=== PATIENT | female | born 1990 | race Hispanic/Latino ===

== ENCOUNTER 2018-05-08 19:15 | Emergency (ER) | payer OTHER ==
[2018-05-08] MEDS ORDERED: KETOROLAC 30 MG/ML INJ ONE (19:53)
[2018-05-08] MEDS ORDERED: NA CHLORIDE 0.9% 1,000 ML ONE (19:53)
[2018-05-08 20:04] LABS: Absolute Lymphocytes (CBC) 2.1 K/uL (0.7-4.9); Absolute Monocytes 0.3 K/uL (0.1-1.3); Absolute Neutrophil 8.1 K/uL (1.8-8.0); Basophils % 0.7 % (0-1.3); Eosinophils % 0.2 % (0-4.4); Hematocrit 37.6 % (36.0-45.0); Lymphocytes % 20.1 % (15.3-44.8); MCH 26.9 pg (27.0-35.0); MCV 81.8 fL (80-100); MPV 9.1 fL (7.6-11.3); Monocytes % 3.2 % (3.3-12.3)
[2018-05-08 20:14] LABS: Urine Blood TRACE (NEG); Urine Glucose NEGATIVE (NEG); Urine Protein TRACE (NEG); Urine pH 5.5 (5.0-7.0)
[2018-05-08 20:14] LABS: Urine Bacteria <20 /HPF (<20); Urine Culture Reflex Order NOT NEEDED; Urine RBC <5 /HPF (NONE SEEN)
[2018-05-08 20:18] LABS: ALT/SGPT 27 U/L (12-78); AST/SGOT 18 U/L (15-37); Albumin 4.2 g/dL (3.4-5.0); Alkaline Phosphatase 73 U/L (45-117); Amylase Level 41 U/L (25-115); BUN Blood Urea Nitrogen 14 mg/dL (7-18); Bicarbonate 25 mmol/L (21-32); Bilirubin Direct 0.1 mg/dL (0-0.2); Bilirubin Total 0.6 mg/dL (0.2-1.0); Glucose Level 83 mg/dL (74-106); Lipase 92 U/L (73-393); Potassium 3.4 mmol/L (3.5-5.1); Protein, Total 7.8 g/dL (6.4-8.2); Sodium Level 141 mmol/L (136-145)
[2018-05-08] MEDS ORDERED: MORPHINE 4 MG/ML SYR ONE (20:29)
[2018-05-08] MEDS ORDERED: ONDANSETRON 4 MG/2 ML VIAL ONE (20:29)
[2018-05-08] MEDS ORDERED: POTASSIUM CL SA 10 MEQ TAB PO ONE (20:30)
--- NOTE | 2018-05-08 20:54 | RAD REPORT ---
EXAM DESCRIPTION: CT - Abdomen Pelvis W Contrast - 05/08/2018 8:37 pm CLINICAL HISTORY: Abdominal pain COMPARISON: CT September 2014 TECHNIQUE: Biphasic, helical CT imaging of the abdomen and pelvis was performed following 100 ml non -ionic IV contrast. Oral contrast was given. All CT scans are performed using dose optimization technique as appropriate and may include automated exposure control or mA/KV adjustment according to patient size. FINDINGS: No suspicious findings in the lung bases. No pericardial thickening or effusion. The liver, spleen, and pancreas show no suspicious findings. Gallbladder and biliary tree are also wi thout suspicious finding. Symmetric renal function is seen with no hydronephrosis or suspicious renal mass. No dilated bowel loops or bowel wall thickening. No appendicitis findings. A few small mesenteric lym ph nodes are present. No free air, free fluid or inflammatory stranding. No hernia, mass or bulky ly mphadenopathy. The urinary bladder is without significant finding. No adrenal abnormality. Uterus and ovaries show no suspicious findings. No suspicious bony findings. IMPRESSION: Contrast enhanced CT abdomen and pelvis showing no significant or suspicious finding.
--- NOTE | 2018-05-08 21:21 | ER ---
Nurse's Notes [facility] Name: Kathrine Yang Age: 27 yrs Sex: Female : 1990 Arrival Date: 05/08/2018 Time: 19:18 Bed 19 Private MD: Diagnosis: Acute back pain. Abdominal pain Presentation: 05/08 19:22 Presenting complaint: Patient states: "I have lower stomach pain, more so on the left aj1 side and it goes into my back for the past couple days." Also reports headache and nausea. Denies vomiting, diarrhea, fever, dysuria. Reports urinary frequency. States that she was seen in the ER at [facility] and diagnosed with ovarian cysts, she followed up with her SALES MANAGER [place] but he told her they were small and there isn't anything to do about them. Reports pain is worse when she is urinating. Transition of care: patient was not received from another setting of care. Onset of symptoms was May 06, 2018. Risk Assessment: Do you want to hurt yourself or someone else? Patient reports no desire to harm self or others. Initial Sepsis Screen: Does the patient meet any 2 criteria? No. Patient's initial sepsis screen is negative. Does the patient have a suspected source of infection? No. Patient's initial sepsis screen is negative. Care prior to arrival: None. 19:22 Method Of Arrival: Ambulatory aj1 19:22 Acuity: TATA 3 aj1 Triage Assessment: 19:25 General: Appears in no apparent distress. comfortable, Behavior is calm, cooperative, aj1 appropriate for age. Pain: Complains of pain in left low back, left lower quadrant and left inguinal area Pain does not radiate. Pain currently is 8 out of 10 on a pain scale. Quality of pain is described as stabbing, Pain began 2-3 days ago. Aggravated by urination. EENT: No signs and/or symptoms were reported regarding the EENT system. Neuro: Level of Consciousness is awake, alert, obeys commands, Oriented to person, place, time, situation. Cardiovascular: Patient's skin is warm and dry. Respiratory: Airway is patent Respiratory effort is even, unlabored, Respiratory pattern is regular, symmetrical. GI: Abdomen is non-distended. : Reports urgency, urinary frequency. Derm: Skin is pink, warm \\T\\ dry. normal. Musculoskeletal: Circulation, motion, and sensation intact. 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 - Social history:: Smoking status: Patient/guardian denies using tobacco. - Ebola Screening: : Patient denies travel to an Ebola-affected area in the 21 days before illness onset. Screenin:14 Abuse screen: Denies threats or abuse. Nutritional screening: No deficits noted. tl2 Tuberculosis screening: No symptoms or risk factors identified. Fall Risk None identified. Assessment: 20:23 Reassessment: Patient appears in no apparent distress at this time. No changes from tl2 previously documented assessment. Patient and/or family updated on plan of care and expected duration. Pain level reassessed. Patient is alert, oriented x 3, equal unlabored respirations, skin warm/dry/pink. Awaiting CT. 21:35 GI: Bowel sounds present X 4 quads. Abd is soft and non tender X 4 quads. Abdomen is tl1 tender to palpation in suprapubic area and left lower quadrant and left inguinal area. Vital Signs: 19:25 BP 128 / 80; Pulse 88; Resp 18; Temp 98.0(O); Pulse Ox 100% on R/A; Weight 86.18 kg aj1 (R); Height 5 ft. 3 in. (160.02 cm) (R); Pain 8/10; 20:21 BP 121 / 72; Pulse 70; Resp 18; Pulse Ox 100% on R/A; tl2 21:14 BP 131 / 83; Pulse 77; Resp 18; Pulse Ox 100% on R/A; tl2 19:25 Body Mass Index 33.66 (86.18 kg, 160.02 cm) aj1 ED Course: 19:18 Patient arrived in ED. ds1 19:25 Triage completed. aj1 19:25 Arm band placed on Patient placed in an exam room. aj1 19:31 Mohit Faria MD is Attending Physician. pkl 19:55 Delmis Riley RN is Primary Nurse. tl1 19:55 No provider procedures requiring assistance completed. Inserted saline lock: 20 gauge tl1 in right antecubital area, using aseptic technique. Blood collected. 20:37 CT Abd/Pelvis - W/Contrast In Process Unspecified. EDMS 21:15 Patient has correct armband on for positive identification. Placed in gown. Bed in low tl2 position. Call light in reach. Side rails up X 1. Adult w/ patient. 21:35 IV discontinued, intact, bleeding controlled, No redness/swelling at site. Pressure tl1 dressing applied. Administered Medications: 20:01 Drug: TORadol 30 mg Route: IVP; Infused Over: 2 mins; Site: right antecubital; tl1 21:36 Follow up: Response: No adverse reaction; Marked relief of symptoms; Pain is decreased tl1 20:02 Drug: NS 0.9% 1000 ml Route: IV; Rate: 1000 ml; Site: right antecubital; tl1 21:37 Follow up: IV Status: Completed infusion tl1 20:45 Drug: K-Dur 20 mEq Route: PO; tl1 21:36 Follow up: Response: No adverse reaction; No change in condition tl1 20:45 Drug: morphine 2 mg Route: IVP; Infused Over: 2 mins; Site: right antecubital; tl1 21:36 Follow up: Response: No adverse reaction; Marked relief of symptoms; Pain is decreased tl1 20:45 Drug: Zofran 4 mg Route: IVP; Infused Over: 2 mins; Site: right antecubital; tl1 21:36 Follow up: Response: No adverse reaction; Marked relief of symptoms tl1 Outcome: 21:20 Discharge ordered by . juan 21:34 Discharged to home ambulatory, with family. tl1 21:34 Condition: stable 21:34 Discharge instructions given to patient, Instructed on discharge instructions, follow up and referral plans. medication usage, Demonstrated understanding of instructions, follow-up care, medications, Prescriptions given X 1. 21:39 Patient left the ED. tl1 Signatures: Dispatcher [employer] EDMS Minda Rosenthal RN RN aj1 Mohit Faria MD MD pkl [place], Demi ds1 Delmis Riley RN RN tl1 Mary Jo Lancaster RN RN tl2 Corrections: (The following items were deleted from the chart) 19:28 19:22 Presenting complaint: Patient states: "I have lower stomach pain, more so on the aj1 left side and it goes into my back for the past couple days." Also reports headache and nausea. Denies vomiting, diarrhea, fever, dysuria. Reports urinary frequency. aj1
--- NOTE | 2018-05-08 21:21 | EDPHYS ---
Physician Documentation [facility] Name: Kathrine Yang Age: 27 yrs Sex: Female : 1990 Arrival Date: 05/08/2018 Time: 19:18 Bed 19 Private MD: ED Physician Mohit Faria HPI: 05/08 19:45 This 27 yrs old Female presents to ER via Ambulatory with complaints of pkl Abdominal Pain, Back Pain. 19:45 The patient presents with pain that is acute. The symptoms are located in the left pkl flank. Onset: The symptoms/episode began/occurred 3 day(s) ago. The pain radiates to the left lower quadrant. Associated signs and symptoms: The patient has no apparent associated signs or symptoms. The patient has experienced similar episodes in the past, a few times. 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 - Social history:: Smoking status: Patient/guardian denies using tobacco. - Ebola Screening: : Patient denies travel to an Ebola-affected area in the 21 days before illness onset. ROS: 19:45 Eyes: Negative for injury, pain, redness, and discharge, ENT: Negative for injury, pkl pain, and discharge, Neck: Negative for injury, pain, and swelling, Cardiovascular: Negative for chest pain, palpitations, and edema, Respiratory: Negative for shortness of breath, cough, wheezing, and pleuritic chest pain. 19:45 Abdomen/GI: Positive for abdominal pain, of the left lower quadrant. 19:45 Back: Positive for flank pain, on the left. 19:45 : Positive for urinary frequency, burning with urination. 19:45 MS/extremity: Negative for acute changes. 19:45 Skin: Negative for rash. 19:45 Neuro: Negative for altered mental status. Exam: 19:45 Head/Face: Normocephalic, atraumatic. Eyes: Pupils equal round and reactive to light, pkl extra-ocular motions intact. Lids and lashes normal. Conjunctiva and sclera are non-icteric and not injected. Cornea within normal limits. Periorbital areas with no swelling, redness, or edema. ENT: Nares patent. No nasal discharge, no septal abnormalities noted. Tympanic membranes are normal and external auditory canals are clear. Oropharynx with no redness, swelling, or masses, exudates, or evidence of obstruction, uvula midline. Mucous membranes moist. Neck: Trachea midline, no thyromegaly or masses palpated, and no cervical lymphadenopathy. Supple, full range of motion without nuchal rigidity, or vertebral point tenderness. No Meningismus. Chest/axilla: Normal chest wall appearance and motion. Nontender with no deformity. No lesions are appreciated. Cardiovascular: Regular rate and rhythm with a normal S1 and S2. No gallops, murmurs, or rubs. Normal PMI, no JVD. No pulse deficits. Respiratory: Lungs have equal breath sounds bilaterally, clear to auscultation and percussion. No rales, rhonchi or wheezes noted. No increased work of breathing, no retractions or nasal flaring. Abdomen/GI: Soft, non-tender, with normal bowel sounds. No distension or tympany. No guarding or rebound. No evidence of tenderness throughout. 19:45 Back: pain, that is moderate, of the left flank. 19:45 : Exam negative for acute changes. 19:45 Musculoskeletal/extremity: Exam is negative for acute changes. 19:45 Skin: Exam negative for rash. 19:45 Neuro: Orientation: is normal, Mentation: is normal, Cranial nerves: grossly normal, Motor: is normal. Vital Signs: 19:25 BP 128 / 80; Pulse 88; Resp 18; Temp 98.0(O); Pulse Ox 100% on R/A; Weight 86.18 kg aj1 (R); Height 5 ft. 3 in. (160.02 cm) (R); Pain 8/10; 20:21 BP 121 / 72; Pulse 70; Resp 18; Pulse Ox 100% on R/A; tl2 21:14 BP 131 / 83; Pulse 77; Resp 18; Pulse Ox 100% on R/A; tl2 19:25 Body Mass Index 33.66 (86.18 kg, 160.02 cm) [facility] MDM: 19:31 Patient medically screened. pk 21:19 Data reviewed: vital signs, nurses notes, lab test result(s), radiologic studies, CT pkl scan. 05/08 19:42 Order name: Urine Dipstick--Ancillary (enter results); Complete Time: 20: eb 05/08 19:42 Order name: Urine --Ancillary (enter results); Complete Time: 20: eb 05/08 19:45 Order name: Amylase, Serum; Complete Time: 20:26 pkl 05/08 19:45 Order name: Basic Metabolic Panel; Complete Time: 20:26 pkl 05/08 19:45 Order name: CBC with Diff; Complete Time: 20:26 pkl 05/08 19:45 Order name: Creatinine for Radiology; Complete Time: 20:26 pkl 05/08 19:45 Order name: Hepatic Function; Complete Time: 20:26 pkl 05/08 19:45 Order name: Lipase; Complete Time: 20:26 pkl 05/08 19:45 Order name: Urine Microscopic Only; Complete Time: 20:26 pkl 05/08 20:23 Order name: CT Abd/Pelvis - W/Contrast; Complete Time: 21:16 tl1 05/08 19:45 Order name: IV Saline Lock; Complete Time: 19:49 pkl 05/08 19:45 Order name: Labs collected and sent; Complete Time: 19:49 pkl 05/08 19:45 Order name: Urine Dipstick-Ancillary (obtain specimen); Complete Time: 19:45 pkl Administered Medications: 20:01 Drug: TORadol 30 mg Route: IVP; Infused Over: 2 mins; Site: right antecubital; tl1 21:36 Follow up: Response: No adverse reaction; Marked relief of symptoms; Pain is decreased tl1 20:02 Drug: NS 0.9% 1000 ml Route: IV; Rate: 1000 ml; Site: right antecubital; tl1 21:37 Follow up: IV Status: Completed infusion tl1 20:45 Drug: K-Dur 20 mEq Route: PO; tl1 21:36 Follow up: Response: No adverse reaction; No change in condition tl1 20:45 Drug: morphine 2 mg Route: IVP; Infused Over: 2 mins; Site: right antecubital; tl1 21:36 Follow up: Response: No adverse reaction; Marked relief of symptoms; Pain is decreased tl1 20:45 Drug: Zofran 4 mg Route: IVP; Infused Over: 2 mins; Site: right antecubital; tl1 21:36 Follow up: Response: No adverse reaction; Marked relief of symptoms tl1 Disposition: 05/08/18 21:20 Discharged to Home. Impression: Acute back pain. Abdominal pain. - Condition is Stable. - Prescriptions for Ultram 50 mg Oral Tablet - take 1 tablet by ORAL route every 8 hours As needed; 20 tablet. - Medication Reconciliation Form, Thank You Letter, Antibiotic Education, Prescription Opioid Use form. - Follow up: Private Physician; When: 2 - 3 days; Reason: Re-evaluation by your physician. - Problem is new. - Symptoms have improved. Signatures: Dispatcher [employer] EDMinda Canseco RN RN aj1 Mohit Faria MD MD pkl Delmis Riley RN RN tl1 Corrections: (The following items were deleted from the chart) 21:39 21:20 05/08/2018 21:20 Discharged to Home. Impression: Acute back pain. Abdominal pain. tl1 Condition is Stable. Forms are Medication Reconciliation Form, Thank You Letter, Antibiotic Education, Prescription Opioid Use. Follow up: Private Physician; When: 2 - 3 days; Reason: Re-evaluation by your physician. Problem is new. Symptoms have improved. pkl
[2018-05-08 21:43] VITALS: TEMP 98; O2SAT 100
[2018-05-08 21:45] VITALS: BP 131/83
== END 2018-05-08 21:39 | disposition home or self-care (01) ==
LOC: ER 19:15
DX: M54.9 Dorsalgia, unspecified (principal)
CPT/HCPCS: 36415; 74177; 80048; 80076; 81003; 81015; 81025; 82150; 83690; 85025; 96361; 96374; 96375; 99284; J2405; J7030; Q9967

== ENCOUNTER 2018-06-26 03:15 | Emergency (ER) | payer OTHER ==
[2018-06-26] MEDS ORDERED: ONDANSETRON 4 MG/2 ML VIAL ONE (03:50)
[2018-06-26] MEDS ORDERED: FAMOTIDINE 20 MG/2 ML VIAL IV ONE (03:50)
[2018-06-26 04:00] LABS: Urine Blood TRACE (NEG); Urine Glucose NEGATIVE (NEG); Urine Protein NEGATIVE (NEG); Urine Specific Gravity >1.030 (1.005-1.030); Urine pH 6.5 (5.0-7.0)
[2018-06-26 04:03] LABS: Absolute Lymphocytes (CBC) 2.3 K/uL (0.7-4.9); Absolute Monocytes 0.4 K/uL (0.1-1.3); Basophils % 0.8 % (0-1.3); Eosinophils % 1.4 % (0-4.4); Hematocrit 35.8 % (36.0-45.0); MCH 27.7 pg (27.0-35.0); MCV 82.5 fL (80-100); MPV 8.9 fL (7.6-11.3); Monocytes % 4.3 % (3.3-12.3); RBC Red Blood Cell Count 4.34 M/uL (3.86-4.86)
[2018-06-26 04:23] LABS: ALT/SGPT 29 U/L (12-78); AST/SGOT 21 U/L (15-37); Albumin 3.7 g/dL (3.4-5.0); Alkaline Phosphatase 70 U/L (45-117); BUN Blood Urea Nitrogen 16 mg/dL (7-18); Bicarbonate 27 mmol/L (21-32); Bilirubin Direct 0.1 mg/dL (0-0.2); Bilirubin Total 0.5 mg/dL (0.2-1.0); Glucose Level 100 mg/dL (74-106); Lipase 141 U/L (73-393); Potassium 3.4 mmol/L (3.5-5.1); Protein, Total 7.2 g/dL (6.4-8.2); Sodium Level 140 mmol/L (136-145)
[2018-06-26] MEDS ORDERED: SUCRALFATE 1GM/10ML UCUP ONE (04:52)
[2018-06-26 05:51] LABS: Urine Bacteria <20 /HPF (<20); Urine Culture Reflex Order NOT NEEDED; Urine RBC <5 /HPF (NONE SEEN)
--- NOTE | 2018-06-26 05:55 | ER ---
Nurse's Notes [facility] Name: Kathrine Yang Age: 27 yrs Sex: Female : 1990 Arrival Date: 06/26/2018 Time: 03:17 Bed 5 Private MD: Diagnosis: Epigastric pain Presentation: 06/26 03:24 Presenting complaint: Patient states: Complaining of epigastric pain, nausea and ea vomiting x 1. Pain started at about 2 AM. Transition of care: patient was not received from another setting of care. Onset of symptoms was June 26, 2018. Risk Assessment: Do you want to hurt yourself or someone else? Patient reports no desire to harm self or others. Initial Sepsis Screen: Does the patient meet any 2 criteria? No. Patient's initial sepsis screen is negative. Does the patient have a suspected source of infection? No. Patient's initial sepsis screen is negative. Care prior to arrival: None. 03:24 Method Of Arrival: Ambulatory ea 03:24 Acuity: TATA 3 ea Triage Assessment: 03:28 General: Appears uncomfortable, Behavior is calm, cooperative, appropriate for age. ea Pain: Complains of pain in epigastric area. GI: Reports nausea, vomiting. 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 - Social history:: Smoking status: Patient/guardian denies using tobacco. - Ebola Screening: : No symptoms or risks identified at this time. Screenin:33 Abuse screen: Denies threats or abuse. Nutritional screening: No deficits noted. ea Tuberculosis screening: No symptoms or risk factors identified. Fall Risk None identified. Assessment: 03:33 General: Appears uncomfortable, Behavior is calm, cooperative, appropriate for age. ea Pain: Complains of pain in abdomen and epigastric area Pain currently is 8 out of 10 on a pain scale. Quality of pain is described as aching. Neuro: Level of Consciousness is awake, alert, obeys commands, Oriented to person, place, time, situation. Cardiovascular: Patient's skin is warm and dry. Respiratory: Airway is patent Respiratory effort is even, unlabored, Respiratory pattern is regular, symmetrical, Breath sounds are clear bilaterally. GI: Bowel sounds present X 4 quads. Abdomen is tender to palpation in right upper quadrant. :. : Urine is clear. Derm: Skin is pink, warm \T\ dry. 04:15 Reassessment: Patient and/or family updated on plan of care and expected duration. Pain ea level reassessed. Patient is alert, oriented x 3, equal unlabored respirations, skin warm/dry/pink. 05:21 Reassessment: Patient and/or family updated on plan of care and expected duration. Pain ea level reassessed. Patient is alert, oriented x 3, equal unlabored respirations, skin warm/dry/pink. 06:14 Reassessment: Patient and/or family updated on plan of care and expected duration. Pain ea level reassessed. Patient is alert, oriented x 3, equal unlabored respirations, skin warm/dry/pink. Discharge instructions given to patient, verbalized the understanding of instruction. Vital Signs: 03:29 BP 126 / 81; Pulse 74; Resp 18; Temp 98.9; Pulse Ox 99% on R/A; Weight 81.65 kg; Height ea 5 ft. 3 in. (160.02 cm); Pain 8/10; 04:45 BP 120 / 78; Pulse 70; Resp 18; Pulse Ox 98% on R/A; ea 05:30 BP 118 / 68; Pulse 67; Resp 18; Pulse Ox 98% on R/A; ea 06:17 BP 122 / 70; Pulse 68; Resp 18; Temp 98(O); Pulse Ox 99% on R/A; Pain 5/10; ea 03:29 Body Mass Index 31.89 (81.65 kg, 160.02 cm) ea ED Course: 03:17 Patient arrived in ED. ds1 03:20 Austin Cain MD is Attending Physician. gs 03:24 Maggy Lux RN is Primary Nurse. ea 03:26 Triage completed. ea 03:30 Urine collected: clean catch specimen, clear. lp1 03:33 Arm band placed on right wrist. ea 03:33 Patient has correct armband on for positive identification. Bed in low position. Call ea light in reach. Side rails up X2. 03:44 Inserted saline lock: 20 gauge in right antecubital area, using aseptic technique. lp1 Blood collected. 03:45 Inserted saline lock: 20 gauge in left antecubital area, using aseptic technique. ea 06:15 No provider procedures requiring assistance completed. IV discontinued, intact, ea bleeding controlled, No redness/swelling at site. Pressure dressing applied. Administered Medications: 03:58 Drug: Pepcid 20 mg Route: IVP; Site: left antecubital; ea 04:37 Follow up: Response: No adverse reaction ea 03:59 Drug: Zofran 4 mg Route: IVP; Site: left antecubital; ea 04:36 Follow up: Response: No adverse reaction; Marked relief of symptoms ea 05:20 Drug: CarafATE 1 grams Route: PO; ea 06:18 Follow up: Response: No adverse reaction; Pain is decreased ea Outcome: 05:54 Discharge ordered by . gs 06:17 Condition: improved ea 06:17 Discharge instructions given to patient, Instructed on discharge instructions, follow up and referral plans. Demonstrated understanding of instructions, follow-up care, medications, Prescriptions given X 1. 06:19 Discharged to home ambulatory, with family. ea 06:20 Patient left the ED. ea Signatures: Chen Alcantar ds1 Sue Collins RN RN lp1 Maggy Lux RN RN Austin Peralta MD MD
--- NOTE | 2018-06-26 05:55 | EDPHYS ---
Physician Documentation [facility] Name: Kathrine Yang Age: 27 yrs Sex: Female : 1990 Arrival Date: 06/26/2018 Time: 03:17 Bed 5 Private MD: ED Physician Austin Cain HPI: 06/26 05:58 This 27 yrs old Female presents to ER via Ambulatory with complaints of gs Abdominal Pain. 05:58 The patient presents with abdominal pain in the epigastric area. Onset: The gs symptoms/episode began/occurred acutely, just prior to arrival. The symptoms do not radiate. Associated signs and symptoms: Pertinent positives: nausea and vomiting. The symptoms are described as burning, sharp. Modifying factors: The symptoms are alleviated by nothing, the symptoms are aggravated by nothing. Severity of pain: At its worst the pain was moderate in the emergency department the pain has improved markedly. The patient has not experienced similar symptoms in the past. 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 - Social history:: Smoking status: Patient/guardian denies using tobacco. - Ebola Screening: : No symptoms or risks identified at this time. ROS: 05:58 All other systems are negative. gs Exam: 05:58 Head/Face: Normocephalic, atraumatic. Eyes: Pupils equal round and reactive to light, gs extra-ocular motions intact. Lids and lashes normal. Conjunctiva and sclera are non-icteric and not injected. Cornea within normal limits. Periorbital areas with no swelling, redness, or edema. ENT: Nares patent. No nasal discharge, no septal abnormalities noted. Tympanic membranes are normal and external auditory canals are clear. Oropharynx with no redness, swelling, or masses, exudates, or evidence of obstruction, uvula midline. Mucous membranes moist. Neck: Trachea midline, no thyromegaly or masses palpated, and no cervical lymphadenopathy. Supple, full range of motion without nuchal rigidity, or vertebral point tenderness. No Meningismus. Chest/axilla: Normal chest wall appearance and motion. Nontender with no deformity. No lesions are appreciated. Cardiovascular: Regular rate and rhythm with a normal S1 and S2. No gallops, murmurs, or rubs. Normal PMI, no JVD. No pulse deficits. Respiratory: Lungs have equal breath sounds bilaterally, clear to auscultation and percussion. No rales, rhonchi or wheezes noted. No increased work of breathing, no retractions or nasal flaring. Back: No spinal tenderness. No costovertebral tenderness. Full range of motion. Skin: Warm, dry with normal turgor. Normal color with no rashes, no lesions, and no evidence of cellulitis. MS/ Extremity: Pulses equal, no cyanosis. Neurovascular intact. Full, normal range of motion. Neuro: Awake and alert, GCS 15, oriented to person, place, time, and situation. Cranial nerves II-XII grossly intact. Motor strength 5/5 in all extremities. Sensory grossly intact. Cerebellar exam normal. Normal gait. 05:58 Constitutional: The patient appears alert, awake, uncomfortable. 05:58 Abdomen/GI: Palpation: mild abdominal tenderness, in the epigastric area. Vital Signs: 03:29 BP 126 / 81; Pulse 74; Resp 18; Temp 98.9; Pulse Ox 99% on R/A; Weight 81.65 kg; Height ea 5 ft. 3 in. (160.02 cm); Pain 8/10; 04:45 BP 120 / 78; Pulse 70; Resp 18; Pulse Ox 98% on R/A; ea 05:30 BP 118 / 68; Pulse 67; Resp 18; Pulse Ox 98% on R/A; ea 06:17 BP 122 / 70; Pulse 68; Resp 18; Temp 98(O); Pulse Ox 99% on R/A; Pain 5/10; ea 03:29 Body Mass Index 31.89 (81.65 kg, 160.02 cm) ea MDM: 03:52 Patient medically screened. 05:58 Differential diagnosis: gastritis, gastroesophageal reflux disease, non-specific abd gs pain, pancreatitis. Data reviewed: vital signs, nurses notes. Response to treatment: the patient's symptoms have resolved after treatment, and as a result, I will discharge patient. 06/26 03:36 Order name: Basic Metabolic Panel 06/26 03:36 Order name: CBC with Diff; Complete Time: 04:29 06/26 03:36 Order name: Hepatic Function 06/26 03:36 Order name: Lipase; Complete Time: 04:29 06/26 03:36 Order name: Urine Microscopic Only; Complete Time: 06:00 06/26 03:36 Order name: Basic Metabolic Panel; Complete Time: 04:29 [facility] 06/26 03:36 Order name: Liver (Hepatic) Function; Complete Time: 04:29 [facility] 06/26 03:43 Order name: Urine Dipstick--Ancillary (enter results) nv 06/26 03:43 Order name: Urine --Ancillary (enter results) nv 06/26 03:43 Order name: Urine Dipstick-Ancillary; Complete Time: 04:29 [facility] 06/26 03:43 Order name: Urine --Ancillary; Complete Time: 04:29 [facility] 06/26 03:36 Order name: IV Saline Lock; Complete Time: 03:47 06/26 03:36 Order name: Labs collected and sent; Complete Time: 03:47 06/26 03:36 Order name: Urine Dipstick-Ancillary (obtain specimen); Complete Time: 03:37 06/26 03:36 Order name: Urine Test (obtain specimen); Complete Time: 03:37 gs Administered Medications: 03:58 Drug: Pepcid 20 mg Route: IVP; Site: left antecubital; ea 04:37 Follow up: Response: No adverse reaction ea 03:59 Drug: Zofran 4 mg Route: IVP; Site: left antecubital; ea 04:36 Follow up: Response: No adverse reaction; Marked relief of symptoms ea 05:20 Drug: CarafATE 1 grams Route: PO; ea 06:18 Follow up: Response: No adverse reaction; Pain is decreased ea Disposition: 06/26/18 05:54 Discharged to Home. Impression: Epigastric pain. - Condition is Stable. - Discharge Instructions: Abdominal Pain, Adult. - Prescriptions for Pepcid 20 mg Oral Tablet - take 1 tablet by ORAL route every 12 hours for 10 days; 20 tablet. - Work release form, Medication Reconciliation Form, Thank You Letter, Antibiotic Education, Prescription Opioid Use form. - Follow up: Private Physician; When: 2 - 3 days; Reason: Re-evaluation by your physician. Signatures: Dispatcher [employer] [facility] Maggy Lux, RN RN Austin Peralta MD MD gs Corrections: (The following items were deleted from the chart) 06:20 05:54 06/26/2018 05:54 Discharged to Home. Impression: Epigastric pain. Condition is ea Stable. Forms are Medication Reconciliation Form, Thank You Letter, Antibiotic Education, Prescription Opioid Use. Follow up: Private Physician; When: 2 - 3 days; Reason: Re-evaluation by your physician. gs
[2018-06-26 06:41] VITALS: BP 122/70; TEMP 98; O2SAT 99
== END 2018-06-26 06:20 | disposition home or self-care (01) ==
LOC: ER 03:15
DX: R10.13 Epigastric pain (principal)
CPT/HCPCS: 36415; 80048; 80076; 81003; 81015; 81025; 83690; 85025; 96374; 96375; 99284; J2405

== ENCOUNTER 2018-07-30 11:40 | Day surgery (SDC) | payer OTHER ==
[2018-07-30] MEDS ORDERED: CEFOXITIN/SWI 1gm 1 GM/10 ML SYR ONE (11:41)
[2018-07-30] MEDS: Ringers Lactate 1,000 ML IV ONE ×2 (11:50→12:17)
[2018-07-30 11:51] LABS: Absolute Lymphocytes (CBC) 2.3 K/uL (0.7-4.9); Absolute Monocytes 0.3 K/uL (0.1-1.3); Absolute Neutrophil 5.7 K/uL (1.8-8.0); Basophils % 0.8 % (0-1.3); Eosinophils % 0.8 % (0-4.4); Hematocrit 39.3 % (36.0-45.0); MCH 27.8 pg (27.0-35.0); MCV 83.2 fL (80-100); MPV 9.2 fL (7.6-11.3); Monocytes % 3.4 % (3.3-12.3); RBC Red Blood Cell Count 4.72 M/uL (3.86-4.86)
[2018-07-30 11:52] LABS: Specific Gravity >= 1.030 (1.005-1.030)
[2018-07-30] MEDS ORDERED: FENTANYL CITR 100 MCG/2 ML ONE ×2 (11:57→12:40)
[2018-07-30] MEDS ORDERED: PROPOFOL 200 MG/20 ML VIAL IV ONE (11:57)
[2018-07-30] MEDS ORDERED: MIDAZOLAM HCL 2 MG/2 ML INJ ONE (11:57)
[2018-07-30] MEDS ORDERED: ROCURONIUM 50 MG/5 ML VIAL IV ONE (11:57)
[2018-07-30] MEDS ORDERED: LIDOCAINE 1% MPF 2 ML AMPULE ONE (11:58)
[2018-07-30 12:09] LABS: ALT/SGPT 53 U/L (12-78); AST/SGOT 30 U/L (15-37); Albumin 3.9 g/dL (3.4-5.0); Alkaline Phosphatase 82 U/L (45-117); Amylase Level 50 U/L (25-115); BUN Blood Urea Nitrogen 9 mg/dL (7-18); Bicarbonate 27 mmol/L (21-32); Bilirubin Direct 0.1 mg/dL (0-0.2); Bilirubin Total 0.6 mg/dL (0.2-1.0); Glucose Level 98 mg/dL (74-106); Lipase 129 U/L (73-393); Potassium 3.9 mmol/L (3.5-5.1); Protein, Total 7.8 g/dL (6.4-8.2); Sodium Level 140 mmol/L (136-145)
[2018-07-30] MEDS ORDERED: DEXAMETHASONE 10 MG/ML VIAL ONE (12:36)
[2018-07-30] MEDS ORDERED: NEOSTIGMINE 1 MG/ML -5 ML SYRINGE ONE (13:02)
[2018-07-30] MEDS ORDERED: GLYCOPYRROLATE 0.2 MG/ML SYR ONE (13:02)
--- NOTE | 2018-07-30 13:16 | P.BOP ---
Preoperative diagnosis: acute cholecystitis, RUQ pain, symptomatic cholelithiasis Postoperative diagnosis: same Primary procedure: Laparoscopic cholecystectomy Estimated blood loss: <10cc Specimen: gb Findings: as above Complications: None Transferred to: Recovery Room Condition: Good
[2018-07-30] MEDS: MEPERIDINE HCL 50 MG/ML AMP ONE ×5 (13:17→13:51)
[2018-07-30] MEDS ORDERED: Ringers Lactate 1,000 ML IV ONE (13:52)
[2018-07-30] MEDS: MIDAZOLAM HCL 2 MG/2 ML INJ ONE ×2 (13:58→14:15)
[2018-07-30] MEDS: FENTANYL CITR 100 MCG/2 ML ONE ×3 (14:09→14:25)
[2018-07-30] MEDS ORDERED: CODEINE 30MG/APAP 300MG TAB ONE (15:15)
[2018-07-30 16:44] VITALS: TEMP 98.5
[2018-07-30 16:47] VITALS: BP 118/53; O2SAT 97
--- NOTE | 2018-07-31 00:53 | OP ---
Date of Procedure: 07/30/2018 Surgeon: Josh Dixon MD Preoperative Diagnoses: Acute cholecystitis, right upper quadrant pain, and symptomatic cholelithias is. Postoperative Diagnoses: Acute cholecystitis, right upper quadrant pain, and symptomatic cholelithia sis. Procedure: Laparoscopic cholecystectomy. Specimen: Gallbladder. Anesthesia: General plus local. Complications: None. Indications: This is the case of a 27-year-old patient, comes to us with above diagnosis. Fully exp lained the benefits, alternatives, and risks of laparoscopic, possible open cholecystectomy which inc lude but are not limited to infection, bleeding, damage to adjacent structures, anesthesia complicati on, choledocholithiasis, bile leak, pancreatitis, CA, and even . She also understands this may not relieve any symptoms, she might need more than one surgical intervention. She understood and sig zak a consent. Description Of Procedure: The patient was brought to the operating room and placed in a position. A nesthesia was done without complication. Abdominal area was prepped and draped in usual sterile fash ion. Marcaine 0.5% was injected for local anesthetic, followed by sharp incision of the skin in the infraumbilical region. The incision was carried down to fascia, which was opened under direct vision . The peritoneum was encountered, opened under direct vision. Vicryl #1 was placed inside the fasci a. Malik trocar was carefully introduced. Pneumoperitoneum was obtained. After that, I placed 2 m ore trocars, 5 mm each one of them, in the right upper quadrant under direct visualization. The gall bladder looked inflamed and distended, so we had to put an Endo needle under direct visualization int o the fundus of the gallbladder, and aspirated the gallbladder. It was removed under direct visualiz ation. A grasper was placed in the fundus of the gallbladder, another grasper in the infundibulum, r etracted the gallbladder in the inferolateral fashion exposing the triangle of Calot, obtaining criti barbara view of safety. The cystic duct and cystic artery were clearly isolated free circumferentially a nd a connection between those and the gallbladder was clearly identified. I proceeded to ligate thos e by using at least 3 clips proximal, 1 clip distal, ligation in middle. The same was done with the cystic artery. No bile leak. No bleeding. The gallbladder was removed from the liver using Bovie c auterizer and removed from abdominal cavity using an EndoCatch through the umbilical incision. The a corrie was inspected once again. Gallbladder fossa was intact with no bleeding, no bile leak. Clips we re intact. At that moment, I proceeded to remove the trocars under direct vision, deflated pneumoper itoneum, and closed the fascia with #1 Vicryl, irrigated subcutaneous tissue, closed that with 3-0 ch romic, and skin in subcuticular fashion with 3-0 chromic and Steri-Strip on top. Sponge count and in strument counts were correct. The patient tolerated the procedure well. The patient was sent to [facility] in stable condition. DIAMOND/YOANDY Voice ID: [id number] Report ID: [id number]
--- NOTE | 2018-07-31 00:59 | DS ---
Date of Discharge: 07/30/2018 Diagnoses: Acute cholecystitis, right upper quadrant pain, and symptomatic cholelithiasis. Procedure: Laparoscopic cholecystectomy. Disposition: Home. Activity: As tolerated. No heavy lifting. Followup: Follow up in my office in 1 week. Call for appointment on [phone]. Keep the area dry fo r 48 hours, then may shower. Keep Steri-Strip intact. Medications: See orders. DIAMOND/YOANDY Voice ID: [id number] Report ID: [id number]
== END 2018-07-30 16:41 | disposition home or self-care (01) ==
LOC: OR 11:40
PROVIDERS: ATTEND Surgery
PROC: 0FT44ZZ Resection of Gallbladder, Percutaneous Endoscopic Approach (ICD-10-PCS; principal; 2018-07-30 13:30)
DX: K80.12 Calculus of gallbladder with acute and chronic cholecystitis without obstruction (principal); Z83.3 Family history of diabetes mellitus; Z82.49 Family history of ischemic heart disease and other diseases of the circulatory system
CPT/HCPCS: 36415; 80048; 80076; 81025; 82150; 83690; 85025; 88304; J1100; J2001; J2175; J2250; J2710; J3010

== ENCOUNTER 2019-09-03 03:49 | Emergency (ER) | payer OTHER, SELFPAY ==
[2019-09-03] MEDS ORDERED: NA CHLORIDE 0.9% 1,000 ML ONE ×2 (04:22→07:40)
[2019-09-03] MEDS ORDERED: ONDANSETRON 4 MG/2 ML VIAL ONE (04:22)
[2019-09-03 04:47] LABS: Absolute Lymphocytes (CBC) 1.8 K/uL (0.7-4.9); Basophils % 0.4 % (0-1.3); Hematocrit 39.9 % (36.0-45.0); Lymphocytes % 14.6 % (15.3-44.8); MPV 9.1 fL (7.6-11.3); RBC Red Blood Cell Count 4.83 M/uL (3.86-4.86)
[2019-09-03 05:09] LABS: Albumin 4.2 g/dL (3.4-5.0); Bilirubin Direct 0.1 mg/dL (0-0.2); Bilirubin Total 0.5 mg/dL (0.2-1.0); Potassium 3.6 mmol/L (3.5-5.1); Protein, Total 8.3 g/dL (6.4-8.2)
[2019-09-03] MEDS ORDERED: METOCLOPRAMIDE 10 MG/2mL INJ ONE (05:47)
[2019-09-03] MEDS ORDERED: PROMETHAZINE 25 MG/ML VIAL ONE (07:40)
[2019-09-03] MEDS ORDERED: KETOROLAC 30 MG/ML INJ ONE (07:40)
--- NOTE | 2019-09-03 08:23 | RAD REPORT ---
EXAM DESCRIPTION: CT - Abdomen Pelvis W Contrast - 09/03/2019 8:06 am CLINICAL HISTORY: Abdominal pain COMPARISON: 2017 TECHNIQUE: Computed axial tomography of the abdomen pelvis was obtained. 100 cc Isovue-300 was admin istered intravenously. Oral contrast was not requested which limits evaluation of bowel. All CT scans are performed using dose optimization technique as appropriate and may include automated exposure control or mA/KV adjustment according to patient size. FINDINGS: Fatty liver. Cholecystectomy Spleen, pancreas, adrenal and kidneys appear unremarkable. There is no evidence of diverticulitis. Normal appendix The wall of a loop of jejunum within the left pelvis is mildly thickened A small umbilical hernia IMPRESSION: Mild thickening of the wall of a loop of jejunum within the left pelvis may indicate an enteritis
--- NOTE | 2019-09-03 09:36 | EDPHYS ---
Physician Documentation [facility] Name: Kathrine Yang Age: 28 yrs Sex: Female : 1990 Arrival Date: 09/03/2019 Time: 03:52 Bed 14 Private MD: ED Physician Quinn Armenta HPI: 09/03 04:51 This 28 yrs old Female presents to ER via Ambulatory with complaints of tw4 Vomiting/Diarrhea. 04:51 The patient presents to the emergency department with nausea, vomiting, diarrhea. tw4 Onset: The symptoms/episode began/occurred just prior to arrival, 2 hour(s) ago. Possible causes: unknown. The symptoms are aggravated by nothing. The symptoms are alleviated by nothing. Associated signs and symptoms: Pertinent positives: abdominal pain. Severity of symptoms: At their worst the symptoms were moderate in the emergency department the symptoms are unchanged. The patient has not experienced similar symptoms in the past. 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 - Social history:: Smoking status: Patient/guardian denies using tobacco. - Ebola Screening: : No symptoms or risks identified at this time. ROS: 04:51 Constitutional: Negative for fever, chills, and weight loss, Eyes: Negative for injury, tw4 pain, redness, and discharge, Cardiovascular: Negative for chest pain, palpitations, and edema, Respiratory: Negative for shortness of breath, cough, wheezing, and pleuritic chest pain, Back: Negative for injury and pain, MS/Extremity: Negative for injury and deformity, Skin: Negative for injury, rash, and discoloration, Neuro: Negative for headache, weakness, numbness, tingling, and seizure. 04:51 Abdomen/GI: Positive for abdominal pain, nausea and vomiting, nausea, vomiting, and diarrhea, nausea, vomiting, diarrhea, Negative for abdominal distension, anorexia, black/tarry stool, rectal pain, rectal bleeding, bowel incontinence. Exam: 04:51 Constitutional: This is a well developed, well nourished patient who is awake, alert, tw4 and in no acute distress. Head/Face: Normocephalic, atraumatic. Chest/axilla: Normal chest wall appearance and motion. Nontender with no deformity. No lesions are appreciated. Cardiovascular: Regular rate and rhythm with a normal S1 and S2. No gallops, murmurs, or rubs. Normal PMI, no JVD. No pulse deficits. Respiratory: Lungs have equal breath sounds bilaterally, clear to auscultation and percussion. No rales, rhonchi or wheezes noted. No increased work of breathing, no retractions or nasal flaring. MS/ Extremity: Pulses equal, no cyanosis. Neurovascular intact. Full, normal range of motion. Neuro: Awake and alert, GCS 15, oriented to person, place, time, and situation. Cranial nerves II-XII grossly intact. Motor strength 5/5 in all extremities. Sensory grossly intact. Cerebellar exam normal. Normal gait. 04:51 Abdomen/GI: Inspection: abdomen appears normal, Bowel sounds: diminished, Palpation: moderate abdominal tenderness, in the epigastric area. Vital Signs: 04:12 BP 129 / 92; Pulse 99; Resp 16 S; Pulse Ox 100% on R/A; Weight 90.72 kg (R); Height 5 bb ft. 3 in. (160.02 cm) (R); Pain 8/10; 04:15 Temp 99.9(O); bb 05:23 BP 124 / 77; Pulse 82; Resp 15 S; Pulse Ox 97% on R/A; cc3 06:30 BP 118 / 48; Pulse 82; Resp 16 S; Pulse Ox 99% on R/A; Pain 6/10; cc3 07:27 BP 113 / 68; Pulse 84; Resp 15; Pulse Ox 100% on R/A; Pain 7/10; hb 09:00 BP 126 / 72; Pulse 77; Resp 15; Pulse Ox 100% on R/A; Pain 3/10; hb 04:12 Body Mass Index 35.43 (90.72 kg, 160.02 cm) bb MDM: 04:17 Patient medically screened. tw4 07:32 Data reviewed: vital signs, nurses notes, lab test result(s), radiologic studies. kdr Counseling: I had a detailed discussion with the patient and/or guardian regarding: the historical points, exam findings, and any diagnostic results supporting the discharge/admit diagnosis, lab results, radiology results. ED course: The patient states that her pain and nausea are unchanged from when she arrived. Her abdomen is soft, diffusely tender but more focal to left U/L . 09/03 04:44 Order name: Basic Metabolic Panel; Complete Time: 05:58 EDMS 09/03 04:44 Order name: Liver (Hepatic) Function; Complete Time: 05:58 EDMS 09/03 04:44 Order name: Lipase; Complete Time: 05:58 EDMS 09/03 04:44 Order name: Creatinine (Radiology Only); Complete Time: 05:58 EDMS 09/03 04:44 Order name: CBC with Automated Diff; Complete Time: 05:58 EDMS 09/03 05:08 Order name: Urine Dipstick--Ancillary (enter results) cm6 09/03 05:08 Order name: Urine --Ancillary (enter results) 6 09/03 07:30 Order name: CT Abd/Pelvis - IV Contrast Only; Complete Time: 09:33 kdr 09/03 04:15 Order name: IV Saline Lock; Complete Time: 04:27 tw4 09/03 04:15 Order name: Labs collected and sent; Complete Time: 04:28 tw4 09/03 04:15 Order name: Urine Dipstick-Ancillary (obtain specimen); Complete Time: 05:07 tw4 09/03 04:15 Order name: Urine Test (obtain specimen); Complete Time: 05:06 tw4 Administered Medications: 04:20 Drug: Zofran 4 mg Route: IVP; Site: right antecubital; cc3 05:40 Follow up: Response: No adverse reaction; Nausea unchanged cc3 04:20 Drug: NS 0.9% 1000 ml Route: IV; Rate: 1 bolus; Site: right antecubital; cc3 05:45 Drug: Reglan 10 mg Route: IVP; Site: right antecubital; cc3 06:00 Follow up: Response: No adverse reaction; Pain is decreased; Nausea is decreased; cc3 Vomiting decreased 07:46 Drug: Phenergan 12.5 mg Route: IVP; Site: right antecubital; hb 08:15 Follow up: Response: No adverse reaction; Nausea is decreased hb 07:46 Drug: TORadol - Ketorolac 15 mg Route: IVP; Site: right antecubital; hb 08:55 Follow up: Response: No adverse reaction; Pain is decreased hb 07:46 Drug: NS 0.9% 1000 ml Route: IV; Rate: 1 bolus; Site: right antecubital; hb 09:00 Follow up: Response: No adverse reaction; IV Status: Completed infusion; IV Intake: hb 1000ml Disposition: 09/03/19 09:34 Discharged to Home. Impression: Nausea and vomiting, Diarrhea, unspecified. - Condition is Stable. - Discharge Instructions: Diarrhea, Adult, Nausea and Vomiting, Adult. - Prescriptions for Zofran 4 mg Oral Tablet - take 1 tablet by ORAL route every 12 hours As needed; 6 tablet. Lomotil 2.5- 0.025 mg Oral Tablet - take 2 tablet by ORAL route once daily As needed; 20 tablet. Tramadol 50 mg Oral Tablet - take 1 tablet by ORAL route every 8 hours as needed; 12 tablet. - Medication Reconciliation Form, Thank You Letter form. - Follow up: Private Physician; When: Upon discharge from the Emergency Department; Reason: Recheck today's complaints, Continuance of care. - Problem is new. - Symptoms have improved. Signatures: Dispatcher [employer] EDMS Quinn Armenta MD MD [facility] Areli Fleming RN RN Tova Miranda RN RN Audie Ba MD MD tw4 Roberta Macias cc3 Corrections: (The following items were deleted from the chart) 05:49 05:33 BASIC METABOLIC PANEL+C.LAB.BRZ ordered. EDOH EDMS 05:49 05:33 CBC+H.LAB.BRZ ordered. EDOH EDMS 05:49 05:33 Creatinine for Radiology+C.LAB.BRZ ordered. EDOH EDMS 05:49 05:33 HEPATIC FUNCTION+C.LAB.BRZ ordered. EDOH EDMS 05:49 05:33 LIPASE+C.LAB.BRZ ordered. EDOH EDMS 09:52 09:34 09/03/2019 09:34 Discharged to Home. Impression: Nausea and vomiting; Diarrhea, hb unspecified. Condition is Stable. Discharge Instructions: Diarrhea, Adult, Nausea and Vomiting, Adult. Prescriptions for Zofran 4 mg Oral Tablet - take 1 tablet by ORAL route every 12 hours As needed; 6 tablet, Lomotil 2.5-0.025 mg Oral Tablet - take 2 tablet by ORAL route once daily As needed; 20 tablet. and Forms are Medication Reconciliation Form, Thank You Letter, Antibiotic Education, Prescription Opioid Use. Follow up: Private Physician; When: Upon discharge from the Emergency Department; Reason: Recheck today's complaints, Continuance of care. Problem is new. Symptoms have improved. kdr
--- NOTE | 2019-09-03 09:36 | ER ---
Nurse's Notes [facility] Name: Kathrine Yang Age: 28 yrs Sex: Female : 1990 Arrival Date: 09/03/2019 Time: 03:52 Bed 14 Private MD: Diagnosis: Nausea and vomiting;Diarrhea, unspecified Presentation: 09/03 04:11 Presenting complaint: Patient states: she is having abdominal pain, vomiting and bb diarrhea since 0100 this morning pt states pain is intermittent and currently is 8/10. Transition of care: patient was not received from another setting of care. Onset of symptoms was September 03, 2019. Risk Assessment: Do you want to hurt yourself or someone else? Patient reports no desire to harm self or others. Initial Sepsis Screen: Does the patient meet any 2 criteria? No. Patient's initial sepsis screen is negative. Does the patient have a suspected source of infection? No. Patient's initial sepsis screen is negative. Care prior to arrival: None. 04:11 Method Of Arrival: Ambulatory bb 04:11 Acuity: TATA 3 bb Triage Assessment: 04:19 General: Appears in no apparent distress. uncomfortable. GI: Reports lower abdominal cc3 pain, upper abdominal pain, diarrhea, vomiting. 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 - Social history:: Smoking status: Patient/guardian denies using tobacco. - Ebola Screening: : No symptoms or risks identified at this time. Screenin:19 Abuse screen: Denies threats or abuse. Denies injuries from another. Nutritional cc3 screening: No deficits noted. Tuberculosis screening: No symptoms or risk factors identified. Fall Risk Ambulatory Aid- None/Bed Rest/Nurse Assist (0 pts). Gait- Normal/Bed Rest/Wheelchair (0 pts) Mental Status- Oriented to own ability (0 pts). Assessment: 04:19 General: Appears in no apparent distress. uncomfortable, Behavior is calm, cooperative, cc3 appropriate for age. Pain: Complains of pain in epigastric area Pain currently is 8 out of 10 on a pain scale. Quality of pain is described as aching. Neuro: Level of Consciousness is awake, alert, obeys commands, Oriented to person, place, time, situation, Appropriate for age. Cardiovascular: Denies chest pain, Heart tones S1 S2 present Capillary refill < 3 seconds in bilateral fingers Patient's skin is warm and dry. Respiratory: Airway is patent Respiratory effort is even, unlabored, Respiratory pattern is regular, symmetrical, Breath sounds are clear bilaterally. GI: Abdomen is round non-distended, Bowel sounds present X 4 quads. Abd is soft and non tender X 4 quads. : No signs and/or symptoms were reported regarding the genitourinary system. EENT: No signs and/or symptoms were reported regarding the EENT system. Derm: Skin is intact, is healthy with good turgor, Skin is pink, warm \T\ dry. normal. Musculoskeletal: Circulation, motion, and sensation intact. Range of motion: intact in all extremities. 05:40 Reassessment: Patient appears in no apparent distress at this time. Patient and/or cc3 family updated on plan of care and expected duration. Pain level reassessed. Patient is alert, oriented x 3, equal unlabored respirations, skin warm/dry/pink. Patient still complains of abdominal pain and nausea, Dr. Armenta informed. 06:49 Reassessment: Patient appears in no apparent distress at this time. Patient and/or cc3 family updated on plan of care and expected duration. Pain level reassessed. Patient is alert, oriented x 3, equal unlabored respirations, skin warm/dry/pink. Patient denies pain at this time. Patient states feeling better. Patient states symptoms have improved. 07:27 Reassessment: Patient appears in no apparent distress at this time. Patient and/or hb family updated on plan of care and expected duration. Pain level reassessed. Patient is alert, oriented x 3, equal unlabored respirations, skin warm/dry/pink. 07:51 Reassessment: Pt to CT. hb 08:13 Reassessment: Pt returned from CT. hb 08:30 Reassessment: Patient appears in no apparent distress at this time. Patient and/or hb family updated on plan of care and expected duration. Pain level reassessed. Patient is alert, oriented x 3, equal unlabored respirations, skin warm/dry/pink. 09:25 Reassessment: Patient appears in no apparent distress at this time. Patient and/or hb family updated on plan of care and expected duration. Pain level reassessed. Patient is alert, oriented x 3, equal unlabored respirations, skin warm/dry/pink. Vital Signs: 04:12 BP 129 / 92; Pulse 99; Resp 16 S; Pulse Ox 100% on R/A; Weight 90.72 kg (R); Height 5 bb ft. 3 in. (160.02 cm) (R); Pain 8/10; 04:15 Temp 99.9(O); bb 05:23 BP 124 / 77; Pulse 82; Resp 15 S; Pulse Ox 97% on R/A; cc3 06:30 BP 118 / 48; Pulse 82; Resp 16 S; Pulse Ox 99% on R/A; Pain 6/10; cc3 07:27 BP 113 / 68; Pulse 84; Resp 15; Pulse Ox 100% on R/A; Pain 7/10; hb 09:00 BP 126 / 72; Pulse 77; Resp 15; Pulse Ox 100% on R/A; Pain 3/10; hb 04:12 Body Mass Index 35.43 (90.72 kg, 160.02 cm) bb ED Course: 03:52 Patient arrived in ED. ag3 04:12 Triage completed. bb 04:12 Arm band placed on Patient placed in an exam room, on a stretcher, on pulse oximetry. bb 04:14 Audie Fairbanks MD is Attending Physician. tw4 04:19 Roberta Macias is Primary Nurse. cc3 04:19 Patient has correct armband on for positive identification. Placed in gown. Bed in low cc3 position. Call light in reach. Side rails up X2. Pulse ox on. NIBP on. 04:20 Inserted saline lock: 20 gauge in right antecubital area, using aseptic technique. cc3 Blood collected. inserted by technology lead Frankie. 07:00 Report given to LIMA Bernardo. cc3 07:06 Attending Physician role handed off by Audie Fairbanks MD kdr 07:06 Quinn Armenta MD is Attending Physician. kdr 07:15 Tova Miranda RN is Primary Nurse. hb 08:08 CT Abd/Pelvis - IV Contrast Only In Process Unspecified. EDMS 09:49 No provider procedures requiring assistance completed. IV discontinued, intact, hb bleeding controlled, No redness/swelling at site. Pressure dressing applied. Administered Medications: 04:20 Drug: Zofran 4 mg Route: IVP; Site: right antecubital; cc3 05:40 Follow up: Response: No adverse reaction; Nausea unchanged cc3 04:20 Drug: NS 0.9% 1000 ml Route: IV; Rate: 1 bolus; Site: right antecubital; cc3 05:45 Drug: Reglan 10 mg Route: IVP; Site: right antecubital; cc3 06:00 Follow up: Response: No adverse reaction; Pain is decreased; Nausea is decreased; cc3 Vomiting decreased 07:46 Drug: Phenergan 12.5 mg Route: IVP; Site: right antecubital; hb 08:15 Follow up: Response: No adverse reaction; Nausea is decreased hb 07:46 Drug: TORadol - Ketorolac 15 mg Route: IVP; Site: right antecubital; hb 08:55 Follow up: Response: No adverse reaction; Pain is decreased hb 07:46 Drug: NS 0.9% 1000 ml Route: IV; Rate: 1 bolus; Site: right antecubital; hb 09:00 Follow up: Response: No adverse reaction; IV Status: Completed infusion; IV Intake: hb 1000ml Intake: 09:00 IV: 1000ml; Total: 1000ml. hb Outcome: 09:34 Discharge ordered by MD. kdr 09:49 Discharged to home ambulatory. hb 09:49 Condition: stable 09:49 Discharge instructions given to patient, Instructed on discharge instructions, follow up and referral plans. medication usage, Demonstrated understanding of instructions, follow-up care, medications, Prescriptions given X 3. 09:52 Patient left the ED. hb Signatures: Dispatcher [employer] EDMS Quinn Armenta MD MD kdr Ballard, Brenda, RN RN Tova Miranda RN RN Audie Fairbanks MD MD tw4 Roberta Macias cc3 Desiree Thacker ag3 Corrections: (The following items were deleted from the chart) 05:12 04:19 Pain: Denies pain. cc3 cc3 06:49 05:20 Reassessment: Patient appears in no apparent distress at this time. Patient cc3 and/or family updated on plan of care and expected duration. Pain level reassessed. Patient is alert, oriented x 3, equal unlabored respirations, skin warm/dry/pink. Patient still complains of abdominal pain and nausea, Dr. Armenta informed. cc3 07:45 07:27 BP 113 / 68; Pulse 84bpm; Resp 15bpm; Pulse Ox 100% RA; hb hb
[2019-09-03 10:02] VITALS: TEMP 99.9
[2019-09-03 10:06] VITALS: O2SAT 100
[2019-09-03 10:08] VITALS: BP 126/72
[2019-09-03 11:41] LABS: Urine Blood NEGATIVE (NEG); Urine Glucose NEGATIVE (NEG); Urine Protein TRACE (NEG); Urine Specific Gravity >1.030 (1.005-1.030); Urine pH 5.5 (5.0-7.0)
== END 2019-09-03 09:52 | disposition home or self-care (01) ==
LOC: ER 03:49
DX: R11.2 Nausea with vomiting, unspecified (principal); R19.7 Diarrhea, unspecified
CPT/HCPCS: 36415; 74177; 80048; 80076; 81003; 81025; 83690; 85025; 96361; 96374; 96375; 99284; J2405; J2550; J2765; J7030; Q9967

== ENCOUNTER 2021-03-18 05:38 | Emergency (ER) | payer SELFPAY ==
--- OUTSIDE RECORDS SUMMARY | 2021-03-18 05:42 | XMS REPORT | Continuity of Care Document ---
:1990 Author Organization [facility] t Address [address] [place] [address] Care Team Providers Name Role Phone Rigo Stoll DO Attending Clinician Simone Gamble Attending Clinician Doctor Unassigned, Name Attending Clinician Unavailable Problems This patient has no known problems. Allergies, Adverse Reactions, Alerts This patient has no known allergies or adverse reactions. Medications This patient has no known medications. Procedures This patient has no known procedures. Encounters Start End Encounter Admission Attending Care Care Encounter Source Date/Time Date/Time Type Type Clinicians Facility Department ID 2021-01-24 2021-01-24 Patient Jerman [facility] [id number] 00:00:00 00:00:00 Outreach [facility] [id number] Rigo [facility] [id number] PAVILLION [id number] 2020-07-12 2020-07-12 [facility] [id number] 00:00:00 00:00:00 Xochitl Nichols SOCIAL MEDIA MANAGER [id number] REGIONAL [id number] MATERNAL [id number] & CHILD [address] [place] [address] 2020-05-30 2020-05-30 [facility] [id number] 15:22:31 16:40:25 Visit Xochitl Nichols SOCIAL MEDIA MANAGER [id number] [facility] [id number] MATERNAL [id number] & CHILD [address] [place] [address] 2020-04-12 2020-04-12 Orders Doctor NORBERTO [id number] 00:00:00 00:00:00 Only Unassigned, MYA [id number] [facility] [id number] Results This patient has no known results.
[2021-03-18 06:20] LABS: Urine Blood 2+ (Negative); Urine Glucose Negative (Negative); Urine Protein Trace (Negative); Urine Specific Gravity >=1.030 (1.005-1.030); Urine pH 6.5 (5.0-7.0)
[2021-03-18 06:23] LABS: Urine Specific Gravity/Preg >1.030 (1.005-1.030)
[2021-03-18 06:52] LABS: Absolute Lymphocytes (CBC) 2.3 K/uL (0.7-4.9); Basophils % 1.3 % (0-1.3); Hematocrit 34.6 % (36.0-45.0); MPV 8.8 fL (7.6-11.3); RBC Red Blood Cell Count 4.21 M/uL (3.86-4.86)
[2021-03-18] MEDS ORDERED: CEFTRIAXONE 1000 MG/VIAL ONE (07:04)
[2021-03-18] MEDS ORDERED: NA CHLORIDE 0.9% 50 ML ONE (07:04)
[2021-03-18] MEDS ORDERED: KETOROLAC 30 MG/ML INJ ONE (07:04)
[2021-03-18] MEDS ORDERED: NA CHLORIDE 0.9% 1,000 ML ONE (07:04)
[2021-03-18 07:05] LABS: ALT/SGPT 73 U/L (12-78); AST/SGOT 45 U/L (15-37); Albumin 3.7 g/dL (3.4-5.0); Alkaline Phosphatase 96 U/L (45-117); BUN Blood Urea Nitrogen 10 mg/dL (7-18); Bicarbonate 26 mmol/L (21-32); Bilirubin Total 0.5 mg/dL (0.2-1.0); Glucose Level 116 mg/dL (74-106); Potassium 3.6 mmol/L (3.5-5.1); Protein, Total 7.4 g/dL (6.4-8.2); Sodium Level 142 mmol/L (136-145)
--- NOTE | 2021-03-18 07:34 | RAD REPORT ---
EXAM DESCRIPTION: CT - Stone Protocol - 03/18/2021 7:05 am CLINICAL HISTORY: Abdominal pain. Hematuria COMPARISON: 2018 TECHNIQUE: Computed axial tomography of the abdomen pelvis was obtained without oral or IV contrast. Lack of IV and oral contrast limits evaluation of solid organs, bowel, and vessels. Coronal reformat caroline images were obtained and reviewed. All CT scans are performed using dose optimization technique as appropriate and may include automated exposure control or mA/KV adjustment according to patient size. FINDINGS: A renal calculus is not seen. No hydronephrosis. A 3 millimeter calculus is present within the lower right pelvis..The right ureter is not clearly visualized in this location. A dilated right ureter is not seen. There is no bladder calculus. Cholecystectomy Fatty liver. Mild hepatomegaly Spleen, pancreas and adrenals appear grossly normal There is no evidence of diverticulitis. The appendix appears normal. No adnexal mass IMPRESSION: 3 millimeter calcification within the lower right pelvis probably represents a phleboli th. A nonobstructing distal ureteral calculus although possible is considered less likely. Fatty liver. Mild hepatomegaly
--- NOTE | 2021-03-18 07:45 | ER ---
Nurse's Notes [facility] Name: Kathrine Yang Age: 30 yrs Sex: Female : 1990 Arrival Date: 03/18/2021 Time: 05:43 Bed 16 Private MD: Diagnosis: Hematuria-3 mm right distal calculi, ureterolithiasis, no hydronephrosis;Dysuria;Low back pain Presentation: 03/18 06:03 Chief complaint: Patient states: blood in urine and pain to lower back since last night iw , denies pain with urination. Coronavirus screen: At this time, the client does not indicate any symptoms associated with coronavirus-19. Ebola Screen: Patient negative for fever greater than or equal to 101.5 degrees Fahrenheit, and additional compatible Ebola Virus Disease symptoms Patient denies exposure to infectious person. Patient denies travel to an Ebola-affected area in the 21 days before illness onset. No symptoms or risks identified at this time. Initial Sepsis Screen: Does the patient meet any 2 criteria? No. Patient's initial sepsis screen is negative. Does the patient have a suspected source of infection? No. Patient's initial sepsis screen is negative. Risk Assessment: Do you want to hurt yourself or someone else? Patient reports no desire to harm self or others. Onset of symptoms was March 18, 2021. 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 - Social history:: Smoking status: Patient denies any tobacco usage or history of. Screenin:02 Abuse screen: Denies threats or abuse. Nutritional screening: No deficits noted. jd3 Tuberculosis screening: No symptoms or risk factors identified. Fall Risk None identified. Assessment: 06:25 General: Appears uncomfortable, Behavior is calm, cooperative, appropriate for age. cr4 Pain: Complains of pain in right and left flank, pelvic region Pain does not radiate. Pain currently is 9 out of 10 on a pain scale. Quality of pain is described as aching, Pain began last night. Neuro: No deficits noted. Denies weakness dizziness, numbness headache. Cardiovascular: No deficits noted. Heart tones S1 S2 Capillary refill < 3 seconds Patient's skin is warm and dry. Respiratory: No deficits noted. GI: No deficits noted. : Reports urinary frequency, since yesterday hematuria. EENT: No deficits noted. Derm: No deficits noted. Musculoskeletal: No deficits noted. 07:39 Reassessment: Patient appears in no apparent distress at this time. Patient and/or jd3 family updated on plan of care and expected duration. Pain level reassessed. Patient is alert, oriented x 3, equal unlabored respirations, skin warm/dry/pink. pt reports continued pain. 09:03 Reassessment: Patient appears in no apparent distress at this time. Patient and/or jd3 family updated on plan of care and expected duration. Pain level reassessed. Patient is alert, oriented x 3, equal unlabored respirations, skin warm/dry/pink. Patient states feeling better. Patient states symptoms have improved. Vital Signs: 06:03 BP 127 / 92; Pulse 81; Resp 16; Temp 98.2; Pulse Ox 98% ; Weight 90.72 kg; Height 5 ft. iw 3 in. (160.02 cm); Pain 10/10; 07:39 BP 131 / 69; Pulse 76; Resp 17 S; Pulse Ox 98% on R/A; jd3 09:03 Pulse 75; Resp 16 S; Pulse Ox 99% on R/A; jd3 06:03 Body Mass Index 35.43 (90.72 kg, 160.02 cm) iw ED Course: 05:43 Patient arrived in ED. es 06:05 Triage completed. iw 06:05 Arm band placed on. iw 06:07 Tereso Navarro MD is Attending Physician. 7 06:21 Attending Physician role handed off by Tereso Navarro MD emily 06:21 Khadar Howard MD is Attending Physician. emily 06:25 Angie Angulo, LIMA is Primary Nurse. cr4 06:39 Patient has correct armband on for positive identification. Bed in low position. Call ad5 light in reach. Side rails up X 1. Head of bed. 06:40 No provider procedures requiring assistance completed. Initial lab(s) drawn, by me, ad5 sent to lab. Inserted saline lock: 20 gauge in left antecubital area, using aseptic technique. 07:05 CT Stone Protocol In Process Unspecified. EDMS 07:41 Mat Aquino MD is Referral Physician. emily 09:02 IV discontinued, intact, bleeding controlled, No redness/swelling at site. Pressure jd3 dressing applied. 09:03 Primary Nurse role handed off by Angie Angulo RN jd3 09:03 Joel Padilla RN is Primary Nurse. jd3 Administered Medications: 06:53 Drug: NS 0.9% 1000 ml Route: IV; Rate: 1 bolus; Site: left antecubital; ad5 07:50 Follow up: Response: No adverse reaction; IV Status: Completed infusion; IV Intake: jd3 1000ml 06:53 Drug: TORadol (ketorolac) 30 mg Route: IVP; Site: left antecubital; ad5 07:50 Follow up: Response: No adverse reaction jd3 06:54 Drug: Rocephin (cefTRIAXone) 1 grams Route: IV; Rate: per protocol; Site: left ad5 antecubital; 07:50 Follow up: Response: No adverse reaction; IV Status: Completed infusion jd3 07:34 Drug: morphine 2 mg Route: IVP; Site: left antecubital; jd3 08:30 Follow up: Response: No adverse reaction; RASS: Alert and Calm (0) jd3 07:34 Drug: Zofran (Ondansetron) 4 mg Route: IVP; Site: left antecubital; jd3 08:30 Follow up: Response: No adverse reaction jd3 Intake: 07:50 IV: 1000ml; Total: 1000ml. jd3 Outcome: 07:42 Discharge ordered by . emily 09:02 Discharged to home ambulatory, with family. jd3 09:02 Condition: stable 09:02 Discharge instructions given to patient, Instructed on discharge instructions, follow up and referral plans. medication usage, Demonstrated understanding of instructions, follow-up care, medications, Prescriptions given X 4. 09:03 Patient left the ED. jd3 Signatures: Dispatcher [employer] Khadar Munoz MD MD cha Salyer, Edna es Williams, Irene, RN RN Angie Angulo RN RN cr4 Joel Padilla RN RN jd3 Tereso Navarro MD MD mh7 Jason Raygoza
--- NOTE | 2021-03-18 07:45 | EDPHYS ---
Physician Documentation [facility] Name: Kathrine Yang Age: 30 yrs Sex: Female : 1990 Arrival Date: 03/18/2021 Time: 05:43 Bed 16 Private MD: Khadar Archer HPI: 03/18 06:33 This 30 yrs old Female presents to ER via Ambulatory with complaints of Blood emily in urine, Low Back Pain. 06:33 The patient presents with pain that is acute, and decreased range of motion. The emily symptoms are located in the left low back, left mid back, right mid back and right low back. The pain does not radiate. [employer]NICIAN: 06:05 LMP 03/15/2021 iw Historical: - Allergies: 06:05 No Known Allergies; iw - Home Meds: 06:05 None [Active]; iw - PMHx: 06:05 None; iw - PSHx: 06:05 Cholecystectomy; ; iw - Immunization history:: Adult Immunizations up to date, Client reports having NOT received the Covid vaccine. - Social history:: Smoking status: Patient denies any tobacco usage or history of. ROS: 06:33 Constitutional: Negative for fever, chills, and weight loss, Eyes: Negative for injury, emily pain, redness, and discharge, ENT: Negative for injury, pain, and discharge, Neck: Negative for injury, pain, and swelling, Cardiovascular: Negative for chest pain, palpitations, and edema, Respiratory: Negative for shortness of breath, cough, wheezing, and pleuritic chest pain, Abdomen/GI: Negative for abdominal pain, nausea, vomiting, diarrhea, and constipation, : Negative for injury, bleeding, discharge, and swelling, MS/Extremity: Negative for injury and deformity, Skin: Negative for injury, rash, and discoloration, Neuro: Negative for headache, weakness, numbness, tingling, and seizure, Psych: Negative for depression, anxiety, suicide ideation, homicidal ideation, and hallucinations, Allergy/Immunology: Negative for hives, rash, and allergies, Endocrine: Negative for neck swelling, polydipsia, polyuria, polyphagia, and marked weight changes, Hematologic/Lymphatic: Negative for swollen nodes, abnormal bleeding, and unusual bruising. 06:33 Back: Positive for decreased range of motion, pain at rest. Exam: 06:33 Constitutional: This is a well developed, well nourished patient who is awake, alert, emily and in no acute distress. Head/Face: Normocephalic, atraumatic. Eyes: Pupils equal round and reactive to light, extra-ocular motions intact. Lids and lashes normal. Conjunctiva and sclera are non-icteric and not injected. Cornea within normal limits. Periorbital areas with no swelling, redness, or edema. ENT: Nares patent. No nasal discharge, no septal abnormalities noted. Tympanic membranes are normal and external auditory canals are clear. Oropharynx with no redness, swelling, or masses, exudates, or evidence of obstruction, uvula midline. Mucous membranes moist. Neck: Trachea midline, no thyromegaly or masses palpated, and no cervical lymphadenopathy. Supple, full range of motion without nuchal rigidity, or vertebral point tenderness. No Meningismus. Chest/axilla: Normal chest wall appearance and motion. Nontender with no deformity. No lesions are appreciated. Cardiovascular: Regular rate and rhythm with a normal S1 and S2. No gallops, murmurs, or rubs. Normal PMI, no JVD. No pulse deficits. Respiratory: Lungs have equal breath sounds bilaterally, clear to auscultation and percussion. No rales, rhonchi or wheezes noted. No increased work of breathing, no retractions or nasal flaring. Back: No spinal tenderness. No costovertebral tenderness. Full range of motion. Skin: Warm, dry with normal turgor. Normal color with no rashes, no lesions, and no evidence of cellulitis. MS/ Extremity: Pulses equal, no cyanosis. Neurovascular intact. Full, normal range of motion. Neuro: Awake and alert, GCS 15, oriented to person, place, time, and situation. Cranial nerves II-XII grossly intact. Motor strength 5/5 in all extremities. Sensory grossly intact. Cerebellar exam normal. Normal gait. 06:33 Abdomen/GI: Inspection: abdomen appears normal, Bowel sounds: normal, Palpation: moderate abdominal tenderness, in the right lower quadrant and left lower quadrant, Liver: no appreciated palpable abnormalities, Hernia: not appreciated. Vital Signs: 06:03 BP 127 / 92; Pulse 81; Resp 16; Temp 98.2; Pulse Ox 98% ; Weight 90.72 kg; Height 5 ft. iw 3 in. (160.02 cm); Pain 10/10; 07:39 BP 131 / 69; Pulse 76; Resp 17 S; Pulse Ox 98% on R/A; jd3 09:03 Pulse 75; Resp 16 S; Pulse Ox 99% on R/A; jd3 06:03 Body Mass Index 35.43 (90.72 kg, 160.02 cm) iw MDM: 06:22 Patient medically screened. [facility] 06:35 Differential diagnosis: arthritis, strain, sciatica, UTI, chronic back pain. Data [facility] reviewed: vital signs, nurses notes, lab test result(s), radiologic studies, CT scan. Data interpreted: panel monitor: rate is 81 beats/min, rhythm is regular, Pulse oximetry: is not applicable for this patient encounter. Test interpretation: by ED physician or midlevel provider:. Counseling: I had a detailed discussion with the patient and/or guardian regarding: the historical points, exam findings, and any diagnostic results supporting the discharge/admit diagnosis, lab results, radiology results, the need for outpatient follow up, for definitive care, a family practitioner, a urologist. 03/18 06:20 Order name: Urine Dipstick-Ancillary; Complete Time: 06:27 EDMS 03/18 06:23 Order name: Urine --Ancillary (enter results) 03/18 06:23 Order name: Urine --Ancillary; Complete Time: 06:27 EDMS 03/18 06:29 Order name: CBC with Diff [facility] 03/18 06:29 Order name: Comprehensive Metabolic Panel; Complete Time: 07:21 [facility] 03/18 06:29 Order name: Urine Culture [facility] 03/18 06:29 Order name: CT Stone Protocol [facility] 03/18 06:29 Order name: CBC with Automated Diff; Complete Time: 07:21 EDMS Administered Medications: 06:53 Drug: NS 0.9% 1000 ml Route: IV; Rate: 1 bolus; Site: left antecubital; ad5 07:50 Follow up: Response: No adverse reaction; IV Status: Completed infusion; IV Intake: jd3 1000ml 06:53 Drug: TORadol (ketorolac) 30 mg Route: IVP; Site: left antecubital; ad5 07:50 Follow up: Response: No adverse reaction jd3 06:54 Drug: Rocephin (cefTRIAXone) 1 grams Route: IV; Rate: per protocol; Site: left ad5 antecubital; 07:50 Follow up: Response: No adverse reaction; IV Status: Completed infusion jd3 07:34 Drug: morphine 2 mg Route: IVP; Site: left antecubital; jd3 08:30 Follow up: Response: No adverse reaction; RASS: Alert and Calm (0) jd3 07:34 Drug: Zofran (Ondansetron) 4 mg Route: IVP; Site: left antecubital; jd3 08:30 Follow up: Response: No adverse reaction jd3 Disposition: 03/18/21 07:42 Discharged to Home. Impression: Hematuria - 3 mm right distal calculi, ureterolithiasis, no hydronephrosis, Dysuria, Low back pain. - Condition is Stable. - Discharge Instructions: Back Pain, Adult, Dysuria, Hematuria, Adult, Kidney Stones, Kidney Stones, [id number], Back Pain, Adult, [id number]. - Prescriptions for Cipro 500 mg Oral Tablet - take 1 tablet by ORAL route every 12 hours for 7 days; 14 tablet. Ibuprofen 600 mg Oral Tablet - take 1 tablet by ORAL route every 6 hours As needed take with food; 20 tablet. Tylenol- Codeine #3 300-30 mg Oral Tablet - take 2 tablets by ORAL route every 4-6 hours As needed; 20 tablet. Flomax 0.4 mg Oral Capsule, Sust. Release 24 hr - take 1 capsule by ORAL route once daily 1/2 hour following the same meal each day; 14 capsule. - Medication Reconciliation Form, Thank You Letter, Antibiotic Education, Prescription Opioid Use form. - Follow up: Private Physician; When: 2 - 3 days; Reason: Recheck today's complaints, Continuance of care, Re-evaluation by your physician. Follow up: Mat Aquino; When: 2 - 3 days; Reason: Recheck today's complaints, Re-evaluation by your physician. - Problem is new. - Symptoms have improved. Signatures: Dispatcher [employer] EDKhadar Bhardwaj MD MD cha Williams, Irene RN Joel Miguel RN RN jd3 Davidson, Andrea ad5 Corrections: (The following items were deleted from the chart) 09:03 07:42 03/18/2021 07:42 Discharged to Home. Impression: Hematuria - 3 mm right distal jd3 calculi, ureterolithiasis, no hydronephrosis; Dysuria; Low back pain. Condition is Stable. Discharge Instructions: Dysuria, Hematuria, Adult, Back Pain, Adult, Back Pain, Adult, [id number]. Prescriptions for Cipro 500 mg Oral Tablet - take 1 tablet by ORAL route every 12 hours for 7 days; 14 tablet, Pyridium 200 mg Oral Tablet - take 1 tablet by ORAL route every 8 hours for 3 days; 9 tablet, Ibuprofen 600 mg Oral Tablet - take 1 tablet by ORAL route every 6 hours As needed take with food; 20 tablet. and Forms are Medication Reconciliation Form, Thank You Letter, Antibiotic Education, Prescription Opioid Use. Follow up: Private Physician; When: 2 - 3 days; Reason: Recheck today's complaints, Continuance of care, Re-evaluation by your physician. Follow up: Mat Aquino; When: 2 - 3 days; Reason: Recheck today's complaints, Re-evaluation by your physician. Problem is new. Symptoms have improved. emily
[2021-03-18] MEDS ORDERED: MORPHINE 2 MG/ML SYR ONE (07:48)
[2021-03-18] MEDS ORDERED: ONDANSETRON 4 MG/2 ML VIAL ONE (07:49)
[2021-03-18 09:12] VITALS: TEMP 98.2
[2021-03-18 09:13] VITALS: BP 131/69
[2021-03-18 09:15] VITALS: O2SAT 99
== END 2021-03-18 09:03 | disposition home or self-care (01) ==
LOC: ER 05:38
DX: N20.1 Calculus of ureter (principal); R30.0 Dysuria
CPT/HCPCS: 36415; 74176; 76377; 80053; 81003; 81025; 85025; 87086; 87088; 96365; 96375; 99284; J2270; J2405; J7030

== ENCOUNTER 2021-11-20 03:43 | Inpatient (IN) | payer SELFPAY ==
--- OUTSIDE RECORDS SUMMARY | 2021-11-20 04:00 | XMS REPORT | Continuity of Care Document ---
:1990 Author Organization [facility] t Address Formerly [facility], 1928–[address] [place] [address] Care Team Providers Name Role Phone SHILPI LACKEY Primary Care Physician Unavailable Veena HAND ETCHER, F Attending Clinician VEENA F Attending Clinician Unavailable Waldo MANTILLA Attending Clinician Unavailable Therapy, Covid Infusion Attending Clinician Unavailable Waldo Mantilla MD Attending Clinician Kevin HAND ETCHER Attending Clinician ROY Attending Clinician Unavailable Dona AMATO, T Attending Clinician Unavailable GUNJAN Attending Clinician Unavailable Provider, Urgent Care Attending Clinician Unavailable Gunjan HAND ETCHER Attending Clinician Doctor Unassigned, Name Attending Clinician Unavailable Rigo Stoll DO Attending Clinician Cate KILLIAN, R Attending Clinician Simone ESPOSITO Attending Clinician Unavailable Visit, Nurse Attending Clinician Unavailable Nichole GOMEZ Attending Clinician Lab Attending Clinician Unavailable Tre Porras MD Attending Clinician Akinsipe WHCNP, C Attending Clinician Ultrasound Attending Clinician Unavailable Svitlana Medina MD Attending Clinician Beni Suarez MD Attending Clinician Deyvi AMATO Attending Clinician Unavailable EZEKIEL JARQUIN Attending Clinician Unavailable Ezekiel Jarquin MD Attending Clinician Tre PORRAS Admitting Clinician Unavailable EZEKIEL JARQUIN Admitting Clinician Unavailable Nichole GOMEZ Admitting Clinician Tre Porras MD Admitting Clinician Ezekiel Jarquin MD Admitting Clinician Payers Payer Name Policy Type Policy Number Effective Date Expiration Date Beni [employer] [id number] 2019 HEALTH PLAN MOM 00:00:00 [employer] [place] [id number] 2021 2021 00:00:00 00:00:00 Problems Condition Condition Condition Status Onset Resolution Last Treating Co mments Source Name Details Category Date Date Treatment Clinician Date COVID19 COVID-19 Disease Active Unive rs virus virus 8-08 ity of detected detected 00:00: [place] [facility] 37 weeks 37 weeks Disease Active Unive rs gestation gestation 6-19 ity of of of 00:00: [place] [facility] Diet Diet Disease Active Univers controlled controlled 4-23 it y of gestationa gestationa 00:[place] l diabetes l diabetes 00 Me dical mellitus mellitus Branch (GDM) in (GDM) in third third trimester trimester BMI BMI Disease Active 2019- Univers 37.0-37.9, 37.0-37.9, 3-06 it y of adult adult 00:00: [place] 00 [facility] Primigravi Primigravi Disease Active 2019- U nivers da in da in 2-17 ity of third third 00:00: [place] trimester trimester 00 [facility] Supervisio Supervisio Disease Active 2018-11 U nivers n of n of 1-22 it[place] of high[place]risk high[place] [facility] Nausea and Nausea and Disease Active 2018-11 U nivers vomiting vomiting 1-22 ity of during during 00:00: [place] 00 [facility] Herpes Herpes Disease Active 2018-11 Overview: Univer s infection infection -22 Formattin i ty of in in 00:00: g of this [place] 00 note [facility] might be Branch different from the original. Suppressi ve therapy Obesity in Obesity in Disease Active U nivers 5-07 ity of 00:00: [place] 00 Medical Branch Allergies, Adverse Reactions, Alerts Allergy Allergy Status Severity Reaction(s) Onset Inactive Treating Comm ents Source Name Type Date Date Clinician NO KNOWN Drug Active Univers ALLERGIE Class ity of [facility] Social History Social Habit Start Date Stop Date Quantity Comments Source ASSERTION 2019-08-21 [facility] 00:00:[address] [facility] Exposure to Yes [facility] SARS-CoV-2 [facility] (event) [place] Tobacco use and 2021-06-11 2021-06-11 Never used Universit y of exposure 00:00:00 00:00:[address] [facility] Alcohol intake 2021-06-11 2021-06-11 Ex-drinker [facility] 00:00:00 00:00:00 (finding) [facility] Sex Assigned At [birth year] [facility] y of 00:00:00 00:00:[address] [facility] Smoking Status Start Date Stop Date Source Never smoker [facility] Medications Ordered Filled Start Stop Current Ordering Indication Dosage Frequency Signature Comments Components Source Medication Medication Date Date Medication? Clinician (SIG) Name Name benzonatate 2020- No 100mg 100 mg, U nivers (TESSALON 06-12 Oral, ity of PERLES) 00:45: 23:37 ONCE, 1 [place] capsule 100 00 :00 dose, [facility] mg 06/11/21 at Branch 1945, Routine diphenhydrA 2020- No 25mg 25 mg, Uni vers MINE 06-12 Slow IV ity of (BENADRYL) 00:45: 23:36 Push, [place] injection 00 :00 ONCE, 1 Medical 25 mg dose, [facility] 06/11/21 at 1945, STAT metoclopram 2020- No 10mg 10 mg, Uni vers chris HCl 06-12 Slow IV ity of (REGLAN) 00:45: 23:36 Push, [place] injection 00 :00 ONCE, 1 Medical 10 mg dose, [facility] 06/11/21 at 1945, TORSTEN albuterol 2020- No 8{puff} 8 Puff, U nivers (VENTOLIN) 06-12 Inhalation it y of inhaler 8 00:30: 23:49 , ONCE, 1 [place] Puff 00 :00 dose, [facility] 06/11/21 at [place] 1930, TORSTEN casirivimab 2020- No [id number] 1200mg Univers -imdevimab 06-11 ity of (REGEN-COV 19:15: 19:35 [place] (EUA)) 00 :00 Medical 1,200 mg in Branch NaCl 0.9% (NS) 60 mL IV infusion casirivimab 2020- No [id number] 1200mg 1,200 mg, Univers -imdevimab 06-11 IV ity of (REGEN-COV 19:15: 19:35 Infusion, [place] (EUA)) 00 :00 ONCE, [facility] 1,200 mg in 06/11/21 at [facility] NaCl 0.9% 1415, For (NS) 60 mL 1 IV infusion dose
Ad drafter heating and ventilating as an IV infusion via pump or gravity over at least 60 minutes through an intravenou s line containing a sterile, in-line or add-on 0.2-micron polyethers ulfone (PES) filter.&nb sp;Stable 36 hours refrigerat ed; 4 hours at room temperatur e. &nbs p;
casirivimab 2020- No [id number] 1200mg Univers -imdevimab 06-11 ity of (REGEN-COV 19:15: 19:35 [place] (EUA)) 00 :00 Medical 1,200 mg in Branch NaCl 0.9% (NS) 60 mL IV infusion casirivimab 2020- No [id number] 1200mg 1,200 mg, Univers -imdevimab 06-11 IV ity of (REGEN-COV 19:15: 19:35 [place], [place] (EUA)) 00 :00 ONCE, [facility] 1,200 mg in 06/11/21 at [facility] NaCl 0.9% 1415, For (NS) 60 mL 1 IV infusion dose
Ad drafter heating and ventilating as an IV infusion via pump or gravity over at least 60 minutes through an intravenou s line containing a sterile, in-line or add-on 0.2-micron polyethers ulfone (PES) filter.&nb sp;Stable 36 hours refrigerat ed; 4 hours at room temperatur e. &nbs p;
ondansetron 2020-0 1- No 8mg 8 mg, Univ ers (ZOFRAN-ODT 8-08 08-08 Oral, ity of ) 16:45: 15:47 ONCE, 1 [place] disintegrat 00 :00 dose, [facility] tablet 06/11/21 at Bran ch 8 mg 1145, TORSTEN ondansetron 2020-0 Yes [id number] 4mg Take 1 Univers (ZOFRAN 8-08 tablet by ity of ODT) 4 mg 00:00: mouth [place] disintegrat 00 every 8 Medic al ing tablet (eight) Branch hours as needed for Nausea and Vomiting (N/V). ondansetron 2020-0 Yes [id number] 4mg Take 1 Univers (ZOFRAN 8-08 tablet by ity of ODT) 4 mg 00:00: mouth [place] disintegrat 00 every 8 Medic al ing tablet (eight) Branch hours as needed for Nausea and Vomiting (N/V). ondansetron 2020-0 Yes [id number] 4mg Take 1 Univers (ZOFRAN 8-08 tablet by ity of ODT) 4 mg 00:00: mouth [place] disintegrat 00 every 8 Medic al ing tablet (eight) Branch hours as needed for Nausea and Vomiting (N/V). benzonatate 2020-0 Yes [id number] 100mg Take 1 Univers 100 mg 8-08 capsule by ity of capsule 00:00: mouth 3 [place] 00 (three) Medical times Branch daily as needed for Cough. metoclopram 2020-0 Yes [id number] 10mg Take 1 Univers chris HCl 10 8-08 tablet by ity of mg tablet 00:00: mouth [place] 00 every 6 Medical (six) Branch hours as needed for Nausea and Vomiting (N/V). ondansetron 2020-0 Yes [id number] 4mg Take 1 Univers (ZOFRAN 8-08 tablet by ity of ODT) 4 mg 00:00: mouth [place] disintegrat 00 every 8 Medic al ing tablet (eight) Branch hours as needed for Nausea and Vomiting (N/V). benzonatate 2021-0 Yes [id number] 200mg Take 2 Univers 100 mg 8-06 capsules ity of capsule 00:00: [place] mouth 2 [place] 00 (two) Medical times Branch daily as needed for Cough. benzonatate 0 Yes [id number] 200mg Take 2 Univers 100 mg 8-06 capsules ity of capsule 00:00: [place] mouth 2 [place] 00 (two) Medical times Branch daily as needed for Cough. benzonatate 0 Yes [id number] 200mg Take 2 Univers 100 mg 8-06 capsules ity of capsule 00:00: [place] mouth 2 [place] 00 (two) Medical times Branch daily as needed for Cough. benzonatate 0 Yes [id number] 200mg Take 2 [facility] 100 mg 8-06 capsules ity of capsule 00:00: by mouth 2 [place] 00 (two) Medical times Branch daily as needed for Cough. benzonatate Yes [id number] 200mg Take 2 Univers 100 mg 8-06 capsules ity of capsule 00:00: [place] mouth 2 [place] 00 (two) Medical times Branch daily as needed for Cough. benzonatate 0 Yes [id number] 200mg Take 2 Univers 100 mg 8-06 capsules ity of capsule 00:00: [place] mouth 2 [place] 00 (two) Medical times Branch daily as needed for Cough. 2020-0 Yes [id number] 1{tbl} Take 1 Univers vitamin 6-23 tablet by ity of w/FA tablet 00:00: mouth [place] 00 daily. Medical Branch docusate 2020-0 Yes [id number] 240mg Take 1 U nivers calcium 240 6-23 capsule by it y of mg capsule 00:00: mouth once [place] 00 daily as Medical needed for Branch Constipati on. ferrous 2020-0 Yes [id number] 325mg Take 1 Un capri sulfate 325 6-23 tablet by ity of mg (65 mg 00:00: mouth 2 [place] iron) 00 (two) Medical tablet times Branch daily. ibuprofen 2020-0 Yes [id number] 600mg Take 1 Univers 600 mg 6-23 tablet by ity of tablet 00:00: mouth [place] 00 every 6 Medical (six) Branch hours as needed (Pain). Take with food or milk. ascorbic 2020-0 Yes [id number] 500mg Take 1 U nivers acid, 6-23 tablet by ity of vitamin C, 00:00: mouth [place] 500 mg 00 daily. Medical tablet Branch foLIC acid 2020-0 Yes [id number] 1mg Take 1 Univers 1 mg tablet 6-23 tablet by ity of 00:00: mouth [place] 00 daily. Medical Branch 2020-0 Yes [id number] 1{tbl} Take 1 Univers vitamin 6-23 tablet by ity of w/FA tablet 00:00: mouth [place] 00 daily. Medical Branch docusate 2020-0 Yes [id number] 240mg Take 1 U nivers calcium 240 6-23 capsule by it y of mg capsule 00:00: mouth once [place] 00 daily as Medical needed for Branch Constipati on. ferrous 2020-0 Yes [id number] 325mg Take 1 Un capri sulfate 325 6-23 tablet by ity of mg (65 mg 00:00: mouth 2 [place] iron) 00 (two) Medical tablet times Branch daily. ibuprofen 2020-0 Yes [id number] 600mg Take 1 Univers 600 mg 6-23 tablet by ity of tablet 00:00: mouth [place] 00 every 6 Medical (six) Branch hours as needed (Pain). Take with food or milk. ascorbic 2020-0 Yes [id number] 500mg Take 1 U nivers acid, 6-23 tablet by ity of vitamin C, 00:00: mouth [place] 500 mg 00 daily. Medical tablet Branch foLIC acid 2020-0 Yes [id number] 1mg Take 1 Univers 1 mg tablet 6-23 tablet by ity of 00:00: mouth [place] 00 daily. Medical Branch 2020-0 Yes [id number] 1{tbl} Take 1 Univers vitamin 6-23 tablet by ity of w/FA tablet 00:00: mouth [place] 00 daily. Medical Branch docusate 2020-0 Yes [id number] 240mg Take 1 U nivers calcium 240 6-23 capsule by it y of mg capsule 00:00: mouth once [place] 00 daily as Medical needed for Branch Constipati on. ferrous 2020-0 Yes [id number] 325mg Take 1 Un capri sulfate 325 6-23 tablet by ity of mg (65 mg 00:00: mouth 2 [place] iron) 00 (two) Medical tablet times Branch daily. ibuprofen 2020-0 Yes [id number] 600mg Take 1 Univers 600 mg 6-23 tablet by ity of tablet 00:00: mouth [place] 00 every 6 Medical (six) Branch hours as needed (Pain). Take with food or milk. ascorbic 2020-0 Yes [id number] 500mg Take 1 U nivers acid, 6-23 tablet by ity of vitamin C, 00:00: mouth [place] 500 mg 00 daily. Medical tablet Branch foLIC acid 2020-0 Yes [id number] 1mg Take 1 Univers 1 mg tablet 6-23 tablet by ity of 00:00: mouth [place] 00 daily. Medical Branch 2020-0 Yes [id number] 1{tbl} Take 1 Univers vitamin 6-23 tablet by ity of w/FA tablet 00:00: mouth [place] 00 daily. Medical Branch docusate 2020-0 Yes [id number] 240mg Take 1 U nivers calcium 240 6-23 capsule by it y of mg capsule 00:00: mouth once [place] 00 daily as Medical needed for Branch Constipati on. ferrous 2020-0 Yes [id number] 325mg Take 1 Un capri sulfate 325 6-23 tablet by ity of mg (65 mg 00:00: mouth 2 [place] iron) 00 (two) Medical tablet times Branch daily. ibuprofen 2020-0 Yes [id number] 600mg Take 1 Univers 600 mg 6-23 tablet by ity of tablet 00:00: mouth [place] 00 every 6 Medical (six) Branch hours as needed (Pain). Take with food or milk. ascorbic 2020-0 Yes [id number] 500mg Take 1 U nivers acid, 6-23 tablet by ity of vitamin C, 00:00: mouth [place] 500 mg 00 daily. Medical tablet Branch foLIC acid 2020-0 Yes [id number] 1mg Take 1 Univers 1 mg tablet 6-23 tablet by ity of 00:00: mouth [place] 00 daily. Medical Branch 2020-0 Yes [id number] 1{tbl} Take 1 Univers vitamin 6-23 tablet by ity of w/FA tablet 00:00: mouth [place] 00 daily. Medical Branch docusate 2020-0 Yes [id number] 240mg Take 1 U nivers calcium 240 6-23 capsule by it y of mg capsule 00:00: mouth once [place] 00 daily as Medical needed for Branch Constipati on. ferrous 2020-0 Yes [id number] 325mg Take 1 Un capri sulfate 325 6-23 tablet by ity of mg (65 mg 00:00: mouth 2 [place] iron) 00 (two) Medical tablet times Branch daily. ibuprofen 2020-0 Yes [id number] 600mg Take 1 Univers 600 mg 6-23 tablet by ity of tablet 00:00: mouth [place] 00 every 6 Medical (six) Branch hours as needed (Pain). Take with food or milk. ascorbic 2020-0 Yes [id number] 500mg Take 1 U nivers acid, 6-23 tablet by ity of vitamin C, 00:00: mouth [place] 500 mg 00 daily. Medical tablet Branch foLIC acid 2020-0 Yes [id number] 1mg Take 1 Univers 1 mg tablet 6-23 tablet by ity of 00:00: mouth [place] 00 daily. Medical Branch 2020-0 Yes [id number] 1{tbl} Take 1 Univers vitamin 6-23 tablet by ity of w/FA tablet 00:00: mouth [place] 00 daily. Medical Branch docusate 2020-0 Yes [id number] 240mg Take 1 U nivers calcium 240 6-23 capsule by it y of mg capsule 00:00: mouth once [place] 00 daily as Medical needed for Branch Constipati on. ferrous 2020-0 Yes [id number] 325mg Take 1 Un capri sulfate 325 6-23 tablet by ity of mg (65 mg 00:00: mouth 2 [place] iron) 00 (two) Medical tablet times Branch daily. ibuprofen 2020-0 Yes [id number] 600mg Take 1 Univers 600 mg 6-23 tablet by ity of tablet 00:00: mouth [place] 00 every 6 Medical (six) Branch hours as needed (Pain). Take with food or milk. ascorbic 2020-0 Yes [id number] 500mg Take 1 U nivers acid, 6-23 tablet by ity of vitamin C, 00:00: mouth [place] 500 mg 00 daily. Medical tablet Branch foLIC acid 2020-0 Yes [id number] 1mg Take 1 Univers 1 mg tablet 6-23 tablet by ity of 00:00: mouth [place] 00 daily. Medical Branch 2020-0 Yes [id number] 1{tbl} Take 1 Univers vitamin 6-23 tablet by ity of w/FA tablet 00:00: mouth [place] 00 daily. Medical Branch docusate 2020-0 Yes [id number] 240mg Take 1 U nivers calcium 240 6-23 capsule by it y of mg capsule 00:00: mouth once [place] 00 daily as Medical needed for Branch Constipati on. ferrous 2020-0 Yes [id number] 325mg Take 1 Un capri sulfate 325 6-23 tablet by ity of mg (65 mg 00:00: mouth 2 [place] iron) 00 (two) Medical tablet times Branch daily. ibuprofen 2020-0 Yes [id number] 600mg Take 1 Univers 600 mg 6-23 tablet by ity of tablet 00:00: mouth [place] 00 every 6 Medical (six) Branch hours as needed (Pain). Take with food or milk. ascorbic 2020-0 Yes [id number] 500mg Take 1 U nivers acid, 6-23 tablet by ity of vitamin C, 00:00: mouth [place] 500 mg 00 daily. Medical tablet Branch foLIC acid 2020-0 Yes [id number] 1mg Take 1 Univers 1 mg tablet 6-23 tablet by ity of 00:00: mouth [place] 00 daily. Medical Branch 2020-0 Yes [id number] 1{tbl} Take 1 Univers vitamin 6-23 tablet by ity of w/FA tablet 00:00: mouth [place] 00 daily. Medical Branch docusate 2020-0 Yes [id number] 240mg Take 1 U nivers calcium 240 6-23 capsule by it y of mg capsule 00:00: mouth once [place] 00 daily as Medical needed for Branch Constipati on. ferrous 2020-0 Yes [id number] 325mg Take 1 Un capri sulfate 325 6-23 tablet by ity of mg (65 mg 00:00: mouth 2 [place] iron) 00 (two) Medical tablet times Branch daily. ibuprofen 2020-0 Yes [id number] 600mg Take 1 Univers 600 mg 6-23 tablet by ity of tablet 00:00: mouth [place] 00 every 6 Medical (six) Branch hours as needed (Pain). Take with food or milk. ascorbic 2020-0 Yes [id number] 500mg Take 1 U nivers acid, 6-23 tablet by ity of vitamin C, 00:00: mouth [place] 500 mg 00 daily. Medical tablet Branch foLIC acid 2020-0 Yes [id number] 1mg Take 1 Univers 1 mg tablet 6-23 tablet by ity of 00:00: mouth [place] 00 daily. Medical Branch 2020-0 Yes [id number] 1{tbl} Take 1 Univers vitamin 6-23 tablet by ity of w/FA tablet 00:00: mouth [place] 00 daily. Medical Branch docusate 2020-0 Yes [id number] 240mg Take 1 U nivers calcium 240 6-23 capsule by it y of mg capsule 00:00: mouth once [place] 00 daily as Medical needed for Branch Constipati on. ferrous 2020-0 Yes [id number] 325mg Take 1 Un capri sulfate 325 6-23 tablet by ity of mg (65 mg 00:00: mouth 2 [place] iron) 00 (two) Medical tablet times Branch daily. ibuprofen 2020-0 Yes [id number] 600mg Take 1 Univers 600 mg 6-23 tablet by ity of tablet 00:00: mouth [place] 00 every 6 Medical (six) Branch hours as needed (Pain). Take with food or milk. ascorbic 2020-0 Yes [id number] 500mg Take 1 U nivers acid, 6-23 tablet by ity of vitamin C, 00:00: mouth [place] 500 mg 00 daily. Medical tablet Branch foLIC acid 2020-0 Yes [id number] 1mg Take 1 Univers 1 mg tablet 6-23 tablet by ity of 00:00: mouth [place] 00 daily. Medical Branch 2020-0 Yes [id number] 1{tbl} Take 1 Univers vitamin 6-23 tablet by ity of w/FA tablet 00:00: mouth [place] 00 daily. Medical Branch docusate 2020-0 Yes [id number] 240mg Take 1 U nivers calcium 240 6-23 capsule by it y of mg capsule 00:00: mouth once [place] 00 daily as Medical needed for Branch Constipati on. ferrous 2020-0 Yes [id number] 325mg Take 1 Un capri sulfate 325 6-23 tablet by ity of mg (65 mg 00:00: mouth 2 [place] iron) 00 (two) Medical tablet times Branch daily. ibuprofen 2020-0 Yes [id number] 600mg Take 1 Univers 600 mg 6-23 tablet by ity of tablet 00:00: mouth [place] 00 every 6 Medical (six) Branch hours as needed (Pain). Take with food or milk. ascorbic 2020-0 Yes [id number] 500mg Take 1 U nivers acid, 6-23 tablet by ity of vitamin C, 00:00: mouth [place] 500 mg 00 daily. Medical tablet Branch foLIC acid 2020-0 Yes [id number] 1mg Take 1 Univers 1 mg tablet 6-23 tablet by ity of 00:00: mouth [place] 00 daily. Medical Branch 2020-0 Yes [id number] 1{tbl} Take 1 Univers vitamin 6-23 tablet by ity of w/FA tablet 00:00: mouth [place] 00 daily. Medical Branch docusate 2020-0 Yes [id number] 240mg Take 1 U nivers calcium 240 6-23 capsule by it y of mg capsule 00:00: mouth once [place] 00 daily as Medical needed for Branch Constipati on. ferrous 2020-0 Yes [id number] 325mg Take 1 Un capri sulfate 325 6-23 tablet by ity of mg (65 mg 00:00: mouth 2 [place] iron) 00 (two) Medical tablet times Branch daily. ibuprofen 2020-0 Yes [id number] 600mg Take 1 Univers 600 mg 6-23 tablet by ity of tablet 00:00: mouth [place] 00 every 6 Medical (six) Branch hours as needed (Pain). Take with food or milk. ascorbic 2020-0 Yes [id number] 500mg Take 1 U nivers acid, 6-23 tablet by ity of vitamin C, 00:00: mouth [place] 500 mg 00 daily. Medical tablet Branch foLIC acid 2020-0 Yes [id number] 1mg Take 1 Univers 1 mg tablet 6-23 tablet by ity of 00:00: mouth [place] 00 daily. Medical Branch 2020-0 Yes [id number] 1{tbl} Take 1 Univers vitamin 6-23 tablet by ity of w/FA tablet 00:00: mouth [place] 00 daily. Medical Branch docusate 2020-0 Yes [id number] 240mg Take 1 U nivers calcium 240 6-23 capsule by it y of mg capsule 00:00: mouth once [place] 00 daily as Medical needed for Branch Constipati on. ferrous 2020-0 Yes [id number] 325mg Take 1 Un capri sulfate 325 6-23 tablet by ity of mg (65 mg 00:00: mouth 2 [place] iron) 00 (two) Medical tablet times Branch daily. ibuprofen 2020-0 Yes [id number] 600mg Take 1 Univers 600 mg 6-23 tablet by ity of tablet 00:00: mouth [place] 00 every 6 Medical (six) Branch hours as needed (Pain). Take with food or milk. ascorbic 2020-0 Yes [id number] 500mg Take 1 U nivers acid, 6-23 tablet by ity of vitamin C, 00:00: mouth [place] 500 mg 00 daily. Medical tablet Branch foLIC acid 2020-0 Yes [id number] 1mg Take 1 Univers 1 mg tablet 6-23 tablet by ity of 00:00: mouth [place] 00 daily. Medical Branch 2020-0 Yes [id number] 1{tbl} Take 1 Univers vitamin 6-23 tablet by ity of w/FA tablet 00:00: mouth [place] 00 daily. Medical Branch docusate 2020-0 Yes [id number] 240mg Take 1 U nivers calcium 240 6-23 capsule by it y of mg capsule 00:00: mouth once [place] 00 daily as Medical needed for Branch Constipati on. ferrous 2020-0 Yes [id number] 325mg Take 1 Un capri sulfate 325 6-23 tablet by ity of mg (65 mg 00:00: mouth 2 [place] iron) 00 (two) Medical tablet times Branch daily. ibuprofen 2020-0 Yes [id number] 600mg Take 1 Univers 600 mg 6-23 tablet by ity of tablet 00:00: mouth [place] 00 every 6 Medical (six) Branch hours as needed (Pain). Take with food or milk. ascorbic 2020-0 Yes [id number] 500mg Take 1 U nivers acid, 6-23 tablet by ity of vitamin C, 00:00: mouth [place] 500 mg 00 daily. Medical tablet Branch foLIC acid 2020-0 Yes [id number] 1mg Take 1 Univers 1 mg tablet 6-23 tablet by ity of 00:00: mouth [place] 00 daily. Medical Branch 2020-0 Yes [id number] 1{tbl} Take 1 Univers vitamin 6-23 tablet by ity of w/FA tablet 00:00: mouth [place] 00 daily. Medical Branch docusate 2020-0 Yes [id number] 240mg Take 1 U nivers calcium 240 6-23 capsule by it y of mg capsule 00:00: mouth once [place] 00 daily as Medical needed for Branch Constipati on. ferrous 2020-0 Yes [id number] 325mg Take 1 Un capri sulfate 325 6-23 tablet by ity of mg (65 mg 00:00: mouth 2 [place] iron) 00 (two) Medical tablet times Branch daily. ibuprofen 2020-0 Yes [id number] 600mg Take 1 Univers 600 mg 6-23 tablet by ity of tablet 00:00: mouth [place] 00 every 6 Medical (six) Branch hours as needed (Pain). Take with food or milk. ascorbic 2020-0 Yes [id number] 500mg Take 1 U nivers acid, 6-23 tablet by ity of vitamin C, 00:00: mouth [place] 500 mg 00 daily. Medical tablet Branch foLIC acid 2020-0 Yes [id number] 1mg Take 1 Univers 1 mg tablet 6-23 tablet by ity of 00:00: mouth [place] 00 daily. Medical Branch 2020-0 Yes [id number] 1{tbl} Take 1 Univers vitamin 6-23 tablet by ity of w/FA tablet 00:00: mouth [place] 00 daily. Medical Branch docusate 2020-0 Yes [id number] 240mg Take 1 U nivers calcium 240 6-23 capsule by it y of mg capsule 00:00: mouth once [place] 00 daily as Medical needed for Branch Constipati on. ferrous 2020-0 Yes [id number] 325mg Take 1 Un capri sulfate 325 6-23 tablet by ity of mg (65 mg 00:00: mouth 2 [place] iron) 00 (two) Medical tablet times Branch daily. ibuprofen 2020-0 Yes [id number] 600mg Take 1 Univers 600 mg 6-23 tablet by ity of tablet 00:00: mouth [place] 00 every 6 Medical (six) Branch hours as needed (Pain). Take with food or milk. ascorbic 2020-0 Yes [id number] 500mg Take 1 U nivers acid, 6-23 tablet by ity of vitamin C, 00:00: mouth [place] 500 mg 00 daily. Medical tablet Branch foLIC acid 2020-0 Yes [id number] 1mg Take 1 Univers 1 mg tablet 6-23 tablet by ity of 00:00: mouth [place] 00 daily. Medical Branch 2020-0 Yes [id number] 1{tbl} Take 1 Univers vitamin 6-23 tablet by ity of w/FA tablet 00:00: mouth [place] 00 daily. Medical Branch docusate 2020-0 Yes [id number] 240mg Take 1 U nivers calcium 240 6-23 capsule by it y of mg capsule 00:00: mouth once [place] 00 daily as Medical needed for Branch Constipati on. ferrous 2020-0 Yes [id number] 325mg Take 1 Un capri sulfate 325 6-23 tablet by ity of mg (65 mg 00:00: mouth 2 [place] iron) 00 (two) Medical tablet times Branch daily. ibuprofen 2020-0 Yes [id number] 600mg Take 1 Univers 600 mg 6-23 tablet by ity of tablet 00:00: mouth [place] 00 every 6 Medical (six) Branch hours as needed (Pain). Take with food or milk. ascorbic 2020-0 Yes [id number] 500mg Take 1 U nivers acid, 6-23 tablet by ity of vitamin C, 00:00: mouth [place] 500 mg 00 daily. Medical tablet Branch foLIC acid 2020-0 Yes [id number] 1mg Take 1 [facility] 1 mg tablet 6-23 tablet by ity of 00:00: mouth [place] 00 daily. Medical Branch 2020-0 Yes [id number] 1{tbl} Take 1 [facility] vitamin 6-23 tablet by ity of w/FA tablet 00:00: mouth [place] 00 daily. Medical Branch docusate 2020-0 Yes [id number] 240mg Take 1 U nivers calcium 240 6-23 capsule by it y of mg capsule 00:00: mouth once [place] 00 daily as Medical needed for Branch Constipati on. ferrous 2020-0 Yes [id number] 325mg Take 1 Un capri sulfate 325 6-23 tablet by ity of mg (65 mg 00:00: mouth 2 [place] iron) 00 (two) Medical tablet times Branch daily. ibuprofen 2020-0 Yes [id number] 600mg Take 1 [facility] 600 mg 6-23 tablet by ity of tablet 00:00: mouth [place] 00 every 6 Medical (six) Branch hours as needed (Pain). Take with food or milk. ascorbic 2020-0 Yes [id number] 500mg Take 1 U nivers acid, 6-23 tablet by ity of vitamin C, 00:00: mouth [place] 500 mg 00 daily. Medical tablet Branch foLIC acid 2020-0 Yes [id number] 1mg Take 1 [facility] 1 mg tablet 6-23 tablet by ity of 00:00: mouth [place] 00 daily. Medical Branch 2020-0 Yes [id number] 1{tbl} Take 1 [facility] vitamin 6-23 tablet by ity of w/FA tablet 00:00: mouth [place] 00 daily. Medical Branch docusate 2020-0 Yes [id number] 240mg Take 1 U nivers calcium 240 6-23 capsule by it y of mg capsule 00:00: mouth once [place] 00 daily as Medical needed for Branch Constipati on. ferrous 2020-0 Yes [id number] 325mg Take 1 Un capri sulfate 325 6-23 tablet by ity of mg (65 mg 00:00: mouth 2 [place] iron) 00 (two) Medical tablet times Branch daily. ibuprofen 2020-0 Yes [id number] 600mg Take 1 [facility] 600 mg 6-23 tablet by ity of tablet 00:00: mouth [place] 00 every 6 Medical (six) Branch hours as needed (Pain). Take with food or milk. ascorbic 2020-0 Yes [id number] 500mg Take 1 U nivers acid, 6-23 tablet by ity of vitamin C, 00:00: mouth [place] 500 mg 00 daily. Medical tablet Branch foLIC acid 2019-0 Yes [id number] 1mg Take 1 [facility] 1 mg tablet 6-23 tablet by ity of 00:00: mouth [place] 00 daily. Medical Branch 2019-0 Yes [id number] 1{tbl} Take 1 [facility] vitamin 6-23 tablet by ity of w/FA tablet 00:00: mouth [place] 00 daily. Medical Branch docusate 2019-0 Yes [id number] 240mg Take 1 U nivers calcium 240 6-23 capsule by it y of mg capsule 00:00: mouth once [place] 00 daily as Medical needed for Branch Constipati on. ferrous 2020-0 Yes [id number] 325mg Take 1 Un capri sulfate 325 6-23 tablet by ity of mg (65 mg 00:00: mouth 2 [place] iron) 00 (two) Medical tablet times Branch daily. ibuprofen 2019-0 Yes [id number] 600mg Take 1 [facility] 600 mg 6-23 tablet by ity of tablet 00:00: mouth [place] 00 every 6 Medical (six) Branch hours as needed (Pain). Take with food or milk. ascorbic 2019-0 Yes [id number] 500mg Take 1 U nivers acid, 6-23 tablet by ity of vitamin C, 00:00: mouth [place] 500 mg 00 daily. Medical tablet Branch foLIC acid 0 Yes [id number] 1mg Take 1 [facility] 1 mg tablet 6-23 tablet by ity of 00:00: mouth [place] 00 daily. Medical Branch HYDROcodone 0 2020- No [id number] 1{tbl} Take 1 [facility] -acetaminop 6-23 07-01 tablet by it y of hen 5-325 00:00: 04:59 mouth [place] mg tablet 00 :00 every 6 Medical (six) Branch hours as needed (Pain scale above 4) for up to 7 days. Do not exceed 3 grams of acetaminop hen in 24 hours. HYDROcodone 0 2020- No [id number] 1{tbl} Take 1 [facility] -acetaminop 6-23 07-01 tablet by it y of hen 5-325 00:00: 04:59 mouth [place] mg tablet 00 :00 every 6 Medical (six) Branch hours as needed (Pain scale above 4) for up to 7 days. Do not exceed 3 grams of acetaminop hen in 24 hours. HYDROcodone 2020-0 2020- No [id number] 1{tbl} Take 1 [facility] -acetaminop 04-26 tablet by it y of hen 5-325 00:00: 04:59 mouth [place] mg tablet 00 :00 every 6 Medical (six) Branch hours as needed (Pain scale above 4) for up to 7 days. Do not exceed 3 grams of acetaminop hen in 24 hours. ibuprofen 2020-0 Yes 600mg 600 mg, Univ ers (IBU) 6-21 Oral, Q6H, ity of tablet 600 05:00: First dose [place] mg 00 on Dane Medical 04/24/20 at Branch 0000, Until Discontinu ed, Routine ketorolac 2019-0 2020- No 30mg 30 mg, Unive rs (TORADOL) 04-24 06-21 Slow IV ity of injection 02:40: 02:55 Push, PRN, [place] 30 mg 03 :00 1 dose, Medical Starting Branch 04/23/20 at 2140, Until 04/23/20 at 2155, Routine, Pain (scale 7-10), PACU
Fa culty member approving Restricted medication : WHITNEY TORREZ rho(D) 2019-0 Yes 300ug 300 mcg, Univer s immune - Intramuscu ity of globulin 02:39: lar, ONCE, [place] (RHOGAM) 46 For 1 Medical syringe 300 dose, Branch mcg Conditiona l, Routine HYDROcodone 2019-0 Yes 2{tbl} 2 tablet, Univers -acetaminop 04-24 Oral, ity of hen (NORCO 02:39: Q6HPRN, [place] 5) 5-325 mg 36 Starting Medi bar[place] tablet 2 Sat Branch tablet 04/23/20 at 2139, Until Discontinu ed, Routine, Pain (scale 7-10) ondansetron 2019-0 Yes 4mg 4 mg, Slow Univers (ZOFRAN 6-21 IV Push, ity of (PF)) 02:39: Q8HPRN, [place] injection 4 36 Starting Medi barbara mg Sat Branch 04/23/20 at 2139, Until Discontinu ed, Routine, Nausea and Vomiting (N/V) simethicone 2019-0 Yes 160mg 160 mg, Un capri (GAS RELIEF - Oral, ity of (SIMETHICON 02:39: PC+HSPRN, [place] E)) 36 Starting Medical chewable Sat Branch tablet 160 04/23/20 at mg 2138, Until Discontinu ed, Routine, Gas magnesium 2020-0 Yes 30mL 30 mL, Univer s hydroxide - Oral, ity of (MILK OF 02:39: QDAILYPRN, [place] MAGNESIA) 36 Starting Medica l 400 mg/5 mL Sat Branch suspension 04/23/20 at 30 mL 2138, Until Discontinu ed, Routine, Constipati on human 2020-0 Yes .5mL 0.5 mL, Univers papillomav 04-24 Intramuscu ity of vac,9-lu(P 02:39: lar, [place] F) 35 ONCE-PRIOR Medical (GARDASIL-9 TO Branch ) syringe DISCHARGE, 0.5 mL 1 dose, Starting 04/23/20 at 2138, Until Discontinu ed, Routine, Give vaccine prior to discharge HYDROcodone 2020-0 Yes 1{tbl} 1 tablet, Univers -acetaminop 04-24 Oral, ity of hen (NORCO 02:39: Q6HPRN, [place] 5) 5-325 mg 35 Starting Medi barbara tablet 1 Sat Branch tablet 04/23/20 at 2138, Until Discontinu ed, Routine, Pain (scale 4-6) diphenhydrA 2020-0 Yes 25mg 25 mg, IV U nivers MINE-0.9 % 04-24 Piggyback, ity of sod.chlr 02:39: Q6HPRN, 1 [place] (BENADRYL) 35 dose, Medical 25 mg/50 mL Starting Bran ch piggyback Sat 25 mg 04/23/20 at 2138, Until Discontinu ed, 50 mL diphenhydrA 2020-0 Yes 25mg 25 mg, Univ ers MINE - Oral, ity of (BENADRYL) 02:39: Q6HPRN, [place] tablet 25 35 Starting Medica l mg Sat Branch 04/23/20 at 2138, Until Discontinu ed, Routine, Sleep, Itching bisacodyL 2020-0 Yes 10mg 10 mg, Univer s (DULCOLAX) 04-24 Rectal, ity of suppository 02:39: QDAILYPRN, [place] 10 mg 35 Starting Medical Sat Branch 04/23/20 at 2138, Until Discontinu ed, Routine, Constipati on docusate Yes 240mg 240 mg, Unive rs calcium 04-24 Oral, ity of (SURFAK) 02:39: QDAILYPRN, [place] capsule 240 35 Starting Medi barbara mg Sat Branch 04/23/20 at 2138, Until Discontinu ed, Routine, Constipati on ampicillin 2019- No 2g 2,000 mg Un capri (POLYCILLIN 04-24 (2 g), IV it y of -N) 2,000 02:00: 06:28 Piggyback, [place] mg in NaCl 00 :55 Q6H ABX, Medic al 0.9% (NS) First dose Bran ch 100 mL on Sat MINI-BAG 04/23/20 at 2099, Until Discontinu ed, 100 mL
R jeannine for Anti-Infec tive: Documented Infection< br>Documen caroline Infection Site: Pelvic< br>Duratio n of Therapy: Other (see Comments) gentamicin 2019- No 5mg/kg 360 mg Un capri 40 mg/mL 04-24 (rounded ity of 360 mg in 02:00: 06:28 from 353.5 [place] NaCl 0.9% 00 :55 mg = 5 Medical (NS) 250 mL mg/kg Branch IV infusion ?70.7 kg Adjusted weight), IV Infusion, Q24H ABX, First dose on 04/23/20 at 2100, Until Discontinu ed, 250 mL
Reas on for Anti-Infec tive: Documented Infection< br>Documen caroline Infection Site: Pelvic
Duration of Therapy: Other (see Comments) metroNIDAZO 2019- No 500mg 500 mg, IV Univers LE in NaCl 04-24 Piggyback, it y of (iso-os) 01:45: 06:28 Q8H ABX, [place] (FLAGYL 00 :55 First dose Medica l I.V.) RTU on Sat Branch IV infusion 04/23/20 at 500 mg 2045, Until Discontinu ed, 100 mL
R jeannine for Anti-Infec tive: Documented Infection< br>Documen caroline Infection Site: Pelvic
Duration of Therapy: Other (see Comments) acetaminoph 2019- No 650mg 650 mg, U nivers en 04-24 Oral, ity of (TYLENOL) 01:45: 00:43 ONCE, 1 [place] tablet 650 00 :00 dose, Sat Medi barbara mg 04/23/20 at Branch 2044, Routine lactated 2019- No 1000mL at 125 Univ ers ringers IV 04-24 mL/hr, ity of infusion 00:30: 02:39 1,000 mL, [place] 1,000 mL 00 :47 IV Medical Infusion, Branch CONTINUOUS , Starting 04/23/20 at 1929, Until 04/23/20 at 2138, Routine ceFAZolin 2019- No 2000mg 2 g (2,000 Univers in dextrose 04-24 mg), IV ity of (iso-os) 00:24: 00:35 [place]back, [place] (ANCEF) 2 38 :00 O.R. Medical gram/100 mL HOLDING Bran h Piggyback 2 ONCE, 1 g dose, Starting 04/23/20 at 1923, Until 04/23/20 at 1934, 100 mL
Reas on for Anti-Infec tive: Surgical Prophylaxi s
Surgi barbara Prophylaxi s: [employer]
Duration of therapy: within 24 hours of surgery sodium 2019- No 30mL 30 mL, Univers citrate-cit 04-24 Oral, ity of lashonda acid 00:24: 00:29 PRE-PROCED [place] (BICITRA) 37 :00 URE ONCE, Medic al 500-334 1 dose, Branch mg/5 mL Starting solution 30 Sat mL 04/23/20 at 1923, Until 04/23/20 at 1928, Routine, Surgery ondansetron 2019- No 4mg 4 mg, Slow Univers (ZOFRAN 04-23 IV Push, ity of (PF)) 23:31: 00:17 ONCE, 1 [place] injection 4 00 :00 dose, Sat Med ical mg 04/23/20 at Branch 1845, Routine LR 1000 mL 2019- No 2mU/min at 6-120 Univers + oxytocin 04-23 06-21 mL/hr, IV ity of 20 units IV 15:55: 02:39 Infusion, [place] Solution 31 :47 TITRATE, Medical Starting Branch 04/23/20 at 1055, Until 04/23/20 at 2139, TORSTEN lactated 2019- No 500mL at 999 Unive rs ringers IV 04-23-20 mL/hr, 500 it y of infusion 14:30: 23:45 mL, IV [place] 500 mL 00 :00 Infusion, Medical ONCE, 1 Branch dose, 04/23/20 at 0930, Routine sodium 2019- No 30mL 30 mL, Univers citrate-cit 04-2320 Oral, ity of lashonda acid 13:25: 14:33 PRE-PROCED [place] (BICITRA) 59 :00 URE ONCE, Medic al 500-334 1 dose, Branch mg/5 mL Starting solution 30 Sat mL 04/23/20 at 0825, Until 04/23/20 at 0933, Routine, Surgery/Pr ocedure lactated 2020- No 500mL at 999 Unive rs ringers IV 04-23-20 mL/hr, 500 it y of infusion 13:25: 14:34 mL, IV [place] 500 mL 59 :00 Infusion, Medical PRN - SEE [place] INSTRUCTIO NS, 1 dose, Starting 04/23/20 at 0825, Until 04/23/20 at 0934, Routine butorphanol No 1mg 1 mg, IV U nivers (STADOL) 04-23 Push, ity of injection 1 09:15: 08:27 ONCE, 1 [place] mg 00 :00 dose, Sat Medical 04/23/20 at Branch 0415, Routine proMETHazin No 25mg 25 mg, IV Univers e 04-23 Piggyback, ity of (PHENERGAN) 05:45: 05:56 ONCE, 1 [place] 25 mg in 00 :00 dose, Sat Medica l NaCl 0.9% 04/23/20 at [facility] ch (NS) 50 mL 0045, IV Routine piggyback butorphanol 2019- No 1mg 1 mg, IV U nivers (STADOL) 04-23 Push, ity of injection 1 03:34: 03:47 ONCE, 1 [place] mg 00 :00 dose, Fri Medical 04/22/20 at Branch 2245, Routine D5W-LR IV 2019-2019- No 1000mL at 125 Uni vers infusion 04-23 mL/hr, IV ity o f 1,000 mL 02:45: 02:39 Infusion, [place] 00 :47 CONTINUOUS Medical , Starting Branch 04/22/20 at 2145, Until 04/23/20 at 213, Routine Sliding 2019- No Subcutaneo Uni vers Scale 04-23 , ity of Insulin - 02:38: 02:39 SEE-INSTRU [place] Regular + 12 :47 CTIONS, Medical Fsbg Starting Branch Testing 04/22/20 at 2138, Until 04/23/20 at 2138, Routine sodium 2019- No 30mL 30 mL, Univers citrate-cit 04-23 Oral, ity of lashonda acid 02:33: 01:02 PRE-PROCED [place] (BICITRA) 49 :00 URE ONCE, Medic al 500-334 1 dose, Branch mg/5 mL Starting solution 30 Fri mL 04/22/20 at 2133, Until Discontinu ed, Routine, Surgery/Pr ocedure lactated 2019- No 500mL at 999 Unive rs ringers IV 04-23 mL/hr, 500 it y of infusion 02:33: 02:39 mL, IV [place] 500 mL 49 :47 Infusion, Medical PRN - SEE Branch INSTRUCTIO NS, Starting 04/22/20 at 2133, Until 04/23/20 at 2138, Routine ursodiol 2019- No 300mg Univers (ACTIGALL) 04-20 ity of capsule 300 15:45: 15:23 [place] mg 00 :01 Medical Branch hydrOXYzine 2019- No [id number] 50mg Take 1 [facility] 50 mg 04-20 tablet by ity of tablet 00:00: 04:59 mouth 3 [place] 00 :00 (three) Medical times [place] daily as needed for Itching for up to 7 days. hydrOXYzine 2019- No [id number] 50mg Take 1 [facility] 50 mg 6-17 06-25 tablet by ity of tablet 00:00: 04:59 mouth 3 [place] 00 :00 (three) Medical times Branch daily as needed for Itching for up to 7 days. hydrOXYzine 2019- No [id number] 50mg Take 1 [facility] 50 mg 6-17 06-25 tablet by ity of tablet 00:00: 04:59 mouth 3 [place] 00 :00 (three) Medical times Branch daily as needed for Itching for up to 7 days. hydrOXYzine 2019- No [id number] 50mg Take 1 [facility] 50 mg 6-17 06-25 tablet by ity of tablet 00:00: 04:59 mouth 3 [place] 00 :00 (three) Medical times Branch daily as needed for Itching for up to 7 days. hydrOXYzine 2019- No [id number] 50mg Take 1 [facility] 50 mg 6-17 06-25 tablet by ity of tablet 00:00: 04:59 mouth 3 [place] 00 :00 (three) Medical times Branch daily as needed for Itching for up to 7 days. hydrOXYzine 2019- No [id number] 50mg Take 1 [facility] 50 mg 6-17 06-25 tablet by ity of tablet 00:00: 04:59 mouth 3 [place] 00 :00 (three) Medical times Branch daily as needed for Itching for up to 7 days. hydrOXYzine 2019- No [id number] 50mg Take 1 [facility] 50 mg 6-17 06-25 tablet by ity of tablet 00:00: 04:59 mouth 3 [place] 00 :00 (three) Medical times Branch daily as needed for Itching for up to 7 days. valACYclovi 2020-0 Yes [id number] 1g Take 1 Univers r (VALTREX) 6-09 tablet by ity of 1 gram 00:00: mouth 2 [place] tablet 00 (two) Medical times Branch daily. valACYclovi 2020-0 Yes [id number] 1g Take 1 Univers r (VALTREX) 6-09 tablet by ity of 1 gram 00:00: mouth 2 [place] tablet 00 (two) Medical times Branch daily. valACYclovi 2020-0 Yes [id number] 1g Take 1 Univers r (VALTREX) 6-09 tablet by ity of 1 gram 00:00: mouth 2 [place] tablet 00 (two) Medical times Branch daily. valACYclovi 2020-0 Yes [id number] 1g Take 1 Univers r (VALTREX) 6-09 tablet by ity of 1 gram 00:00: mouth 2 [place] tablet 00 (two) Medical times Branch daily. valACYclovi 2020-0 Yes [id number] 1g Take 1 Univers r (VALTREX) 6-09 tablet by ity of 1 gram 00:00: mouth 2 [place] tablet 00 (two) Medical times Branch daily. valACYclovi 2020-0 Yes [id number] 1g Take 1 Univers r (VALTREX) 6-09 tablet by ity of 1 gram 00:00: mouth 2 [place] tablet 00 (two) Medical times Branch daily. valACYclovi 2020-0 Yes [id number] 1g Take 1 Univers r (VALTREX) 6-09 tablet by ity of 1 gram 00:00: mouth 2 [place] tablet 00 (two) Medical times Branch daily. valACYclovi 2020-0 Yes [id number] 1g Take 1 Univers r (VALTREX) 6-09 tablet by ity of 1 gram 00:00: mouth 2 [place] tablet 00 (two) Medical times Branch daily. terbutaline 2020-0 2020- No .25mg 0.25 mg, Univers (BRETHINE) 04-06-03 Subcutaneo it y of injection 19:49: 19:50 us, ONCE, [place] 0.25 mg 00 :00 1 dose, Medical 04/06/20 Branch at 1500, Routine terbutaline 2020-0 2020- No .25mg 0.25 mg, Univers (BRETHINE) 04-06- Subcutaneo it y of injection 18:15: 18:06 us, ONCE, [place] 0.25 mg 00 :00 1 dose, Medical 04/06/20 Branch at 1315, Routine lactated 2020-0 Yes 1000mL at 150 Unive rs ringers IV 6-03 mL/hr, ity of infusion 18:00: 1,000 mL, [place] 1,000 mL 00 IV Medical Infusion, Branch CONTINUOUS , Starting Sat04/06/20 at 1300, Until Discontinu ed, Routine lactated 2020-0 Yes 500mL at 999 Univer s ringers IV 6-03 mL/hr, 500 ity of infusion 18:00: mL, IV [place] 500 mL 00 Infusion, Medical CONTINUOUS Branch , Starting Sat04/06/20 at 1300, Until Discontinu ed, Routine Blood-Gluco 2019-0 Yes [id number] Use as Univers se Meter 4-20 directed ity of (FREESTYLE 00:00: [place] LITE METER) 00 Medical Kit Branch blood sugar 2019-0 Yes [id number] Use as Univers diagnostic 4-20 directed ity o f (FREESTYLE 00:00: [place] LITE 00 Medical STRIPS) Branch strip lancets 17 2019-0 Yes [id number] Use as U nivers gauge Misc 4-20 directed ity o f 00:00: [place] 00 Medical Branch Blood-Gluco 2019-0 Yes [id number] Use as Univers se Meter 4-20 directed ity of (FREESTYLE 00:00: [place] LITE METER) 00 Medical Kit Branch blood sugar 2019-0 Yes [id number] Use as Univers diagnostic 4-20 directed ity o f (FREESTYLE 00:00: [place] LITE 00 Medical STRIPS) Branch strip lancets 17 2019-0 Yes [id number] Use as U nivers gauge Misc 4-20 directed ity o f 00:00: [place] 00 Medical Branch Blood-Gluco 2019-0 Yes [id number] Use as Univers se Meter 4-20 directed ity of (FREESTYLE 00:00: [place] LITE METER) 00 Medical Kit Branch blood sugar 2019-0 Yes [id number] Use as Univers diagnostic 4-20 directed ity o f (FREESTYLE 00:00: [place] LITE 00 Medical STRIPS) Branch strip lancets 17 2019-0 Yes [id number] Use as U nivers gauge Misc 4-20 directed ity o f 00:00: [place] 00 Medical Branch Blood-Gluco 2020-0 Yes [id number] Use as Univers se Meter 4-20 directed ity of (FREESTYLE 00:00: [place] LITE METER) 00 Medical Kit Branch blood sugar 2019-0 Yes [id number] Use as Univers diagnostic 4-20 directed ity o f (FREESTYLE 00:00: [place] LITE 00 Medical STRIPS) Branch strip lancets 17 2019-0 Yes [id number] Use as U nivers gauge Misc 4-20 directed ity o f 00:00: [place] 00 Medical Branch Blood-Gluco 2020-0 Yes [id number] Use as Univers se Meter 4-20 directed ity of (FREESTYLE 00:00: [place] LITE METER) 00 Medical Kit Branch blood sugar 2020-0 Yes [id number] Use as Univers diagnostic 4-20 directed ity o f (FREESTYLE 00:00: [place] LITE 00 Medical STRIPS) Branch strip lancets 17 2020-0 Yes [id number] Use as U nivers gauge Misc 4-20 directed ity o f 00:00: [place] 00 Medical Branch Blood-Gluco 2020-0 Yes [id number] Use as Univers se Meter 4-20 directed ity of (FREESTYLE 00:00: [place] LITE METER) 00 Medical Kit Branch blood sugar 2020-0 Yes [id number] Use as Univers diagnostic 4-20 directed ity o f (FREESTYLE 00:00: [place] LITE 00 Medical STRIPS) Branch strip lancets 17 2020-0 Yes [id number] Use as U nivers gauge Misc 4-20 directed ity o f 00:00: [place] 00 Medical Branch Blood-Gluco 2020-0 Yes [id number] Use as Univers se Meter 4-20 directed ity of (FREESTYLE 00:00: [place] LITE METER) 00 Medical Kit Branch blood sugar 2020-0 Yes [id number] Use as Univers diagnostic 4-20 directed ity o f (FREESTYLE 00:00: [place] LITE 00 Medical STRIPS) Branch strip lancets 17 2020-0 Yes [id number] Use as U nivers gauge Misc 4-20 directed ity o f 00:00: [place] 00 Medical Branch Blood-Gluco 2020-0 Yes [id number] Use as Univers se Meter 4-20 directed ity of (FREESTYLE 00:00: [place] LITE METER) 00 Medical Kit Branch blood sugar 2020-0 Yes [id number] Use as Univers diagnostic 4-20 directed ity o f (FREESTYLE 00:00: [place] LITE 00 Medical STRIPS) Branch strip lancets 17 2020-0 Yes [id number] Use as U nivers gauge Misc 4-20 directed ity o f 00:00: [place] 00 Medical Branch Blood-Gluco 2020-0 Yes [id number] Use as Univers se Meter 4-20 directed ity of (FREESTYLE 00:00: [place] LITE METER) 00 Medical Kit Branch blood sugar 2020-0 Yes [id number] Use as Univers diagnostic 4-20 directed ity o f (FREESTYLE 00:00: [place] LITE 00 Medical STRIPS) Branch strip lancets 17 2020-0 Yes [id number] Use as U nivers gauge Misc 4-20 directed ity o f 00:00: [place] 00 Medical Branch Blood-Gluco 2020-0 Yes [id number] Use as Univers se Meter 4-20 directed ity of (FREESTYLE 00:00: [place] LITE METER) 00 Medical Kit Branch blood sugar 2020-0 Yes [id number] Use as Univers diagnostic 4-20 directed ity o f (FREESTYLE 00:00: [place] LITE 00 Medical STRIPS) Branch strip lancets 17 2020-0 Yes [id number] Use as U nivers gauge Misc 4-20 directed ity o f 00:00: [place] 00 Medical Branch Blood-Gluco 2020-0 Yes [id number] Use as Univers se Meter 4-20 directed ity of (FREESTYLE 00:00: [place] LITE METER) 00 Medical Kit Branch blood sugar 2020-0 Yes [id number] Use as Univers diagnostic 4-20 directed ity o f (FREESTYLE 00:00: [place] LITE 00 Medical STRIPS) Branch strip lancets 17 2019-0 Yes [id number] Use as U nivers gauge Misc 4-20 directed ity o f 00:00: [place] 00 Medical Branch Blood-Gluco 2020-0 Yes [id number] Use as Univers se Meter 4-20 directed ity of (FREESTYLE 00:00: [place] LITE METER) 00 Medical Kit Branch blood sugar 2020-0 Yes [id number] Use as Univers diagnostic 4-20 directed ity o f (FREESTYLE 00:00: [place] LITE 00 Medical STRIPS) Branch strip lancets 17 2020-0 Yes [id number] Use as U nivers gauge Misc 4-20 directed ity o f 00:00: [place] 00 Medical Branch Blood-Gluco 2020-0 Yes [id number] Use as Univers se Meter 4-20 directed ity of (FREESTYLE 00:00: [place] LITE METER) 00 Medical Kit Branch blood sugar 2020-0 Yes [id number] Use as Univers diagnostic 4-20 directed ity o f (FREESTYLE 00:00: [place] LITE 00 Medical STRIPS) Branch strip lancets 17 2020-0 Yes [id number] Use as U nivers gauge Misc 4-20 directed ity o f 00:00: [place] 00 Medical Branch Blood-Gluco 2020-0 Yes [id number] Use as Univers se Meter 4-20 directed ity of (FREESTYLE 00:00: [place] LITE METER) 00 Medical Kit Branch blood sugar 2020-0 Yes [id number] Use as Univers diagnostic 4-20 directed ity o f (FREESTYLE 00:00: [place] LITE 00 Medical STRIPS) Branch strip lancets 17 2020-0 Yes [id number] Use as U nivers gauge Misc 4-20 directed ity o f 00:00: [place] 00 Medical Branch Blood-Gluco 2020-0 Yes [id number] Use as Univers se Meter 4-20 directed ity of (FREESTYLE 00:00: [place] LITE METER) 00 Medical Kit Branch blood sugar 2020-0 Yes [id number] Use as Univers diagnostic 4-20 directed ity o f (FREESTYLE 00:00: [place] LITE 00 Medical STRIPS) Branch strip lancets 17 2020-0 Yes [id number] Use as U nivers gauge Misc 4-20 directed ity o f 00:00: [place] 00 Medical Branch Blood-Gluco 2020-0 Yes [id number] Use as Univers se Meter 4-20 directed ity of (FREESTYLE 00:00: [place] LITE METER) 00 Medical Kit Branch blood sugar 2020-0 Yes [id number] Use as Univers diagnostic 4-20 directed ity o f (FREESTYLE 00:00: [place] LITE 00 Medical STRIPS) Branch strip lancets 17 2020-0 Yes [id number] Use as U nivers gauge Misc 4-20 directed ity o f 00:00: [place] 00 Medical Branch Blood-Gluco 2020-0 Yes [id number] Use as Univers se Meter 4-20 directed ity of (FREESTYLE 00:00: [place] LITE METER) 00 Medical Kit Branch blood sugar 2020-0 Yes [id number] Use as Univers diagnostic 4-20 directed ity o f (FREESTYLE 00:00: [place] LITE 00 Medical STRIPS) Branch strip lancets 17 2020-0 Yes [id number] Use as U nivers gauge Misc 4-20 directed ity o f 00:00: [place] 00 Medical Branch Blood-Gluco 2020-0 Yes [id number] Use as Univers se Meter 4-20 directed ity of (FREESTYLE 00:00: [place] LITE METER) 00 Medical Kit Branch blood sugar 2020-0 Yes [id number] Use as Univers diagnostic 4-20 directed ity o f (FREESTYLE 00:00: [place] LITE 00 Medical STRIPS) Branch strip lancets 17 2020-0 Yes [id number] Use as U nivers gauge Misc 4-20 directed ity o f 00:00: [place] 00 Medical Branch Blood-Gluco 2020-0 Yes [id number] Use as Univers se Meter 4-20 directed ity of (FREESTYLE 00:00: [place] LITE METER) 00 Medical Kit Branch blood sugar 2020-0 Yes [id number] Use as Univers diagnostic 4-20 directed ity o f (FREESTYLE 00:00: [place] LITE 00 Medical STRIPS) Branch strip lancets 17 2020-0 Yes [id number] Use as U nivers gauge Misc 4-20 directed ity o f 00:00: [place] 00 Medical Branch Blood-Gluco 2020-0 Yes [id number] Use as Univers se Meter 4-20 directed ity of (FREESTYLE 00:00: [place] LITE METER) 00 Medical Kit Branch blood sugar 2020-0 Yes [id number] Use as Univers diagnostic 4-20 directed ity o f (FREESTYLE 00:00: [place] LITE 00 Medical STRIPS) Branch strip lancets 17 2020-0 Yes [id number] Use as U nivers gauge Misc 4-20 directed ity o f 00:00: [place] 00 Medical Branch Blood-Gluco 2020-0 Yes [id number] Use as Univers se Meter 4-20 directed ity of (FREESTYLE 00:00: [place] LITE METER) 00 Medical Kit Branch blood sugar 2020-0 Yes [id number] Use as Univers diagnostic 4-20 directed ity o f (FREESTYLE 00:00: [place] LITE 00 Medical STRIPS) Branch strip lancets 17 2020-0 Yes [id number] Use as U nivers gauge Misc 4-20 directed ity o f 00:00: [place] 00 Medical Branch Blood-Gluco 2020-0 Yes [id number] Use as Univers se Meter 4-20 directed ity of (FREESTYLE 00:00: [place] LITE METER) 00 Medical Kit Branch blood sugar 2020-0 Yes [id number] Use as Univers diagnostic 4-20 directed ity o f (FREESTYLE 00:00: [place] LITE 00 Medical STRIPS) Branch strip lancets 17 2020-0 Yes [id number] Use as U nivers gauge Misc 4-20 directed ity o f 00:00: [place] 00 Medical Branch Blood-Gluco 2020-0 Yes [id number] Use as Univers se Meter 4-20 directed ity of (FREESTYLE 00:00: [place] LITE METER) 00 Medical Kit Branch blood sugar 2020-0 Yes [id number] Use as [facility] diagnostic 4-20 directed ity o f (FREESTYLE 00:00: [place] LITE 00 Medical STRIPS) Branch strip lancets 17 2020-0 Yes [id number] Use as [facility] n[facility] gauge Misc 4-20 directed ity o f 00:00: [place] 00 Medical Branch Blood-Gluco 2020-0 Yes [id number] Use as [facility] se Meter 4-20 directed ity of (FREESTYLE 00:00: [place] LITE METER) 00 Medical Kit Branch blood sugar 2020-0 Yes [id number] Use as [facility] diagnostic 4-20 directed ity o f (FREESTYLE 00:00: [place] LITE 00 Medical STRIPS) Branch strip lancets 17 2019-0 Yes [id number] Use as [facility] gauge Misc 4-20 directed ity o f 00:00: [place] 00 Medical Branch Blood-Gluco 2020-0 Yes [id number] Use as [facility] se Meter 4-20 directed ity of (FREESTYLE 00:00: [place] LITE METER) 00 Medical Kit Branch blood sugar 2020-0 Yes [id number] Use as [facility] diagnostic 4-20 directed ity o f (FREESTYLE 00:00: [place] LITE 00 Medical STRIPS) Branch strip lancets 17 2020-0 Yes [id number] Use as [facility] n[facility] gauge Misc 4-20 directed ity o f 00:00: [place] 00 Medical Branch Blood-Gluco 2020-0 Yes [id number] Use as [facility] se Meter 4-20 directed ity of (FREESTYLE 00:00: [place] LITE METER) 00 Medical Kit Branch blood sugar 2020-0 Yes [id number] Use as [facility] diagnostic 4-20 directed ity o f (FREESTYLE 00:00: [place] LITE 00 Medical STRIPS) Branch strip lancets 17 2020-0 Yes [id number] Use as [facility] n[facility] gauge Misc 4-20 directed ity o f 00:00: [place] 00 Medical Branch Blood-Gluco 2020-0 Yes [id number] Use as [facility] se Meter 4-20 directed ity of (FREESTYLE 00:00: [place] LITE METER) 00 Medical Kit Branch blood sugar 2020-0 Yes [id number] Use as [facility] diagnostic 4-20 directed ity o f (FREESTYLE 00:00: [place] LITE 00 Medical STRIPS) Branch strip lancets 17 2019-0 Yes [id number] Use as [facility] n[facility] gauge Misc 02-21 directed ity o f 00:00: [place] 00 Medical Branch Blood-Gluco 2019- No [id number] Use as [facility] se Meter 02-21 directed ity of (FREESTYLE 00:00: 00:00 [place] LITE METER) 00 :00 Medical Kit Branch blood sugar 2019- No [id number] Use as [facility] diagnostic 02-21 directed ity of (FREESTYLE 00:00: 00:00 [place] LITE 00 :00 Medical STRIPS) Branch strip lancets 17 2019- No [id number] Use as [facility] gauge Misc 02-21 directed ity of 00:00: 00:00 [place] 00 :00 Medical Branch KCL 2020- No 40meq 40 mEq, [facility] (KLOR-CON 01-29 Oral, ity of M20) tablet 06:00: 04:59 ONCE, 1 [place] 40 mEq 00 :00 dose, Sat Medical 01/30/20 at Branch 0100, TORSTEN proMETHazin 2019- No 25mg 25 mg, IV [facility] e 01-29 Piggyback, ity of (PHENERGAN) 05:00: 04:07 ONCE, 1 [place] 25 mg in 00 :00 dose, Sat Medica l NaCl 0.9% 01/30/20 at Bran ch (NS) 50 mL 0000, 50 piggyback mL NaCl 0.9% 2019- No 500mL at 999 Univ ers (NS) bolus 01-29 mL/hr, 500 it y of infusion 05:00: 04:59 mL, IV [place] 500 mL 00 :00 Infusion, Medical ONCE, 1 Branch dose, 01/30/20 at 0000, STAT proMETHazin 2020-0 Yes [id number] 25mg Take 1 [facility] e 25 mg 3-27 tablet by ity of tablet 00:00: mouth [place] 00 every 4 Medical (four) Branch hours as needed for Nausea and Vomiting (N/V). proMETHazin 2020-0 Yes [id number] 25mg Take 1 [facility] e 25 mg 3-27 tablet by ity of tablet 00:00: mouth [place] 00 every 4 Medical (four) Branch hours as needed for Nausea and Vomiting (N/V). proMETHazin 2020-0 Yes [id number] 25mg Take 1 [facility] e 25 mg 3-27 tablet by ity of tablet 00:00: mouth [place] 00 every 4 Medical (four) Branch hours as needed for Nausea and Vomiting (N/V). proMETHazin 2020-0 Yes [id number] 25mg Take 1 [facility] e 25 mg 3-27 tablet by ity of tablet 00:00: mouth [place] 00 every 4 Medical (four) Branch hours as needed for Nausea and Vomiting (N/V). proMETHazin 2020-0 Yes [id number] 25mg Take 1 [facility] e 25 mg 3-27 tablet by ity of tablet 00:00: mouth [place] 00 every 4 Medical (four) Branch hours as needed for Nausea and Vomiting (N/V). proMETHazin 2020-0 Yes [id number] 25mg Take 1 [facility] e 25 mg 3-27 tablet by ity of tablet 00:00: mouth [place] 00 every 4 Medical (four) Branch hours as needed for Nausea and Vomiting (N/V). proMETHazin 2020-0 Yes [id number] 25mg Take 1 [facility] e 25 mg 3-27 tablet by ity of tablet 00:00: mouth [place] 00 every 4 Medical (four) Branch hours as needed for Nausea and Vomiting (N/V). proMETHazin 2020-0 Yes [id number] 25mg Take 1 [facility] e 25 mg 3-27 tablet by ity of tablet 00:00: mouth [place] 00 every 4 Medical (four) Branch hours as needed for Nausea and Vomiting (N/V). proMETHazin 2020-0 Yes [id number] 25mg Take 1 [facility] e 25 mg 3-27 tablet by ity of tablet 00:00: mouth [place] 00 every 4 Medical (four) Branch hours as needed for Nausea and Vomiting (N/V). proMETHazin 2020-0 Yes [id number] 25mg Take 1 [facility] e 25 mg 3-27 tablet by ity of tablet 00:00: mouth [place] 00 every 4 Medical (four) Branch hours as needed for Nausea and Vomiting (N/V). proMETHazin 2020-0 Yes [id number] 25mg Take 1 [facility] e 25 mg 3-27 tablet by ity of tablet 00:00: mouth [place] 00 every 4 Medical (four) Branch hours as needed for Nausea and Vomiting (N/V). proMETHazin 2020-0 Yes [id number] 25mg Take 1 [facility] e 25 mg 3-27 tablet by ity of tablet 00:00: mouth [place] 00 every 4 Medical (four) Branch hours as needed for Nausea and Vomiting (N/V). proMETHazin 2020-0 Yes [id number] 25mg Take 1 [facility] e 25 mg 3-27 tablet by ity of tablet 00:00: mouth [place] 00 every 4 Medical (four) Branch hours as needed for Nausea and Vomiting (N/V). proMETHazin 2020-0 Yes [id number] 25mg Take 1 [facility] e 25 mg 3-27 tablet by ity of tablet 00:00: mouth [place] 00 every 4 Medical (four) Branch hours as needed for Nausea and Vomiting (N/V). proMETHazin 2020-0 Yes [id number] 25mg Take 1 [facility] e 25 mg 3-27 tablet by ity of tablet 00:00: mouth [place] 00 every 4 Medical (four) Branch hours as needed for Nausea and Vomiting (N/V). proMETHazin 2020-0 Yes [id number] 25mg Take 1 [facility] e 25 mg 3-27 tablet by ity of tablet 00:00: mouth [place] 00 every 4 Medical (four) Branch hours as needed for Nausea and Vomiting (N/V). proMETHazin 2020-0 Yes [id number] 25mg Take 1 [facility] e 25 mg 3-27 tablet by ity of tablet 00:00: mouth [place] 00 every 4 Medical (four) Branch hours as needed for Nausea and Vomiting (N/V). proMETHazin 2020-0 Yes [id number] 25mg Take 1 [facility] e 25 mg 3-27 tablet by ity of tablet 00:00: mouth [place] 00 every 4 Medical (four) Branch hours as needed for Nausea and Vomiting (N/V). proMETHazin 2020-0 Yes [id number] 25mg Take 1 [facility] e 25 mg 3-27 tablet by ity of tablet 00:00: mouth [place] 00 every 4 Medical (four) Branch hours as needed for Nausea and Vomiting (N/V). proMETHazin 2020-0 Yes [id number] 25mg Take 1 [facility] e 25 mg 3-27 tablet by ity of tablet 00:00: mouth [place] 00 every 4 Medical (four) Branch hours as needed for Nausea and Vomiting (N/V). proMETHazin 2020-0 Yes [id number] 25mg Take 1 [facility] e 25 mg 3-27 tablet by ity of tablet 00:00: mouth [place] 00 every 4 Medical (four) Branch hours as needed for Nausea and Vomiting (N/V). proMETHazin 2020-0 Yes [id number] 25mg Take 1 [facility] e 25 mg 3-27 tablet by ity of tablet 00:00: mouth [place] 00 every 4 Medical (four) Branch hours as needed for Nausea and Vomiting (N/V). proMETHazin 2020-0 Yes [id number] 25mg Take 1 [facility] e 25 mg 3-27 tablet by ity of tablet 00:00: mouth [place] 00 every 4 Medical (four) Branch hours as needed for Nausea and Vomiting (N/V). proMETHazin 2020-0 Yes [id number] 25mg Take 1 [facility] e 25 mg 3-27 tablet by ity of tablet 00:00: mouth [place] 00 every 4 Medical (four) Branch hours as needed for Nausea and Vomiting (N/V). proMETHazin 2020-0 Yes [id number] 25mg Take 1 [facility] e 25 mg 3-27 tablet by ity of tablet 00:00: mouth [place] 00 every 4 Medical (four) Branch hours as needed for Nausea and Vomiting (N/V). proMETHazin 2020-0 Yes [id number] 25mg Take 1 [facility] e 25 mg 3-27 tablet by ity of tablet 00:00: mouth [place] 00 every 4 Medical (four) Branch hours as needed for Nausea and Vomiting (N/V). proMETHazin 2020-0 Yes [id number] 25mg Take 1 [facility] e 25 mg 3-27 tablet by ity of tablet 00:00: mouth [place] 00 every 4 Medical (four) Branch hours as needed for Nausea and Vomiting (N/V). proMETHazin 2020-0 Yes [id number] 25mg Take 1 [facility] e 25 mg 3-27 tablet by ity of tablet 00:00: mouth [place] 00 every 4 Medical (four) Branch hours as needed for Nausea and Vomiting (N/V). proMETHazin 2020-0 Yes [id number] 25mg Take 1 [facility] e 25 mg 3-27 tablet by ity of tablet 00:00: mouth [place] 00 every 4 Medical (four) Branch hours as needed for Nausea and Vomiting (N/V). proMETHazin 2020-0 Yes [id number] 25mg Take 1 [facility] e 25 mg 3-27 tablet by ity of tablet 00:00: mouth [place] 00 every 4 Medical (four) Branch hours as needed for Nausea and Vomiting (N/V). proMETHazin 2020-0 Yes [id number] 25mg Take 1 [facility] e 25 mg 3-27 tablet by ity of tablet 00:00: mouth [place] 00 every 4 Medical (four) Branch hours as needed for Nausea and Vomiting (N/V). proMETHazin 2020-0 Yes [id number] 25mg Take 1 [facility] e 25 mg 3-27 tablet by ity of tablet 00:00: mouth [place] 00 every 4 Medical (four) Branch hours as needed for Nausea and Vomiting (N/V). proMETHazin 2020-0 Yes [id number] 25mg Take 1 [facility] e 25 mg 3-27 tablet by ity of tablet 00:00: mouth [place] 00 every 4 Medical (four) Branch hours as needed for Nausea and Vomiting (N/V). proMETHazin 2020-0 Yes [id number] 25mg Take 1 [facility] e 25 mg 3-27 tablet by ity of tablet 00:00: mouth [place] 00 every 4 Medical (four) Branch hours as needed for Nausea and Vomiting (N/V). proMETHazin 2020-0 Yes [id number] 25mg Take 1 [facility] e 25 mg 3-27 tablet by ity of tablet 00:00: mouth [place] 00 every 4 Medical (four) Branch hours as needed for Nausea and Vomiting (N/V). proMETHazin 2020-0 Yes [id number] 25mg Take 1 [facility] e 25 mg 3-27 tablet by ity of tablet 00:00: mouth [place] 00 every 4 Medical (four) Branch hours as needed for Nausea and Vomiting (N/V). proMETHazin 2020-0 Yes [id number] 25mg Take 1 [facility] e 25 mg 3-27 tablet by ity of tablet 00:00: mouth [place] 00 every 4 Medical (four) Branch hours as needed for Nausea and Vomiting (N/V). proMETHazin 2020-0 Yes [id number] 25mg Take 1 [facility] e 25 mg 3-27 tablet by ity of tablet 00:00: mouth [place] 00 every 4 Medical (four) Branch hours as needed for Nausea and Vomiting (N/V). proMETHazin 2020-0 Yes [id number] 25mg Take 1 [facility] e 25 mg 3-27 tablet by ity of tablet 00:00: mouth [place] 00 every 4 Medical (four) Branch hours as needed for Nausea and Vomiting (N/V). proMETHazin 2020-0 Yes [id number] 25mg Take 1 [facility] e 25 mg 3-27 tablet by ity of tablet 00:00: mouth [place] 00 every 4 Medical (four) Branch hours as needed for Nausea and Vomiting (N/V). proMETHazin 2020-0 Yes [id number] 25mg Take 1 [facility] e 25 mg 3-27 tablet by ity of tablet 00:00: mouth [place] 00 every 4 Medical (four) Branch hours as needed for Nausea and Vomiting (N/V). proMETHazin 2020-0 Yes [id number] 25mg Take 1 [facility] e 25 mg 3-27 tablet by ity of tablet 00:00: mouth [place] 00 every 4 Medical (four) Branch hours as needed for Nausea and Vomiting (N/V). proMETHazin 2020-0 2020- No [id number] 25mg Take 1 [facility] e 25 mg 3-27 06-23 tablet by ity of tablet 00:00: 00:00 mouth [place] 00 :00 every 4 Medical (four) Branch hours as needed for Nausea and Vomiting (N/V). acyclovir 2020-0 Yes [id number] 400mg Take 1 [facility] 400 mg 3-10 tablet by ity of tablet 00:00: mouth (two) Medical times Branch daily. acyclovir 2020-0 Yes [id number] 400mg Take 1 [facility] 400 mg 3-10 tablet by ity of tablet 00:00: mouth (two) Medical times Branch daily. acyclovir 2020-0 Yes [id number] 400mg Take 1 [facility] 400 mg 3-10 tablet by ity of tablet 00:00: mouth (two) Medical times Branch daily. acyclovir 2020-0 Yes [id number] 400mg Take 1 [facility] 400 mg 3-10 tablet by ity of tablet 00:00: mouth 2 (two) Medical times Branch daily. acyclovir 2020-0 Yes [id number] 400mg Take 1 [facility] 400 mg 3-10 tablet by ity of tablet 00:00: mouth 2 (two) Medical times Branch daily. acyclovir 2020-0 Yes [id number] 400mg Take 1 [facility] 400 mg 3-10 tablet by ity of tablet 00:00: mouth 2 (two) Medical times Branch daily. acyclovir 2020-0 Yes [id number] 400mg Take 1 [facility] 400 mg 3-10 tablet by ity of tablet 00:00: mouth (two) Medical times Branch daily. acyclovir 2020-0 Yes [id number] 400mg Take 1 [facility] 400 mg 3-10 tablet by ity of tablet 00:00: mouth (two) Medical times Branch daily. acyclovir 2020-0 Yes [id number] 400mg Take 1 [facility] 400 mg 3-10 tablet by ity of tablet 00:00: mouth (two) Medical times Branch daily. acyclovir 2020-0 Yes [id number] 400mg Take 1 [facility] 400 mg 3-10 tablet by ity of tablet 00:00: mouth (two) Medical times Branch daily. acyclovir 2020-0 Yes [id number] 400mg Take 1 [facility] 400 mg 3-10 tablet by ity of tablet 00:00: mouth (two) Medical times Branch daily. acyclovir 2020-0 Yes [id number] 400mg Take 1 [facility] 400 mg 3-10 tablet by ity of tablet 00:00: mouth (two) Medical times Branch daily. acyclovir 2020-0 Yes [id number] 400mg Take 1 [facility] 400 mg 3-10 tablet by ity of tablet 00:00: mouth (two) Medical times Branch daily. acyclovir 2020-0 Yes [id number] 400mg Take 1 [facility] 400 mg 3-10 tablet by ity of tablet 00:00: mouth (two) Medical times Branch daily. acyclovir 2020-0 Yes [id number] 400mg Take 1 [facility] 400 mg 3-10 tablet by ity of tablet 00:00: mouth (two) Medical times Branch daily. acyclovir 2020-0 Yes [id number] 400mg Take 1 [facility] 400 mg 3-10 tablet by ity of tablet 00:00: mouth (two) Medical times Branch daily. acyclovir 2020-0 Yes [id number] 400mg Take 1 [facility] 400 mg 3-10 tablet by ity of tablet 00:00: mouth (two) Medical times Branch daily. acyclovir 2020-0 Yes [id number] 400mg Take 1 [facility] 400 mg 3-10 tablet by ity of tablet 00:00: mouth (two) Medical times Branch daily. acyclovir 2020-0 Yes [id number] 400mg Take 1 [facility] 400 mg 3-10 tablet by ity of tablet 00:00: mouth (two) Medical times Branch daily. acyclovir 2020-0 Yes [id number] 400mg Take 1 [facility] 400 mg 3-10 tablet by ity of tablet 00:00: mouth (two) Medical times Branch daily. acyclovir 2020-0 Yes [id number] 400mg Take 1 [facility] 400 mg 3-10 tablet by ity of tablet 00:00: mouth (two) Medical times Branch daily. acyclovir 2020-0 Yes [id number] 400mg Take 1 [facility] 400 mg 3-10 tablet by ity of tablet 00:00: mouth (two) Medical times Branch daily. acyclovir 2020-0 Yes [id number] 400mg Take 1 [facility] 400 mg 3-10 tablet by ity of tablet 00:00: mouth (two) Medical times Branch daily. acyclovir 2020-0 Yes [id number] 400mg Take 1 [facility] 400 mg 3-10 tablet by ity of tablet 00:00: mouth (two) Medical times Branch daily. acyclovir 2020-0 Yes [id number] 400mg Take 1 [facility] 400 mg 3-10 tablet by ity of tablet 00:00: mouth (two) Medical times Branch daily. acyclovir 2020-0 Yes [id number] 400mg Take 1 [facility] 400 mg 3-10 tablet by ity of tablet 00:00: mouth (two) Medical times Branch daily. acyclovir 2020-0 Yes [id number] 400mg Take 1 [facility] 400 mg 3-10 tablet by ity of tablet 00:00: mouth (two) Medical times Branch daily. acyclovir 2020-0 Yes [id number] 400mg Take 1 [facility] 400 mg 3-10 tablet by ity of tablet 00:00: mouth (two) Medical times Branch daily. acyclovir 2020-0 Yes [id number] 400mg Take 1 [facility] 400 mg 3-10 tablet by ity of tablet 00:00: mouth (two) Medical times Branch daily. acyclovir 2020-0 Yes [id number] 400mg Take 1 [facility] 400 mg 3-10 tablet by ity of tablet 00:00: mouth (two) Medical times Branch daily. acyclovir 2020-0 Yes [id number] 400mg Take 1 [facility] 400 mg 3-10 tablet by ity of tablet 00:00: mouth (two) Medical times Branch daily. acyclovir 2020-0 Yes [id number] 400mg Take 1 [facility] 400 mg 3-10 tablet by ity of tablet 00:00: mouth (two) Medical times Branch daily. acyclovir 2020-0 Yes [id number] 400mg Take 1 [facility] 400 mg 3-10 tablet by ity of tablet 00:00: mouth (two) Medical times Branch daily. acyclovir 2020-0 Yes [id number] 400mg Take 1 [facility] 400 mg 3-10 tablet by ity of tablet 00:00: mouth (two) Medical times Branch daily. acyclovir 2020-0 Yes [id number] 400mg Take 1 [facility] 400 mg 3-10 tablet by ity of tablet 00:00: mouth (two) Medical times Branch daily. acyclovir 2020-0 Yes [id number] 400mg Take 1 [facility] 400 mg 3-10 tablet by ity of tablet 00:00: mouth (two) Medical times Branch daily. acyclovir 2020-0 Yes [id number] 400mg Take 1 [facility] 400 mg 3-10 tablet by ity of tablet 00:00: mouth (two) Medical times Branch daily. acyclovir 2020-0 Yes [id number] 400mg Take 1 [facility] 400 mg 3-10 tablet by ity of tablet 00:00: mouth (two) Medical times Branch daily. acyclovir 2020-0 Yes [id number] 400mg Take 1 [facility] 400 mg 3-10 tablet by ity of tablet 00:00: mouth (two) Medical times Branch daily. acyclovir 2020-0 Yes [id number] 400mg Take 1 [facility] 400 mg 3-10 tablet by ity of tablet 00:00: mouth (two) Medical times Branch daily. acyclovir 2020-0 Yes [id number] 400mg Take 1 [facility] 400 mg 3-10 tablet by ity of tablet 00:00: mouth (two) Medical times Branch daily. acyclovir 2020-0 Yes [id number] 400mg Take 1 [facility] 400 mg 3-10 tablet by ity of tablet 00:00: mouth (two) Medical times Branch daily. acyclovir 2020-0 Yes [id number] 400mg Take 1 [facility] 400 mg 3-10 tablet by ity of tablet 00:00: mouth 2 (two) Medical times Branch daily. acyclovir 2020-0 Yes [id number] 400mg Take 1 [facility] 400 mg 3-10 tablet by ity of tablet 00:00: mouth 2 (two) Medical times Branch daily. acyclovir 2020-0 2020- No [id number] 400mg Take 1 [facility] 400 mg 3-10 - tablet by ity of tablet 00:00: 00:00 mouth 2 [place] 00 :00 (two) Medical times Branch daily. fluconazole 2020-0 2020- No 200mg 200 mg, U nivers (DIFLUCAN) 3 03-06 Oral, ity of tablet 200 03:54: 04:17 ONCE, 1 [place] as mg 00 :00 dose, [facility] 01/07/20 at Branch 2200, TORSTEN
Re ason for Anti-Infec tive: Documented Infection< br>Documen caroline Infection Site: Other
O ther site: vaginal
Duration of Therapy: Other (see Comments) metroNIDAZO 2020-0 Yes [id number] 500mg Take 1 [facility] LE 500 mg 1-17 tablet by ity o f tablet 00:00: mouth 2 (two) Medical times Branch daily. metroNIDAZO 2020-0 Yes [id number] 500mg Take 1 [facility] LE 500 mg 1-17 tablet by ity o f tablet 00:00: mouth 2 (two) Medical times Branch daily. metroNIDAZO 2020-0 Yes [id number] 500mg Take 1 [facility] LE 500 mg 1-17 tablet by ity o f tablet 00:00: mouth 2 (two) Medical times Branch daily. metroNIDAZO 2020-0 Yes [id number] 500mg Take 1 [facility] LE 500 mg 1-17 tablet by ity o f tablet 00:00: mouth 2 (two) Medical times Branch daily. metroNIDAZO 2020-0 Yes [id number] 500mg Take 1 [facility] LE 500 mg 1-17 tablet by ity o f tablet 00:00: mouth 2 (two) Medical times Branch daily. metroNIDAZO 2020-0 Yes [id number] 500mg Take 1 [facility] LE 500 mg 1-17 tablet by ity o f tablet 00:00: mouth 2 (two) Medical times Branch daily. metroNIDAZO 2020-0 Yes [id number] 500mg Take 1 [facility] LE 500 mg 1-17 tablet by ity o f tablet 00:00: mouth 2 (two) Medical times Branch daily. metroNIDAZO 2020-0 Yes [id number] 500mg Take 1 [facility] LE 500 mg 1-17 tablet by ity o f tablet 00:00: mouth 2 (two) Medical times Branch daily. metroNIDAZO 2020-0 Yes [id number] 500mg Take 1 [facility] LE 500 mg 1-17 tablet by ity o f tablet 00:00: mouth 2 (two) Medical times Branch daily. metroNIDAZO 2020-0 Yes [id number] 500mg Take 1 [facility] LE 500 mg 1-17 tablet by ity o f tablet 00:00: mouth (two) Medical times Branch daily. metroNIDAZO 2020-0 Yes [id number] 500mg Take 1 [facility] LE 500 mg 1-17 tablet by ity o f tablet 00:00: mouth (two) Medical times Branch daily. metroNIDAZO 2020-0 Yes [id number] 500mg Take 1 [facility] LE 500 mg 1-17 tablet by ity o f tablet 00:00: mouth (two) Medical times Branch daily. metroNIDAZO 2020-0 Yes [id number] 500mg Take 1 [facility] LE 500 mg 1-17 tablet by ity o f tablet 00:00: mouth (two) Medical times Branch daily. metroNIDAZO 2020-0 Yes [id number] 500mg Take 1 [facility] LE 500 mg 1-17 tablet by ity o f tablet 00:00: mouth (two) Medical times Branch daily. metroNIDAZO 2020-0 Yes [id number] 500mg Take 1 [facility] LE 500 mg 1-17 tablet by ity o f tablet 00:00: mouth 2 (two) Medical times Branch daily. metroNIDAZO 2020-0 Yes [id number] 500mg Take 1 [facility] LE 500 mg 1-17 tablet by ity o f tablet 00:00: mouth 2 (two) Medical times Branch daily. metroNIDAZO 2020-0 Yes [id number] 500mg Take 1 [facility] LE 500 mg 1-17 tablet by ity o f tablet 00:00: mouth 2 (two) Medical times Branch daily. metroNIDAZO 2020-0 Yes [id number] 500mg Take 1 [facility] LE 500 mg 1-17 tablet by ity o f tablet 00:00: mouth (two) Medical times Branch daily. metroNIDAZO 2020-0 Yes [id number] 500mg Take 1 [facility] LE 500 mg 1-17 tablet by ity o f tablet 00:00: mouth 2 (two) Medical times Branch daily. metroNIDAZO 2020-0 Yes [id number] 500mg Take 1 [facility] LE 500 mg 1-17 tablet by ity o f tablet 00:00: mouth 2 (two) Medical times Branch daily. metroNIDAZO 2020-0 Yes [id number] 500mg Take 1 [facility] LE 500 mg 1-17 tablet by ity o f tablet 00:00: mouth (two) Medical times Branch daily. metroNIDAZO 2020-0 Yes [id number] 500mg Take 1 [facility] LE 500 mg 1-17 tablet by ity o f tablet 00:00: mouth (two) Medical times Branch daily. metroNIDAZO 2020-0 Yes [id number] 500mg Take 1 [facility] LE 500 mg 1-17 tablet by ity o f tablet 00:00: mouth (two) Medical times Branch daily. metroNIDAZO 2020-0 Yes [id number] 500mg Take 1 [facility] LE 500 mg 1-17 tablet by ity o f tablet 00:00: mouth (two) Medical times Branch daily. metroNIDAZO 2020-0 Yes [id number] 500mg Take 1 [facility] LE 500 mg 1-17 tablet by ity o f tablet 00:00: mouth (two) Medical times Branch daily. metroNIDAZO 2020-0 Yes [id number] 500mg Take 1 [facility] LE 500 mg 1-17 tablet by ity o f tablet 00:00: mouth (two) Medical times Branch daily. metroNIDAZO 2020-0 Yes [id number] 500mg Take 1 [facility] LE 500 mg 1-17 tablet by ity o f tablet 00:00: mouth 2 (two) Medical times Branch daily. metroNIDAZO 2020-0 Yes [id number] 500mg Take 1 [facility] LE 500 mg 1-17 tablet by ity o f tablet 00:00: mouth 2 (two) Medical times Branch daily. metroNIDAZO 2020-0 Yes [id number] 500mg Take 1 [facility] LE 500 mg 1-17 tablet by ity o f tablet 00:00: mouth (two) Medical times Branch daily. metroNIDAZO 2020-0 Yes [id number] 500mg Take 1 [facility] LE 500 mg 1-17 tablet by ity o f tablet 00:00: mouth (two) Medical times Branch daily. metroNIDAZO 2020-0 Yes [id number] 500mg Take 1 [facility] LE 500 mg 1-17 tablet by ity o f tablet 00:00: mouth (two) Medical times Branch daily. metroNIDAZO 2020-0 Yes [id number] 500mg Take 1 [facility] LE 500 mg 1-17 tablet by ity o f tablet 00:00: mouth (two) Medical times Branch daily. metroNIDAZO 2020-0 Yes [id number] 500mg Take 1 [facility] LE 500 mg 1-17 tablet by ity o f tablet 00:00: mouth (two) Medical times Branch daily. metroNIDAZO 2020-0 Yes [id number] 500mg Take 1 [facility] LE 500 mg 1-17 tablet by ity o f tablet 00:00: mouth (two) Medical times Branch daily. metroNIDAZO 2020-0 Yes [id number] 500mg Take 1 [facility] LE 500 mg 1-17 tablet by ity o f tablet 00:00: mouth (two) Medical times Branch daily. metroNIDAZO 2020-0 Yes [id number] 500mg Take 1 [facility] LE 500 mg 1-17 tablet by ity o f tablet 00:00: mouth (two) Medical times Branch daily. metroNIDAZO 2020-0 Yes [id number] 500mg Take 1 [facility] LE 500 mg 1-17 tablet by ity o f tablet 00:00: mouth (two) Medical times Branch daily. metroNIDAZO 2020-0 Yes [id number] 500mg Take 1 [facility] LE 500 mg 1-17 tablet by ity o f tablet 00:00: mouth (two) Medical times Branch daily. metroNIDAZO 2020-0 Yes [id number] 500mg Take 1 [facility] LE 500 mg 1-17 tablet by ity o f tablet 00:00: mouth (two) Medical times Branch daily. metroNIDAZO 2020-0 Yes [id number] 500mg Take 1 [facility] LE 500 mg 1-17 tablet by ity o f tablet 00:00: mouth 2 (two) Medical times Branch daily. metroNIDAZO 2020-0 Yes [id number] 500mg Take 1 [facility] LE 500 mg 1-17 tablet by ity o f tablet 00:00: mouth 2 (two) Medical times Branch daily. metroNIDAZO 2020-0 Yes [id number] 500mg Take 1 [facility] LE 500 mg 1-17 tablet by ity o f tablet 00:00: mouth (two) Medical times Branch daily. metroNIDAZO 2020-0 Yes [id number] 500mg Take 1 [facility] LE 500 mg 1-17 tablet by ity o f tablet 00:00: mouth (two) Medical times Branch daily. metroNIDAZO 2020-0 Yes [id number] 500mg Take 1 [facility] LE 500 mg 1-17 tablet by ity o f tablet 00:00: mouth (two) Medical times Branch daily. metroNIDAZO 2020-0 Yes [id number] 500mg Take 1 [facility] LE 500 mg 1-17 tablet by ity o f tablet 00:00: mouth (two) Medical times Branch daily. metroNIDAZO 2020-0 Yes [id number] 500mg Take 1 [facility] LE 500 mg 1-17 tablet by ity o f tablet 00:00: mouth (two) Medical times Branch daily. metroNIDAZO 2020-0 Yes [id number] 500mg Take 1 [facility] LE 500 mg 1-17 tablet by ity o f tablet 00:00: mouth (two) Medical times Branch daily. metroNIDAZO 2020-0 Yes [id number] 500mg Take 1 [facility] 500 mg 1-17 tablet by [facility] o f tablet 00:00: mouth (two) Medical times Branch daily. metroNIDAZO 2020-0 Yes [id number] 500mg Take 1 [facility] 500 mg 1-17 tablet by [facility] f tablet 00:00: mouth (two) [facility] times [facility] daily. metroNIDAZO 2020-0 Yes [id number] 500mg Take 1 [facility] 500 mg 1-17 tablet by [facility] o f tablet 00:00: mouth (two) [facility] times [facility] daily. metroNIDAZO 2020-0 Yes [id number] 500mg Take 1 [facility] 500 mg 1-17 tablet by [facility] o f tablet 00:00: mouth 2 [place] 00 (two) Medical times Branch daily. metroNIDAZO 2020-0 Yes [id number] 500mg Take 1 [facility] 500 mg 1-17 tablet by [facility] o f tablet 00:00: mouth 2 [place] 00 (two) Medical times Branch daily. metroNIDAZO 2020-0 Yes [id number] 500mg Take 1 [facility] 500 mg 1-17 tablet by [facility] o f tablet 00:00: mouth 2 [place] 00 (two) Medical times Branch daily. metroNIDAZO 2020-0 2020- No [id number] 500mg Take 1 [facility] 500 mg 1-17 -23 tablet by [facility] of tablet 00:00: 00:00 mouth 2 [place] 00 :00 (two) Medical times Branch daily. PNV 67-iron 2018-11 Yes [id number] 1{each} Take 1 [facility] ps-folate 2-20 Each by [facility] of no.1-dha 00:00: mouth [place] (VITAFOL 00 daily. Medical ULTRA) 29 Branch mg iron- 1 mg-200 mg Cap PNV 67-iron 2018-11 Yes [id number] 1{each} Take 1 [facility] ps-folate 2-20 Each by [facility] of no.1-dha 00:00: mouth [place] (VITAFOL 00 daily. Medical ULTRA) 29 Branch mg iron- 1 mg-200 mg Cap PNV 67-iron 2018-11 Yes [id number] 1{each} Take 1 [facility] ps-folate 2-20 Each by [facility] of no.1-dha 00:00: mouth [place] (VITAFOL 00 daily. Medical ULTRA) 29 Branch mg iron- 1 mg-200 mg Cap PNV 67-iron 2018-11 Yes [id number] 1{each} Take 1 [facility] ps-folate 2-20 Each by [facility] of no.1-dha 00:00: mouth [place] (VITAFOL 00 daily. Medical ULTRA) 29 Branch mg iron- 1 mg-200 mg Cap PNV 67-iron 2018- Yes [id number] 1{each} Take 1 [facility] ps-folate 2-20 Each by [facility] of no.1-dha 00:00: mouth [place] (VITAFOL 00 daily. Medical ULTRA) 29 Branch mg iron- 1 mg-200 mg Cap PNV 67-iron 2018-11 Yes [id number] 1{each} Take 1 [facility] ps-folate 2-20 Each by [facility] of no.1-dha 00:00: mouth [place] (VITAFOL 00 daily. Medical ULTRA) 29 Branch mg iron- 1 mg-200 mg Cap PNV 67-iron 2018-11 Yes [id number] 1{each} Take 1 [facility] ps-folate 2-20 Each by [facility] of no.1-dha 00:00: mouth [place] (VITAFOL 00 daily. Medical ULTRA) 29 Branch mg iron- 1 mg-200 mg Cap PNV 67-iron 2018-11 Yes [id number] 1{each} Take 1 [facility] ps-folate 2-20 Each by [facility] of no.1-dha 00:00: mouth [place] (VITAFOL 00 daily. Medical ULTRA) 29 Branch mg iron- 1 mg-200 mg Cap PNV 67-iron 2018-11 Yes [id number] 1{each} Take 1 [facility] ps-folate 2-20 Each by [facility] of no.1-dha 00:00: mouth [place] (VITAFOL 00 daily. Medical ULTRA) 29 Branch mg iron- 1 mg-200 mg Cap PNV 67-iron 2018-11 Yes [id number] 1{each} Take 1 [facility] ps-folate 2-20 Each by [facility] of no.1-dha 00:00: mouth [place] (VITAFOL 00 daily. Medical ULTRA) 29 Branch mg iron- 1 mg-200 mg Cap PNV 67-iron 2018-11 Yes [id number] 1{each} Take 1 [facility] ps-folate 2-20 Each by [facility] of no.1-dha 00:00: mouth [place] (VITAFOL 00 daily. Medical ULTRA) 29 Branch mg iron- 1 mg-200 mg Cap PNV 67-iron 2018-11 Yes [id number] 1{each} Take 1 [facility] ps-folate 2-20 Each by [facility] of no.1-dha 00:00: mouth [place] (VITAFOL 00 daily. Medical ULTRA) 29 Branch mg iron- 1 mg-200 mg Cap PNV 67-iron 2018-11 Yes [id number] 1{each} Take 1 [facility] ps-folate 2-20 Each by [facility] of no.1-dha 00:00: mouth [place] (VITAFOL 00 daily. Medical ULTRA) 29 Branch mg iron- 1 mg-200 mg Cap PNV 67-iron 2018-11 Yes [id number] 1{each} Take 1 [facility] ps-folate 2-20 Each by [facility] of no.1-dha 00:00: mouth [place] (VITAFOL 00 daily. Medical ULTRA) 29 Branch mg iron- 1 mg-200 mg Cap PNV 67-iron 2018-11 Yes [id number] 1{each} Take 1 [facility] ps-folate 2-20 Each by [facility] of no.1-dha 00:00: mouth [place] (VITAFOL 00 daily. Medical ULTRA) 29 Branch mg iron- 1 mg-200 mg Cap PNV 67-iron 2018-11 Yes [id number] 1{each} Take 1 [facility] ps-folate 2-20 Each by [facility] of no.1-dha 00:00: mouth [place] (VITAFOL 00 daily. Medical ULTRA) 29 Branch mg iron- 1 mg-200 mg Cap PNV 67-iron 2018-11 Yes [id number] 1{each} Take 1 [facility] ps-folate 2-20 Each by [facility] of no.1-dha 00:00: mouth [place] (VITAFOL 00 daily. Medical ULTRA) 29 Branch mg iron- 1 mg-200 mg Cap PNV 67-iron 2018-11 Yes [id number] 1{each} Take 1 [facility] ps-folate 2-20 Each by [facility] of no.1-dha 00:00: mouth [place] (VITAFOL 00 daily. Medical ULTRA) 29 Branch mg iron- 1 mg-200 mg Cap PNV 67-iron 2018-11 Yes [id number] 1{each} Take 1 [facility] ps-folate 2-20 Each by [facility] of no.1-dha 00:00: mouth [place] (VITAFOL 00 daily. Medical ULTRA) 29 Branch mg iron- 1 mg-200 mg Cap PNV 67-iron 2018-11 Yes [id number] 1{each} Take 1 [facility] ps-folate 2-20 Each by [facility] of no.1-dha 00:00: mouth [place] (VITAFOL 00 daily. Medical ULTRA) 29 Branch mg iron- 1 mg-200 mg Cap PNV 67-iron 2018-11 Yes [id number] 1{each} Take 1 [facility] ps-folate 2-20 Each by [facility] of no.1-dha 00:00: mouth [place] (VITAFOL 00 daily. Medical ULTRA) 29 Branch mg iron- 1 mg-200 mg Cap PNV 67-iron 2018-11 Yes [id number] 1{each} Take 1 [facility] ps-folate 2-20 Each by [facility] of no.1-dha 00:00: mouth [place] (VITAFOL 00 daily. Medical ULTRA) 29 Branch mg iron- 1 mg-200 mg Cap PNV 67-iron 2018-11 Yes [id number] 1{each} Take 1 [facility] ps-folate 2-20 Each by [facility] of no.1-dha 00:00: mouth [place] (VITAFOL 00 daily. Medical ULTRA) 29 Branch mg iron- 1 mg-200 mg Cap PNV 67-iron 2018-11 Yes [id number] 1{each} Take 1 [facility] ps-folate 2-20 Each by [facility] of no.1-dha 00:00: mouth [place] (VITAFOL 00 daily. Medical ULTRA) 29 Branch mg iron- 1 mg-200 mg Cap PNV 67-iron 2018-11 Yes [id number] 1{each} Take 1 [facility] ps-folate 2-20 Each by [facility] of no.1-dha 00:00: mouth [place] (VITAFOL 00 daily. Medical ULTRA) 29 Branch mg iron- 1 mg-200 mg Cap PNV 67-iron 2018-11 Yes [id number] 1{each} Take 1 [facility] ps-folate 2-20 Each by [facility] of no.1-dha 00:00: mouth [place] (VITAFOL 00 daily. Medical ULTRA) 29 Branch mg iron- 1 mg-200 mg Cap PNV 67-iron 2018-11 Yes [id number] 1{each} Take 1 [facility] ps-folate 2-20 Each by [facility] of no.1-dha 00:00: mouth [place] (VITAFOL 00 daily. Medical ULTRA) 29 Branch mg iron- 1 mg-200 mg Cap PNV 67-iron 2018-11 Yes [id number] 1{each} Take 1 [facility] ps-folate 2-20 Each by [facility] of no.1-dha 00:00: mouth [place] (VITAFOL 00 daily. Medical ULTRA) 29 Branch mg iron- 1 mg-200 mg Cap PNV 67-iron 2018-11 Yes [id number] 1{each} Take 1 [facility] ps-folate 2-20 Each by [facility] of no.1-dha 00:00: mouth [place] (VITAFOL 00 daily. Medical ULTRA) 29 Branch mg iron- 1 mg-200 mg Cap PNV 67-iron 2018-11 Yes [id number] 1{each} Take 1 [facility] ps-folate 2-20 Each by [facility] of no.1-dha 00:00: mouth [place] (VITAFOL 00 daily. Medical ULTRA) 29 Branch mg iron- 1 mg-200 mg Cap PNV 67-iron 2018-11 Yes [id number] 1{each} Take 1 [facility] ps-folate 2-20 Each by [facility] of no.1-dha 00:00: mouth [place] (VITAFOL 00 daily. Medical ULTRA) 29 Branch mg iron- 1 mg-200 mg Cap PNV 67-iron 2018-11 Yes [id number] 1{each} Take 1 [facility] ps-folate 2-20 Each by [facility] of no.1-dha 00:00: mouth [place] (VITAFOL 00 daily. Medical ULTRA) 29 Branch mg iron- 1 mg-200 mg Cap PNV 67-iron 2018-11 Yes [id number] 1{each} Take 1 [facility] ps-folate 2-20 Each by [facility] of no.1-dha 00:00: mouth [place] (VITAFOL 00 daily. Medical ULTRA) 29 Branch mg iron- 1 mg-200 mg Cap PNV 67-iron 2018-11 Yes [id number] 1{each} Take 1 [facility] ps-folate 2-20 Each by [facility] of no.1-dha 00:00: mouth [place] (VITAFOL 00 daily. Medical ULTRA) 29 Branch mg iron- 1 mg-200 mg Cap PNV 67-iron 2018-11 Yes [id number] 1{each} Take 1 [facility] ps-folate 2-20 Each by [facility] of no.1-dha 00:00: mouth [place] (VITAFOL 00 daily. Medical ULTRA) 29 Branch mg iron- 1 mg-200 mg Cap PNV 67-iron 2018-11 Yes [id number] 1{each} Take 1 [facility] ps-folate 2-20 Each by [facility] of no.1-dha 00:00: mouth [place] (VITAFOL 00 daily. Medical ULTRA) 29 Branch mg iron- 1 mg-200 mg Cap PNV 67-iron 2018-11 Yes [id number] 1{each} Take 1 [facility] ps-folate 2-20 Each by [facility] of no.1-dha 00:00: mouth [place] (VITAFOL 00 daily. Medical ULTRA) 29 Branch mg iron- 1 mg-200 mg Cap PNV 67-iron 2018-11 Yes [id number] 1{each} Take 1 [facility] ps-folate 2-20 Each by [facility] of no.1-dha 00:00: mouth [place] (VITAFOL 00 daily. Medical ULTRA) 29 Branch mg iron- 1 mg-200 mg Cap PNV 67-iron 2018-11 Yes [id number] 1{each} Take 1 [facility] ps-folate 2-20 Each by [facility] of no.1-dha 00:00: mouth [place] (VITAFOL 00 daily. Medical ULTRA) 29 Branch mg iron- 1 mg-200 mg Cap PNV 67-iron 2018-11 Yes [id number] 1{each} Take 1 [facility] ps-folate 2-20 Each by [facility] of no.1-dha 00:00: mouth [place] (VITAFOL 00 daily. Medical ULTRA) 29 Branch mg iron- 1 mg-200 mg Cap PNV 67-iron 2018-11 Yes [id number] 1{each} Take 1 [facility] ps-folate 2-20 Each by [facility] of no.1-dha 00:00: mouth [place] (VITAFOL 00 daily. Medical ULTRA) 29 Branch mg iron- 1 mg-200 mg Cap PNV 67-iron 2018-11 Yes [id number] 1{each} Take 1 [facility] ps-folate 2-20 Each by [facility] of no.1-dha 00:00: mouth [place] (VITAFOL 00 daily. Medical ULTRA) 29 Branch mg iron- 1 mg-200 mg Cap PNV 67-iron 2018-11 Yes [id number] 1{each} Take 1 [facility] ps-folate 2-20 Each by [facility] of no.1-dha 00:00: mouth [place] (VITAFOL 00 daily. Medical ULTRA) 29 Branch mg iron- 1 mg-200 mg Cap PNV 67-iron 2018-11 Yes [id number] 1{each} Take 1 [facility] ps-folate 2-20 Each by [facility] of no.1-dha 00:00: mouth [place] (VITAFOL 00 daily. Medical ULTRA) 29 Branch mg iron- 1 mg-200 mg Cap PNV 67-iron 2018-11 Yes [id number] 1{each} Take 1 [facility] ps-folate 2-20 Each by [facility] of no.1-dha 00:00: mouth [place] (VITAFOL 00 daily. Medical ULTRA) 29 Branch mg iron- 1 mg-200 mg Cap PNV 67-iron 2018-11 Yes [id number] 1{each} Take 1 [facility] ps-folate 2-20 Each by [facility] of no.1-dha 00:00: mouth [place] (VITAFOL 00 daily. Medical ULTRA) 29 Branch mg iron- 1 mg-200 mg Cap PNV 67-iron 2018-11 Yes [id number] 1{each} Take 1 [facility] ps-folate 2-20 Each by [facility] of no.1-dha 00:00: mouth [place] (VITAFOL 00 daily. Medical ULTRA) 29 Branch mg iron- 1 mg-200 mg Cap PNV 67-iron 2018-11 Yes [id number] 1{each} Take 1 [facility] ps-folate 2-20 Each by [facility] of no.1-dha 00:00: mouth [place] (VITAFOL 00 daily. Medical ULTRA) 29 Branch mg iron- 1 mg-200 mg Cap PNV 67-iron 2018-11 Yes [id number] 1{each} Take 1 [facility] ps-folate 2-20 Each by [facility] of no.1-dha 00:00: mouth [place] (VITAFOL 00 daily. Medical ULTRA) 29 Branch mg iron- 1 mg-200 mg Cap PNV 67-iron 2018-11 Yes [id number] 1{each} Take 1 [facility] ps-folate 2-20 Each by [facility] of no.1-dha 00:00: mouth [place] (VITAFOL 00 daily. Medical ULTRA) 29 Branch mg iron- 1 mg-200 mg Cap PNV 67-iron 2018-11 Yes [id number] 1{each} Take 1 [facility] ps-folate 2-20 Each by [facility] of no.1-dha 00:00: mouth [place] (VITAFOL 00 daily. Medical ULTRA) 29 Branch mg iron- 1 mg-200 mg Cap PNV 67-iron 2018-11 Yes [id number] 1{each} Take 1 [facility] ps-folate 2-20 Each by [facility] of no.1-dha 00:00: mouth [place] (VITAFOL 00 daily. Medical ULTRA) 29 Branch mg iron- 1 mg-200 mg Cap PNV 67-iron 2018-11 Yes [id number] 1{each} Take 1 [facility] ps-folate 2-20 Each by [facility] of no.1-dha 00:00: mouth [place] (VITAFOL 00 daily. Medical ULTRA) 29 Branch mg iron- 1 mg-200 mg Cap PNV 67-iron 2018-11 2020- No [id number] 1{each} Take 1 [facility] ps-folate 2-20 - Each by [facility] of no.1-dha 00:00: 00:00 mouth [place] (VITAFOL 00 :00 daily. Medical ULTRA) 29 Branch mg iron- 1 mg-200 mg Cap proMETHazin 2018-11 Yes [id number] 25mg Take 1 [facility] e 25 mg 1-22 tablet by [facility] of tablet 00:00: mouth [place] 00 every 6 Medical (six) Branch hours as needed for Nausea and Vomiting (N/V). proMETHazin 2018-11 Yes [id number] 25mg Take 1 [facility] e 25 mg 1-22 tablet by [facility] of tablet 00:00: mouth [place] 00 every 6 Medical (six) Branch hours as needed for Nausea and Vomiting (N/V). proMETHazin 2018-11 Yes [id number] 25mg Take 1 [facility] e 25 mg 1-22 tablet by [facility] of tablet 00:00: mouth [place] 00 every 6 Medical (six) Branch hours as needed for Nausea and Vomiting (N/V). proMETHazin 2018-11 Yes [id number] 25mg Take 1 [facility] e 25 mg 1-22 tablet by [facility] of tablet 00:00: mouth [place] 00 every 6 Medical (six) Branch hours as needed for Nausea and Vomiting (N/V). proMETHazin 2018-11 Yes [id number] 25mg Take 1 [facility] e 25 mg 1-22 tablet by [facility] of tablet 00:00: mouth [place] 00 every 6 Medical (six) Branch hours as needed for Nausea and Vomiting (N/V). proMETHazin 2018-11 Yes [id number] 25mg Take 1 [facility] e 25 mg 1-22 tablet by [facility] of tablet 00:00: mouth [place] 00 every 6 Medical (six) Branch hours as needed for Nausea and Vomiting (N/V). proMETHazin 2018-11 Yes [id number] 25mg Take 1 [facility] e 25 mg 1-22 tablet by [facility] of tablet 00:00: mouth [place] 00 every 6 Medical (six) Branch hours as needed for Nausea and Vomiting (N/V). proMETHazin 2018-11 Yes [id number] 25mg Take 1 [facility] e 25 mg 1-22 tablet by [facility] of tablet 00:00: mouth [place] 00 every 6 Medical (six) Branch hours as needed for Nausea and Vomiting (N/V). proMETHazin 2018-11 Yes [id number] 25mg Take 1 [facility] e 25 mg 1-22 tablet by [facility] of tablet 00:00: mouth [place] 00 every 6 Medical (six) Branch hours as needed for Nausea and Vomiting (N/V). proMETHazin 2018-11 Yes [id number] 25mg Take 1 [facility] e 25 mg 1-22 tablet by [facility] of tablet 00:00: mouth [place] 00 every 6 Medical (six) Branch hours as needed for Nausea and Vomiting (N/V). proMETHazin 2018-11 Yes [id number] 25mg Take 1 [facility] e 25 mg 1-22 tablet by [facility] of tablet 00:00: mouth [place] 00 every 6 Medical (six) Branch hours as needed for Nausea and Vomiting (N/V). proMETHazin 2018-11 Yes [id number] 25mg Take 1 [facility] e 25 mg 1-22 tablet by [facility] of tablet 00:00: mouth [place] 00 every 6 Medical (six) Branch hours as needed for Nausea and Vomiting (N/V). proMETHazin 2018-11 Yes [id number] 25mg Take 1 [facility] e 25 mg 1-22 tablet by [facility] of tablet 00:00: mouth [place] 00 every 6 Medical (six) Branch hours as needed for Nausea and Vomiting (N/V). proMETHazin 2018-11 Yes [id number] 25mg Take 1 [facility] e 25 mg 1-22 tablet by [facility] of tablet 00:00: mouth [place] 00 every 6 Medical (six) Branch hours as needed for Nausea and Vomiting (N/V). proMETHazin 2018-11 Yes [id number] 25mg Take 1 [facility] 25 mg 1-22 tablet by [facility] of tablet 00:00: mouth [place] 00 every 6 Medical (six) Branch hours as needed for Nausea and Vomiting (N/V). proMETHazin 2018-11 Yes [id number] 25mg Take 1 [facility] 25 mg 1-22 tablet by [facility] of tablet 00:00: mouth [place] 00 every 6 Medical (six) Branch hours as needed for Nausea and Vomiting (N/V). proMETHazin 2018-11 Yes [id number] 25mg Take 1 [facility] 25 mg 1-22 tablet by [facility] of tablet 00:00: mouth [place] 00 every 6 Medical (six) Branch hours as needed for Nausea and Vomiting (N/V). proMETHazin 2018-11 Yes [id number] 25mg Take 1 [facility] 25 mg 1-22 tablet by [facility] of tablet 00:00: mouth [place] 00 every 6 Medical (six) Branch hours as needed for Nausea and Vomiting (N/V). proMETHazin 2018-11 Yes [id number] 25mg Take 1 [facility] 25 mg 1-22 tablet by [facility] of tablet 00:00: mouth [place] 00 every 6 Medical (six) Branch hours as needed for Nausea and Vomiting (N/V). proMETHazin 2018-11 Yes [id number] 25mg Take 1 [facility] 25 mg 1-22 tablet by [facility] of tablet 00:00: mouth [place] 00 every 6 Medical (six) Branch hours as needed for Nausea and Vomiting (N/V). proMETHazin 2018-11 Yes [id number] 25mg Take 1 [facility] 25 mg 1-22 tablet by [facility] of tablet 00:00: mouth [place] 00 every 6 Medical (six) Branch hours as needed for Nausea and Vomiting (N/V). proMETHazin 2018-11 Yes [id number] 25mg Take 1 [facility] 25 mg 1-22 tablet by [facility] of tablet 00:00: mouth [place] 00 every 6 Medical (six) Branch hours as needed for Nausea and Vomiting (N/V). proMETHazin 2018-11 Yes [id number] 25mg Take 1 [facility] 25 mg 1-22 tablet by [facility] of tablet 00:00: mouth [place] 00 every 6 Medical (six) Branch hours as needed for Nausea and Vomiting (N/V). proMETHazin 2018-11 Yes [id number] 25mg Take 1 [facility] 25 mg 1-22 tablet by [facility] of tablet 00:00: mouth [place] 00 every 6 Medical (six) Branch hours as needed for Nausea and Vomiting (N/V). proMETHazin 2018-11 Yes [id number] 25mg Take 1 [facility] 25 mg 1-22 tablet by [facility] of tablet 00:00: mouth [place] 00 every 6 Medical (six) Branch hours as needed for Nausea and Vomiting (N/V). proMETHazin 2018-11 Yes [id number] 25mg Take 1 [facility] 25 mg 1-22 tablet by [facility] of tablet 00:00: mouth [place] 00 every 6 Medical (six) Branch hours as needed for Nausea and Vomiting (N/V). proMETHazin 2018-11 Yes [id number] 25mg Take 1 [facility] 25 mg 1-22 tablet by [facility] of tablet 00:00: mouth [place] 00 every 6 Medical (six) Branch hours as needed for Nausea and Vomiting (N/V). proMETHazin 2018-11 Yes [id number] 25mg Take 1 [facility] 25 mg 1-22 tablet by [facility] of tablet 00:00: mouth [place] 00 every 6 Medical (six) Branch hours as needed for Nausea and Vomiting (N/V). proMETHazin 2018-11 Yes [id number] 25mg Take 1 [facility] 25 mg 1-22 tablet by [facility] of tablet 00:00: mouth [place] 00 every 6 Medical (six) Branch hours as needed for Nausea and Vomiting (N/V). proMETHazin 2018-11 Yes [id number] 25mg Take 1 [facility] 25 mg 1-22 tablet by [facility] of tablet 00:00: mouth [place] 00 every 6 Medical (six) Branch hours as needed for Nausea and Vomiting (N/V). proMETHazin 2018-11 Yes [id number] 25mg Take 1 [facility] 25 mg 1-22 tablet by [facility] of tablet 00:00: mouth [place] 00 every 6 Medical (six) Branch hours as needed for Nausea and Vomiting (N/V). proMETHazin 2018-11 Yes [id number] 25mg Take 1 [facility] 25 mg 1-22 tablet by [facility] of tablet 00:00: mouth [place] 00 every 6 Medical (six) Branch hours as needed for Nausea and Vomiting (N/V). proMETHazin 2018-11 Yes [id number] 25mg Take 1 [facility] 25 mg 1-22 tablet by [facility] of tablet 00:00: mouth [place] 00 every 6 Medical (six) Branch hours as needed for Nausea and Vomiting (N/V). proMETHazin 2018-11 Yes [id number] 25mg Take 1 [facility] 25 mg 1-22 tablet by [facility] of tablet 00:00: mouth [place] 00 every 6 Medical (six) Branch hours as needed for Nausea and Vomiting (N/V). proMETHazin 2018-11 Yes [id number] 25mg Take 1 [facility] 25 mg 1-22 tablet by [facility] of tablet 00:00: mouth [place] 00 every 6 Medical (six) Branch hours as needed for Nausea and Vomiting (N/V). proMETHazin 2018-11 Yes [id number] 25mg Take 1 [facility] 25 mg 1-22 tablet by [facility] of tablet 00:00: mouth [place] 00 every 6 Medical (six) Branch hours as needed for Nausea and Vomiting (N/V). proMETHazin 2018-11 Yes [id number] 25mg Take 1 [facility] 25 mg 1-22 tablet by [facility] of tablet 00:00: mouth [place] 00 every 6 Medical (six) Branch hours as needed for Nausea and Vomiting (N/V). proMETHazin 2018-11 Yes [id number] 25mg Take 1 [facility] 25 mg 1-22 tablet by [facility] of tablet 00:00: mouth [place] 00 every 6 Medical (six) Branch hours as needed for Nausea and Vomiting (N/V). proMETHazin 2018-11 Yes [id number] 25mg Take 1 [facility] 25 mg 1-22 tablet by [facility] of tablet 00:00: mouth [place] 00 every 6 Medical (six) Branch hours as needed for Nausea and Vomiting (N/V). proMETHazin 2018-11 Yes [id number] 25mg Take 1 [facility] 25 mg 1-22 tablet by [facility] of tablet 00:00: mouth [place] 00 every 6 Medical (six) Branch hours as needed for Nausea and Vomiting (N/V). proMETHazin 2018-11 Yes [id number] 25mg Take 1 [facility] 25 mg 1-22 tablet by [facility] of tablet 00:00: mouth [place] 00 every 6 Medical (six) Branch hours as needed for Nausea and Vomiting (N/V). proMETHazin 2018-11 Yes [id number] 25mg Take 1 [facility] 25 mg 1-22 tablet by [facility] of tablet 00:00: mouth [place] 00 every 6 Medical (six) Branch hours as needed for Nausea and Vomiting (N/V). proMETHazin 2018-11 Yes [id number] 25mg Take 1 [facility] 25 mg 1-22 tablet by [facility] of tablet 00:00: mouth [place] 00 every 6 Medical (six) Branch hours as needed for Nausea and Vomiting (N/V). proMETHazin 2018-11 Yes [id number] 25mg Take 1 [facility] 25 mg 1-22 tablet by [facility] of tablet 00:00: mouth [place] 00 every 6 Medical (six) Branch hours as needed for Nausea and Vomiting (N/V). proMETHazin 2018-11 Yes [id number] 25mg Take 1 [facility] 25 mg 1-22 tablet by [facility] of tablet 00:00: mouth [place] 00 every 6 Medical (six) Branch hours as needed for Nausea and Vomiting (N/V). proMETHazin 2018-11 Yes [id number] 25mg Take 1 [facility] 25 mg 1-22 tablet by [facility] of tablet 00:00: mouth [place] 00 every 6 Medical (six) Branch hours as needed for Nausea and Vomiting (N/V). proMETHazin 2018-11 Yes [id number] 25mg Take 1 [facility] 25 mg 1-22 tablet by [facility] of tablet 00:00: mouth [place] 00 every 6 Medical (six) Branch hours as needed for Nausea and Vomiting (N/V). proMETHazin 2018-11 Yes [id number] 25mg Take 1 [facility] 25 mg 1-22 tablet by [facility] of tablet 00:00: mouth [place] 00 every 6 Medical (six) Branch hours as needed for Nausea and Vomiting (N/V). proMETHazin 2018-11 Yes [id number] 25mg Take 1 [facility] 25 mg 1-22 tablet by [facility] of tablet 00:00: mouth [place] 00 every 6 Medical (six) Branch hours as needed for Nausea and Vomiting (N/V). proMETHazin 2018-11 Yes [id number] 25mg Take 1 [facility] 25 mg 1-22 tablet by [facility] of tablet 00:00: mouth [place] 00 every 6 Medical (six) Branch hours as needed for Nausea and Vomiting (N/V). proMETHazin 2018-11 Yes [id number] 25mg Take 1 [facility] 25 mg 1-22 tablet by [facility] of tablet 00:00: mouth [place] 00 every 6 Medical (six) Branch hours as needed for Nausea and Vomiting (N/V). proMETHazin 2018-11 Yes [id number] 25mg Take 1 [facility] 25 mg 1-22 tablet by [facility] of tablet 00:00: mouth [place] 00 every 6 Medical (six) Branch hours as needed for Nausea and Vomiting (N/V). proMETHazin 2018-11 Yes [id number] 25mg Take 1 [facility] 25 mg 1-22 tablet by [facility] of tablet 00:00: mouth [place] 00 every 6 Medical (six) Branch hours as needed for Nausea and Vomiting (N/V). proMETHazin 2018-11 2020- No [id number] 25mg Take 1 [facility] 25 mg 1-22 06-23 tablet by [facility] of tablet 00:00: 00:00 mouth [place] 00 :00 every 6 Medical (six) Branch hours as needed for Nausea and Vomiting (N/V). dicyclomine 2018-11 Yes [id number] 20mg Take 1 [facility] (BENTYL) 20 0-12 tablet by [facility] of mg tablet 00:00: mouth [place] 00 every 6 Medical (six) Branch hours as needed for Abdominal pain. ondansetron 2018-11 Yes [id number] 4mg Take 1 [facility] (ZOFRAN) 4 0-12 tablet by [facility] of mg tablet 00:00: mouth [place] 00 every 8 Medical (eight) Branch hours as needed for Nausea and Vomiting (N/V). traMADol 2018-11 Yes [id number] 50mg Take 1 [facility] (ULTRAM) 50 0-12 tablet by [facility] of mg tablet 00:00: mouth [place] 00 every 6 Medical (six) Branch hours as needed for Pain (scale 7-10). ondansetron 2018-11 Yes [id number] 4mg Take 1 [facility] (ZOFRAN) 4 0-12 tablet by [facility] of mg tablet 00:00: mouth [place] 00 every 8 Medical (eight) Branch hours as needed for Nausea and Vomiting (N/V). traMADol 2018-11 Yes [id number] 50mg Take 1 [facility] (ULTRAM) 50 0-12 tablet by [facility] of mg tablet 00:00: mouth [place] 00 every 6 Medical (six) Branch hours as needed for Pain (scale 7-10). dicyclomine 2018-11 Yes [id number] 20mg Take 1 [facility] (BENTYL) 20 0-12 tablet by [facility] of mg tablet 00:00: mouth [place] 00 every 6 Medical (six) Branch hours as needed for Abdominal pain. ondansetron 2018-11 Yes [id number] 4mg Take 1 [facility] (ZOFRAN) 4 0-12 tablet by [facility] of mg tablet 00:00: mouth [place] 00 every 8 Medical (eight) Branch hours as needed for Nausea and Vomiting (N/V). traMADol 2018-11 Yes [id number] 50mg Take 1 [facility] (ULTRAM) 50 0-12 tablet by [facility] of mg tablet 00:00: mouth [place] 00 every 6 Medical (six) Branch hours as needed for Pain (scale 7-10). dicyclomine 2018-11 Yes [id number] 20mg Take 1 [facility] (BENTYL) 20 0-12 tablet by [facility] of mg tablet 00:00: mouth [place] 00 every 6 Medical (six) Branch hours as needed for Abdominal pain. ondansetron 2018-11 Yes [id number] 4mg Take 1 [facility] (ZOFRAN) 4 0-12 tablet by [facility] of mg tablet 00:00: mouth [place] 00 every 8 Medical (eight) Branch hours as needed for Nausea and Vomiting (N/V). traMADol 2018-11 Yes [id number] 50mg Take 1 [facility] (ULTRAM) 50 0-12 tablet by [facility] of mg tablet 00:00: mouth [place] 00 every 6 Medical (six) Branch hours as needed for Pain (scale 7-10). dicyclomine 2018-11 Yes [id number] 20mg Take 1 [facility] (BENTYL) 20 0-12 tablet by [facility] of mg tablet 00:00: mouth [place] 00 every 6 Medical (six) Branch hours as needed for Abdominal pain. ondansetron 2018-11 Yes [id number] 4mg Take 1 [facility] (ZOFRAN) 4 0-12 tablet by [facility] of mg tablet 00:00: mouth [place] 00 every 8 Medical (eight) Branch hours as needed for Nausea and Vomiting (N/V). traMADol 2018-11 Yes [id number] 50mg Take 1 [facility] (ULTRAM) 50 0-12 tablet by [facility] of mg tablet 00:00: mouth [place] 00 every 6 Medical (six) Branch hours as needed for Pain (scale 7-10). dicyclomine 2018-11 Yes [id number] 20mg Take 1 [facility] (BENTYL) 20 0-12 tablet by [facility] of mg tablet 00:00: mouth [place] 00 every 6 Medical (six) Branch hours as needed for Abdominal pain. ondansetron 2018-11 Yes [id number] 4mg Take 1 [facility] (ZOFR[facility]) 4 0-12 tablet by [facility] tablet [facility]:00: mouth [place] 00 every 8 [facility] (eight) Branch hours as needed for Nausea and Vomiting (N/V). traMADol 2018-11 Yes [id number] 50mg Take 1 [facility] (ULTRAM) 50 0-12 tablet by [facility] tablet 00:00: mouth [place] 00 every 6 [facility] (six) Branch hours as needed for Pain (scale 7-10). dicyclomine 2018-11 Yes [id number] 20mg Take 1 [facility] (BENTYL) 20 0-12 tablet by [facility] tablet 00:00: mouth [place] 00 every 6 [facility] (six) Branch hours as needed for Abdominal pain. ondansetron 2018-11 Yes [id number] 4mg Take 1 [facility] (ZOFRAN) 4 0-12 tablet by [facility] tablet 00:00: mouth [place] 00 every 8 [facility] (eight) Branch hours as needed for Nausea and Vomiting (N/V). traMADol 2018-11 Yes [id number] 50mg Take 1 [facility] (ULTRAM) 50 0-12 tablet by [facility] tablet 00:00: mouth [place] 00 every 6 [facility] (six) Branch hours as needed for Pain (scale 7-10). dicyclomine 2018-11 Yes [id number] 20mg Take 1 [facility] (BENTYL) 20 0-12 tablet by [facility] tablet 00:00: mouth [place] 00 every 6 [facility] (six) Branch hours as needed for Abdominal pain. ondansetron 2018-11 Yes [id number] 4mg Take 1 [facility] (ZOFRAN) 4 0-12 tablet by [facility] tablet 00:00: mouth [place] 00 every 8 [facility] (eight) Branch hours as needed for Nausea and Vomiting (N/V). traMADol 2018-11 Yes [id number] 50mg Take 1 [facility] (ULTRAM) 50 0-12 tablet by [facility] tablet 00:00: mouth [place] 00 every 6 [facility] (six) [facility] hours as needed for Pain (scale 7-10). dicyclomine 2018-11 Yes [id number] 20mg Take 1 [facility] (BENTYL) 20 0-12 tablet by [facility] tablet 00:00: mouth [place] 00 every 6 [facility] (six) [facility] hours as needed for Abdominal pain. ondansetron 2018-11 Yes [id number] 4mg Take 1 [facility] (ZOFRAN) 4 0-12 tablet by [facility] tablet 00:00: mouth [place] 00 every 8 [facility] (eight) Branch hours as needed for Nausea and Vomiting (N/V). traMADol 2018-11 Yes [id number] 50mg Take 1 [facility] (ULTRAM) 50 0-12 tablet by [facility] tablet 00:00: mouth [place] 00 every 6 [facility] (six) [facility] hours as needed for Pain (scale 7-10). dicyclomine 2018-11 Yes [id number] 20mg Take 1 [facility] (BENTYL) 20 0-12 tablet by [facility] tablet 00:00: mouth [place] 00 every 6 [facility] (six) [facility] hours as needed for Abdominal pain. ondansetron 2018-11 Yes [id number] 4mg Take 1 [facility] (ZOFRAN) 4 0-12 tablet by [facility] tablet 00:00: mouth [place] 00 every 8 [facility] (eight) Branch hours as needed for Nausea and Vomiting (N/V). traMADol 2018-11 Yes [id number] 50mg Take 1 [facility] (ULTRAM) 50 0-12 tablet by [facility] tablet 00:00: mouth [place] 00 every 6 [facility] (six) [facility] hours as needed for Pain (scale 7-10). dicyclomine 2018-11 Yes [id number] 20mg Take 1 [facility] (BENTYL) 20 0-12 tablet by [facility] tablet 00:00: mouth [place] 00 every 6 [facility] (six) [facility] hours as needed for Abdominal pain. ondansetron 2018-11 Yes [id number] 4mg Take 1 [facility] (ZOFRAN) 4 0-12 tablet by [facility] tablet 00:00: mouth [place] 00 every 8 [facility] (eight) Branch hours as needed for Nausea and Vomiting (N/V). traMADol 2018-11 Yes [id number] 50mg Take 1 [facility] (ULTRAM) 50 0-12 tablet by [facility] tablet 00:00: mouth [place] 00 every 6 [facility] (six) [facility] hours as needed for Pain (scale 7-10). dicyclomine 2018-11 Yes [id number] 20mg Take 1 [facility] (BENTYL) 20 0-12 tablet by [facility] tablet 00:00: mouth [place] 00 every 6 [facility] (six) [facility] hours as needed for Abdominal pain. ondansetron 2018-11 Yes [id number] 4mg Take 1 [facility] (ZOFRAN) 4 0-12 tablet by [facility] tablet 00:00: mouth [place] 00 every 8 [facility] (eight) Branch hours as needed for Nausea and Vomiting (N/V). traMADol 2018-11 Yes [id number] 50mg Take 1 [facility] (ULTRAM) 50 0-12 tablet by [facility] tablet 00:00: mouth [place] 00 every 6 [facility] (six) [facility] hours as needed for Pain (scale 7-10). dicyclomine 2018-11 Yes [id number] 20mg Take 1 [facility] (BENTYL) 20 0-12 tablet by [facility] tablet 00:00: mouth [place] 00 every 6 [facility] (six) [facility] hours as needed for Abdominal pain. ondansetron 2018-11 Yes [id number] 4mg Take 1 [facility] (ZOFRAN) 4 0-12 tablet by [facility] tablet 00:00: mouth [place] 00 every 8 [facility] (eight) Branch hours as needed for Nausea and Vomiting (N/V). traMADol 2018-11 Yes [id number] 50mg Take 1 [facility] (ULTRAM) 50 0-12 tablet by [facility] tablet 00:00: mouth [place] 00 every 6 [facility] (six) [facility] hours as needed for Pain (scale 7-10). dicyclomine 2018-11 Yes [id number] 20mg Take 1 [facility] (BENTYL) 20 0-12 tablet by [facility] tablet 00:00: mouth [place] 00 every 6 [facility] (six) [facility] hours as needed for Abdominal pain. ondansetron 2018-11 Yes [id number] 4mg Take 1 [facility] (ZOFRAN) 4 0-12 tablet by [facility] tablet 00:00: mouth [place] 00 every 8 [facility] (eight) Branch hours as needed for Nausea and Vomiting (N/V). traMADol 2018-11 Yes [id number] 50mg Take 1 [facility] (ULTRAM) 50 0-12 tablet by [facility] tablet 00:00: mouth [place] 00 every 6 [facility] (six) [facility] hours as needed for Pain (scale 7-10). dicyclomine 2018-11 Yes [id number] 20mg Take 1 [facility] (BENTYL) 20 0-12 tablet by [facility] tablet 00:00: mouth [place] 00 every 6 [facility] (six) [facility] hours as needed for Abdominal pain. ondansetron 2018-11 Yes [id number] 4mg Take 1 [facility] (ZOFRAN) 4 0-12 tablet by [facility] tablet 00:00: mouth [place] 00 every 8 [facility] (eight) Branch hours as needed for Nausea and Vomiting (N/V). traMADol 2018-11 Yes [id number] 50mg Take 1 [facility] (ULTRAM) 50 0-12 tablet by [facility] tablet 00:00: mouth [place] 00 every 6 [facility] (six) [facility] hours as needed for Pain (scale 7-10). dicyclomine 2018-11 Yes [id number] 20mg Take 1 [facility] (BENTYL) 20 0-12 tablet by [facility] tablet 00:00: mouth [place] 00 every 6 [facility] (six) Branch hours as needed for Abdominal pain. ondansetron 2018-11 Yes [id number] 4mg Take 1 [facility] (ZOFRAN) 4 0-12 tablet by [facility] tablet 00:00: mouth [place] 00 every 8 [facility] (eight) Branch hours as needed for Nausea and Vomiting (N/V). traMADol 2018-11 Yes [id number] 50mg Take 1 [facility] (ULTRAM) 50 0-12 tablet by [facility] tablet 00:00: mouth [place] 00 every 6 [facility] (six) [facility] hours as needed for Pain (scale 7-10). dicyclomine 2018-11 Yes [id number] 20mg Take 1 [facility] (BENTYL) 20 0-12 tablet by [facility] tablet 00:00: mouth [place] 00 every 6 [facility] (six) Branch hours as needed for Abdominal pain. ondansetron 2018-11 Yes [id number] 4mg Take 1 [facility] (ZOFRAN) 4 0-12 tablet by [facility] tablet 00:00: mouth [place] 00 every 8 [facility] (eight) Branch hours as needed for Nausea and Vomiting (N/V). traMADol 2018-11 Yes [id number] 50mg Take 1 [facility] (ULTRAM) 50 0-12 tablet by [facility] tablet 00:00: mouth [place] 00 every 6 [facility] (six) [facility] hours as needed for Pain (scale 7-10). dicyclomine 2018-11 Yes [id number] 20mg Take 1 [facility] (BENTYL) 20 0-12 tablet by [facility] tablet 00:00: mouth [place] 00 every 6 [facility] (six) Branch hours as needed for Abdominal pain. ondansetron 2018-11 Yes [id number] 4mg Take 1 [facility] (ZOFRAN) 4 0-12 tablet by [facility] tablet 00:00: mouth [place] 00 every 8 [facility] (eight) Branch hours as needed for Nausea and Vomiting (N/V). traMADol 2018-11 Yes [id number] 50mg Take 1 [facility] (ULTRAM) 50 0-12 tablet by [facility] tablet 00:00: mouth [place] 00 every 6 [facility] (six) [facility] hours as needed for Pain (scale 7-10). dicyclomine 2018-11 Yes [id number] 20mg Take 1 [facility] (BENTYL) 20 0-12 tablet by [facility] tablet 00:00: mouth [place] 00 every 6 [facility] (six) [facility] hours as needed for Abdominal pain. ondansetron 2018-11 Yes [id number] 4mg Take 1 [facility] (ZOFRAN) 4 0-12 tablet by [facility] tablet 00:00: mouth [place] 00 every 8 [facility] (eight) Branch hours as needed for Nausea and Vomiting (N/V). traMADol 2018-11 Yes [id number] 50mg Take 1 [facility] (ULTRAM) 50 0-12 tablet by [facility] tablet 00:00: mouth [place] 00 every 6 [facility] (six) Branch hours as needed for Pain (scale 7-10). dicyclomine 2018-11 Yes [id number] 20mg Take 1 [facility] (BENTYL) 20 0-12 tablet by [facility] tablet 00:00: mouth [place] 00 every 6 [facility] (six) Branch hours as needed for Abdominal pain. ondansetron 2018-11 Yes [id number] 4mg Take 1 [facility] (ZOFRAN) 4 0-12 tablet by [facility] tablet 00:00: mouth [place] 00 every 8 [facility] (eight) Branch hours as needed for Nausea and Vomiting (N/V). traMADol 2018-11 Yes [id number] 50mg Take 1 [facility] (ULTRAM) 50 0-12 tablet by [facility] tablet 00:00: mouth [place] 00 every 6 [facility] (six) Branch hours as needed for Pain (scale 7-10). dicyclomine 2018-11 Yes [id number] 20mg Take 1 [facility] (BENTYL) 20 0-12 tablet by [facility] tablet 00:00: mouth [place] 00 every 6 [facility] (six) Branch hours as needed for Abdominal pain. ondansetron 2018-11 Yes [id number] 4mg Take 1 [facility] (ZOFRAN) 4 0-12 tablet by [facility] tablet 00:00: mouth [place] 00 every 8 [facility] (eight) Branch hours as needed for Nausea and Vomiting (N/V). traMADol 2018-11 Yes [id number] 50mg Take 1 [facility] (ULTRAM) 50 0-12 tablet by [facility] tablet 00:00: mouth [place] 00 every 6 [facility] (six) Branch hours as needed for Pain (scale 7-10). dicyclomine 2018-11 Yes [id number] 20mg Take 1 [facility] (BENTYL) 20 0-12 tablet by [facility] tablet 00:00: mouth [place] 00 every 6 [facility] (six) Branch hours as needed for Abdominal pain. ondansetron 2018-11 Yes [id number] 4mg Take 1 [facility] (ZOFRAN) 4 0-12 tablet by [facility] tablet 00:00: mouth [place] 00 every 8 [facility] (eight) Branch hours as needed for Nausea and Vomiting (N/V). traMADol 2018-11 Yes [id number] 50mg Take 1 [facility] (ULTRAM) 50 0-12 tablet by [facility] tablet 00:00: mouth [place] 00 every 6 [facility] (six) Branch hours as needed for Pain (scale 7-10). dicyclomine 2018-11 Yes [id number] 20mg Take 1 [facility] (BENTYL) 20 0-12 tablet by [facility] tablet 00:00: mouth [place] 00 every 6 [facility] (six) Branch hours as needed for Abdominal pain. ondansetron 2018-11 Yes [id number] 4mg Take 1 [facility] (ZOFRAN) 4 0-12 tablet by [facility] tablet 00:00: mouth [place] 00 every 8 [facility] (eight) Branch hours as needed for Nausea and Vomiting (N/V). traMADol 2018-11 Yes [id number] 50mg Take 1 [facility] (ULTRAM) 50 0-12 tablet by [facility] tablet 00:00: mouth [place] 00 every 6 [facility] (six) Branch hours as needed for Pain (scale 7-10). dicyclomine 2018-11 Yes [id number] 20mg Take 1 [facility] (BENTYL) 20 0-12 tablet by [facility] tablet 00:00: mouth [place] 00 every 6 [facility] (six) Branch hours as needed for Abdominal pain. ondansetron 2018-11 Yes [id number] 4mg Take 1 [facility] (ZOFRAN) 4 0-12 tablet by [facility] tablet 00:00: mouth [place] 00 every 8 [facility] (eight) Branch hours as needed for Nausea and Vomiting (N/V). traMADol 2018-11 Yes [id number] 50mg Take 1 [facility] (ULTRAM) 50 0-12 tablet by [facility] tablet 00:00: mouth [place] 00 every 6 [facility] (six) Branch hours as needed for Pain (scale 7-10). dicyclomine 2018-11 Yes [id number] 20mg Take 1 [facility] (BENTYL) 20 0-12 tablet by [facility] tablet 00:00: mouth [place] 00 every 6 [facility] (six) Branch hours as needed for Abdominal pain. ondansetron 2018-11 Yes [id number] 4mg Take 1 [facility] (ZOFRAN) 4 0-12 tablet by [facility] tablet 00:00: mouth [place] 00 every 8 [facility] (eight) Branch hours as needed for Nausea and Vomiting (N/V). traMADol 2018-11 Yes [id number] 50mg Take 1 [facility] (ULTRAM) 50 0-12 tablet by [facility] tablet 00:00: mouth [place] 00 every 6 [facility] (six) Branch hours as needed for Pain (scale 7-10). dicyclomine 2018-11 Yes [id number] 20mg Take 1 [facility] (BENTYL) 20 0-12 tablet by [facility] tablet 00:00: mouth [place] 00 every 6 [facility] (six) Branch hours as needed for Abdominal pain. ondansetron 2018-11 Yes [id number] 4mg Take 1 [facility] (ZOFRAN) 4 0-12 tablet by [facility] tablet 00:00: mouth [place] 00 every 8 [facility] (eight) Branch hours as needed for Nausea and Vomiting (N/V). traMADol 2018-11 Yes [id number] 50mg Take 1 [facility] (ULTRAM) 50 0-12 tablet by [facility] tablet 00:00: mouth [place] 00 every 6 [facility] (six) Branch hours as needed for Pain (scale 7-10). dicyclomine 2018-11 Yes [id number] 20mg Take 1 [facility] (BENTYL) 20 0-12 tablet by [facility] tablet 00:00: mouth [place] 00 every 6 [facility] (six) Branch hours as needed for Abdominal pain. ondansetron 2018-11 Yes [id number] 4mg Take 1 [facility] (ZOFRAN) 4 0-12 tablet by [facility] tablet 00:00: mouth [place] 00 every 8 [facility] (eight) Branch hours as needed for Nausea and Vomiting (N/V). traMADol 2018-11 Yes [id number] 50mg Take 1 [facility] (ULTRAM) 50 0-12 tablet by [facility] tablet 00:00: mouth [place] 00 every 6 [facility] (six) Branch hours as needed for Pain (scale 7-10). dicyclomine 2018-11 Yes [id number] 20mg Take 1 [facility] (BENTYL) 20 0-12 tablet by [facility] tablet 00:00: mouth [place] 00 every 6 [facility] (six) Branch hours as needed for Abdominal pain. ondansetron 2018-11 Yes [id number] 4mg Take 1 [facility] (ZOFRAN) 4 0-12 tablet by [facility] tablet 00:00: mouth [place] 00 every 8 [facility] (eight) Branch hours as needed for Nausea and Vomiting (N/V). traMADol 2018-11 Yes [id number] 50mg Take 1 [facility] (ULTRAM) 50 0-12 tablet by [facility] tablet 00:00: mouth [place] 00 every 6 [facility] (six) Branch hours as needed for Pain (scale 7-10). dicyclomine 2018-11 Yes [id number] 20mg Take 1 [facility] (BENTYL) 20 0-12 tablet by [facility] tablet 00:00: mouth [place] 00 every 6 [facility] (six) Branch hours as needed for Abdominal pain. ondansetron 2018-11 Yes [id number] 4mg Take 1 [facility] (ZOFRAN) 4 0-12 tablet by [facility] tablet 00:00: mouth [place] 00 every 8 [facility] (eight) Branch hours as needed for Nausea and Vomiting (N/V). traMADol 2018-11 Yes [id number] 50mg Take 1 [facility] (ULTRAM) 50 0-12 tablet by [facility] tablet 00:00: mouth [place] 00 every 6 [facility] (six) Branch hours as needed for Pain (scale 7-10). dicyclomine 2018-11 Yes [id number] 20mg Take 1 [facility] (BENTYL) 20 0-12 tablet by [facility] tablet 00:00: mouth [place] 00 every 6 [facility] (six) Branch hours as needed for Abdominal pain. ondansetron 2018-11 Yes [id number] 4mg Take 1 [facility] (ZOFRAN) 4 0-12 tablet by [facility] tablet 00:00: mouth [place] 00 every 8 [facility] (eight) Branch hours as needed for Nausea and Vomiting (N/V). traMADol 2018-11 Yes [id number] 50mg Take 1 [facility] (ULTRAM) 50 0-12 tablet by [facility] tablet 00:00: mouth [place] 00 every 6 [facility] (six) Branch hours as needed for Pain (scale 7-10). dicyclomine 2018-11 Yes [id number] 20mg Take 1 [facility] (BENTYL) 20 0-12 tablet by [facility] tablet 00:00: mouth [place] 00 every 6 [facility] (six) Branch hours as needed for Abdominal pain. ondansetron 2018-11 Yes [id number] 4mg Take 1 [facility] (ZOFRAN) 4 0-12 tablet by [facility] tablet 00:00: mouth [place] 00 every 8 [facility] (eight) Branch hours as needed for Nausea and Vomiting (N/V). traMADol 2018-11 Yes [id number] 50mg Take 1 [facility] (ULTRAM) 50 0-12 tablet by [facility] tablet 00:00: mouth [place] 00 every 6 [facility] (six) Branch hours as needed for Pain (scale 7-10). dicyclomine 2018-11 Yes [id number] 20mg Take 1 [facility] (BENTYL) 20 0-12 tablet by [facility] tablet 00:00: mouth [place] 00 every 6 [facility] (six) Branch hours as needed for Abdominal pain. ondansetron 2018-11 Yes [id number] 4mg Take 1 [facility] (ZOFRAN) 4 0-12 tablet by [facility] tablet 00:00: mouth [place] 00 every 8 [facility] (eight) Branch hours as needed for Nausea and Vomiting (N/V). traMADol 2018-11 Yes [id number] 50mg Take 1 [facility] (ULTRAM) 50 0-12 tablet by [facility] tablet 00:00: mouth [place] 00 every 6 [facility] (six) Branch hours as needed for Pain (scale 7-10). dicyclomine 2018-11 Yes [id number] 20mg Take 1 [facility] (BENTYL) 20 0-12 tablet by [facility] tablet 00:00: mouth [place] 00 every 6 [facility] (six) Branch hours as needed for Abdominal pain. ondansetron 2018-11 Yes [id number] 4mg Take 1 [facility] (ZOFRAN) 4 0-12 tablet by [facility] tablet 00:00: mouth [place] 00 every 8 [facility] (eight) Branch hours as needed for Nausea and Vomiting (N/V). traMADol 2018-11 Yes [id number] 50mg Take 1 [facility] (ULTRAM) 50 0-12 tablet by [facility] tablet 00:00: mouth [place] 00 every 6 [facility] (six) Branch hours as needed for Pain (scale 7-10). dicyclomine 2018-11 Yes [id number] 20mg Take 1 [facility] (BENTYL) 20 0-12 tablet by [facility] tablet 00:00: mouth [place] 00 every 6 [facility] (six) Branch hours as needed for Abdominal pain. ondansetron 2018-11 Yes [id number] 4mg Take 1 [facility] (ZOFRAN) 4 0-12 tablet by [facility] tablet 00:00: mouth [place] 00 every 8 [facility] (eight) Branch hours as needed for Nausea and Vomiting (N/V). traMADol 2018-11 Yes [id number] 50mg Take 1 [facility] (ULTRAM) 50 0-12 tablet by [facility] tablet 00:00: mouth [place] 00 every 6 [facility] (six) Branch hours as needed for Pain (scale 7-10). dicyclomine 2018-11 Yes [id number] 20mg Take 1 [facility] (BENTYL) 20 0-12 tablet by [facility] tablet 00:00: mouth [place] 00 every 6 [facility] (six) Branch hours as needed for Abdominal pain. ondansetron 2018-11 Yes [id number] 4mg Take 1 [facility] (ZOFRAN) 4 0-12 tablet by [facility] tablet 00:00: mouth [place] 00 every 8 [facility] (eight) Branch hours as needed for Nausea and Vomiting (N/V). traMADol 2018-11 Yes [id number] 50mg Take 1 [facility] (ULTRAM) 50 0-12 tablet by [facility] tablet 00:00: mouth [place] 00 every 6 [facility] (six) Branch hours as needed for Pain (scale 7-10). dicyclomine 2018-11 Yes [id number] 20mg Take 1 [facility] (BENTYL) 20 0-12 tablet by [facility] tablet 00:00: mouth [place] 00 every 6 [facility] (six) Branch hours as needed for Abdominal pain. ondansetron 2018-11 Yes [id number] 4mg Take 1 [facility] (ZOFRAN) 4 0-12 tablet by [facility] tablet 00:00: mouth [place] 00 every 8 [facility] (eight) Branch hours as needed for Nausea and Vomiting (N/V). traMADol 2018-11 Yes [id number] 50mg Take 1 [facility] (ULTRAM) 50 0-12 tablet by [facility] tablet 00:00: mouth [place] 00 every 6 [facility] (six) Branch hours as needed for Pain (scale 7-10). dicyclomine 2018-11 Yes [id number] 20mg Take 1 [facility] (BENTYL) 20 0-12 tablet by [facility] tablet 00:00: mouth [place] 00 every 6 [facility] (six) Branch hours as needed for Abdominal pain. ondansetron 2018-11 Yes [id number] 4mg Take 1 [facility] (ZOFRAN) 4 0-12 tablet by [facility] tablet 00:00: mouth [place] 00 every 8 [facility] (eight) Branch hours as needed for Nausea and Vomiting (N/V). traMADol 2018-11 Yes [id number] 50mg Take 1 [facility] (ULTRAM) 50 0-12 tablet by [facility] tablet 00:00: mouth [place] 00 every 6 [facility] (six) Branch hours as needed for Pain (scale 7-10). dicyclomine 2018-11 Yes [id number] 20mg Take 1 [facility] (BENTYL) 20 0-12 tablet by [facility] tablet 00:00: mouth [place] 00 every 6 [facility] (six) Branch hours as needed for Abdominal pain. ondansetron 2018-11 Yes [id number] 4mg Take 1 [facility] (ZOFRAN) 4 0-12 tablet by [facility] tablet 00:00: mouth [place] 00 every 8 [facility] (eight) Branch hours as needed for Nausea and Vomiting (N/V). traMADol 2018-11 Yes [id number] 50mg Take 1 [facility] (ULTRAM) 50 0-12 tablet by [facility] tablet 00:00: mouth [place] 00 every 6 [facility] (six) Branch hours as needed for Pain (scale 7-10). dicyclomine 2018-11 Yes [id number] 20mg Take 1 [facility] (BENTYL) 20 0-12 tablet by [facility] tablet 00:00: mouth [place] 00 every 6 [facility] (six) Branch hours as needed for Abdominal pain. ondansetron 2018-11 Yes [id number] 4mg Take 1 [facility] (ZOFRAN) 4 0-12 tablet by [facility] tablet 00:00: mouth [place] 00 every 8 [facility] (eight) Branch hours as needed for Nausea and Vomiting (N/V). traMADol 2018-11 Yes [id number] 50mg Take 1 [facility] (ULTRAM) 50 0-12 tablet by [facility] tablet 00:00: mouth [place] 00 every 6 [facility] (six) Branch hours as needed for Pain (scale 7-10). dicyclomine 2018-11 Yes [id number] 20mg Take 1 [facility] (BENTYL) 20 0-12 tablet by [facility] tablet 00:00: mouth [place] 00 every 6 [facility] (six) Branch hours as needed for Abdominal pain. ondansetron 2018-11 Yes [id number] 4mg Take 1 [facility] (ZOFRAN) 4 0-12 tablet by [facility] tablet 00:00: mouth [place] 00 every 8 [facility] (eight) Branch hours as needed for Nausea and Vomiting (N/V). traMADol 2018-11 Yes [id number] 50mg Take 1 [facility] (ULTRAM) 50 0-12 tablet by [facility] tablet 00:00: mouth [place] 00 every 6 [facility] (six) Branch hours as needed for Pain (scale 7-10). dicyclomine 2018-11 Yes [id number] 20mg Take 1 [facility] (BENTYL) 20 0-12 tablet by [facility] tablet 00:00: mouth [place] 00 every 6 [facility] (six) Branch hours as needed for Abdominal pain. ondansetron 2018-11 Yes [id number] 4mg Take 1 [facility] (ZOFRAN) 4 0-12 tablet by [facility] tablet 00:00: mouth [place] 00 every 8 [facility] (eight) Branch hours as needed for Nausea and Vomiting (N/V). traMADol 2018-11 Yes [id number] 50mg Take 1 [facility] (ULTRAM) 50 0-12 tablet by [facility] tablet 00:00: mouth [place] 00 every 6 [facility] (six) Branch hours as needed for Pain (scale 7-10). dicyclomine 2018-11 Yes [id number] 20mg Take 1 [facility] (BENTYL) 20 0-12 tablet by [facility] tablet 00:00: mouth [place] 00 every 6 [facility] (six) Branch hours as needed for Abdominal pain. ondansetron 2018-11 Yes [id number] 4mg Take 1 [facility] (ZOFRAN) 4 0-12 tablet by [facility] tablet 00:00: mouth [place] 00 every 8 [facility] (eight) Branch hours as needed for Nausea and Vomiting (N/V). traMADol 2018-11 Yes [id number] 50mg Take 1 [facility] (ULTRAM) 50 0-12 tablet by [facility] tablet 00:00: mouth [place] 00 every 6 [facility] (six) Branch hours as needed for Pain (scale 7-10). dicyclomine 2018-11 Yes [id number] 20mg Take 1 [facility] (BENTYL) 20 0-12 tablet by [facility] tablet 00:00: mouth [place] 00 every 6 [facility] (six) Branch hours as needed for Abdominal pain. ondansetron 2018-11 Yes [id number] 4mg Take 1 [facility] (ZOFRAN) 4 0-12 tablet by [facility] tablet 00:00: mouth [place] 00 every 8 [facility] (eight) Branch hours as needed for Nausea and Vomiting (N/V). traMADol 2018-11 Yes [id number] 50mg Take 1 [facility] (ULTRAM) 50 0-12 tablet by [facility] tablet 00:00: mouth [place] 00 every 6 [facility] (six) Branch hours as needed for Pain (scale 7-10). dicyclomine 2018-11 Yes [id number] 20mg Take 1 [facility] (BENTYL) 20 0-12 tablet by [facility] tablet 00:00: mouth [place] 00 every 6 [facility] (six) Branch hours as needed for Abdominal pain. ondansetron 2018-11 Yes [id number] 4mg Take 1 [facility] (ZOFRAN) 4 0-12 tablet by [facility] tablet 00:00: mouth [place] 00 every 8 [facility] (eight) Branch hours as needed for Nausea and Vomiting (N/V). traMADol 2018-11 Yes [id number] 50mg Take 1 [facility] (ULTRAM) 50 0-12 tablet by [facility] tablet 00:00: mouth [place] 00 every 6 [facility] (six) Branch hours as needed for Pain (scale 7-10). dicyclomine 2018-11 Yes [id number] 20mg Take 1 [facility] (BENTYL) 20 0-12 tablet by [facility] tablet 00:00: mouth [place] 00 every 6 [facility] (six) Branch hours as needed for Abdominal pain. ondansetron 2018-11 Yes [id number] 4mg Take 1 [facility] (ZOFRAN) 4 0-12 tablet by [facility] tablet 00:00: mouth [place] 00 every 8 [facility] (eight) Branch hours as needed for Nausea and Vomiting (N/V). traMADol 2018-11 Yes [id number] 50mg Take 1 [facility] (ULTRAM) 50 0-12 tablet by [facility] tablet 00:00: mouth [place] 00 every 6 [facility] (six) Branch hours as needed for Pain (scale 7-10). dicyclomine 2018-11 Yes [id number] 20mg Take 1 [facility] (BENTYL) 20 0-12 tablet by [facility] tablet 00:00: mouth [place] 00 every 6 [facility] (six) Branch hours as needed for Abdominal pain. ondansetron 2018-11 Yes [id number] 4mg Take 1 [facility] (ZOFRAN) 4 0-12 tablet by [facility] tablet 00:00: mouth [place] 00 every 8 [facility] (eight) Branch hours as needed for Nausea and Vomiting (N/V). traMADol 2018-11 Yes [id number] 50mg Take 1 [facility] (ULTRAM) 50 0-12 tablet by [facility] tablet 00:00: mouth [place] 00 every 6 [facility] (six) Branch hours as needed for Pain (scale 7-10). dicyclomine 2018-11 Yes [id number] 20mg Take 1 [facility] (BENTYL) 20 0-12 tablet by [facility] tablet 00:00: mouth [place] 00 every 6 [facility] (six) Branch hours as needed for Abdominal pain. ondansetron 2018-11 Yes [id number] 4mg Take 1 [facility] (ZOFRAN) 4 0-12 tablet by [facility] tablet 00:00: mouth [place] 00 every 8 [facility] (eight) Branch hours as needed for Nausea and Vomiting (N/V). traMADol 2018- Yes [id number] 50mg Take 1 [facility] (ULTRAM) 50 0-12 tablet by [facility] tablet 00:00: mouth [place] 00 every 6 [facility] (six) Branch hours as needed for Pain (scale 7-10). dicyclomine 2018-11 Yes [id number] 20mg Take 1 [facility] (BENTYL) 20 0-12 tablet by [facility] tablet 00:00: mouth [place] 00 every 6 [facility] (six) Branch hours as needed for Abdominal pain. dicyclomine 2018-11 Yes [id number] 20mg Take 1 [facility] (BENTYL) 20 0-12 tablet by [facility] tablet 00:00: mouth [place] 00 every 6 [facility] (six) Branch hours as needed for Abdominal pain. ondansetron 2018-11 Yes [id number] 4mg Take 1 [facility] (ZOFRAN) 4 0-12 tablet by [facility] tablet 00:00: mouth [place] 00 every 8 [facility] (eight) Branch hours as needed for Nausea and Vomiting (N/V). traMADol 2018-11 Yes [id number] 50mg Take 1 [facility] (ULTRAM) 50 0-12 tablet by [facility] tablet 00:00: mouth [place] 00 every 6 Medical (six) Branch hours as needed for Pain (scale 7-10). ondansetron 2018-11 Yes [id number] 4mg Take 1 [facility] (ZOFRAN) 4 0-12 tablet by [facility] mg tablet 00:00: mouth [place] 00 every 8 Medical (eight) Branch hours as needed for Nausea and Vomiting (N/V). traMADol 2018-11 Yes [id number] 50mg Take 1 [facility] (ULTRAM) 50 0-12 tablet by [facility] mg tablet 00:00: mouth [place] 00 every 6 Medical (six) Branch hours as needed for Pain (scale 7-10). dicyclomine 2018-11 Yes [id number] 20mg Take 1 [facility] (BENTYL) 20 0-12 tablet by [facility] mg tablet 00:00: mouth [place] 00 every 6 Medical (six) Branch hours as needed for Abdominal pain. ondansetron 2018-11 Yes [id number] 4mg Take 1 [facility] (ZOFRAN) 4 0-12 tablet by [facility] mg tablet 00:00: mouth [place] 00 every 8 Medical (eight) Branch hours as needed for Nausea and Vomiting (N/V). traMADol 2018-11 Yes [id number] 50mg Take 1 [facility] (ULTRAM) 50 0-12 tablet by [facility] mg tablet 00:00: mouth [place] 00 every 6 Medical (six) Branch hours as needed for Pain (scale 7-10). dicyclomine 2018-11 Yes [id number] 20mg Take 1 [facility] (BENTYL) 20 0-12 tablet by [facility] mg tablet 00:00: mouth [place] 00 every 6 Medical (six) Branch hours as needed for Abdominal pain. ondansetron 2018-11 Yes [id number] 4mg Take 1 [facility] (ZOFRAN) 4 0-12 tablet by [facility] mg tablet 00:00: mouth [place] 00 every 8 Medical (eight) Branch hours as needed for Nausea and Vomiting (N/V). traMADol 2018-11 Yes [id number] 50mg Take 1 [facility] (ULTRAM) 50 0-12 tablet by [facility] mg tablet 00:00: mouth [place] 00 every 6 Medical (six) Branch hours as needed for Pain (scale 7-10). dicyclomine 2018-11 Yes [id number] 20mg Take 1 [facility] (BENTYL) 20 0-12 tablet by [facility] mg tablet 00:00: mouth [place] 00 every 6 Medical (six) Branch hours as needed for Abdominal pain. ondansetron 2018-11 Yes [id number] 4mg Take 1 [facility] (ZOFRAN) 4 0-12 tablet by [facility] mg tablet 00:00: mouth [place] 00 every 8 Medical (eight) Branch hours as needed for Nausea and Vomiting (N/V). traMADol 2018-11 Yes [id number] 50mg Take 1 [facility] (ULTRAM) 50 0-12 tablet by [facility] mg tablet 00:00: mouth [place] 00 every 6 Medical (six) Branch hours as needed for Pain (scale 7-10). dicyclomine 2018-11 Yes [id number] 20mg Take 1 [facility] (BENTYL) 20 0-12 tablet by [facility] mg tablet 00:00: mouth [place] 00 every 6 Medical (six) Branch hours as needed for Abdominal pain. ondansetron 2018-11 Yes [id number] 4mg Take 1 [facility] (ZOFRAN) 4 0-12 tablet by [facility] mg tablet 00:00: mouth [place] 00 every 8 Medical (eight) Branch hours as needed for Nausea and Vomiting (N/V). traMADol 2018-11 Yes [id number] 50mg Take 1 [facility] (ULTRAM) 50 0-12 tablet by [facility] mg tablet 00:00: mouth [place] 00 every 6 Medical (six) Branch hours as needed for Pain (scale 7-10). dicyclomine 2018-11 Yes [id number] 20mg Take 1 [facility] (BENTYL) 20 0-12 tablet by [facility] mg tablet 00:00: mouth [place] 00 every 6 Medical (six) Branch hours as needed for Abdominal pain. dicyclomine 2018-11- No [id number] 20mg Take 1 [facility] (BENTYL) 20 0-12 -23 tablet by [facility] mg tablet 00:00: 00:00 mouth [place] 00 :00 every 6 Medical (six) Branch hours as needed for Abdominal pain. ondansetron 2018-11- No [id number] 4mg Take 1 [facility] (ZOFRAN) 4 0-12 -23 tablet by [facility] mg tablet 00:00: 00:00 mouth [place] 00 :00 every 8 Medical (eight) Branch hours as needed for Nausea and Vomiting (N/V). traMADol 2018-11- No [id number] 50mg Take 1 [facility] (ULTRAM) 50 0-10 09-23 tablet by [facility] mg tablet 00:00: 00:00 mouth [place] 00 :00 every 6 Medical (six) Branch hours as needed for Pain (scale 7-10). ondansetron Yes [id number] 4mg Take 1 [facility] 4 mg 4-28 tablet by [facility] disintegrat 00:00: mouth [place] ing tablet 00 every 8 [facility] l (eight) Branch hours as needed for Nausea and Vomiting (N/V). ondansetron 0 Yes [id number] 4mg Take 1 [facility] 4 mg 4-28 tablet by [facility] disintegrat 00:00: mouth [place] ing tablet 00 every 8 [facility] (eight) Branch hours as needed for Nausea and Vomiting (N/V). ondansetron 2018-0 Yes [id number] 4mg Take 1 [facility] 4 mg 4-28 tablet by [facility] of disintegrat 00:00: mouth [place] ing tablet 00 every 8 [facility] (eight) Branch hours as needed for Nausea and Vomiting (N/V). ondansetron 2019-0 Yes [id number] 4mg Take 1 [facility] 4 mg 4-28 tablet by [facility] disintegrat 00:00: mouth [place] ing tablet 00 every 8 [facility]ica l (eight) Branch hours as needed for Nausea and Vomiting (N/V). ondansetron 2019-0 Yes [id number] 4mg Take 1 [facility] 4 mg 4-28 tablet by [facility] disintegrat 00:00: mouth [place] ing tablet 00 every 8 [facility]ica l (eight) Branch hours as needed for Nausea and Vomiting (N/V). ondansetron 2019-0 Yes [id number] 4mg Take 1 [facility] 4 mg 4-28 tablet by [facility] disintegrat 00:00: mouth [place] ing tablet 00 every 8 [facility] l (eight) Branch hours as needed for Nausea and Vomiting (N/V). ondansetron 2019-0 Yes [id number] 4mg Take 1 [facility] 4 mg 4-28 tablet by [facility] disintegrat 00:00: mouth [place] ing tablet 00 every 8 [facility]ica l (eight) Branch hours as needed for Nausea and Vomiting (N/V). ondansetron 2019-0 Yes [id number] 4mg Take 1 [facility] 4 mg 4-28 tablet by [facility] disintegrat 00:00: mouth [place] ing tablet 00 every 8 [facility]ica l (eight) Branch hours as needed for Nausea and Vomiting (N/V). ondansetron 2019-0 Yes [id number] 4mg Take 1 [facility] 4 mg 4-28 tablet by [facility] disintegrat 00:00: mouth [place] ing tablet 00 every 8 [facility] (eight) Branch hours as needed for Nausea and Vomiting (N/V). ondansetron 2019-0 Yes [id number] 4mg Take 1 [facility] 4 mg 4-28 tablet by [facility] disintegrat 00:00: mouth [place] ing tablet 00 every 8 [facility]ica l (eight) Branch hours as needed for Nausea and Vomiting (N/V). ondansetron 2019-0 Yes [id number] 4mg Take 1 [facility] 4 mg 4-28 tablet by [facility] disintegrat 00:00: mouth [place] ing tablet 00 every 8 [facility]ica l (eight) Branch hours as needed for Nausea and Vomiting (N/V). ondansetron 2019-0 Yes [id number] 4mg Take 1 [facility] 4 mg 4-28 tablet by [facility] disintegrat 00:00: mouth [place] ing tablet 00 every 8 Medica l (eight) Branch hours as needed for Nausea and Vomiting (N/V). ondansetron 2019-0 Yes [id number] 4mg Take 1 [facility] 4 mg 4-28 tablet by [facility] disintegrat 00:00: mouth [place] ing tablet 00 every 8 Medica l (eight) Branch hours as needed for Nausea and Vomiting (N/V). ondansetron 2019-0 Yes [id number] 4mg Take 1 [facility] 4 mg 4-28 tablet by [facility] of disintegrat 00:00: mouth [place] ing tablet 00 every 8 Medica l (eight) Branch hours as needed for Nausea and Vomiting (N/V). ondansetron 2019-0 Yes [id number] 4mg Take 1 [facility] 4 mg 4-28 tablet by [facility] disintegrat 00:00: mouth [place] ing tablet 00 every 8 Medica l (eight) Branch hours as needed for Nausea and Vomiting (N/V). ondansetron 2019-0 Yes [id number] 4mg Take 1 [facility] 4 mg 4-28 tablet by [facility] disintegrat 00:00: mouth [place] ing tablet 00 every 8 Medica [facility] (eight) Branch hours as needed for Nausea and Vomiting (N/V). ondansetron 2019-0 Yes [id number] 4mg Take 1 [facility] 4 mg 4-28 tablet by [facility] disintegrat 00:00: mouth [place] ing tablet 00 every 8 [facility]ica [facility] (eight) Branch hours as needed for Nausea and Vomiting (N/V). ondansetron 2019-0 Yes [id number] 4mg Take 1 [facility] 4 mg 4-28 tablet by [facility] disintegrat 00:00: mouth [place] ing tablet 00 every 8 Medica [facility] (eight) Branch hours as needed for Nausea and Vomiting (N/V). ondansetron 2019-0 Yes [id number] 4mg Take 1 [facility] 4 mg 4-28 tablet by [facility] disintegrat 00:00: mouth [place] ing tablet 00 every 8 Medica l (eight) Branch hours as needed for Nausea and Vomiting (N/V). ondansetron 2019-0 Yes [id number] 4mg Take 1 [facility] 4 mg 4-28 tablet by [facility] disintegrat 00:00: mouth [place] ing tablet 00 every 8 [facility] (eight) Branch hours as needed for Nausea and Vomiting (N/V). ondansetron 2019-0 Yes [id number] 4mg Take 1 [facility] 4 mg 4-28 tablet by [facility] disintegrat 00:00: mouth [place] ing tablet 00 every 8 Medica l (eight) Branch hours as needed for Nausea and Vomiting (N/V). ondansetron 2019-0 Yes [id number] 4mg Take 1 [facility] 4 mg 4-28 tablet by [facility] disintegrat 00:00: mouth [place] ing tablet 00 every 8 Medica [facility] (eight) Branch hours as needed for Nausea and Vomiting (N/V). ondansetron 2019-0 Yes [id number] 4mg Take 1 [facility] 4 mg 4-28 tablet by [facility] disintegrat 00:00: mouth [place] ing tablet 00 every 8 [facility]ica [facility] (eight) Branch hours as needed for Nausea and Vomiting (N/V). ondansetron 2019-0 Yes [id number] 4mg Take 1 [facility] 4 mg 4-28 tablet by [facility] disintegrat 00:00: mouth [place] ing tablet 00 every 8 [facility] (eight) Branch hours as needed for Nausea and Vomiting (N/V). ondansetron 2019-0 Yes [id number] 4mg Take 1 [facility] 4 mg 4-28 tablet by [facility] disintegrat 00:00: mouth [place] ing tablet 00 every 8 [facility] (eight) Branch hours as needed for Nausea and Vomiting (N/V). ondansetron 2019-0 Yes [id number] 4mg Take 1 [facility] 4 mg 4-28 tablet by [facility] of disintegrat 00:00: mouth [place] ing tablet 00 every 8 [facility] (eight) Branch hours as needed for Nausea and Vomiting (N/V). ondansetron 2019-0 Yes [id number] 4mg Take 1 [facility] 4 mg 4-28 tablet by [facility] disintegrat 00:00: mouth [place] ing tablet 00 every 8 Medica [facility] (eight) Branch hours as needed for Nausea and Vomiting (N/V). ondansetron 2019-0 Yes [id number] 4mg Take 1 [facility] 4 mg 4-28 tablet by [facility] of disintegrat 00:00: mouth [place] ing tablet 00 every 8 Medica [facility] (eight) Branch hours as needed for Nausea and Vomiting (N/V). ondansetron 2019-0 Yes [id number] 4mg Take 1 [facility] 4 mg 4-28 tablet by [facility] of disintegrat 00:00: mouth [place] ing tablet 00 every 8 Medica [facility] (eight) Branch hours as needed for Nausea and Vomiting (N/V). ondansetron 2019-0 Yes [id number] 4mg Take 1 [facility] 4 mg 4-28 tablet by [facility] of disintegrat 00:00: mouth [place] ing tablet 00 every 8 Medica l (eight) Branch hours as needed for Nausea and Vomiting (N/V). ondansetron 2019-0 Yes [id number] 4mg Take 1 [facility] 4 mg 4-28 tablet by [facility] of disintegrat 00:00: mouth [place] ing tablet 00 every 8 Medica [facility] (eight) Branch hours as needed for Nausea and Vomiting (N/V). ondansetron 2019-0 Yes [id number] 4mg Take 1 [facility] 4 mg 4-28 tablet by [facility] of disintegrat 00:00: mouth [place] ing tablet 00 every 8 Medica l (eight) Branch hours as needed for Nausea and Vomiting (N/V). ondansetron 2019-0 Yes [id number] 4mg Take 1 [facility] 4 mg 4-28 tablet by [facility] of disintegrat 00:00: mouth [place] ing tablet 00 every 8 Medica [facility] (eight) Branch hours as needed for Nausea and Vomiting (N/V). ondansetron 2019-0 Yes [id number] 4mg Take 1 [facility] 4 mg 4-28 tablet by [facility] of disintegrat 00:00: mouth [place] ing tablet 00 every 8 Medica [facility] (eight) Branch hours as needed for Nausea and Vomiting (N/V). ondansetron 2019-0 Yes [id number] 4mg Take 1 [facility] 4 mg 4-28 tablet by [facility] of disintegrat 00:00: mouth [place] ing tablet 00 every 8 Medica l (eight) Branch hours as needed for Nausea and Vomiting (N/V). ondansetron 2019-0 Yes [id number] 4mg Take 1 [facility] 4 mg 4-28 tablet by [facility] of disintegrat 00:00: mouth [place] ing tablet 00 every 8 Medica l (eight) Branch hours as needed for Nausea and Vomiting (N/V). ondansetron 2019-0 Yes [id number] 4mg Take 1 [facility] 4 mg 4-28 tablet by [facility] of disintegrat 00:00: mouth [place] ing tablet 00 every 8 Med[facility] (eight) Branch hours as needed for Nausea and Vomiting (N/V). ondansetron 2019-0 Yes [id number] 4mg Take 1 [facility] 4 mg 4-28 tablet by [facility] of disintegrat 00:00: mouth [place] ing tablet 00 every 8 Med[facility] (eight) Branch hours as needed for Nausea and Vomiting (N/V). ondansetron 2019-0 Yes [id number] 4mg Take 1 [facility] 4 mg 4-28 tablet by [facility] of disintegrat 00:00: mouth [place] ing tablet 00 every 8 Medica l (eight) Branch hours as needed for Nausea and Vomiting (N/V). ondansetron 2019-0 Yes [id number] 4mg Take 1 [facility] 4 mg 4-28 tablet by [facility] of disintegrat 00:00: mouth [place] ing tablet 00 every 8 Med[facility] (eight) Branch hours as needed for Nausea and Vomiting (N/V). ondansetron 2019-0 Yes [id number] 4mg Take 1 [facility] 4 mg 4-28 tablet by [facility] of disintegrat 00:00: mouth [place] ing tablet 00 every 8 [facility] (eight) Branch hours as needed for Nausea and Vomiting (N/V). ondansetron 2019-0 Yes [id number] 4mg Take 1 [facility] 4 mg 4-28 tablet by [facility] of disintegrat 00:00: mouth [place] ing tablet 00 every 8 [facility] (eight) Branch hours as needed for Nausea and Vomiting (N/V). ondansetron 2019-0 Yes [id number] 4mg Take 1 [facility] 4 mg 4-28 tablet by [facility] of disintegrat 00:00: mouth [place] ing tablet 00 every 8 [facility] (eight) Branch hours as needed for Nausea and Vomiting (N/V). ondansetron 2019-0 Yes [id number] 4mg Take 1 [facility] 4 mg 4-28 tablet by [facility] of disintegrat 00:00: mouth [place] ing tablet 00 every 8 [facility] (eight) Branch hours as needed for Nausea and Vomiting (N/V). ondansetron 2019-0 Yes [id number] 4mg Take 1 [facility] 4 mg 4-28 tablet by [facility] of disintegrat 00:00: mouth [place] ing tablet 00 every 8 [facility] (eight) Branch hours as needed for Nausea and Vomiting (N/V). ondansetron 2019-0 Yes [id number] 4mg Take 1 [facility] 4 mg 4-28 tablet by [facility] of disintegrat 00:00: mouth [place] ing tablet 00 every 8 Med[facility] (eight) Branch hours as needed for Nausea and Vomiting (N/V). ondansetron 2019-0 Yes [id number] 4mg Take 1 [facility] 4 mg 4-28 tablet by [facility] of disintegrat 00:00: mouth [place] ing tablet 00 every 8 [facility] (eight) Branch hours as needed for Nausea and Vomiting (N/V). ondansetron 2019-0 Yes [id number] 4mg Take 1 [facility] 4 mg 4-28 tablet by [facility] of disintegrat 00:00: mouth [place] ing tablet 00 every 8 [facility] (eight) Branch hours as needed for Nausea and Vomiting (N/V). ondansetron 2019-0 Yes [id number] 4mg Take 1 [facility] 4 mg 4-28 tablet by [facility] of disintegrat 00:00: mouth [place] ing tablet 00 every 8 [facility] (eight) Branch hours as needed for Nausea and Vomiting (N/V). ondansetron 2019-0 Yes [id number] 4mg Take 1 [facility] 4 mg 4-28 tablet by [facility] of disintegrat 00:00: mouth [place] ing tablet 00 every 8 [facility] (eight) Branch hours as needed for Nausea and Vomiting (N/V). ondansetron 2019-0 Yes [id number] 4mg Take 1 [facility] 4 mg 4-28 tablet by [facility] of disintegrat 00:00: mouth [place] ing tablet 00 every 8 [facility] (eight) Branch hours as needed for Nausea and Vomiting (N/V). ondansetron 2019-0 Yes [id number] 4mg Take 1 [facility] 4 mg 4-28 tablet by [facility] of disintegrat 00:00: mouth [place] ing tablet 00 every 8 [facility] (eight) Branch hours as needed for Nausea and Vomiting (N/V). ondansetron 2019-0 Yes [id number] 4mg Take 1 [facility] 4 mg 4-28 tablet by [facility] of disintegrat 00:00: mouth [place] ing tablet 00 every 8 [facility] (eight) Branch hours as needed for Nausea and Vomiting (N/V). ondansetron 2019-0 2020- No [id number] 4mg Take 1 [facility] 4 mg 4-28 06-23 tablet by [facility] disintegrat 00:00: 00:00 [facility] [place] tablet 00 :00 every 8 [facility] (eight) Branch hours as needed for Nausea and Vomiting (N/V). traMADOL 2018-0 Yes 50mg Take 1 [facility] (ULTRAM) 50 5-04 tablet by [facility] mg tablet 00:00: mouth [place] 00 every 6 Medical (six) Branch hours as needed for Pain (scale 7-10). dicyclomine 2018-0 Yes 20mg Take 1 [facility] (BENTYL) 20 5-04 tablet by [facility] mg tablet 00:00: mouth 4 [place] 00 (four) Medical times Branch daily. ondansetron 2018-0 Yes 4mg Take 1 [facility] (ZOFRAN, 5-04 tablet by [facility] of HYDROCHLORI 00:00: mouth [place],) 4 mg 00 every 8 Medical tablet (eight) Branch hours as needed for Nausea and Vomiting (N/V). traMADOL 2018-0 Yes 50mg Take 1 [facility] (ULTRAM) 50 5-04 tablet by [facility] of mg tablet 00:00: mouth [place] 00 every 6 Medical (six) Branch hours as needed for Pain (scale 7-10). dicyclomine 2018-0 Yes 20mg Take 1 [facility] (BENTYL) 20 5-04 tablet by [facility] mg tablet 00:00: mouth 4 [place] 00 (four) Medical times Branch daily. ondansetron 2018-0 Yes 4mg Take 1 [facility] (ZOFRAN, 5-04 tablet by [facility] of HYDROCHLORI 00:00: mouth [place],) 4 mg 00 every 8 Medical tablet (eight) Branch hours as needed for Nausea and Vomiting (N/V). traMADOL 2018-0 Yes 50mg Take 1 [facility] (ULTRAM) 50 5-04 tablet by [facility] of mg tablet 00:00: mouth [place] 00 every 6 Medical (six) Branch hours as needed for Pain (scale 7-10). dicyclomine 2018-0 Yes 20mg Take 1 [facility] (BENTYL) 20 5-04 tablet by [facility] of mg tablet 00:00: mouth 4 [place] 00 (four) Medical times Branch daily. ondansetron 2018-0 Yes 4mg Take 1 [facility] (ZOFRAN, 5-04 tablet by [facility] of HYDROCHLORI 00:00: mouth [place],) 4 mg 00 every 8 Medical tablet (eight) Branch hours as needed for Nausea and Vomiting (N/V). traMADOL 2018-0 Yes 50mg Take 1 [facility] (ULTRAM) 50 5-04 tablet by [facility] of mg tablet 00:00: mouth [place] 00 every 6 Medical (six) Branch hours as needed for Pain (scale 7-10). dicyclomine 2018-0 Yes 20mg Take 1 [facility] (BENTYL) 20 5-04 tablet by [facility] of mg tablet 00:00: mouth 4 [place] 00 (four) Medical times Branch daily. ondansetron 2018-0 Yes 4mg Take 1 [facility] (ZOFRAN, 5-04 tablet by it[facility] of HYDROCHLORI 00:00: mouth [place],) 4 mg 00 every 8 Medical tablet (eight) Branch hours as needed for Nausea and Vomiting (N/V). traMADOL 2018-0 Yes 50mg Take 1 [facility] (ULTRAM) 50 5-04 tablet by [facility] of mg tablet 00:00: mouth [place] 00 every 6 Medical (six) Branch hours as needed for Pain (scale 7-10). dicyclomine 2018-0 Yes 20mg Take 1 [facility] (BENTYL) 20 5-04 tablet by [facility] of mg tablet 00:00: mouth 4 [place] 00 (four) Medical times Branch daily. ondansetron 2018-0 Yes 4mg Take 1 [facility] (ZOFRAN, 5-04 tablet by ity of HYDROCHLORI 00:00: mouth [place],) 4 mg 00 every 8 Medical tablet (eight) Branch hours as needed for Nausea and Vomiting (N/V). traMADOL 2018-0 Yes 50mg Take 1 [facility] (ULTRAM) 50 5-04 tablet by [facility] of mg tablet 00:00: mouth [place] 00 every 6 Medical (six) Branch hours as needed for Pain (scale 7-10). dicyclomine 2018-0 Yes 20mg Take 1 [facility] (BENTYL) 20 5-04 tablet by [facility] of mg tablet 00:00: mouth 4 [place] 00 (four) Medical times Branch daily. ondansetron 2018-0 Yes 4mg Take 1 [facility] (ZOFRAN, 5-04 tablet by [facility] of HYDROCHLORI 00:00: mouth [place],) 4 mg 00 every 8 Medical tablet (eight) Branch hours as needed for Nausea and Vomiting (N/V). traMADOL 2018-0 Yes 50mg Take 1 [facility] (ULTRAM) 50 5-04 tablet by [facility] of mg tablet 00:00: mouth [place] 00 every 6 Medical (six) Branch hours as needed for Pain (scale 7-10). dicyclomine 2018-0 Yes 20mg Take 1 [facility] (BENTYL) 20 5-04 tablet by [facility] of mg tablet 00:00: mouth 4 [place] 00 (four) Medical times Branch daily. ondansetron 2018-0 Yes 4mg Take 1 [facility] (ZOFRAN, 5-04 tablet by [facility] of HYDROCHLORI 00:00: mouth [place],) 4 mg 00 every 8 Medical tablet (eight) Branch hours as needed for Nausea and Vomiting (N/V). traMADOL 2018-0 Yes 50mg Take 1 [facility] (ULTRAM) 50 5-04 tablet by [facility] of mg tablet 00:00: mouth [place] 00 every 6 Medical (six) Branch hours as needed for Pain (scale 7-10). dicyclomine 2018-0 Yes 20mg Take 1 [facility] (BENTYL) 20 5-04 tablet by [facility] of mg tablet 00:00: mouth 4 [place] 00 (four) Medical times Branch daily. ondansetron 2018-0 Yes 4mg Take 1 [facility] (ZOFRAN, 5-04 tablet by [facility]y of HYDROCHLORI 00:00: mouth [place],) 4 mg 00 every 8 Medical tablet (eight) Branch hours as needed for Nausea and Vomiting (N/V). traMADOL 2018-0 Yes 50mg Take 1 [facility] (ULTRAM) 50 5-04 tablet by [facility] of mg tablet 00:00: mouth [place] 00 every 6 Medical (six) Branch hours as needed for Pain (scale 7-10). dicyclomine 2018-0 Yes 20mg Take 1 [facility] (BENTYL) 20 5-04 tablet by [facility] of mg tablet 00:00: mouth 4 [place] 00 (four) Medical times Branch daily. ondansetron 2018-0 Yes 4mg Take 1 [facility] (ZOFRAN, 5-04 tablet by ity of HYDROCHLORI 00:00: mouth [place],) 4 mg 00 every 8 Medical tablet (eight) Branch hours as needed for Nausea and Vomiting (N/V). traMADOL 2018-0 Yes 50mg Take 1 [facility] (ULTRAM) 50 5-04 tablet by [facility] of mg tablet 00:00: mouth [place] 00 every 6 Medical (six) Branch hours as needed for Pain (scale 7-10). dicyclomine 2018-0 Yes 20mg Take 1 [facility] (BENTYL) 20 5-04 tablet by [facility] of mg tablet 00:00: mouth 4 [place] 00 (four) Medical times Branch daily. ondansetron 2018-0 Yes 4mg Take 1 [facility] (ZOFRAN, 5-04 tablet by ity of HYDROCHLORI 00:00: mouth [place],) 4 mg 00 every 8 Medical tablet (eight) Branch hours as needed for Nausea and Vomiting (N/V). traMADOL 2018-0 Yes 50mg Take 1 [facility] (ULTRAM) 50 5-04 tablet by [facility] of mg tablet 00:00: mouth [place] 00 every 6 Medical (six) Branch hours as needed for Pain (scale 7-10). dicyclomine 2018-0 Yes 20mg Take 1 [facility] (BENTYL) 20 5-04 tablet by [facility] of mg tablet 00:00: mouth 4 [place] 00 (four) Medical times Branch daily. ondansetron 2018-0 Yes 4mg Take 1 [facility] (ZOFRAN, 5-04 tablet by ity of HYDROCHLORI 00:00: mouth [place],) 4 mg 00 every 8 Medical tablet (eight) Branch hours as needed for Nausea and Vomiting (N/V). traMADOL 2018-0 Yes 50mg Take 1 [facility] (ULTRAM) 50 5-04 tablet by [facility] of mg tablet 00:00: mouth [place] 00 every 6 Medical (six) Branch hours as needed for Pain (scale 7-10). dicyclomine 2018-0 Yes 20mg Take 1 [facility] (BENTYL) 20 5-04 tablet by [facility] of mg tablet 00:00: mouth 4 [place] 00 (four) Medical times Branch daily. ondansetron 2018-0 Yes 4mg Take 1 [facility] (ZOFRAN, 5-04 tablet by ity of HYDROCHLORI 00:00: mouth [place],) 4 mg 00 every 8 Medical tablet (eight) Branch hours as needed for Nausea and Vomiting (N/V). traMADOL 2018-0 Yes 50mg Take 1 [facility] (ULTRAM) 50 5-04 tablet by [facility] of mg tablet 00:00: mouth [place] 00 every 6 Medical (six) Branch hours as needed for Pain (scale 7-10). dicyclomine 2018-0 Yes 20mg Take 1 [facility] (BENTYL) 20 5-04 tablet by [facility] of mg tablet 00:00: mouth 4 [place] 00 (four) Medical times Branch daily. ondansetron 2018-0 Yes 4mg Take 1 [facility] (ZOFRAN, 5-04 tablet by ity of HYDROCHLORI 00:00: mouth [place],) 4 mg 00 every 8 Medical tablet (eight) Branch hours as needed for Nausea and Vomiting (N/V). traMADOL 2018-0 Yes 50mg Take 1 [facility] (ULTRAM) 50 5-04 tablet by [facility] of mg tablet 00:00: mouth [place] 00 every 6 Medical (six) Branch hours as needed for Pain (scale 7-10). dicyclomine 2018-0 Yes 20mg Take 1 [facility] (BENTYL) 20 5-04 tablet by [facility] of mg tablet 00:00: mouth 4 [place] 00 (four) Medical times Branch daily. ondansetron 2018-0 Yes 4mg Take 1 [facility] (ZOFRAN, 5-04 tablet by ity of HYDROCHLORI 00:00: mouth [place],) 4 mg 00 every 8 Medical tablet (eight) Branch hours as needed for Nausea and Vomiting (N/V). traMADOL 2018-0 Yes 50mg Take 1 [facility] (ULTRAM) 50 5-04 tablet by [facility] of mg tablet 00:00: mouth [place] 00 every 6 Medical (six) Branch hours as needed for Pain (scale 7-10). dicyclomine 2018-0 Yes 20mg Take 1 [facility] (BENTYL) 20 5-04 tablet by [facility] of mg tablet 00:00: mouth 4 [place] 00 (four) Medical times Branch daily. ondansetron 2018-0 Yes 4mg Take 1 [facility] (ZOFRAN, 5-04 tablet by ity of HYDROCHLORI 00:00: mouth [place],) 4 mg 00 every 8 Medical tablet (eight) Branch hours as needed for Nausea and Vomiting (N/V). traMADOL 2018-0 Yes 50mg Take 1 [facility] (ULTRAM) 50 5-04 tablet by [facility] of mg tablet 00:00: mouth [place] 00 every 6 Medical (six) Branch hours as needed for Pain (scale 7-10). dicyclomine 2018-0 Yes 20mg Take 1 [facility] (BENTYL) 20 5-04 tablet by [facility] of mg tablet 00:00: mouth 4 [place] 00 (four) Medical times Branch daily. ondansetron 2018-0 Yes 4mg Take 1 [facility] (ZOFRAN, 5-04 tablet by ity of HYDROCHLORI 00:00: mouth [place],) 4 mg 00 every 8 Medical tablet (eight) Branch hours as needed for Nausea and Vomiting (N/V). traMADOL 2018-0 Yes 50mg Take 1 [facility] (ULTRAM) 50 5-04 tablet by [facility] of mg tablet 00:00: mouth [place] 00 every 6 Medical (six) Branch hours as needed for Pain (scale 7-10). dicyclomine 2018-0 Yes 20mg Take 1 [facility] (BENTYL) 20 5-04 tablet by [facility] of mg tablet 00:00: mouth 4 [place] 00 (four) Medical times Branch daily. ondansetron 2018-0 Yes 4mg Take 1 [facility] (ZOFRAN, 5-04 tablet by ity of HYDROCHLORI 00:00: mouth [place],) 4 mg 00 every 8 Medical tablet (eight) Branch hours as needed for Nausea and Vomiting (N/V). traMADOL 2018-0 Yes 50mg Take 1 [facility] (ULTRAM) 50 5-04 tablet by [facility] of mg tablet 00:00: mouth [place] 00 every 6 Medical (six) Branch hours as needed for Pain (scale 7-10). dicyclomine 2018-0 Yes 20mg Take 1 [facility] (BENTYL) 20 5-04 tablet by [facility] of mg tablet 00:00: mouth 4 [place] 00 (four) Medical times Branch daily. ondansetron 2018-0 Yes 4mg Take 1 [facility] (ZOFRAN, 5-04 tablet by ity of HYDROCHLORI 00:00: mouth [place],) 4 mg 00 every 8 Medical tablet (eight) Branch hours as needed for Nausea and Vomiting (N/V). traMADOL 2018-0 Yes 50mg Take 1 [facility] (ULTRAM) 50 5-04 tablet by [facility] mg tablet 00:00: mouth [place] 00 every 6 Medical (six) Branch hours as needed for Pain (scale 7-10). dicyclomine 2018-0 Yes 20mg Take 1 [facility] (BENTYL) 20 5-04 tablet by [facility] mg tablet 00:00: mouth 4 [place] 00 (four) Medical times Branch daily. ondansetron 2018-0 Yes 4mg Take 1 [facility] (ZOFRAN, 5-04 tablet by it[facility] of HYDROCHLORI 00:00: mouth [place] DE,) 4 mg 00 every 8 Medical tablet (eight) Branch hours as needed for Nausea and Vomiting (N/V). traMADOL 2018-0 Yes 50mg Take 1 [facility] (ULTRAM) 50 5-04 tablet by [facility] mg tablet 00:00: mouth [place] 00 every 6 Medical (six) Branch hours as needed for Pain (scale 7-10). dicyclomine 2018-0 Yes 20mg Take 1 [facility] (BENTYL) 20 5-04 tablet by [facility] mg tablet 00:00: mouth 4 [place] 00 (four) Medical times Branch daily. ondansetron 2018-0 Yes 4mg Take 1 [facility] (ZOFRAN, 5-04 tablet by [facility] of HYDROCHLORI 00:00: mouth [place] DE,) 4 mg 00 every 8 Medical tablet (eight) Branch hours as needed for Nausea and Vomiting (N/V). traMADOL 2018-0 Yes 50mg Take 1 [facility] (ULTRAM) 50 5-04 tablet by [facility] mg tablet 00:00: mouth [place] 00 every 6 Medical (six) Branch hours as needed for Pain (scale 7-10). dicyclomine 2018-0 Yes 20mg Take 1 [facility] (BENTYL) 20 5-04 tablet by [facility] mg tablet 00:00: mouth 4 [place] 00 (four) Medical times Branch daily. ondansetron 2018-0 Yes 4mg Take 1 [facility] (ZOFRAN, 5-04 tablet by [facility] of HYDROCHLORI 00:00: mouth [place] DE,) 4 mg 00 every 8 Medical tablet (eight) Branch hours as needed for Nausea and Vomiting (N/V). traMADOL 2018-0 Yes 50mg Take 1 [facility] (ULTRAM) 50 5-04 tablet by [facility] mg tablet 00:00: mouth [place] 00 every 6 Medical (six) Branch hours as needed for Pain (scale 7-10). dicyclomine 2018-0 Yes 20mg Take 1 [facility] (BENTYL) 20 5-04 tablet by [facility] mg tablet 00:00: mouth 4 [place] 00 (four) Medical times Branch daily. ondansetron 2018-0 Yes 4mg Take 1 [facility] (ZOFRAN, 5-04 tablet by [facility] of HYDROCHLORI 00:00: mouth [place] DE,) 4 mg 00 every 8 Medical tablet (eight) Branch hours as needed for Nausea and Vomiting (N/V). traMADOL 2018-0 Yes 50mg Take 1 [facility] (ULTRAM) 50 5-04 tablet by [facility] mg tablet 00:00: mouth [place] 00 every 6 Medical (six) Branch hours as needed for Pain (scale 7-10). dicyclomine 2018-0 Yes 20mg Take 1 [facility] (BENTYL) 20 5-04 tablet by [facility] mg tablet 00:00: mouth 4 [place] 00 (four) Medical times Branch daily. ondansetron 2018-0 Yes 4mg Take 1 [facility] (ZOFRAN, 5-04 tablet by [facility] of HYDROCHLORI 00:00: mouth [place] DE,) 4 mg 00 every 8 Medical tablet (eight) Branch hours as needed for Nausea and Vomiting (N/V). traMADOL 2018-0 Yes 50mg Take 1 [facility] (ULTRAM) 50 5-04 tablet by [facility] mg tablet 00:00: mouth [place] 00 every 6 Medical (six) Branch hours as needed for Pain (scale 7-10). dicyclomine 2018-0 Yes 20mg Take 1 [facility] (BENTYL) 20 5-04 tablet by [facility] mg tablet 00:00: mouth 4 [place] 00 (four) Medical times Branch daily. ondansetron 2018-0 Yes 4mg Take 1 [facility] (ZOFRAN, 5-04 tablet by [facility] of HYDROCHLORI 00:00: mouth [place] DE,) 4 mg 00 every 8 Medical tablet (eight) Branch hours as needed for Nausea and Vomiting (N/V). traMADOL 2018-0 Yes 50mg Take 1 [facility] (ULTRAM) 50 5-04 tablet by [facility] mg tablet 00:00: mouth [place] 00 every 6 Medical (six) Branch hours as needed for Pain (scale 7-10). dicyclomine 2018-0 Yes 20mg Take 1 [facility] (BENTYL) 20 5-04 tablet by [facility] mg tablet 00:00: mouth 4 [place] 00 (four) Medical times Branch daily. ondansetron 2018-0 Yes 4mg Take 1 [facility] (ZOFRAN, 5-04 tablet by [facility] of HYDROCHLORI 00:00: mouth [place] DE,) 4 mg 00 every 8 Medical tablet (eight) Branch hours as needed for Nausea and Vomiting (N/V). traMADOL 2018-0 Yes 50mg Take 1 [facility] (ULTRAM) 50 5-04 tablet by [facility] mg tablet 00:00: mouth [place] 00 every 6 Medical (six) Branch hours as needed for Pain (scale 7-10). dicyclomine 2018-0 Yes 20mg Take 1 [facility] (BENTYL) 20 5-04 tablet by [facility] of mg tablet 00:00: mouth 4 [place] 00 (four) Medical times Branch daily. ondansetron 2018-0 Yes 4mg Take 1 [facility] (ZOFRAN, 5-04 tablet by it[facility] of HYDROCHLORI 00:00: mouth [place] DE,) 4 mg 00 every 8 Medical tablet (eight) Branch hours as needed for Nausea and Vomiting (N/V). traMADOL 2018-0 Yes 50mg Take 1 [facility] (ULTRAM) 50 5-04 tablet by [facility] of mg tablet 00:00: mouth [place] 00 every 6 Medical (six) Branch hours as needed for Pain (scale 7-10). dicyclomine 2018-0 Yes 20mg Take 1 [facility] (BENTYL) 20 5-04 tablet by [facility] of mg tablet 00:00: mouth 4 [place] 00 (four) Medical times Branch daily. ondansetron 2018-0 Yes 4mg Take 1 [facility] (ZOFRAN, 5-04 tablet by ity of HYDROCHLORI 00:00: mouth [place] DE,) 4 mg 00 every 8 Medical tablet (eight) Branch hours as needed for Nausea and Vomiting (N/V). traMADOL 2018-0 Yes 50mg Take 1 [facility] (ULTRAM) 50 5-04 tablet by [facility] mg tablet 00:00: mouth [place] 00 every 6 Medical (six) Branch hours as needed for Pain (scale 7-10). dicyclomine 2018-0 Yes 20mg Take 1 [facility] (BENTYL) 20 5-04 tablet by [facility] of mg tablet 00:00: mouth 4 [place] 00 (four) Medical times Branch daily. ondansetron 2018-0 Yes 4mg Take 1 [facility] (ZOFRAN, 5-04 tablet by [facility] of HYDROCHLORI 00:00: mouth [place] DE,) 4 mg 00 every 8 Medical tablet (eight) Branch hours as needed for Nausea and Vomiting (N/V). traMADOL 2018-0 Yes 50mg Take 1 [facility] (ULTRAM) 50 5-04 tablet by [facility] mg tablet 00:00: mouth [place] 00 every 6 Medical (six) Branch hours as needed for Pain (scale 7-10). dicyclomine 2018-0 Yes 20mg Take 1 [facility] (BENTYL) 20 5-04 tablet by [facility] mg tablet 00:00: mouth 4 [place] 00 (four) Medical times Branch daily. ondansetron 2018-0 Yes 4mg Take 1 [facility] (ZOFRAN, 5-04 tablet by [facility] of HYDROCHLORI 00:00: mouth [place] DE,) 4 mg 00 every 8 Medical tablet (eight) Branch hours as needed for Nausea and Vomiting (N/V). traMADOL 2018-0 Yes 50mg Take 1 [facility] (ULTRAM) 50 5-04 tablet by [facility] mg tablet 00:00: mouth [place] 00 every 6 Medical (six) Branch hours as needed for Pain (scale 7-10). dicyclomine 2018-0 Yes 20mg Take 1 [facility] (BENTYL) 20 5-04 tablet by [facility] of mg tablet 00:00: mouth 4 [place] 00 (four) Medical times Branch daily. ondansetron 2018-0 Yes 4mg Take 1 [facility] (ZOFRAN, 5-04 tablet by it[facility] of HYDROCHLORI 00:00: mouth [place] DE,) 4 mg 00 every 8 Medical tablet (eight) Branch hours as needed for Nausea and Vomiting (N/V). traMADOL 2018-0 Yes 50mg Take 1 [facility] (ULTRAM) 50 5-04 tablet by [facility] mg tablet 00:00: mouth [place] 00 every 6 Medical (six) Branch hours as needed for Pain (scale 7-10). dicyclomine 2018-0 Yes 20mg Take 1 [facility] (BENTYL) 20 5-04 tablet by [facility] of mg tablet 00:00: mouth 4 [place] 00 (four) Medical times Branch daily. ondansetron 2018-0 Yes 4mg Take 1 [facility] (ZOFRAN, 5-04 tablet by it[facility] of HYDROCHLORI 00:00: mouth [place] DE,) 4 mg 00 every 8 Medical tablet (eight) Branch hours as needed for Nausea and Vomiting (N/V). traMADOL 2018-0 Yes 50mg Take 1 [facility] (ULTRAM) 50 5-04 tablet by [facility] of mg tablet 00:00: mouth [place] 00 every 6 Medical (six) Branch hours as needed for Pain (scale 7-10). dicyclomine 2018-0 Yes 20mg Take 1 [facility] (BENTYL) 20 5-04 tablet by [facility] of mg tablet 00:00: mouth 4 [place] 00 (four) Medical times Branch daily. ondansetron 2018-0 Yes 4mg Take 1 [facility] (ZOFRAN, 5-04 tablet by it[facility] of HYDROCHLORI 00:00: mouth [place] DE,) 4 mg 00 every 8 Medical tablet (eight) Branch hours as needed for Nausea and Vomiting (N/V). traMADOL 2018-0 Yes 50mg Take 1 [facility] (ULTRAM) 50 5-04 tablet by [facility] mg tablet 00:00: mouth [place] 00 every 6 Medical (six) Branch hours as needed for Pain (scale 7-10). dicyclomine 2018-0 Yes 20mg Take 1 [facility] (BENTYL) 20 5-04 tablet by [facility] of mg tablet 00:00: mouth 4 [place] 00 (four) Medical times Branch daily. ondansetron 2018-0 Yes 4mg Take 1 [facility] (ZOFRAN, 5-04 tablet by ity of HYDROCHLORI 00:00: mouth [place] DE,) 4 mg 00 every 8 Medical tablet (eight) Branch hours as needed for Nausea and Vomiting (N/V). traMADOL 2018-0 Yes 50mg Take 1 [facility] (ULTRAM) 50 5-04 tablet by [facility] of mg tablet 00:00: mouth [place] 00 every 6 Medical (six) Branch hours as needed for Pain (scale 7-10). dicyclomine 2018-0 Yes 20mg Take 1 [facility] (BENTYL) 20 5-04 tablet by [facility] of mg tablet 00:00: mouth 4 [place] 00 (four) Medical times Branch daily. ondansetron 2018-0 Yes 4mg Take 1 [facility] (ZOFRAN, 5-04 tablet by it[facility] of HYDROCHLORI 00:00: mouth [place] DE,) 4 mg 00 every 8 Medical tablet (eight) Branch hours as needed for Nausea and Vomiting (N/V). traMADOL 2018-0 Yes 50mg Take 1 [facility] (ULTRAM) 50 5-04 tablet by [facility] of mg tablet 00:00: mouth [place] 00 every 6 Medical (six) Branch hours as needed for Pain (scale 7-10). traMADOL 2018-0 Yes 50mg Take 1 [facility] (ULTRAM) 50 5-04 tablet by [facility] of mg tablet 00:00: mouth [place] 00 every 6 Medical (six) Branch hours as needed for Pain (scale 7-10). dicyclomine 2018-0 Yes 20mg Take 1 [facility] (BENTYL) 20 5-04 tablet by [facility]y of mg tablet 00:00: mouth 4 [place] 00 (four) Medical times Branch daily. ondansetron 2018-0 Yes 4mg Take 1 [facility] (ZOFRAN, 5-04 tablet by [facility] of HYDROCHLORI 00:00: mouth [place] DE,) 4 mg 00 every 8 Medical tablet (eight) Branch hours as needed for Nausea and Vomiting (N/V). dicyclomine 2018-0 Yes 20mg Take 1 [facility] (BENTYL) 20 5-04 tablet by [facility] of mg tablet 00:00: mouth 4 [place] 00 (four) Medical times Branch daily. ondansetron 2018-0 Yes 4mg Take 1 [facility] (ZOFRAN, 5-04 tablet by it[facility] of HYDROCHLORI 00:00: mouth [place] DE,) 4 mg 00 every 8 Medical tablet (eight) Branch hours as needed for Nausea and Vomiting (N/V). traMADOL 2018-0 Yes 50mg Take 1 [facility] (ULTRAM) 50 5-04 tablet by [facility] of mg tablet 00:00: mouth [place] 00 every 6 Medical (six) Branch hours as needed for Pain (scale 7-10). dicyclomine 2018-0 Yes 20mg Take 1 [facility] (BENTYL) 20 5-04 tablet by [facility] of mg tablet 00:00: mouth 4 [place] 00 (four) Medical times Branch daily. ondansetron 2018-0 Yes 4mg Take 1 [facility] (ZOFRAN, 5-04 tablet by it[facility] of HYDROCHLORI 00:00: mouth [place] DE,) 4 mg 00 every 8 Medical tablet (eight) Branch hours as needed for Nausea and Vomiting (N/V). traMADOL 2018-0 Yes 50mg Take 1 [facility] (ULTRAM) 50 5-04 tablet by [facility] of mg tablet 00:00: mouth [place] 00 every 6 Medical (six) Branch hours as needed for Pain (scale 7-10). dicyclomine 2018-0 Yes 20mg Take 1 [facility] (BENTYL) 20 5-04 tablet by [facility] of mg tablet 00:00: mouth 4 [place] 00 (four) Medical times Branch daily. ondansetron 2018-0 Yes 4mg Take 1 [facility] (ZOFRAN, 5-04 tablet by it[facility] of HYDROCHLORI 00:00: mouth [place] DE,) 4 mg 00 every 8 Medical tablet (eight) Branch hours as needed for Nausea and Vomiting (N/V). traMADOL 2018-0 Yes 50mg Take 1 [facility] (ULTRAM) 50 5-04 tablet by [facility] of mg tablet 00:00: mouth [place] 00 every 6 Medical (six) Branch hours as needed for Pain (scale 7-10). dicyclomine 2018-0 Yes 20mg Take 1 [facility] (BENTYL) 20 5-04 tablet by [facility] of mg tablet 00:00: mouth 4 [place] 00 (four) Medical times Branch daily. ondansetron 2018-0 Yes 4mg Take 1 [facility] (ZOFRAN, 5-04 tablet by it[facility] of HYDROCHLORI 00:00: mouth [place] DE,) 4 mg 00 every 8 Medical tablet (eight) Branch hours as needed for Nausea and Vomiting (N/V). traMADOL 2018-0 Yes 50mg Take 1 [facility] (ULTRAM) 50 5-04 tablet by [facility] of mg tablet 00:00: mouth [place] 00 every 6 Medical (six) Branch hours as needed for Pain (scale 7-10). dicyclomine 2018-0 Yes 20mg Take 1 [facility] (BENTYL) 20 5-04 tablet by [facility] of mg tablet 00:00: mouth 4 [place] 00 (four) Medical times Branch daily. ondansetron 2018-0 Yes 4mg Take 1 [facility] (ZOFRAN, 5-04 tablet by it[facility] of HYDROCHLORI 00:00: mouth [place] DE,) 4 mg 00 every 8 Medical tablet (eight) Branch hours as needed for Nausea and Vomiting (N/V). traMADOL 2018-0 Yes 50mg Take 1 [facility] (ULTRAM) 50 5-04 tablet by [facility] of mg tablet 00:00: mouth [place] 00 every 6 Medical (six) Branch hours as needed for Pain (scale 7-10). dicyclomine 2018-0 Yes 20mg Take 1 [facility] (BENTYL) 20 5-04 tablet by [facility] of mg tablet 00:00: mouth 4 [place] 00 (four) Medical times Branch daily. ondansetron 2018-0 Yes 4mg Take 1 [facility] (ZOFRAN, 5-04 tablet by it[facility] of HYDROCHLORI 00:00: mouth [place] DE,) 4 mg 00 every 8 Medical tablet (eight) Branch hours as needed for Nausea and Vomiting (N/V). traMADOL 2018-0 Yes 50mg Take 1 [facility] (ULTRAM) 50 5-04 tablet by [facility] of mg tablet 00:00: mouth [place] 00 every 6 Medical (six) Branch hours as needed for Pain (scale 7-10). dicyclomine 2018-0 Yes 20mg Take 1 [facility] (BENTYL) 20 5-04 tablet by [facility] of mg tablet 00:00: mouth 4 [place] 00 (four) Medical times Branch daily. ondansetron 2018-0 Yes 4mg Take 1 [facility] (ZOFRAN, 5-04 tablet by ity of HYDROCHLORI 00:00: mouth [place] DE,) 4 mg 00 every 8 Medical tablet (eight) Branch hours as needed for Nausea and Vomiting (N/V). traMADOL 2018-0 Yes 50mg Take 1 [facility] (ULTRAM) 50 5-04 tablet by [facility] of mg tablet 00:00: mouth [place] 00 every 6 Medical (six) Branch hours as needed for Pain (scale 7-10). dicyclomine 2018-0 Yes 20mg Take 1 [facility] (BENTYL) 20 5-04 tablet by [facility] of mg tablet 00:00: mouth 4 [place] 00 (four) Medical times Branch daily. ondansetron 2018-0 Yes 4mg Take 1 [facility] (ZOFRAN, 5-04 tablet by ity of HYDROCHLORI 00:00: mouth [place] DE,) 4 mg 00 every 8 Medical tablet (eight) Branch hours as needed for Nausea and Vomiting (N/V). traMADOL 2018-0 Yes 50mg Take 1 [facility] (ULTRAM) 50 5-04 tablet by [facility] of mg tablet 00:00: mouth [place] 00 every 6 Medical (six) Branch hours as needed for Pain (scale 7-10). dicyclomine 2018-0 Yes 20mg Take 1 [facility] (BENTYL) 20 5-04 tablet by [facility] of mg tablet 00:00: mouth 4 [place] 00 (four) Medical times Branch daily. ondansetron 2018-0 Yes 4mg Take 1 [facility] (ZOFRAN, 5-04 tablet by ity of HYDROCHLORI 00:00: mouth [place] DE,) 4 mg 00 every 8 Medical tablet (eight) Branch hours as needed for Nausea and Vomiting (N/V). traMADOL 2018-0 Yes 50mg Take 1 [facility] (ULTRAM) 50 5-04 tablet by [facility] of mg tablet 00:00: mouth [place] 00 every 6 Medical (six) Branch hours as needed for Pain (scale 7-10). traMADOL 2018-0 Yes 50mg Take 1 [facility] (ULTRAM) 50 5-04 tablet by [facility] of mg tablet 00:00: mouth [place] 00 every 6 Medical (six) Branch hours as needed for Pain (scale 7-10). dicyclomine 2018-0 Yes 20mg Take 1 [facility] (BENTYL) 20 5-04 tablet by [facility] of mg tablet 00:00: mouth 4 [place] 00 (four) Medical times Branch daily. ondansetron 2018-0 Yes 4mg Take 1 [facility] (ZOFRAN, 5-04 tablet by ity of HYDROCHLORI 00:00: mouth [place] DE,) 4 mg 00 every 8 Medical tablet (eight) Branch hours as needed for Nausea and Vomiting (N/V). dicyclomine 2018-0 Yes 20mg Take 1 [facility] (BENTYL) 20 5-04 tablet by [facility] of mg tablet 00:00: mouth 4 [place] 00 (four) Medical times Branch daily. ondansetron 2018-0 Yes 4mg Take 1 [facility] (ZOFRAN, 5-04 tablet by ity of HYDROCHLORI 00:00: mouth [place] DE,) 4 mg 00 every 8 Medical tablet (eight) Branch hours as needed for Nausea and Vomiting (N/V). traMADOL 2018-0 Yes 50mg Take 1 [facility] (ULTRAM) 50 5-04 tablet by [facility] of mg tablet 00:00: mouth [place] 00 every 6 Medical (six) Branch hours as needed for Pain (scale 7-10). dicyclomine 2018-0 Yes 20mg Take 1 [facility] (BENTYL) 20 5-04 tablet by [facility] of mg tablet 00:00: mouth 4 [place] 00 (four) Medical times Branch daily. ondansetron 2018-0 Yes 4mg Take 1 [facility] (ZOFRAN, 5-04 tablet by ity of HYDROCHLORI 00:00: mouth [place] DE,) 4 mg 00 every 8 Medical tablet (eight) Branch hours as needed for Nausea and Vomiting (N/V). traMADOL 2018-0 Yes 50mg Take 1 [facility] (ULTRAM) 50 5-04 tablet by [facility] of mg tablet 00:00: mouth [place] 00 every 6 Medical (six) Branch hours as needed for Pain (scale 7-10). dicyclomine 2018-0 Yes 20mg Take 1 [facility] (BENTYL) 20 5-04 tablet by [facility] of mg tablet 00:00: mouth 4 [place] 00 (four) Medical times Branch daily. ondansetron 2018-0 Yes 4mg Take 1 [facility] (ZOFRAN, 5-04 tablet by ity of HYDROCHLORI 00:00: mouth [place] DE,) 4 mg 00 every 8 Medical tablet (eight) Branch hours as needed for Nausea and Vomiting (N/V). traMADOL 2018-0 Yes 50mg Take 1 [facility] (ULTRAM) 50 5-04 tablet by [facility] of mg tablet 00:00: mouth [place] 00 every 6 Medical (six) Branch hours as needed for Pain (scale 7-10). dicyclomine 2018-0 Yes 20mg Take 1 [facility] (BENTYL) 20 5-04 tablet by [facility] of mg tablet 00:00: mouth 4 [place] 00 (four) Medical times Branch daily. ondansetron 2018-0 Yes 4mg Take 1 [facility] (ZOFRAN, 5-04 tablet by ity of HYDROCHLORI 00:00: mouth [place] DE,) 4 mg 00 every 8 Medical tablet (eight) Branch hours as needed for Nausea and Vomiting (N/V). traMADOL 2018-0 Yes 50mg Take 1 [facility] (ULTRAM) 50 5-04 tablet by [facility] of mg tablet 00:00: mouth [place] 00 every 6 Medical (six) Branch hours as needed for Pain (scale 7-10). dicyclomine 2018-0 Yes 20mg Take 1 [facility] (BENTYL) 20 5-04 tablet by [facility] of mg tablet 00:00: mouth 4 [place] 00 (four) Medical times Branch daily. ondansetron 2018-0 Yes 4mg Take 1 [facility] (ZOFRAN, 5-04 tablet by ity of HYDROCHLORI 00:00: mouth [place] DE,) 4 mg 00 every 8 Medical tablet (eight) Branch hours as needed for Nausea and Vomiting (N/V). traMADOL 2018-0 Yes 50mg Take 1 [facility] (ULTRAM) 50 5-04 tablet by [facility] of mg tablet 00:00: mouth [place] 00 every 6 Medical (six) Branch hours as needed for Pain (scale 7-10). dicyclomine 2018-0 Yes 20mg Take 1 [facility] (BENTYL) 20 5-04 tablet by [facility] of mg tablet 00:00: mouth 4 [place] 00 (four) Medical times Branch daily. traMADOL 2018-0 Yes 50mg Take 1 [facility] (ULTRAM) 50 5-04 tablet by [facility] of mg tablet 00:00: mouth [place] 00 every 6 Medical (six) Branch hours as needed for Pain (scale 7-10). dicyclomine 2018-0 Yes 20mg Take 1 [facility] (BENTYL) 20 5-04 tablet by [facility] of mg tablet 00:00: mouth 4 [place] 00 (four) Medical times Branch daily. ondansetron 2018-0 Yes 4mg Take 1 [facility] (ZOFRAN, 5-04 tablet by ity of HYDROCHLORI 00:00: mouth [place] DE,) 4 mg 00 every 8 Medical tablet (eight) Branch hours as needed for Nausea and Vomiting (N/V). ondansetron 2018-0 Yes 4mg Take 1 [facility] (ZOFRAN, 5-04 tablet by ity of HYDROCHLORI 00:00: mouth [place] DE,) 4 mg 00 every 8 Medical tablet (eight) Branch hours as needed for Nausea and Vomiting (N/V). traMADOL 2018-0 Yes 50mg Take 1 [facility] (ULTRAM) 50 5-04 tablet by [facility] of mg tablet 00:00: mouth [place] 00 every 6 Medical (six) Branch hours as needed for Pain (scale 7-10). dicyclomine 2018-0 Yes 20mg Take 1 [facility] (BENTYL) 20 5-04 tablet by [facility] of mg tablet 00:00: mouth 4 [place] 00 (four) Medical times Branch daily. ondansetron 2018-0 Yes 4mg Take 1 [facility] (ZOFRAN, 5-04 tablet by ity of HYDROCHLORI 00:00: mouth [place] DE,) 4 mg 00 every 8 Medical tablet (eight) Branch hours as needed for Nausea and Vomiting (N/V). traMADOL 2018-0 2020- No 50mg Take 1 [facility] (ULTRAM) 50 5-04 06-23 tablet by it y of mg tablet 00:00: 00:00 mouth [place] 00 :00 every 6 Medical (six) Branch hours as needed for Pain (scale 7-10). dicyclomine 2019- No 20mg Take 1 [facility] (BENTYL) 20 03-07 tablet by [facility] mg tablet 00:00: 00:00 mouth 4 [place] :[place] (four) Medical times Branch daily. ondansetron 2019- No 4mg Take 1 [facility] (ZOFRAN, 03-07 tablet by it y of HYDROCHLORI 00:00: 00:00 [place] 4 mg 00 :00 every 8 Medical tablet (eight) Branch hours as needed for Nausea and Vomiting (N/V). Immunizations Ordered Filled Immunization Date Status Comments [facility] Immunization Name Name HPV9 2020-05-30 Completed [facility] 00:00:[address] [facility] HPV9 2020-05-30 Completed [facility] of 00:00:[address] [facility] HPV9 2020-05-30 Completed [facility] of 00:00:[address] [facility] HPV9 2020-05-30 Completed [facility] of 00:00:[address] [facility] HPV9 2020-05-30 Completed [facility] of 00:00:[address] [facility] HPV9 2020-05-30 Completed [facility] of 00:00:[address] [facility] HPV9 2020-05-30 Completed [facility] of 00:00:[address] [facility] HPV9 2020-05-30 Completed [facility] of 00:00:[address] [facility] HPV9 2020-05-30 Completed [facility] of 00:00:[address] [facility] HPV9 2020-05-30 Completed [facility] of 00[facility]00:[address] [facility] HPV9 2020-05-30 Completed [facility] of 00:00:[address] [facility] HPV9 2020-05-30 Completed [facility] of 00:00:[address] [facility] Influenza Virus 2019-09-25 Completed [facility] .5 mL 00:00:00 [place] [facility] Influenza Virus 2019-09-25 Completed [facility] .5 mL 00:00:00 [place] [facility] 6+ MO [facility] Influenza Virus 2019-09-25 Completed [facility] .5 mL 00:00:00 [place] [facility] IM 6+ MO Branch Influenza Virus 2019-09-25 Completed [facility] .5 mL 00:00:00 [place] [facility] IM 6+ MO [facility] Influenza Virus 2019-09-25 Completed [facility] .5 mL 00:00:00 [place] [facility] IM 6+ MO Branch Influenza Virus 2019-09-25 Completed [facility] .5 mL 00:00:00 [place] [facility] IM 6+ MO Branch Influenza Virus 2019-09-25 Completed [facility] .5 mL 00:00:00 [place] [facility] IM 6+ MO Branch Influenza Virus 2019-09-25 Completed [facility] .5 mL 00:00:00 [place] [facility] IM 6+ MO Branch Influenza Virus 2019-09-25 Completed [facility] .5 mL 00:00:00 [place] [facility] IM 6+ MO [facility] Influenza Virus 2019-09-25 Completed [facility] .5 mL 00:00:00 [place] [facility] IM 6+ MO [facility] Influenza Virus 2019-09-25 Completed [facility] .5 mL 00:00:00 [place] [facility] IM 6+ MO [facility] Influenza Virus 2019-09-25 Completed [facility] .5 mL 00:00:00 [place] [facility] IM 6+ MO [facility] Influenza Virus 2019-09-25 Completed [facility] .5 mL 00:00:00 [place] [facility] IM 6+ MO [facility] Influenza Virus 2019-09-25 Completed [facility] .5 mL 00:00:00 [place] [facility] IM 6+ MO [facility] Influenza Virus 2019-09-25 Completed [facility] .5 mL 00:00:00 [place] [facility] IM 6+ MO [facility] Influenza Virus 2019-09-25 Completed [facility] .5 mL 00:00:00 [place] [facility] IM 6+ MO [facility] Influenza Virus 2019-09-25 Completed [facility] .5 mL 00:00:00 [place] [facility] IM 6+ MO [facility] Influenza Virus 2019-09-25 Completed [facility] .5 mL 00:00:00 [place] [facility] IM 6+ MO [facility] Influenza Virus 2019-09-25 Completed [facility] .5 mL 00:00:00 [place] [facility] IM 6+ MO [facility] Influenza Virus 2019-09-25 Completed [facility] .5 mL 00:00:00 [place] [facility] IM 6+ MO [facility] Influenza Virus 2019-09-25 Completed [facility] .5 mL 00:00:00 [place] [facility] IM 6+ MO [facility] Influenza Virus 2019-09-25 Completed [facility] .5 mL 00:00:00 [place] [facility] IM 6+ MO [facility] Influenza Virus 2019-09-25 Completed [facility] .5 mL 00:00:00 [place] [facility] IM 6+ MO [facility] Influenza Virus 2019-09-25 Completed [facility] .5 mL 00:00:00 [place] [facility] IM 6+ MO [facility] Influenza Virus 2019-09-25 Completed [facility] .5 mL 00:00:00 [place] [facility] IM 6+ MO Branch Influenza Virus 2019-09-25 Completed [facility] .5 mL 00:00:00 [place] [facility] IM 6+ MO [facility] Influenza Virus 2019-09-25 Completed [facility] .5 mL 00:00:00 [place] [facility] IM 6+ MO Branch Influenza Virus 2019-09-25 Completed [facility] .5 mL 00:00:00 [place] [facility] IM 6+ MO Branch Influenza Virus 2019-09-25 Completed [facility] .5 mL 00:00:00 [place] [facility] IM 6+ MO Branch Influenza Virus 2019-09-25 Completed [facility] .5 mL 00:00:00 [place] [facility] IM 6+ MO Branch Influenza Virus 2019-09-25 Completed [facility] .5 mL 00:00:00 [place] [facility] IM 6+ MO Branch Influenza Virus 2019-09-25 Completed [facility] .5 mL 00:00:00 [place] [facility] IM 6+ MO Branch Influenza Virus 2019-09-25 Completed [facility] .5 mL 00:00:00 [place] [facility] IM 6+ MO Branch Influenza Virus 2019-09-25 Completed [facility] .5 mL 00:00:00 [place] [facility] IM 6+ MO Branch Influenza Virus 2019-09-25 Completed [facility] .5 mL 00:00:00 [place] [facility] IM 6+ MO Branch Influenza Virus 2019-09-25 Completed [facility] .5 mL 00:00:00 [place] [facility] IM 6+ MO Branch Influenza Virus 2019-09-25 Completed [facility]00 [facility] Influenza Virus 2019-09-25 Completed [facility] 00:00:00 [facility] Influenza Virus 2019-09-25 Completed [facility]5 mL 00:00:00 [facility] Influenza Virus 2019-09-25 Completed [facility]5 mL 00:00:00 [facility] Influenza Virus 2019-09-25 Completed [facility]5 mL 00:00:00 [facility] Influenza Virus 2019-09-25 Completed [facility]5 mL 00:00:00 [facility] Influenza Virus 2019-09-25 Completed [facility]5 mL 00:00:00 [facility] Influenza Virus 2019-09-25 Completed [facility]5 mL 00:00:00 [facility] Influenza Virus 2019-09-25 Completed [facility] .5 mL 00:00:00 [facility] Influenza Virus 2019-09-25 Completed [facility]5 mL 00:00:00 [facility] Influenza Virus 2019-09-25 Completed [facility]5 mL 00:00:00 [facility] Influenza Virus 2019-09-25 Completed [facility]5 mL 00:00:00 [facility] Influenza Virus 2019-09-25 Completed [facility]5 mL 00:00:00 [facility] Influenza Virus 2019-09-25 Completed [facility]5 mL 00:00:00 [facility] Influenza Virus 2019-09-25 Completed [facility] .5 mL 00:00:00 [facility] Influenza Virus 2019-09-25 Completed [facility]5 mL 00:00:00 [facility] Influenza Virus 2019-09-25 Completed [facility] .5 mL 00:00:00 [facility] Influenza Virus 2019-09-25 Completed [facility]5 mL 00:00:00 [facility] Influenza Virus 2019-09-25 Completed [facility]5 mL 00:00:00 [facility] Influenza Virus 2019-09-25 Completed [facility]5 mL 00:00:00 [facility] Influenza Virus 2019-09-25 Completed [facility] .5 mL 00:00:00 [facility] Influenza Virus 2019-09-25 Completed [facility]5 mL 00:00:00 [facility] Influenza Virus 2019-09-25 Completed [facility] .5 mL 00:00:00 [facility] Influenza Virus 2019-09-25 Completed [facility]5 mL 00:00:00 [facility] Influenza Virus 2019-09-25 Completed [facility]5 mL 00:00:00 [facility] Influenza Virus 2019-09-25 Completed [facility]5 mL 00:00:00 [facility] Influenza Virus 2019-09-25 Completed [facility] .5 mL 00:00:00 [facility] Influenza Virus 2019-09-25 Completed [facility] .5 mL 00:00:00 [facility] Influenza Virus 2019-09-25 Completed [facility] .5 mL 00:00:00 [facility] Influenza Virus 2019-09-25 Completed [facility]5 mL 00:00:00 [facility] Influenza Virus 2019-09-25 Completed [facility]5 mL 00:00:00 [facility] Influenza Virus 2019-09-25 Completed [facility] .5 mL 00:00:00 [facility] Influenza Virus 2019-09-25 Completed [facility] .5 mL 00:00:00 [facility] Influenza Virus 2019-09-25 Completed [facility]5 mL 00:00:00 [facility] Influenza Virus 2019-09-25 Completed [facility]5 mL 00:00:00 [facility] Influenza Virus 2019-09-25 Completed [facility]5 mL 00:00:00 [facility] MMR 2018-11-17 Completed [facility] 00:00:[address] [facility] MMR 2018-11-17 Completed [facility] 00:00:00 [facility] MMR 2018-11-17 Completed [facility] 00:00:00 [facility] MMR 2018-11-17 Completed [facility] 00:00:00 [facility] MMR 2018-11-17 Completed [facility] 00:00:00 [facility] MMR 2018-11-17 Completed [facility] 00:00:00 [facility] MMR 2018-11-17 Completed [facility] 00:00:00 [facility] MMR 2018-11-17 Completed [facility] 00:00:00 [facility] MMR 2018-11-17 Completed [facility] 00:00:00 [facility] MMR 2018-11-17 Completed [facility] 00:00:00 [facility] MMR 2018-11-17 Completed [facility] 00:00:00 [facility] MMR 2018-11-17 Completed [facility] 00:00:00 [facility] MMR 2018-11-17 Completed [facility] 00:00:00 [facility] MMR 2018-11-17 Completed [facility] 00:00:00 [facility] MMR 2018-11-17 Completed [facility] 00:00:00 [facility] MMR 2018-11-17 Completed [facility] 00:00:00 [facility] MMR 2018-11-17 Completed [facility] 00:00:00 [facility] MMR 2018-11-17 Completed [facility] 00:00:00 [facility] MMR 2018-11-17 Completed [facility] 00:00:00 [facility] MMR 2018-11-17 Completed [facility] 00:00:[address] [facility] MMR 2018-11-17 Completed [facility] 00:00:00 [facility] MMR 2018-11-17 Completed [facility] 00:00:00 [facility] MMR 2018-11-17 Completed [facility] 00:00:00 [facility] MMR 2018-11-17 Completed [facility] 00:00:00 [facility] MMR 2018-11-17 Completed [facility] 00:00:00 [facility] MMR 2018-11-17 Completed [facility] 00:00:00 [facility] MMR 2018-11-17 Completed [facility] 00:00:00 [facility] MMR 2018-11-17 Completed [facility] 00:00:00 [facility] MMR 2018-11-17 Completed [facility] 00:00:00 [facility] MMR 2018-11-17 Completed [facility] 00:00:00 [facility] MMR 2018-11-17 Completed [facility] 00:00:00 [facility] MMR 2018-11-17 Completed [facility] 00:00:00 [facility] MMR 2018-11-17 Completed [facility] 00:00:00 [facility] MMR 2018-11-17 Completed [facility] 00:00:00 [facility] MMR 2018-11-17 Completed [facility] 00:00:00 [facility] MMR 2018-11-17 Completed [facility] 00:00:00 [facility] MMR 2018-11-17 Completed [facility] 00:00:00 [facility] MMR 2018-11-17 Completed [facility] 00:00:00 [facility] MMR 2018-11-17 Completed [facility] 00:00:00 [facility] MMR 2018-11-17 Completed [facility] 00:00:00 [facility] MMR 2018-11-17 Completed [facility] 00:00:00 [facility] MMR 2018-11-17 Completed [facility] 00:00:00 [facility] MMR 2018-11-17 Completed [facility] 00:00:00 [facility] MMR 2018-11-17 Completed [facility] 00:00:00 [facility] MMR 2018-11-17 Completed [facility] 00:00:00 [facility] MMR 2018-11-17 Completed [facility] 00:00:00 [facility] MMR 2018-11-17 Completed [facility] 00:00:00 [facility] MMR 2018-11-17 Completed [facility] 00:00:00 [facility] MMR 2018-11-17 Completed [facility] 00:00:00 [facility] MMR 2018-11-17 Completed [facility] 00:00:00 [facility] MMR 2018-11-17 Completed [facility] 00:00:00 [facility] MMR 2018-11-17 Completed [facility] 00:00:00 [facility] MMR 2018-11-17 Completed [facility] 00:00:00 [facility] MMR 2018-11-17 Completed [facility] 00:00:00 [facility] MMR 2018-11-17 Completed [facility] of 00:00:[address] [facility] MMR 2018-11-17 Completed [facility] of 00:00:[address] [facility] MMR 2018-11-17 Completed [facility] of 00:00:[address] [facility] Influenza Virus 2018-09-15 Completed [facility] 3+ 00:00:00 [facility] Tdap 2018-09-15 Completed [facility] 00:00:[address] [facility] Influenza Virus 2018-09-15 Completed [facility] 3+ 00:00:00 [facility] Tdap 2018-09-15 Completed [facility] 00:00:[address] [facility] Influenza Virus 2018-09-15 Completed [facility] 3+ 00:00:00 [facility] Tdap 2018-09-15 Completed [facility] 00:00:[address] [facility] Influenza Virus 2018-09-15 Completed [facility] 3+ 00:00:00 [facility] Tdap 2018-09-15 Completed [facility] 00:00:[address] [facility] Influenza Virus 2018-09-15 Completed [facility] 3+ 00:00:00 [facility] Tdap 2018-09-15 Completed [facility] 00:00:[address] [facility] Influenza Virus 2018-09-15 Completed [facility] 3+ 00:00:00 [facility] Tdap 2018-09-15 Completed [facility] 00:00:[address] [facility] Influenza Virus 2018-09-15 Completed [facility] 3+ 00:00:00 [facility] TDAP 2018-09-15 Completed [facility] 00:00:[address] [facility] Influenza Virus 2018-09-15 Completed [facility] 3+ 00:00:00 [facility] TDAP 2018-09-15 Completed [facility] 00:00:[address] [facility] Influenza Virus 2018-09-15 Completed [facility] 3+ 00:00:00 [facility] TDAP 2018-09-15 Completed [facility] 00:00:[address] [facility] Influenza Virus 2018-09-15 Completed [facility] 3+ 00:00:00 [facility] TDAP 2018-09-15 Completed [facility] 00:00:[address] [facility] Influenza Virus 2018-09-15 Completed [facility] 3+ 00:00:00 [facility] TDAP 2018-09-15 Completed [facility] 00:00:[address] [facility] Influenza Virus 2018-09-15 Completed [facility] 3+ 00:00:00 [facility] TDAP 2018-09-15 Completed [facility] 00:00:[address] [facility] Influenza Virus 2018-09-15 Completed [facility] 3+ 00:00:00 [facility] TDAP 2018-09-15 Completed [facility] 00:00:[address] [facility] Influenza Virus 2018-09-15 Completed [facility] 3+ 00:00:00 [facility] TDAP 2018-09-15 Completed [facility] 00:00:[address] [facility] Influenza Virus 2018-09-15 Completed [facility] 3+ 00:00:00 [facility] TDAP 2018-09-15 Completed [facility] 00:00:[address] [facility] Influenza Virus 2018-09-15 Completed [facility] 3+ 00:00:00 [facility] TDAP 2018-09-15 Completed [facility] 00:00:[address] [facility] Influenza Virus 2018-09-15 Completed [facility] 3+ 00:00:00 [facility] TDAP 2018-09-15 Completed [facility] 00:00:[address] [facility] Influenza Virus 2018-09-15 Completed [facility] 3+ 00:00:00 [facility] TDAP 2018-09-15 Completed [facility] 00:00:[address] [facility] Influenza Virus 2018-09-15 Completed [facility] 3+ 00:00:00 [facility] TDAP 2018-09-15 Completed [facility] 00:00:[address] [facility] Influenza Virus 2018-09-15 Completed [facility] 3+ 00:00:00 [facility] TDAP 2018-09-15 Completed [facility] 00:00:[address] [facility] Influenza Virus 2018-09-15 Completed [facility] 3+ 00:00:00 [facility] TDAP 2018-09-15 Completed [facility] 00:00:[address] [facility] Influenza Virus 2018-09-15 Completed [facility] 3+ 00:00:00 [facility] TDAP 2018-09-15 Completed [facility] 00:00:[address] [facility] Influenza Virus 2018-09-15 Completed [facility] 3+ 00:00:00 [facility] TDAP 2018-09-15 Completed [facility] 00:00:[address] [facility] Influenza Virus 2018-09-15 Completed [facility] 3+ 00:00:00 [facility] TDAP 2018-09-15 Completed [facility] 00:00:[address] [facility] Influenza Virus 2018-09-15 Completed [facility] 3+ 00:00:00 [facility] TDAP 2018-09-15 Completed [facility] 00:00:[address] [facility] Influenza Virus 2018-09-15 Completed [facility] 3+ 00:00:00 [facility] TDAP 2018-09-15 Completed [facility] 00:00:[address] [facility] Influenza Virus 2018-09-15 Completed [facility] 3+ 00:00:00 [facility] TDAP 2018-09-15 Completed [facility] 00:00:[address] [facility] Influenza Virus 2018-09-15 Completed [facility] 3+ 00:00:00 [facility] TDAP 2018-09-15 Completed [facility] 00:00:[address] [facility] Influenza Virus 2018-09-15 Completed [facility] 3+ 00:00:00 [facility] TDAP 2018-09-15 Completed [facility] 00:00:[address] [facility] Influenza Virus 2018-09-15 Completed [facility] 3+ 00:00:00 [facility] TDAP 2018-09-15 Completed [facility] 00:00:[address] [facility] Influenza Virus 2018-09-15 Completed [facility] 3+ 00:00:00 [facility] TDAP 2018-09-15 Completed [facility] 00:00:[address] [facility] Influenza Virus 2018-09-15 Completed [facility] 3+ 00:00:00 [facility] Tdap 2018-09-15 Completed [facility] 00:00:[address] [facility] Influenza Virus 2018-09-15 Completed [facility] 3+ 00:00:00 [facility] Tdap 2018-09-15 Completed [facility] 00:00:[address] [facility] Influenza Virus 2018-09-15 Completed [facility] 3+ 00:00:00 [facility] Tdap 2018-09-15 Completed [facility] 00:00:[address] [facility] Influenza Virus 2018-09-15 Completed [facility] IM 3+ 00:00:00 [facility] Tdap 2018-09-15 Completed [facility] 00:00:[address] [facility] Influenza Virus 2018-09-15 Completed [facility] 3+ 00:00:00 [facility] Tdap 2018-09-15 Completed [facility] 00:00:[address] [facility] Influenza Virus 2018-09-15 Completed [facility] 3+ 00:00:00 [facility] Tdap 2018-09-15 Completed [facility] 00:00:[address] [facility] Influenza Virus 2018-09-15 Completed [facility] 3+ 00:00:00 [facility] Tdap 2018-09-15 Completed [facility] 00:00:[address] [facility] Influenza Virus 2018-09-15 Completed [facility] 3+ 00:00:00 [facility] Tdap 2018-09-15 Completed [facility] 00:00:[address] [facility] Influenza Virus 2018-09-15 Completed [facility] IM 3+ 00:00:00 [facility] Tdap 2018-09-15 Completed [facility] 00:00:[address] [facility] Influenza Virus 2018-09-15 Completed [facility] IM 3+ 00:00:00 [facility] Tdap 2018-09-15 Completed [facility] 00:00:[address] [facility] Influenza Virus 2018-09-15 Completed [facility] IM 3+ 00:00:00 [facility] Tdap 2018-09-15 Completed [facility] 00:00:[address] [facility] Influenza Virus 2018-09-15 Completed [facility] IM 3+ 00:00:00 [facility] Tdap 2018-09-15 Completed [facility] 00:00:[address] [facility] Influenza Virus 2018-09-15 Completed [facility] IM 3+ 00:00:00 [facility] Tdap 2018-09-15 Completed [facility] 00:00:[address] [facility] Influenza Virus 2018-09-15 Completed [facility] IM 3+ 00:00:00 [facility] Tdap 2018-09-15 Completed [facility] 00:00:[address] [facility] Influenza Virus 2018-09-15 Completed [facility] IM 3+ 00:00:00 [facility] Tdap 2018-09-15 Completed [facility] 00:00:[address] [facility] Influenza Virus 2018-09-15 Completed [facility] IM 3+ 00:00:00 [facility] Tdap 2018-09-15 Completed [facility] 00:00:[address] [facility] Influenza Virus 2018-09-15 Completed [facility] IM 3+ 00:00:00 [facility] Tdap 2018-09-15 Completed [facility] 00:00:[address] [facility] Influenza Virus 2018-09-15 Completed [facility] IM 3+ 00:00:00 [facility] Tdap 2018-09-15 Completed [facility] 00:00:[address] [facility] Influenza Virus 2018-09-15 Completed [facility] IM 3+ 00:00:00 [facility] Tdap 2018-09-15 Completed [facility] 00:00:[address] [facility] Influenza Virus 2018-09-15 Completed [facility] IM 3+ 00:00:00 [facility] Tdap 2018-09-15 Completed [facility] 00:00:[address] [facility] Influenza Virus 2018-09-15 Completed [facility] IM 3+ 00:00:00 [facility] Tdap 2018-09-15 Completed [facility] 00:00:[address] [facility] Influenza Virus 2018-09-15 Completed [facility] IM 3+ 00:00:00 [facility] Tdap 2018-09-15 Completed [facility] 00:00:[address] [facility] Influenza Virus 2018-09-15 Completed [facility] IM 3+ 00:00:00 [facility] Tdap 2018-09-15 Completed [facility] 00:00:[address] [facility] Influenza Virus 2018-09-15 Completed [facility] IM 3+ 00:00:00 [facility] Tdap 2018-09-15 Completed [facility] 00:00:[address] [facility] Influenza Virus 2018-09-15 Completed [facility] IM 3+ 00:00:00 [facility] Tdap 2018-09-15 Completed [facility] 00:00:[address] [facility] Influenza Virus 2018-09-15 Completed [facility] IM 3+ 00:00:00 [facility] Tdap 2018-09-15 Completed [facility] of 00:00:[address] [facility] HPV9 2017-08-23 Completed [facility] of 00:00:[address] [facility] HPV9 2017-08-23 Completed [facility] of 00:00:[address] [facility] HPV9 2017-08-23 Completed [facility] 00:00:00 [facility] HPV9 2017-08-23 Completed [facility] 00:00:00 [facility] HPV9 2017-08-23 Completed [facility] 00:00:00 [facility] HPV9 2017-08-23 Completed [facility] 00:00:00 [facility] HPV9 2017-08-23 Completed [facility] 00:00:00 [facility] HPV9 2017-08-23 Completed [facility] 00:00:00 [facility] HPV9 2017-08-23 Completed [facility] 00:00:00 [facility] HPV9 2017-08-23 Completed [facility] 00:00:00 [facility] HPV9 2017-08-23 Completed [facility] 00:00:00 [facility] HPV9 2017-08-23 Completed [facility] 00:00:00 [facility] HPV9 2017-08-23 Completed [facility] 00:00:00 [facility] HPV9 2017-08-23 Completed [facility] 00:00:00 [facility] HPV9 2017-08-23 Completed [facility] 00:00:00 [facility] HPV9 2017-08-23 Completed [facility] 00:00:00 [facility] HPV9 2017-08-23 Completed [facility] 00:00:00 [facility] HPV9 2017-08-23 Completed [facility] 00:00:00 [facility] HPV9 2017-08-23 Completed [facility] 00:00:00 [facility] HPV9 2017-08-23 Completed [facility] 00:00:00 [facility] HPV9 2017-08-23 Completed [facility] 00:00:00 [facility] HPV9 2017-08-23 Completed [facility] 00:00:00 [facility] HPV9 2017-08-23 Completed [facility] 00:00:00 [facility] HPV9 2017-08-23 Completed [facility] 00:00:00 [facility] HPV9 2017-08-23 Completed [facility] 00:00:00 [facility] HPV9 2017-08-23 Completed [facility] 00:00:00 [facility] HPV9 2017-08-23 Completed [facility] 00:00:00 [facility] HPV9 2017-08-23 Completed [facility] 00:00:00 [facility] HPV9 2017-08-23 Completed [facility] 00:00:00 [facility] HPV9 2017-08-23 Completed [facility] 00:00:00 [facility] HPV9 2017-08-23 Completed [facility] 00:00:[address] [facility] HPV9 2017-08-23 Completed [facility] 00:00:00 [facility] HPV9 2017-08-23 Completed [facility] 00:00:00 [facility] HPV9 2017-08-23 Completed [facility] 00:00:00 [facility] HPV9 2017-08-23 Completed [facility] 00:00:00 [facility] HPV9 2017-08-23 Completed [facility] 00:00:00 [facility] HPV9 2017-08-23 Completed [facility] 00:00:00 [facility] HPV9 2017-08-23 Completed [facility] 00:00:00 [facility] HPV9 2017-08-23 Completed [facility] 00:00:00 [facility] HPV9 2017-08-23 Completed [facility] 00:00:00 [facility] HPV9 2017-08-23 Completed [facility] 00:00:[address] [facility] HPV9 2017-08-23 Completed [facility] of 00:00:[address] [facility] HPV9 2017-08-23 Completed [facility] of 00:00:[address] [facility] HPV9 2017-08-23 Completed [facility] 00:00:00 [facility] HPV9 2017-08-23 Completed [facility] 00:00:[address] [facility] HPV9 2017-08-23 Completed [facility] 00:00:00 [facility] HPV9 2017-08-23 Completed [facility] 00:00:00 [facility] HPV9 2017-08-23 Completed [facility] of 00:00:[address] [facility] HPV9 2017-08-23 Completed [facility] of 00:00:[address] [facility] HPV9 2017-08-23 Completed [facility] of 00:00:[address] [facility] HPV9 2017-08-23 Completed [facility] of 00:00:[address] [facility] HPV9 2017-08-23 Completed [facility] of 00:00:[address] [facility] HPV9 2017-08-23 Completed [facility] 00:00:[address] [facility] HPV9 2017-08-23 Completed [facility] 00:00:00 [facility] HPV9 2017-08-23 Completed [facility] of 00:00:[address] [facility] HPV9 2017-08-23 Completed [facility] 00:00:[address] [facility] HPV9 2017-08-23 Completed [facility] 00:00:[address] [facility] Influenza Virus 2017-07-26 Completed [facility] 00:[facility] Influenza Virus 2017-07-26 Completed [facility] 00:[facility]:00 [facility] Influenza Virus 2017-07-26 Completed [facility] 00:00:00 [facility] Influenza Virus 2017-07-26 Completed [facility] 00:[facility]:00 [facility] Branch Influenza Virus 2017-07-26 Completed [facility] [place] [facility] Influenza Virus 2017-07-26 Completed [facility] [place] [facility] Influenza Virus 2017-07-26 Completed [facility] 00:00:00 [place] [facility] Influenza Virus 2017-07-26 Completed [facility] 00:00:00 [place] [facility] Influenza Virus 2017-07-26 Completed [facility] 00:00:00 [place] [facility] Influenza Virus 2017-07-26 Completed [facility] 00:00:00 [place] [facility] Influenza Virus 2017-07-26 Completed [facility] 00:00:00 [place] [facility] Influenza Virus 2017-07-26 Completed [facility] 00:00:00 [place] [facility] Influenza Virus 2017-07-26 Completed [facility] 00:00:00 [place] [facility] Influenza Virus 2017-07-26 Completed [facility] 00:00:00 [place] [facility] Influenza Virus 2017-07-26 Completed [facility] 00:00:00 [place] [facility] Influenza Virus 2017-07-26 Completed [facility] 00:00:00 [place] [facility] Influenza Virus 2017-07-26 Completed [facility] 00:00:00 [place] [facility] Influenza Virus 2017-07-26 Completed [facility] 00:00:00 [place] [facility] Influenza Virus 2017-07-26 Completed [facility] 00:00:00 [place] [facility] Influenza Virus 2017-07-26 Completed [facility] 00:00:00 [place] [facility] Influenza Virus 2017-07-26 Completed [facility] 00:00:00 [place] [facility] Influenza Virus 2017-07-26 Completed [facility] 00:00:00 [place] [facility] Influenza Virus 2017-07-26 Completed [facility] 00:00:00 [place] [facility] Influenza Virus 2017-07-26 Completed [facility] 00:00:00 [place] [facility] Influenza Virus 2017-07-26 Completed [facility] 00:00:00 [place] [facility] Influenza Virus 2017-07-26 Completed [facility] 00:00:00 [place] [facility] Influenza Virus 2017-07-26 Completed [facility] 00:00:00 [place] [facility] Influenza Virus 2017-07-26 Completed [facility] 00:00:00 [place] [facility] Influenza Virus 2017-07-26 Completed [facility] 00:00:00 [place] [facility] Influenza Virus 2017-07-26 Completed [facility] 00:00:00 [place] [facility] Influenza Virus 2017-07-26 Completed [facility] 00:00:00 [place] [facility] Influenza Virus 2017-07-26 Completed [facility] 00:00:00 [place] [facility] Influenza Virus 2017-07-26 Completed [facility] 00:00:00 [place] [facility] Influenza Virus 2017-07-26 Completed [facility] 00:00:00 [place] [facility] Influenza Virus 2017-07-26 Completed [facility] 00:00:00 [place] [facility] Influenza Virus 2017-07-26 Completed [facility] 00:00:00 [place] [facility] Influenza Virus 2017-07-26 Completed [facility] 00:00:00 [place] [facility] Influenza Virus 2017-07-26 Completed [facility] 00:00:00 [place] [facility] Influenza Virus 2017-07-26 Completed [facility] 00:00:00 [place] [facility] Influenza Virus 2017-07-26 Completed [facility] 00:00:00 [place] [facility] Influenza Virus 2017-07-26 Completed [facility] 00:00:00 [place] [facility] Influenza Virus 2017-07-26 Completed [facility] 00:00:00 [place] [facility] Influenza Virus 2017-07-26 Completed [facility] 00:00:00 [place] [facility] Influenza Virus 2017-07-26 Completed [facility] 00:00:00 [place] [facility] Influenza Virus 2017-07-26 Completed [facility] 00:00:00 [place] [facility] Influenza Virus 2017-07-26 Completed [facility] 00:00:00 [place] [facility] Influenza Virus 2017-07-26 Completed [facility] 00:00:00 [place] [facility] Influenza Virus 2017-07-26 Completed [facility] 00:00:00 [place] [facility] Influenza Virus 2017-07-26 Completed [facility] 00:00:00 [place] [facility] Influenza Virus 2017-07-26 Completed [facility] 00:00:00 [place] [facility] Influenza Virus 2017-07-26 Completed [facility] 00:00:00 [place] [facility] Influenza Virus 2017-07-26 Completed [facility] 00:00:00 [place] [facility] Influenza Virus 2017-07-26 Completed [facility] 00:00:00 [place] [facility] Influenza Virus 2017-07-26 Completed [facility] 00:00:00 [place] [facility] Influenza Virus 2017-07-26 Completed [facility] 00:00:00 [place] [facility] Influenza Virus 2017-07-26 Completed [facility] 00:00:00 [place] [facility] Influenza Virus 2017-07-26 Completed [facility] 00:00:00 [place] [facility] Influenza Virus 2013-10-27 Completed [facility] 00:00:00 [place] [facility] Influenza Virus 2013-10-27 Completed [facility] 00:00:00 [place] [facility] Influenza Virus 2013-10-27 Completed [facility] 00:00:00 [place] [facility] Influenza Virus 2013-10-27 Completed [facility] 00:00:00 [place] [facility] Influenza Virus 2013-10-27 Completed [facility] 00:00:00 [place] [facility] Influenza Virus 2013-10-27 Completed [facility] 00:00:00 [place] [facility] Influenza Virus 2013-10-27 Completed [facility] 00:00:00 [place] [facility] Influenza Virus 2013-10-27 Completed [facility] 00:00:00 [place] [facility] Influenza Virus 2013-10-27 Completed [facility] 00:00:00 [place] [facility] Influenza Virus 2013-10-27 Completed [facility] 00:00:00 [place] [facility] Influenza Virus 2013-10-27 Completed [facility] 00:00:00 [place] [facility] 6[facility] Influenza Virus 2013-10-27 Completed [facility] 00:00:00 [place] [facility] Influenza Virus 2013-10-27 Completed [facility] 00:00:00 [place] [facility] Influenza Virus 2013-10-27 Completed [facility] 00:00:00 [place] [facility] Influenza Virus 2013-10-27 Completed [facility] 00:00:00 [place] [facility] Influenza Virus 2013-10-27 Completed [facility] 00:00:00 [place] [facility] Influenza Virus 2013-10-27 Completed [facility] 00:00:00 [place] [facility] Influenza Virus 2013-10-27 Completed [facility] 00:00:00 [place] [facility] Influenza Virus 2013-10-27 Completed [facility] 00:00:00 [place] [facility] Influenza Virus 2013-10-27 Completed [facility] 00:00:00 [place] [facility] Influenza Virus 2013-10-27 Completed [facility] 00:00:00 [place] [facility] 6[facility] Influenza Virus 2013-10-27 Completed [facility] 00:00:00 [place] [facility] 6[facility] Influenza Virus 2013-10-27 Completed [facility] 00:00:00 [place] [facility] 6[facility] Influenza Virus 2013-10-27 Completed [facility] 00:00:00 [place] [facility] Influenza Virus 2013-10-27 Completed [facility] 00:00:00 [place] [facility] 6[facility] Influenza Virus 2013-10-27 Completed [facility] 00:00:00 [place] [facility] 6[facility] MO [facility] Influenza Virus 2013-10-27 Completed [facility] 00:00:00 [place] [facility] 6[facility] MO [facility] Influenza Virus 2013-10-27 Completed [facility] 00:00:00 [place] [facility] 6[facility] MO [facility] Influenza Virus 2013-10-27 Completed [facility] 00:00:00 [place] [facility] 6[facility] MO [facility] Influenza Virus 2013-10-27 Completed [facility] 00:00:00 [place] [facility] 6[facility] Influenza Virus 2013-10-27 Completed [facility] 00:00:00 [place] [facility] 6[facility] MO [facility] Influenza Virus 2013-10-27 Completed [facility] 00:00:00 [place] [facility] 6[facility] Influenza Virus 2013-10-27 Completed [facility] 00:00:00 [place] [facility] 6[facility] MO [facility] Influenza Virus 2013-10-27 Completed [facility] 00:00:00 [place] [facility] 6[facility] MO [facility] Influenza Virus 2013-10-27 Completed [facility] 00:00:00 [place] [facility] 6[facility] MO [facility] Influenza Virus 2013-10-27 Completed [facility] 00:00:00 [place] [facility] 6[facility] MO [facility] Influenza Virus 2013-10-27 Completed [facility] 00:00:00 [place] [facility] 6[facility] MO [facility] Influenza Virus 2013-10-27 Completed [facility] 00:00:00 [place] [facility] 6[facility] MO [facility] Influenza Virus 2013-10-27 Completed [facility] 00:00:00 [place] [facility] 6[facility] MO [facility] Influenza Virus 2013-10-27 Completed [facility] 00:00:00 [place] [facility] 6[facility] MO [facility] Influenza Virus 2013-10-27 Completed [facility] 00:00:00 [place] [facility] 6[facility] MO [facility] Influenza Virus 2013-10-27 Completed [facility] 00:00:00 [place] [facility] 6[facility] MO [facility] Influenza Virus 2013-10-27 Completed [facility] 00:00:00 [place] [facility] 6[facility] MO [facility] Influenza Virus 2013-10-27 Completed [facility] 00:00:00 [place] [facility] 6+ MO [facility] Influenza Virus 2013-10-27 Completed [facility] 00:00:00 [place] [facility] 6[facility] MO [facility] Influenza Virus 2013-10-27 Completed [facility] 00:00:00 [place] [facility] 6[facility] MO [facility] Influenza Virus 2013-10-27 Completed [facility] 00:00:00 [place] [facility] 6[facility] MO [facility] Influenza Virus 2013-10-27 Completed [facility] 00:00:00 [place] [facility] 6+ MO [facility] Influenza Virus 2013-10-27 Completed [facility] 00:00:00 [place] [facility] 6[facility] MO [facility] Influenza Virus 2013-10-27 Completed [facility] 00:00:00 [place] [facility] 6[facility] MO [facility] Influenza Virus 2013-10-27 Completed [facility] 00:00:00 [place] [facility] 6+ MO [facility] Influenza Virus 2013-10-27 Completed [facility] 00:00:00 [place] [facility] 6[facility] MO [facility] Influenza Virus 2013-10-27 Completed [facility] 00:00:00 [place] [facility] 6[facility] MO [facility] Influenza Virus 2013-10-27 Completed [facility] 00:00:00 [place] [facility] 6[facility] MO [facility] Influenza Virus 2013-10-27 Completed [facility] 00:00:00 [place] [facility] 6[facility] MO [facility] Influenza Virus 2013-10-27 Completed [facility] 00:00:00 [place] [facility] 6[facility] MO [facility] Influenza Virus 2013-10-27 Completed [facility] 00:00:00 [place] [facility] Vital Signs Vital Name Observation Time Observation Value Comments Source Respiratory rate 2021-06-11 23:50:00 24 /min [facility] Oxygen saturation in 2021-06-11 23:50:00 96 /min [facility] Arterial blood by [facility] Pulse oximetry Branch Systolic blood 2021-06-11 23:17:00 127 mm[Hg] Univer sity of pressure [facility] Diastolic blood 2021-06-11 23:17:00 85 mm[Hg] Unive rsity of pressure [facility] Heart rate 2021-06-11 23:17:00 129 /min [facility] Body temperature 2021-06-11 23:17:00 39.5 Nancy [facility] of [facility] Body weight 2021-06-11 23:17:00 90.719 kg [facility] BMI 2021-06-11 23:17:00 35.43 kg/m2 [facility] Systolic blood 2021-06-11 19:46:00 113 mm[Hg] [facility] of [facility] Diastolic blood 2021-06-11 19:46:00 72 mm[Hg] Unive rsity of pressure [facility] Heart rate 2021-06-11 19:46:00 104 /min [facility] Body temperature 2021-06-11 19:46:00 35.89 Nancy [facility] Respiratory rate 2021-06-11 19:46:00 20 /min [facility] Oxygen saturation in 2021-06-11 19:46:00 95 /min ROOM AIR [facility] Arterial blood by [facility] Pulse oximetry Branch Body height 2021-06-11 06:45:00 160 cm [facility] Body weight 2021-06-11 06:45:00 90.719 kg [facility] BMI 2021-06-11 06:45:00 35.43 kg/m2 [facility] Systolic blood 2021-06-11 15:20:00 133 mm[Hg] [facility] Diastolic blood 2021-06-11 15:20:00 87 mm[Hg] [facility] rs[facility] of [facility] Heart rate 2021-06-11 15:20:00 112 /min [facility] Body temperature 2021-06-11 15:20:00 37.72 Nancy [facility] Respiratory rate 2021-06-11 15:20:00 16 /min [facility] Body height 2021-06-11 15:20:00 160 cm [facility] Body weight 2021-06-11 15:20:00 90.719 kg [facility] BMI 2021-06-11 15:20:00 35.43 kg/m2 [facility] Oxygen saturation in 2021-06-11 15:20:00 97 /min [facility] Arterial blood by [facility] Pulse oximetry Branch Systolic blood 2021-06-10 01:03:00 141 mm[Hg] [facility] of [facility] Diastolic blood 2021-06-10 01:03:00 83 mm[Hg] [facility] rsity of [facility] Heart rate 2021-06-10 01:00:00 124 /min [facility] Body temperature 2021-06-10 01:00:00 38.89 Nancy [facility] Respiratory rate 2021-06-10 01:00:00 18 /min [facility] Body height 2021-06-10 01:00:00 160 cm [facility] Body weight 2021-06-10 01:00:00 90.719 kg [facility] BMI 2021-06-10 01:00:00 35.43 kg/m2 [facility] Oxygen saturation in 2021-06-10 01:00:00 98 /min [facility] Arterial blood by [facility] Pulse oximetry Branch Systolic blood 2020-05-30 20:52:00 118 mm[Hg] [facility]ity of [facility] Diastolic blood 2020-05-30 20:52:00 79 mm[Hg] [facility]ive rsity of [facility] Heart rate 2020-05-30 20:52:00 75 /min [facility] Body temperature 2020-05-30 20:52:00 37.11 Nancy [facility] Respiratory rate 2020-05-30 20:52:00 16 /min [facility] of [facility] Body height 2020-05-30 20:52:00 160 cm [facility] Body weight 2020-05-30 20:52:00 87.181 kg [facility] BMI 2020-05-30 20:52:00 34.05 kg/m2 [facility] Systolic blood 2020-05-30 20:52:00 118 mm[Hg] [facility] of [facility] Diastolic blood 2020-05-30 20:52:00 79 mm[Hg] Unive rsity of pressure [facility] Heart rate 2020-05-30 20:52:00 75 /min [facility] Body temperature 2020-05-30 20:52:00 37.11 Nancy [facility] Respiratory rate 2020-05-30 20:52:00 16 /min [facility] of [facility] Body height 2020-05-30 20:52:00 160 cm [facility] Body weight 2020-05-30 20:52:00 87.181 kg [facility] BMI 2020-05-30 20:52:00 34.05 kg/m2 [facility] Systolic blood 2020-05-09 17:54:00 124 mm[Hg] [facility] of [facility] Diastolic blood 2020-05-09 17:54:00 73 mm[Hg] Unive rsity of pressure [facility] Heart rate 2020-05-09 17:54:00 71 /min [facility] Body temperature 2020-05-09 17:54:00 37.44 Nancy [facility] Respiratory rate 2020-05-09 17:54:00 16 /min [facility] of [facility] Body height 2020-05-09 17:54:00 160 cm [facility] Body weight 2020-05-09 17:54:00 87.771 kg [facility] BMI 2020-05-09 17:54:00 34.28 kg/m2 [facility] Systolic blood 2020-05-02 14:12:00 115 mm[Hg] Univer sity of pressure [facility] Diastolic blood 2020-05-02 14:12:00 73 mm[Hg] Unive rsity of pressure [facility] Heart rate 2020-05-02 14:12:00 60 /min [facility] of [facility] Body temperature 2020-05-02 14:12:00 36.89 Nancy [facility] of [facility] Respiratory rate 2020-05-02 14:12:00 16 /min [facility] Body height 2020-05-02 14:12:[address] [facility] Body weight 2020-05-02 14:12:00 91.4 kg [facility] of [facility] BMI 2020-05-02 14:12:00 35.69 kg/m2 [facility] of [facility] Systolic blood 2020-04-26 13:58:00 113 mm[Hg] Univer sity of pressure [facility] Diastolic blood 2020-04-26 13:58:00 60 mm[Hg] Unive rsity of pressure [facility] Heart rate 2020-04-26 13:58:00 71 /min [facility] of [facility] Body temperature 2020-04-26 13:58:[address] [facility] [address] Respiratory rate 2020-04-26 13:58:00 17 /min [facility] Oxygen saturation in 2020-04-26 13:58:00 97 /min [facility] Arterial blood by [facility] Pulse oximetry Branch Systolic blood 2020-04-20 14:19:00 129 mm[Hg] Univer sity of pressure [facility] Diastolic blood 2020-04-20 14:19:00 71 mm[Hg] Unive rsity of pressure [facility] Heart rate 2020-04-20 14:19:00 85 /min [facility] of [facility] Body temperature 2020-04-20 14:19:[address] [facility] [address] Respiratory rate 2020-04-20 14:19:00 16 /min [facility] Body height 2020-04-20 14:19:[address] [address] [facility] Body weight 2020-04-20 14:19:[address] [facility] [address] [facility] BMI 2020-04-20 14:19:00 38.33 kg/m2 [facility] ty of [facility] Systolic blood 2020-04-12 13:11:00 126 mm[Hg] [facility]ity of [facility] Diastolic blood 2020-04-12 13:11:00 67 mm[Hg] Unive rsity of pressure [facility] Heart rate 2020-04-12 13:11:00 90 /min [facility] of [facility] Body temperature 2020-04-12 13:11:[address] [facility] Respiratory rate 2020-04-12 13:11:00 16 /min [facility] Body height 2020-04-12 13:11:00 160 cm [facility] Body weight 2020-04-12 13:11:00 97.212 kg [facility] of [facility] BMI 2020-04-12 13:11:00 37.96 kg/m2 [facility] ty of [facility] Systolic blood 2020-04-08 14:26:00 138 mm[Hg] Univer sity of pressure [facility] Diastolic blood 2020-04-08 14:26:00 83 mm[Hg] Unive rsity of pressure [facility] Heart rate 2020-04-08 14:26:00 100 /min [facility] of [facility] Body temperature 2020-04-08 14:26:[address] 36[address] [facility] [address] Respiratory rate 2020-04-08 14:26:00 16 /min [facility] Body height 2020-04-08 14:26:00 162.6 cm [facility] Body weight 2020-04-08 14:26:00 96.389 kg [facility] BMI 2020-04-08 14:26:00 36.48 kg/m2 [facility]i ty of [facility] Heart rate 2020-04-06 21:10:00 120 /min [facility] ty of [facility] Oxygen saturation in 2020-04-06 21:10:00 97 /min University Arterial blood by [facility] Pulse oximetry Branch Systolic blood 2020-04-06 19:00:00 125 mm[Hg] Univer sity of pressure [facility] Diastolic blood 2020-04-06 19:00:00 69 mm[Hg] Unive rsity of pressure [facility] Body temperature 2020-04-06 16:09:[address] [facility] Respiratory rate 2020-04-06 16:09:00 20 /min [facility] ersity of [facility] Body height 2020-04-06 16:09:00 162.6 cm [facility] Body weight 2020-04-06 16:09:00 95.437 kg [facility] BMI 2020-04-06 16:09:00 36.12 kg/m2 [facility] Systolic blood 2020-03-07 15:25:00 123 mm[Hg] Univer [facility]ity of [facility] Diastolic blood 2020-03-07 15:25:00 75 mm[Hg] Unive rsity of pressure [facility] Heart rate 2020-03-07 15:25:00 91 /min [facility] Body temperature 2020-03-07 15:25:00 36.06 Nancy [facility] Respiratory rate 2020-03-07 15:25:00 16 /min [facility] of [facility] Body height 2020-03-07 15:25:00 162.6 cm [facility] Body weight 2020-03-07 15:25:00 95.255 kg [facility] BMI 2020-03-07 15:25:00 36.05 kg/m2 [facility] Systolic blood 2020-02-10 15:17:00 131 mm[Hg] Univer sity of pressure [facility] Diastolic blood 2020-02-10 15:17:00 75 mm[Hg] Unive rsity of pressure [facility] Heart rate 2020-02-10 15:17:00 90 /min [facility] Body temperature 2020-02-10 15:17:00 36.83 Nancy [facility] Respiratory rate 2020-02-10 15:17:00 16 /min [facility] ers[facility] of [facility] Body height 2020-02-10 15:17:00 162.6 cm Universi ty of [facility] Body weight 2020-02-10 15:17:00 91.343 kg [facility] BMI 2020-02-10 15:17:00 34.57 kg/m2 [facility] Systolic blood 2020-01-30 03:33:00 116 mm[Hg] Univer sity of pressure [facility] Diastolic blood 2020-01-30 03:33:00 78 mm[Hg] Unive rsity of [facility] Heart rate 2020-01-30 03:33:00 107 /min [facility] Body temperature 2020-01-30 03:33:00 37.39 Nancy [facility] Respiratory rate 2020-01-30 03:33:00 18 /min [facility] Body height 2020-01-30 03:33:00 160 cm [facility] Body weight 2020-01-30 03:33:00 91.627 kg [facility] BMI 2020-01-30 03:33:00 35.78 kg/m2 [facility] Oxygen saturation in 2020-01-30 03:33:00 97 /min University of Arterial blood by [facility] Pulse oximetry Branch Systolic blood 2020-01-12 19:24:00 130 mm[Hg] Univer [facility]ity of [facility] Diastolic blood 2020-01-12 19:24:00 81 mm[Hg] Unive rsity of pressure [facility] Heart rate 2020-01-12 19:24:00 81 /min [facility] Body temperature 2020-01-12 19:24:00 36.39 Nancy [facility] Respiratory rate 2020-01-12 19:24:00 16 /min [facility] Body height 2020-01-12 19:24:00 160 cm [facility] Body weight 2020-01-12 19:24:00 94.915 kg [facility] BMI 2020-01-12 19:24:00 37.07 kg/m2 [facility] Systolic blood 2020-01-08 04:15:00 105 mm[Hg] Univer [facility]ity of [facility] Diastolic blood 2020-01-08 04:15:00 57 mm[Hg] Unive rsity of [facility] Heart rate 2020-01-08 04:15:00 95 /min [facility] Body temperature 2020-01-08 04:15:00 36.56 Nancy [facility] Respiratory rate 2020-01-08 04:15:00 18 /min Univ ersity of [facility] Oxygen saturation in 2020-01-08 04:15:00 100 /min [facility] Arterial blood by [facility] Pulse oximetry Branch Body height 2020-01-08 02:29:00 165[address] [facility] Body weight 2020-01-08 02:29:[address] [facility] BMI 2020-01-08 02:29:00 34.95 kg/m2 Universi ty of [facility] Systolic blood 2019-12-29 22:09:00 127 mm[Hg] Univer sity of pressure [facility] Diastolic blood 2019-12-29 22:09:00 73 mm[Hg] Unive rsity of pressure [facility] Heart rate 2019-12-29 22:09:00 96 /min Universi ty of [facility] Body temperature 2019-12-29 22:09:00 [address] [facility] Respiratory rate 2019-12-29 22:09:00 16 /min Univ ersity of [facility] Body height 2019-12-29 22:09:00 160 [address] [facility] Body weight 2019-12-29 22:09:[address] [facility] BMI 2019-12-29 22:09:00 37.07 kg/m2 Universi ty of [facility] Systolic blood 2019-12-21 20:29:00 124 mm[Hg] Univer sity of pressure [facility] Diastolic blood 2019-12-21 20:29:00 74 mm[Hg] Unive rsity of pressure [facility] Heart rate 2019-12-21 20:29:00 77 /min Universi ty of [facility] Body temperature 2019-12-21 20:29:00 36.[address] [facility] Respiratory rate 2019-12-21 20:29:00 16 /min Univ ersity of [facility] Body height 2019-12-21 20:29:00 160 [address] [facility] Body weight 2019-12-21 20:29:[address] [facility] BMI 2019-12-21 20:29:00 36.58 kg/m2 Universi ty of [facility] Systolic blood 2019-11-20 14:32:00 135 mm[Hg] Univer sity of pressure [facility] Diastolic blood 2019-11-20 14:32:00 83 mm[Hg] Unive rsity of pressure [facility] Heart rate 2019-11-20 14:32:00 93 /min [facility] Body temperature 2019-11-20 14:32:00 37.44 Nancy [facility] Respiratory rate 2019-11-20 14:32:00 18 /min [facility] Body height 2019-11-20 14:32:00 160 cm [facility] Body weight 2019-11-20 14:32:00 92.08 kg [facility] BMI 2019-11-20 14:32:00 35.96 kg/m2 [facility] Procedures Procedure Date / Time Performing Clinician Source Performed POCT TEST 2021-06-11 15:49:00 Sylvia Roy [facility] URINALYSIS 2021-06-11 15:47:00 Sylvia Roy [facility] CONSENT/REFUSAL FOR 2021-06-11 15:11:31 Doctor Unassigned, [facility] DIAGNOSIS AND TREATMENT [place] [facility] CONSENT/REFUSAL FOR 2021-06-10 00:49:36 Doctor Unassigned, [facility] GARDASIL 9 (HPV 9V) 2020-05-30 21:11:38 Xochitl Esposito [facility] POCT URINALYSIS 2020-05-09 17:57:00 Debbie Oro [facility] POCT URINALYSIS 2020-05-02 14:29:00 Debbie Oro [facility] CBC WITH DIFFERENTIAL 2020-04-24 10:12:[address] [facility] SECTION 2020-04-24 00:52:00 Matteo Quintero [facility] GLUCOSE (AUTOMATED) 2020-04-23 23:28:00 Doris Varela [facility] POCT GLUCOSE (AUTOMATED) 2020-04-23 18:34:00 Doris Varela [facility] POCT GLUCOSE (AUTOMATED) 2020-04-23 14:40:00 Varela, Doris [facility] POCT GLUCOSE (AUTOMATED) 2020-04-23 10:35:00 Doris Varela [facility] POCT GLUCOSE (AUTOMATED) 2020-04-23 04:02:00 Doris Varela [facility] HB ABO GROUPING 2020-04-23 03:45:00 Vu, [facility] RHO (D) IMMUNE GLOBULIN 2020-04-23 03:45:00 Ingrid Dobson [facility] HEPATITIS B SURFACE 2020-04-23 03:29:00 Vu, [facility] ANTIGEN [facility] HIV 1/2 AG-AB WITH REFLEX 2020-04-23 03:29:00 Vu, [facility]AL[facility] ONLY - SYPHILIS 2020-04-23 03:29:00 Vu, [facility] IGG/IGM [facility] COVID-19 (ID NOW RAPID 2020-04-23 01:00:00 Vu, [facility] TESTING) Medical Branch HOSPITAL ADMISSION 2020-04-22 05:01:00 Doctor Unassdrea, [facility] POCT URINALYSIS 2020-04-20 14:20:00 Debbie Oro [facility] POCT URINALYSIS 2020-04-12 13:25:00 Debbie Oro [facility] PATIENT QUESTIONNAIRE 2020-04-12 05:01:00 Doctor Guillermo [facility] POCT URINALYSIS 2020-04-08 14:56:00 Debbie Oro [facility] PHYSICIAN ORDERS 2020-04-08 05:01:00 Doctor Guillermo, [facility] URINALYSIS 2020-04-06 17:14:00 AdPippa box [facility] POCT GLUCOSE (AUTOMATED) 2020-04-06 16:21:00 Pippa Porras [facility] acute hospital L&D VISIT (NON-DELIVERED) 2020-04-06 05:01:00 Doctor Guillermo, [facility] EXTERNAL PROVIDER RECORDS 2020-03-31 05:01:00 Doctor Guillermo, [facility] POCT URINALYSIS 2020-03-07 15:26:00 Debbie Oro [facility] INSURANCE CORRESPONDENCE 2020-03-07 05:01:00 Doctor Guillermo [facility] [place] [facility] [place] POCT URINALYSIS 2020-02-10 15:22:00 Debbie Oro [facility] ity [facility] LIPASE 2020-01-30 04:08:00 Vicky Suarez [facility] COMP. METABOLIC PANEL 2020-01-30 04:08:00 Vicky Suarez [facility] ([id number]) [facility] CBC WITH DIFFERENTIAL 2020-01-30 04:08:00 Vicky Suarez [facility] URINALYSIS 2020-01-30 03:37:00 Vicky Suarez [facility] CONSENT/REFUSAL FOR 2020-01-30 03:23:02 Doctor Li [facility] DIAGNOSIS [facility] TREAT[facility] POCT URINALYSIS 2020-01-12 19:25:00 Debbie Oro [facility] URINALYSIS 2020-01-08 02:39:00 Tara Jarquin [facility] ADC CLC OR LCC ONLY - WET 2020-01-08 02:39:00 Tara Jarquin [facility] ASSIGNMENT OF BENEFITS 2020-01-08 01:08:41 Doctor Guillermo, Abhay [facility] [place] NOTICE OF PRIVACY 2020-01-08 01:08:26 Doctor Guillermo [facility] PRACTICES [place] [facility] [place] CONSENT/REFUSAL FOR 2020-01-08 01:08:13 Doctor Li [facility] DIAGNOSIS AND TREATMENT [place] [facility] [place] POCT URINALYSIS 2019-12-29 22:32:00 Debbie Oro [facility] PO[facility]YSIS 2019-12-21 20:32:00 Debbie Oro [facility] ity [facility] POCT URINALYSIS 2019-11-20 14:39:00 Debbie Oro [facility] Encounters Start End Encounter Admission Attending Care Care Encounter Source Date/Time Date/Time Type Type Clinicians Facility Department ID 2021-08-31 Outpatient P [facility] [place] [id number] Univers 23:26:[address] [facility] 2021-08-31 Outpatient P [facility] [place] [id number] Univers 23:20:[address] [facility] 2021-08-31 Emergency [facility] [id number] Univers 16:16:[address] [facility] 2021-08-31 Outpatient P [facility] [place] [id number] Univers 12:54:[address] [facility] 2021-08-31 Emergency [facility] [id number] Univers 12:54:09 ity [facility] 2021-06-11 2021-06-11 Emergency Ibikunle, [facility] 1.2.840.114 [id number] Univers 18:18:00 19:49:00 Marine William [place] [id number] ity of [place] [id number] [place] [id number] [facility] barbara 084 [place] 2021-06-11 2021-06-11 Emergency X IBIKUNLE, [facility] ERT [id number] Univers 18:18:00 19:49:00 MARINE ity [facility] 2021-06-11 2021-06-11 Outpatient [facility] [id number] Univers 14:00:00 14:00:00 [id number] ity [facility] 2021-06-11 2021-06-11 Outpatient Simone MANTILLA [facility] [id number] Univers 14:00:00 14:00:00 CHOCO itchandan [facility] 2021-06-11 2021-06-11 Nurse Therapy, Pcp Covid Infusion [facility] 1.2.840.114 [id number] Univers 13:00:40 13:30:40 Visit Choco Mantilla PRIMARY [id number] ity of [facility] [id number] [place] [id number] [place] dical 042 [place] 2021-06-11 2021-06-11 Emergency [facility] 1.2.840.114 [id number] Univers 10:24:00 13:09:00 Sylvia Kim 350.1.13.10 i ty of [place] 4.2.7.2.686 [place] [phone] [facility] 084 Branch 2021-06-11 2021-06-11 Emergency X KEVIN, [facility] ERT [id number] Univers 10:24:00 13:09:[address] [facility] 2021-06-11 2021-06-11 Letter NORBERTO Carcamo 1.2.840.114 [id number] Univers 00:00:00 00:00:00 (Out) Mari Hidalgo MYA 350.1.13.10 it y of [facility] 4.2.7.2.686 Robbie as [phone] [facility] 019 Branch 2021-06-09 2021-06-09 Outpatient R [facility] [id number] Univers 20:00:00 20:13:[address] carpio o f [facility] 2021-06-09 2021-06-09 Urgent Provider, [facility] Urgent Care [facility] 1.2.840.114 [id number] Univers 19:50:47 20:13:46 [facility] 350.1.13.10 ity [facility] [id number] Robbie as essio [phone] [facility] 044 [place] [address] 2021-06-09 2021-06-09 Outpatient R [facility] [id number] -[id number] Univers 20:00:00 20:00:[id number] [facility] 2021-06-09 2021-06-09 Orders Doctor NORBERTO 1.2.840.114 [id number] Univers 00:00:00 00:00:00 Only Unassigned, MYA 350.1.13.10 ity of [place] [facility] 4.2.7.2.686 Robbie as [phone] [facility] 009 Branch 2021-01-24 2021-01-24 Patient Jerman [facility] 1.2.840.114 [id number] 00:00:00 00:00:00 Outreach Dillon [facility] 350.1.13.10 [facility] 4.2.7.2.686 PAVHERBERT [id number] 388 2021-01-24 2021-01-24 Patient Jerman [facility] 1.2.840.114 [id number] Univers 00:00:00 00:00:00 Outreach Dillon MCKEON 350.1.13.10 i ty of [facility] 4.2.7.2.686 [place] [phone] [place] [address] 2020-10-03 2020-10-03 Outpatient R [facility] [id number] Univers 15:30:00 15:30:00 ity [facility] 2020-10-03 2020-10-03 Outpatient R [facility] [id number] Univers 15:30:00 15:30:00 ity [facility] 2020-07-12 2020-07-12 Telephone Cate [facility] 1.2.435.640 [id number] 00:00:00 00:00:00 Roshunda R [employer] 350.1.13.10 REGIONAL 4.2.7.2.686 MATERNAL [id number] & CHILD [address] [place] [address] 2020-07-12 2020-07-12 Telephone Cate [facility] 1.2.614.636 [id number] [facility] 00:00:00 00:00:00 Roshunda [employer] 350.1.13.10 ity of [facility] 4.2.7.2.686 Robbie as MATERNAL [phone] Med ical & CHILD [address] [place] [address] 2020-05-30 2020-05-30 Office Cate [facility] 1.2.840.114 [id number] [facility] 15:22:31 16:40:25 Visit Roshunda R [employer] 350.1.13.10 ity of [facility] [id number] Robbie as MATERNAL [id number] Med ical & CHILD [address] [place] [address] 2020-05-30 2020-05-30 Office Cate [facility] 1.2.840.114 [id number] 15:22:31 16:40:25 Visit Rosnda [employer] 350.1.13.10 REGIONAL 4.2.7.2.686 MATERNAL [id number] & CHILD [address] [place] [address] 2020-05-30 2020-05-30 Outpatient Simone ESPOSITO [facility] [id number] Univers 15:00:00 15:00:00 XOCHITL [id number] ity o diane [facility] 2020-05-30 2020-05-30 Outpatient Simone ESPOSITO [facility] [id number] Univers 15:00:00 15:00:[address] o diane [facility] 2020-05-09 2020-05-09 [facility] 1.2.840.114 [id number] Univers 12:46:57 13:16:49 Xochitl R [employer] 350.1.13.10 ity of Visit REGIONAL 4.2.7.2.686 Robbie as MATERNAL [phone] [facility] ical & CHILD [address] [place] [address] 2020-05-09 2020-05-09 Outpatient Simone ESPOSITO [facility] [id number] Univers 12:45:00 12:45:[address] [facility] 2020-05-02 2020-05-02 Nurse Visit, [facility] 1.2 .840.114 [id number] Univers 09:04:17 09:31:19 Visit Xochitl Esposito [employer] 350.1.13.10 ity of REGIONAL 4.2.7.2.686 Robbie as MATERNAL [phone] [facility] CHILD [address] [place] [address] 2020-05-02 2020-05-02 Outpatient Simone ESPOSITO [facility] [id number] Univers 09:00:00 09:00:[address] o diane [facility] 2020-04-26 2020-04-26 Outpatient Simone ESPOSITO [facility] [id number] Univers 15:00:00 15:00:00 XOCHITL [id number] itchandan o diane [facility] 2020-04-26 2020-04-26 Outpatient Simone ESPOSITO [facility] [id number] Univers 15:00:00 15:00:00 ENMANDA [address]neey o f [facility] 2020-04-22 2020-04-26 [facility] NORBERTO Varela 1.2.840.114 [id number] Univers 19:24:00 12:26:00 Encounter Doris ROQUE 350.1.13.10 ity of [facility] 4.2.7.2.686 Robbie as [phone] [facility] 038 [place] 2020-04-26 2020-04-26 1.2.840.1 1.2.840.114 [id number] Univers 00:00:00 00:00:00 Encounter [id number] 350.1.13.10 ity of 3.104.2.7 [place]7.2.696 [place] [id number] [facility] 2020-04-22 2020-04-22 Consulting Practice Manager Lab, [facility] 1.2.840. 114 [id number] Univers 07:57:31 08:11:03 Visit Xochitl Esposito R [employer] 350.1.13.10 ity of [facility] 4.2.7.2.686 Robbie as MATERNAL [phone] Med ical & CHILD [address] [place] [address] 2020-04-22 2020-04-22 Outpatient R [facility] [id number] Univers 07:45:00 07:45:[id number] [facility] 2020-04-22 2020-04-22 Outpatient R [facility] [id number] Univers 07:45:00 07:45:[address] [facility] 2020-04-22 2020-04-22 Orders Doctor THORNTON 1.2.840.114 [id number] Univers 00:00:00 00:00:00 Only Unassigned, MYA 350.1.13.10 ity of [place] [facility] 4.2.7.2.686 Robbie as [phone] [facility] 009 [place] 2020-04-21 2020-04-21 Outpatient R CATE [facility] [id number] Univers 09:00:00 09:00:00 XOCHITL [id number] ity o f [facility] 2020-04-21 2020-04-21 Telephone Cate [facility] 1.2.873.474 [id number] Univers 00:00:00 00:00:00 Xochitl Nichols [employer] 350.1.13.10 ity of [facility] 4.2.7.2.686 Robbie as MATERNAL [phone] [facility] & CHILD [address] [place] [address] 2020-04-21 2020-04-21 Case [facility] 1.2.840.114 [id number] Univers 00:00:00 00:00:00 Management Roshunda R [employer] 350.1.13.10 ity of REGIONAL 4.2.7.2.686 Robbie as MATERNAL [phone] [facility] & CHILD [address] [place] [address] 2020-04-20 2020-04-20 Routine [facility] 1.2.840.114 [id number] Univers 09:09:50 10:19:35 Roshunda R [employer] 350.1.13.10 ity of Visit REGIONAL 4.2.7.2.686 Robbie as MATERNAL [id number] [address] 2020-04-20 2020-04-20 Outpatient [facility] [id number] Univers 08:45:00 08:45:00 XOCHITL [id number] ity o [facility] 2020-04-20 2020-04-20 Outpatient [facility]one [facility] [id number] Univers 08:45:00 08:45:00 ENMANDA shirin o [facility] 2020-04-12 2020-04-12 Routine [facility] 1.2.840.114 [id number] Univers 08:08:23 08:34:45 Roshunda R [employer] 350.1.13.10 ity of Visit REGIONAL 4.2.7.2.686 Robbie as MATERNAL [id number] [address] 2020-04-12 2020-04-12 Outpatient [facility]one [facility] [id number] Univers 08:00:00 08:00:00 XOCHITL ity o [facility] 2020-04-12 2020-04-12 Outpatient [facility]one [facility] [id number] Univers 08:00:00 08:00:00 ROSJOSENDA ity o [facility] 2020-04-12 2020-04-12 Diogenes THORNTON 1.2.840.114 [id number] Univers 00:00:00 00:00:00 Only Unassigned, MYA 350.1.13.10 ity of [place] [facility] 4.2.7.2.686 Robbie as [id number] [address] 2020-04-12 2020-04-12 Orders Doctor NORBERTO 1.2.840.114 [id number] 00:00:00 00:00:00 Only Unassigned, MYA 350.1.13.10 [place] [facility] 4.2.7.2.686 [id number] 2020-04-08 2020-04-08 Routine [facility] 1.2.840.114 [id number] Univers 09:12:15 09:41:14 Xochitl Nichols [employer] 350.1.13.10 ity of Visit [facility] 4.2.7.2.686 Robbie as MATERNAL [phone] Med ical & CHILD [address] [place] [address] 2020-04-08 2020-04-08 Outpatient [facility]one [facility] [id number] Univers 09:00:00 09:00:[address] ity o f [facility] 2020-04-08 2020-04-08 Outpatient Simone ESPOSITO [facility] [id number] Univers 09:00:00 09:00:[address] carpio o diane [facility] 2020-04-08 2020-04-08 Orders Doctor NORBERTO 1.2.840.114 [id number] Univers 00:00:00 00:00:00 Only Unassigned, MYA 350.1.13.10 ity of [place] [facility] 4.2.7.2.686 Robbie as [id number] [address] 2020-04-06 2020-04-06 [facility] 1.2.840.114 [id number] Univers 10:47:00 16:25:00 Encounter Pippa Kim 350.1.13.10 ity of [place] 4.2.7.2.686 [facility] [id number] [facility] [address] [place] 2020-04-06 2020-04-06 Outpatient [facility]one [facility] [id number] Univers 13:00:00 13:00:00 [address]ITL [id number] ity o diane [facility] 2020-04-06 2020-04-06 Outpatient R CATE [facility] [id number] Univers 13:00:00 13:00:00 XOCHITL carpio o [facility] 2020-03-31 2020-03-31 Orders Doctor NORBERTO 1.2.840.114 [id number] Univers 00:00:00 00:00:00 Only Unassigned, MYA 350.1.13.10 [facility] 4.2.7.2.686 Robbie as [id number] [address] 2020-03-22 2020-03-22 Outpatient R CATE [facility] [id number] Univers 15:00:00 15:00:00 XOCHITL [id number] shirin o [facility] 2020-03-22 2020-03-22 Outpatient R CATE [facility] [id number] Univers 15:00:00 15:00:00 KENDALLJimmie shirin o [facility] 2020-03-22 2020-03-22 Outpatient R ESPOSITO, [facility] [id number] Univers 14:45:00 14:45:00 XOCHITL chicas [facility] 2020-03-22 2020-03-22 Outpatient [facility] [id number] Univers 13:00:00 13:00:00 XOCHITL chicas [facility] 2020-03-22 2020-03-22 [facility] 1.2.840.114 [id number] Univers 08:44:45 10:53:12 ne Visit Mllavon R [employer] 350.1.13.10 ity of [facility] 4.2.7.2.686 Robbie as MATERNAL [id number] Med ical & CHILD [address] [place] [address] 2020-03-16 2020-03-16 Telephone [facility] 1.2.118.597 [id number] Univers 00:00:00 00:00:00 Kendalla R [employer] 350.1.13.10 ity of [facility] 4.2.7.2.686 Robbie as MATERNAL [id number] Med ical & CHILD [address] [place] [address] 2020-03-07 2020-03-07 Routine [facility] 1.2.840.114 [id number] Univers 10:14:29 10:40:14 Roshunda R [employer] 350.1.13.10 ity of Visit [facility] 4.2.7.2.686 Robbie as MATERNAL [id number] [facility] ical & CHILD [address] [place] [address] 2020-03-07 2020-03-07 Outpatient R CATE [facility] [id number] Univers 10:15:00 10:15:00 [address]HUNDA [id number] ity o f [facility] 2020-03-07 2020-03-07 Outpatient [facility] [id number] Univers 10:15:00 10:15:00 ROSHUNDA ity o [facility] 2020-03-07 2020-03-07 Orders Doctor NORBERTO 1.2.840.114 [id number] Univers 00:00:00 00:00:00 Only Unassigned, MYA 350.1.13.10 ity of [place] [place] [facility] 4.2.7.2.686 Robbie as [phone] [address] 2020-02-25 2020-02-25 Telemedici [facility] 1.2.840.114 [id number] Univers 08:57:42 15:33:04 ne Visit Mlsue R [employer] 350.1.13.10 ity of [facility] 4.2.7.2.686 Robbie as MATERNAL [phone] [facility] ical & CHILD [address] [place] [address] 2020-02-25 2020-02-25 Outpatient R CATE [facility] [id number] -[id number] Univers 15:15:00 15:15:00 ROSHUNDA [id number] ity o [facility] 2020-02-25 2020-02-25 Outpatient R CATE [facility] [id number] Univers 15:15:00 15:15:00 ROSHUNDA ity o [facility] 2020-02-25 2020-02-25 Telephone [facility] 1.2.299.543 [id number] Univers 00:00:00 00:00:00 Roshunda R [employer] 350.1.13.10 ity of REGIONAL 4.2.7.2.686 Robbie as MATERNAL [phone] Med ical & CHILD 107 [facility] 2020-02-24 2020-02-24 Nurse Visit, Moises-Rmchp Nurse [facility] 1.2 .840.114 [id number] Univers 15:36:57 16:28:00 Visit EspositoXochitl [employer] 350.1.13.10 ity of REGIONAL 4.2.7.2.686 Robbie as MATERNAL [phone] Med ical & CHILD [address] [place] [address] 2020-02-24 2020-02-24 Outpatient R [facility] [id number] -[id number] Univers 15:00:00 15:00:[id number] [facility] 2020-02-24 2020-02-24 Outpatient [facility] [id number] Univers 15:00:00 15:00:[address] ity o f [facility] 2020-02-24 2020-02-24 Telephone [facility] 1.2.215.575 [id number] Univers 00:00:00 00:00:00 Xochitl Nichols [employer] 350.1.13.10 ity of REGIONAL 4.2.7.2.686 Robbie as MATERNAL [phone] Med ical & CHILD [address] [place] [address] 2020-02-24 2020-02-24 Letter [facility] 1.2.840.114 [id number] Univers 00:00:00 00:00:00 (Out) Xochitl Nichols [employer] 350.1.13.10 ity of REGIONAL 4.2.7.2.686 Robbie as MATERNAL [phone] Med ical & CHILD [address] [place] [address] 2020-02-23 2020-02-23 Abstract Shorty [facility] 1.2.840.114 [id number] Univers 00:00:00 00:00:00 Debbie Wang [employer] 350.1.13.10 ity of REGIONAL 4.2.7.2.686 Robbie as MATERNAL [phone] Med ical & CHILD [address] [place] [address] 2020-02-23 2020-02-23 Telephone [facility] 1.2.750.664 [id number] Univers 00:00:00 00:00:00 Roshunda R [employer] 350.1.13.10 ity of REGIONAL 4.2.7.2.686 Robbie as MATERNAL [phone] Med ical & CHILD [address] [place] [address] 2020-02-22 2020-02-22 Consulting Practice Manager Ultrasound, Gigi [facility] 1.2 .840.114 [id number] Univers 15:04:08 15:34:08 Visit Lisa De La Rosa [employer] 350.1. 13.10 ity of REGIONAL 4.2.7.2.686 Robbie as MATERNAL [phone] Med ical & CHILD 369 [facility] 2020-02-22 2020-02-22 Outpatient R [facility] [id number] -[id number] Univers 15:00:00 15:00:[id number] [facility] 2020-02-22 2020-02-22 Outpatient P [facility] [id number] Univers 15:00:00 15:00:[address] [facility] 2020-02-22 2020-02-22 [facility] 1.2.290.401 [id number] Univers 00:00:00 00:00:00 Rosjosenda R [employer] 350.1.13.10 ity of REGIONAL 4.2.7.2.686 Robbie as MATERNAL [phone] [facility] ical & CHILD [address] [place] [address] 2020-02-22 2020-02-22 Telephone [facility] 1.2.041.500 [id number] Univers 00:00:00 00:00:00 Roshunda R [employer] 350.1.13.10 ity of REGIONAL 4.2.7.2.686 Robbie as MATERNAL [phone] [facility] ical & CHILD [address] [place] [address] 2020-02-19 2020-02-19 Consulting Practice Manager Lab, Juan AntonioRmchp [facility] 1.2.840. 114 [id number] Univers 08:13:54 08:31:09 Visit CateXochitl [employer] 350.1.13.10 ity of REGIONAL 4.2.7.2.686 Robbie as MATERNAL [id number] [facility] ical & CHILD [address] [place] [address] 2020-02-19 2020-02-19 Outpatient R [facility] [id number] -[id number] Univers 08:15:00 08:15:00 [id number] ity [facility] 2020-02-19 2020-02-19 Outpatient R [facility]ATE [facility] [id number] Univers 08:15:00 08:15:[address]DA ity o f [facility] 2020-02-17 2020-02-17 Consulting Practice Manager Lab, [facility]-Rmchp [facility] 1.2.840. 114 [id number] Univers 07:58:26 08:16:02 Visit Ml Espositosue R [employer] 350.1.13.10 ity of REGIONAL 4.2.7.2.686 Robbie as MATERNAL [phone] [facility] & [address] 2020-02-17 2020-02-17 Outpatient R [facility] [id number] -[id number] Univers 08:00:00 08:00:00 [id number] ity [facility] 2020-02-17 2020-02-17 Outpatient Simone ESPOSITO [facility] [id number] Univers 08:00:00 08:00:[address]DA ity o f [facility] 2020-02-11 2020-02-11 Telephone [facility] [id number] [id number] Univers 00:00:00 00:00:00 Enmanda R [employer] 350.1.13.10 ity of REGIONAL 4.2.7.2.686 Robbie as MATERNAL [id number] [facility] & [address] 2020-02-10 2020-02-10 Routine [facility] 1.2.840.114 [id number] Univers 10:09:37 10:38:21 Roshunda R [employer] 350.1.13.10 ity of Visit REGIONAL 4.2.7.2.686 Robbie as MATERNAL [phone] [facility] & [address] 2020-02-10 2020-02-10 Outpatient [facility] [id number] -20 Univers 10:15:00 10:15:00 ENMANDJimmie [id number] ity o f [facility] 2020-02-10 2020-02-10 Outpatient R CAET [facility] [id number] Univers 10:15:00 10:15:[address]DA ity o f [facility] 2020-02-09 2020-02-09 Outpatient Simone ESPOSITO [facility] [id number] -[id number] Univers 10:45:00 10:45:[address] it[address] o [address] [facility] 2020-02-09 2020-02-09 Outpatient [facility] [id number] Univers 10:45:00 10:45:00 ENMANDA ity o f [facility] 2020-01-29 2020-01-30 Emergency [facility] 1.2.353.303 [id number] Univers 22:25:24 00:14:00 Tnmargarito Bazan [place] 350.1.13.10 ity of [place] 4.2.7.2.686 [facility] [phone] [facility] [address] 2020-01-29 2020-01-29 Telephone [facility] 1.2.032.257 [id number] Univers 00:00:00 00:00:00 Xochitl Nichols [employer] 350.1.13.10 ity of [facility] 4.2.7.2.686 Robbie as MATERNAL [phone] Med ical & CHILD [address] [place] [address] 2020-01-29 2020-01-29 Nurse Padmaja Carnes 1.2.840.114 [id number] Univers 00:00:00 00:00:00 Triage MYA 350.1.13.10 it y of [facility] 4.2.7.2.686 Robbie as [id number] [facility] [address] 2020-01-29 2020-01-29 Orders Doctor THORNTON 1.2.840.114 [id number] Univers 00:00:00 00:00:00 Only Unassigned, MYA 350.1.13.10 ity of [place] [facility] 4.2.7.2.686 Robbie as [phone] [facility] [address] 2020-01-18 2020-01-18 Outpatient R [facility]ATE [facility] [id number] -[id number] Univers 12:45:00 12:45:00 XOCHITL [id number] ity o f [facility] 2020-01-14 2020-01-14 Outpatient R TARA JARQUIN [facility] [id number] Univers 11:00:00 11:00:00 [id number] ity [facility] 2020-01-14 2020-01-14 Outpatient R TARA JARQUIN [facility] [id number] Univers 11:00:00 [facility]-12 2020-01-12 [facility] 1.2.840.114 [id number] Univers 14:09:38 14:41:31 Roshunda R [employer] 350.1.13.10 ity of Visit REGIONAL 4.2.7.2.686 Robbie as MATERNAL [phone] [facility] ical & CHILD [address] [place] [address] 2020-01-12 2020-01-12 Outpatient R CATE [facility] [id number] -[id number] Univers 14:15:00 14:15:[address] it[address] o [address] [facility] 2020-01-12 2020-01-12 Outpatient [facility] [id number] Univers 14:15:00 14:15:[address]DA ity o f [facility] 2020-01-07 2020-01-07 Hospital Tara Jarquin [facility] 1.2.840.114 [id number] Univers 19:04:00 22:25:00 Encounter Ezekiel [place] 350.1.13.10 ity of [place] 4[place]7.2.[place] [id number] [address] 2019-12-29 2019-12-29 [facility]ine [facility] 1.2.840.114 [id number] Univers 15:53:39 16:27:22 Roshunda R [employer] 350.1.13.10 ity of Visit [facility] 4.2.7.2.686 Robbie as MATERNAL [phone] [facility] ical & CHILD [address] [place] [address] 2019-12-29 2019-12-29 Outpatient [facility] [id number] Univers 15:45:00 15:45:[address]DA ity o f [facility] 2019-12-25 2019-12-25 Telephone Esposito, MNDORIAN 1.2.104.657 [id number] Univers 00:00:00 00:00:00 Roshunda R [employer] 350.1.13.10 ity of REGIONAL 4.2.7.2.686 Robbie as MATERNAL [phone] [facility] CHILD [address] [place] [address] 2019-12-21 2019-12-22 Routine Cate MNDORIAN 1.2.840.114 [id number] Univers 14:03:17 09:28:51 Roshunda R [employer] 350.1.13.10 ity of Visit REGIONAL 4.2.7.2.686 Robbie as MATERNAL [phone] [address] 2019-12-16 2019-12-16 Abstract Shorty [facility] 1.2.840.114 [id number] Univers 00:00:00 00:00:00 Debbie C [employer] 350.1.13.10 ity of REGIONAL 4.2.7.2.686 Robbie as MATERNAL [phone] [facility] & [address] 2019-11-20 2019-11-20 Routine Shorty [facility] 1.2.508.556 [id number] Univers 08:03:53 08:18:53 Debbie C [employer] 350.1.13.10 ity of Visit REGIONAL 4.2.7.2.686 Robbie as MATERNAL [phone] [facility] & [address] Results Test Description Test Time Test Comments Results Result Comments Source URINALYSIS 2021-06-11 17:15:24 Test Item Value Reference Range Interpretation Comme nts APPEARANCE (test code = Hazy Clear A 9663128497) COLOR (test code = 3489981880) Yellow Yellow PH (test code = 9686714290) 4.8-8.0 SP GRAVITY (test code = 1.003-1.030 8057450962) GLU U QUAL (test code = Normal Normal 1393434210) BLOOD (test code = 3686598959) Negative Negative KETONES (test code = 0550909992) 20 mg/dL Negative A PROTEIN (test code = 2887-8) 30 mg/dL Negative A UROBILIN (test code = Normal Normal 3786712238) BILIRUBIN (test code = Negative Negative 1580965750) NITRITE (test code = 2174626162) Negative Negative LEUK HAYDEE (test code = 250/uL Negative A 0155645428) RBC/HPF (test code = 7674175441) See_Comment [Automated message] The system which ge nerated this result transmit caroline reference range: 0 - 3 HP F. The reference range was not used to interpret th is result as normal/abnormal . WBC/HPF (test code = 8883638418) See_Comment [Automated message] The system which ge nerated this result transmit caroline reference range: 0 - 5 HP F. The reference range was not used to interpret th is result as normal/abnormal . BACTERIA (test code = Few Negative A 1950555109) MUCOUS (test code = 2450576697) Slight Negative LPF A SQ EPITH (test code = HPF 2020822021) HYAL CAST (test code = See_Comment [Aut omated message] The 2309332042) system which ge nerated this result transmit caroline reference range: <=2 LPF. The reference range was not u sed to interpret this result as normal/abnormal . Lab Interpretation (test code = Abnormal 53472-3) [facility] [id number] 15:49:00 Test Item Value Reference Range Interpretation Comments POCT PREG (test code = 1605) negative On board controls acceptable with C present Line (test code = 3574) Lab Interpretation (test code = Normal 68093-6) [facility] URINALYSIS W SPECIFIC [id number] 17:57:00 Test Item Value Reference Range Interpretation Comments POCT U SP GRAV (test code = . 1.005-1.025 3255) POCT PH U (test code = 3254) . 5-8 POCT U LEUK EST (test code = . Negative - Negative 3263) POCT U NIT (test code = 3262) . Negative - Negative POCT U PROT (test code = 3259) trace Negative - Negative POCT U GLU (test code = 3256) neg Negative - Negative POCT U KETONE (test code = 3258) . Negative - Negative POCT U UROBILI (test code = . 0.2-1 3260) POCT U BILI (test code = 3261) . Negative - Negative POCT U BLD (test code = 3257) . Negative - Negative POCT U COLOR (test code = 3266) POCT U APPEAR (test code = 3267) Lab Interpretation (test code = Abnormal 92630-8) [facility] URINALYSIS W SPECIFIC [id number] 17:57:00 Test Item Value Reference Range Interpretation Comments POCT U SP GRAV (test code = . 1.005-1.025 3255) POCT PH U (test code = 3254) . 5-8 POCT U LEUK EST (test code = . Negative - Negative 3263) POCT U NIT (test code = 3262) . Negative - Negative POCT U PROT (test code = 3259) trace Negative - Negative POCT U GLU (test code = 3256) neg Negative - Negative POCT U KETONE (test code = 3258) . Negative - Negative POCT U UROBILI (test code = . 0.2-1 3260) POCT U BILI (test code = 3261) . Negative - Negative POCT U BLD (test code = 3257) . Negative - Negative POCT U COLOR (test code = 3266) POCT U APPEAR (test code = 3267) Lab Interpretation (test code = Abnormal 09551-5) [facility] URINALYSIS W SPECIFIC [id number] 14:29:00 Test Item Value Reference Range Interpretation Comments POCT U SP GRAV (test code = . 1.005-1.025 3255) POCT PH U (test code = 3254) 6 mg/dl 5-8 POCT U LEUK EST (test code = negative Negative - Negative 3263) POCT U NIT (test code = 3262) negative Negative - Negative POCT U PROT (test code = 3259) trace Negative - Negative POCT U GLU (test code = 3256) negative Negative - Negative POCT U KETONE (test code = 3258) negative Negative - Negative POCT U UROBILI (test code = . 0.2-1 3260) POCT U BILI (test code = 3261) . Negative - Negative POCT U BLD (test code = 3257) negative Negative - Negative POCT U COLOR (test code = 3266) POCT U APPEAR (test code = 3267) [facility] WITH [id number] 11:20:00 Test Item Value Reference Range Interpretation Comments WBC (test code = See_Comment H [Automated 6690-2) message] The system which generated this result transmit caroline reference range : 4.30 - 11.10 10*3/?L. The reference range was not used to interpret this result as normal/abnormal . RBC (test code = See_Comment L [Automated 789-8) message] The system which generated this result transmit caroline reference range : 3.93 - 5.25 10*6/?L. The reference range was not used to interpret this result as normal/abnormal . HGB (test code = 8.2 g/dL 11.6-15 L 718-7) HCT (test code = 25.9 % 35.7-45.2 L 4544-3) MCV (test code = 83.8 fL 80.6-95.5 787-2) MCH (test code = 26.5 pg 25.9-32.8 785-6) MCHC (test code = 31.7 g/dL 31.6-35.1 786-4) RDW-SD (test code = 47.7 fL 39-49.9 19012-7) RDW-CV (test code = 15.8 % 12-15.5 H 788-0) PLT (test code = See_Comment [Automated 777-3) message] The system which generated this result transmit caroline reference range : 166 - 358 10*3/ ?L. The reference range was not u sed to interpret th is result as normal/abnormal . MPV (test code = 11.7 fL 9.5-12.9 67263-1) NRBC/100 WBC (test See_Comment [Automat ed code = 3330928630) message] The system which generated this result transmit caroline reference range : 0.0 - 10.0 /100 WBCs. The reference range was not used to interpret this result as normal/abnormal . NRBC x10^3 (test code <0.01 See_Comment [Auto mated = 1862431670) message] The system which generated this result transmit caroline reference range : 10*3/?L. The reference range was not used to interpret this result as normal/abnormal . GRAN MAT (NEUT) % 86.9 % (test code = 770-8) IMM GRAN % (test code 0.50 % = 4931430963) LYMPH % (test code = 8.2 % 736-9) MONO % (test code = 4.0 % 5905-5) EOS % (test code = 0.1 % 713-8) BASO % (test code = 0.3 % 706-2) GRAN MAT x10^3(ANC) 13.34 10*3/uL 1.88-7.09 H (test code = 4944114957) IMM GRAN x10^3 (test 0.07 10*3/uL 0-0.06 H code = 9585270071) LYMPH x10^3 (test code 1.26 10*3/uL 1.32-3.29 L = 731-0) MONO x10^3 (test code 0.61 10*3/uL 0.33-0.92 = 742-7) EOS x10^3 (test code = <0.03 0.03-0.39 L 711-2) BASO x10^3 (test code 0.04 10*3/uL 0.01-0.07 = 704-7) BANDS (test code = Increased A 8633112098) Lab Interpretation Abnormal (test code = 41349-0) [facility] IMMUNE [id number] 02:42:22 Test Item Value Reference Range Interpretation Comments RHIG CANDIDATE? No- see comment Patient i s not a (test code = candidate for R [facility]- 5055) Patient is Rh Positive.Perfor med at [facility] Laboratory Services - [facility] Blood [address] [place] [address]Agsr Free: [phone] A No. [id number] [facility] GLUCOSE (AUTOMATED)2020-04-23 23:30:00 Test Item Value Reference Range Interpretation Comments POCT GLU (test code = 5256488484) 76 mg/dL 70-110 Lab Interpretation (test code = Normal 63335-8) [facility] GLUCOSE (AUTOMATED)2020-04-23 18:35:00 Test Item Value Reference Range Interpretation Comments POCT GLU (test code = 5001337615) 103 mg/dL 70-110 Lab Interpretation (test code = Normal 72135-5) [facility] ONLY - SYPHILIS [id number] 15:24:00 Test Item Value Reference Range Interpretation Comments Syphilis IgG/IgM (test Non-reactive Non-reactive code = 24191-5) LINDA (test code = LINDA) Non-reactive - No serologic evidence of T. pallidum infection. Cannot exclude incubating or early syphilis. Submit a second specimen in 2-4 weeks if syphilis is clinically suspected. Equivocal - Further testing to follow. Reactive - Further testing to follow. Lab Interpretation (test Normal code = 76420-5) [facility] GLUCOSE (AUTOMATED)2020-04-23 14:40:00 Test Item Value Reference Range Interpretation Comments POCT GLU (test code = 1952925989) 115 mg/dL 70-110 H Lab Interpretation (test code = Abnormal 87896-1) [facility] GLUCOSE (AUTOMATED)2020-04-23 10:37:00 Test Item Value Reference Range Interpretation Comments POCT GLU (test code = 2367811914) 124 mg/dL 70-110 H Lab Interpretation (test code = Abnormal 03648-5) [facility]HIV 1/2 AG-AB WITH [id number] 05:13:00 Test Item Value Reference Range Interpretation Comments HIV Negative Negative Semi-quantitative (test code = 85885-5) LINDA (test code = Non-reactive for HIV-1 LINDA) antigen and HIV-1/HIV-2 antibodies. ?No laboratory evidence of HIV infection. ?Repeat in 2-4 weeks if acute HIV infection is suspected. [facility] AustinHepatitis B Surface [id number] 05:03:00 Test Item Value Reference Range Interpretation Comments HBsAg Semi-Quantitative (test code = Negative Negative 5195-3) [facility] AustinType and Screen - ONCE [id number] 04:30:38 Test Item Value Reference Range Interpretation Comments ABO & RH (test code O POSITIVE Performe d at [facility] = 20) Laboratory Serv [facility] [address]Rosn Free: [phone] A No. [id number] IAT (test code = Negative Performed a t [facility] 1185) [facility] [address] [facility] [address]Lmeo Free: [phone] A No. [id number] [facility] GLUCOSE (AUTOMATED)2020-04-23 04:04:00 Test Item Value Reference Range Interpretation Comments POCT GLU (test code = 0023231800) 107 mg/dL 70-110 Lab Interpretation (test code = Normal 40804-8) [facility] AustinCOVID-19 (ID NOW RAPID TESTING)2020-04-23 02:19:00 Test Item Value Reference Range Interpretation Comments SARS-CoV-2 Rapid ID NOW Not Detected Not Detected (test code = 38484-1) LINDA (test code = LINDA) ID NOW COVID-19 Assay is an isothermal nucleic acid amplification test intended for the qualitative detection of nucleic acid from SARS-CoV-2 viral RNA in nasopharyngeal (ASP NET C DEVELOPER) specimens. It is used under Emergency Use Authorization (EUA) by FDA. The limit of detection (LOD) of the assay is 125 Genome Equivalents/mL. A positive result is indicative of the presence of SARS-CoV-2 RNA. ?Clinical correlation with patient history and other diagnostic information is necessary to determine patient infection status. A negative (Not Detected) result does not preclude SARS-CoV-2 infection. In patients with clinical symptoms and other tests that are consistent with SARS-CoV-2 infection, negative results should be treated as presumptive negative and a new specimen should be tested with alternative PCR molecular test. Invalid: Please collect a new specimen for repeat patient testing if clinically indicated. Lab Interpretation Normal (test code = 61939-8) [facility] URINALYSIS W SPECIFIC [id number] 14:20:00 Test Item Value Reference Range Interpretation Comments POCT U SP GRAV (test code = . 1.005-1.025 3255) POCT PH U (test code = 3254) . 5-8 POCT U LEUK EST (test code = . Negative - Negative 3263) POCT U NIT (test code = 3262) . Negative - Negative POCT U PROT (test code = 3259) trace Negative - Negative POCT U GLU (test code = 3256) neg Negative - Negative POCT U KETONE (test code = 3258) . Negative - Negative POCT U UROBILI (test code = . 0.2-1 3260) POCT U BILI (test code = 3261) . Negative - Negative POCT U BLD (test code = 3257) . Negative - Negative POCT U COLOR (test code = 3266) POCT U APPEAR (test code = 3267) Lab Interpretation (test code = Abnormal 34528-6) [facility] URINALYSIS W SPECIFIC [id number] 13:25:00 Test Item Value Reference Range Interpretation Comments POCT U SP GRAV (test code = . 1.005-1.025 3255) POCT PH U (test code = 3254) . 5-8 POCT U LEUK EST (test code = . Negative - Negative 3263) POCT U NIT (test code = 3262) . Negative - Negative POCT U PROT (test code = 3259) trace Negative - Negative POCT U GLU (test code = 3256) negative Negative - Negative POCT U KETONE (test code = 3258) . Negative - Negative POCT U UROBILI (test code = . 0.2-1 3260) POCT U BILI (test code = 3261) . Negative - Negative POCT U BLD (test code = 3257) . Negative - Negative POCT U COLOR (test code = 3266) POCT U APPEAR (test code = 3267) [facility] URINALYSIS W SPECIFIC [id number] 14:57:00 Test Item Value Reference Range Interpretation Comments POCT U SP GRAV (test code = 3255) . 1.005-1.025 POCT PH U (test code = 3254) . 5-8 POCT U LEUK EST (test code = 3263) . Negative - Negative POCT U NIT (test code = 3262) . Negative - Negative POCT U PROT (test code = 3259) 2+ Negative - Negative POCT U GLU (test code = 3256) Neg Negative - Negative POCT U KETONE (test code = 3258) . Negative - Negative POCT U UROBILI (test code = 3260) . 0.2-1 POCT U BILI (test code = 3261) . Negative - Negative POCT U BLD (test code = 3257) . Negative - Negative POCT U COLOR (test code = 3266) POCT U APPEAR (test code = 3267) [facility] GLUCOSE (AUTOMATED)2020-04-06 18:11:00 Test Item Value Reference Range Interpretation Comments POCT GLU (test code = 8401594610) 92 mg/dL 70-110 Lab Interpretation (test code = Normal 04642-5) [facility]00 Test Item Value Reference Range Interpretation Comments APPEARANCE (test code = Hazy Clear A 3493222842) COLOR (test code = Yellow Yellow 1542997146) PH (test code = 4.8-8.0 0517856112) SP GRAVITY (test code = 1.003-1.030 5030294734) GLU U QUAL (test code = Normal Normal 4139983248) BLOOD (test code = Negative Negative 1015380949) KETONES (test code = Negative Negative 1544716405) PROTEIN (test code = 100 mg/dL Negative A 2887-8) UROBILIN (test code = Normal Normal 1714075566) BILIRUBIN (test code = Negative Negative 2727227312) NITRITE (test code = Negative Negative 9111818706) LEUK HAYDEE (test code = Negative Negative 5912789286) RBC/HPF (test code = See_Comment [Autom ated message] 4566444222) The system [employer] generated this result transmit caroline reference range : 0 - 3 HPF. The refe rence range was not u sed to interpret th is result as normal/abnormal . WBC/HPF (test code = See_Comment [Autom ated message] 6824743361) The system [employer] generated this result transmit caroline reference range : 0 - 5 HPF. The refe rence range was not u sed to interpret th is result as normal/abnormal . BACTERIA (test code = Few Negative A 6001249148) MUCOUS (test code = Slight Negative LPF A 7503244140) SQ EPITH (test code = HPF 3664965668) HYAL CAST (test code = See_Comment [Aut omated message] 5915377233) The system [employer] generated this result transmit caroline reference range : <=2 LPF. The refere nce range was not u sed to interpret th is result as normal/abnormal . Lab Interpretation (test Abnormal code = 33821-5) [facility] URINALYSIS W SPECIFIC [id number] 15:26:00 Test Item Value Reference Range Interpretation Comments POCT U SP GRAV (test code = 3255) . 1.005-1.025 POCT PH U (test code = 3254) . 5-8 POCT U LEUK EST (test code = 3263) . Negative - Negative POCT U NIT (test code = 3262) . Negative - Negative POCT U PROT (test code = 3259) 1+ Negative - Negative POCT U GLU (test code = 3256) Neg Negative - Negative POCT U KETONE (test code = 3258) . Negative - Negative POCT U UROBILI (test code = 3260) . 0.2-1 POCT U BILI (test code = 3261) . Negative - Negative POCT U BLD (test code = 3257) . Negative - Negative POCT U COLOR (test code = 3266) POCT U APPEAR (test code = 3267) [facility] URINALYSIS W SPECIFIC [id number] 15:22:00 Test Item Value Reference Range Interpretation Comments POCT U SP GRAV (test code = . 1.005-1.025 3255) POCT PH U (test code = 3254) . 5-8 POCT U LEUK EST (test code = . Negative - Negative 3263) POCT U NIT (test code = 3262) . Negative - Negative POCT U PROT (test code = 3259) 2+ Negative - Negative POCT U GLU (test code = 3256) negative Negative - Negative POCT U KETONE (test code = 3258) .. Negative - Negative POCT U UROBILI (test code = . 0.2-1 3260) POCT U BILI (test code = 3261) . Negative - Negative POCT U BLD (test code = 3257) . Negative - Negative POCT U COLOR (test code = 3266) POCT U APPEAR (test code = 3267) [facility] URINALYSIS W SPECIFIC [id number] 15:22:00 Test Item Value Reference Range Interpretation Comments POCT U SP GRAV (test code = . 1.005-1.025 3255) POCT PH U (test code = 3254) . 5-8 POCT U LEUK EST (test code = . Negative - Negative 3263) POCT U NIT (test code = 3262) . Negative - Negative POCT U PROT (test code = 3259) 2+ Negative - Negative POCT U GLU (test code = 3256) negative Negative - Negative POCT U KETONE (test code = 3258) .. Negative - Negative POCT U UROBILI (test code = . 0.2-1 3260) POCT U BILI (test code = 3261) . Negative - Negative POCT U BLD (test code = 3257) . Negative - Negative POCT U COLOR (test code = 3266) POCT U APPEAR (test code = 3267) [facility]. METABOLIC PANEL (53711)2020-01-30 04:31:00 Test Item Value Reference Range Interpretation Comments NA (test code = 136 mmol/L 135-145 7535650055) K (test code = 3.3 mmol/L 3.5-5 L 2756738465) CL (test code = 106 mmol/L 98-108 6975778973) CO2 TOTAL (test code = 20 mmol/L 23-31 L 4930736337) AGAP (test code = 2-16 4368065765) BUN (test code = 4 mg/dL 7-23 L 0440519576) GLUCOSE (test code = 94 mg/dL 70-110 0479529274) CREATININE (test code = 0.42 mg/dL 0.5-1.04 L 8022237040) TOTAL BILI (test code = 0.4 mg/dL 0.1-1.1 9112131035) CALCIUM (test code = 9.2 mg/dL 8.6-10.6 2005429611) T PROTEIN (test code = 6.8 g/dL 6.3-8.2 4500594196) ALBUMIN (test code = 3.9 g/dL 3.5-5 1868566235) ALK PHOS (test code = 69 U/L 34-122 9313978652) ALTv (test code = 40 U/L 5-35 H 1742-6) AST(SGOT) (test code = 35 U/L 13-40 0157363078) eGFR Calculation mL/min/1.73m2 (Non-) (test code = 5726436193) eGFR Calculation mL/min/1.73m2 () (test code = 0972873540) LINDA (test code = LINDA) Association of Glomerular Filtration Rate (GFR) and Staging of Kidney Disease* + --+ --+ ------+| GFR (mL/min/1.73 m2) ?| With Kidney Damage ?| ?Without Kidney Damage+ --------+ --------+ +| ?>90 ?| ?Stage one ?| ? Normal ?+ ---+ ---+ -------+| ?60-89 ?| ?Stage two ?| ? Decreased GFR ? + --+ --+ ------+| ?30-59 ?| ?Stage three ?| ? Stage three ? + --+ --+ ------+| ?15-29 ?| ?Stage four ? | ? Stage four ?+ ---+ ---+ -------+| ?<15 (or dialysis) ? ?| ?Stage five ? | ? Stage five ?+ ---+ ---+ -------+ *Each stage assumes the associated GFR level has been in effect for at least three months. ?Stages 1 to 5, with or without kidney disease, indicate chronic kidney disease. Notes: Determination of stages one and two (with eGFR >59mL/min/1.73 m2) requires estimation of kidney damage for at least three months as defined by structural or functional abnormalities of the kidney, manifested by either:Pathological abnormalities or Markers of kidney damage (including abnormalities in the composition of the blood or urine or abnormalities in imaging tests). Lab Interpretation Abnormal (test code = 96812-6) [facility] 04[facility]30:00 Test Item Value Reference Range Interpretation Comments LIPASE (test code = 8915587811) 84 U/L 0-220 Lab Interpretation (test code = Normal 38717-1) [facility] WITH [id number] 04:18:00 Test Item Value Reference Range Interpretation Comments WBC (test code = See_Comment [Automated 8003-2) message] The sy stem which generated this result transmitted reference range : 4.30 - 11.10 10*3/?L. The reference range was not used to interpret this result as normal/abnormal . RBC (test code = See_Comment L [Automated 138-8) message] The sy stem which generated this result transmitted reference range : 3.93 - 5.25 10*6/?L. The reference range was not used to interpret this result as normal/abnormal . HGB (test code = 10.7 g/dL 11.6-15 L 718-7) HCT (test code = 32.9 % 35.7-45.2 L 4544-3) MCV (test code = 85.7 fL 80.6-95.5 787-2) MCH (test code = 27.9 pg 25.9-32.8 785-6) MCHC (test code = 32.5 g/dL 31.6-35.1 786-4) RDW-SD (test code = 46.5 fL 39-49.9 59508-9) RDW-CV (test code = 14.9 % 12-15.5 788-0) PLT (test code = See_Comment [Automated 777-3) message] The sy stem which generated this result transmitted reference range : 166 - 358 10*3/ ?L. The reference r margo was not used to interpret this result as normal/abnormal . MPV (test code = 10.8 fL 9.5-12.9 56710-2) NRBC/100 WBC (test See_Comment [Automat ed code = 9118729267) message] The system which generated this result transmitted reference range : 0.0 - 10.0 /100 WBCs. The refer ence range was not u sed to interpret th is result as normal/abnormal . NRBC x10^3 (test code <0.01 See_Comment [Auto mated = 8161756978) message] The s ystem which generated this result transmitted reference range : 10*3/?L. The reference range was not used to interpret this result as normal/abnormal . GRAN MAT (NEUT) % 72.4 % (test code = 770-8) IMM GRAN % (test code 0.30 % = 7632803235) LYMPH % (test code = 20.5 % 736-9) MONO % (test code = 6.0 % 5905-5) EOS % (test code = 0.5 % 713-8) BASO % (test code = 0.3 % 706-2) GRAN MAT x10^3(ANC) 4.34 10*3/uL 1.88-7.09 (test code = 2546027568) IMM GRAN x10^3 (test <0.03 0-0.06 code = 9722752224) LYMPH x10^3 (test code 1.23 10*3/uL 1.32-3.29 L = 731-0) MONO x10^3 (test code 0.36 10*3/uL 0.33-0.92 = 742-7) EOS x10^3 (test code = 0.03 10*3/uL 0.03-0.39 711-2) BASO x10^3 (test code <0.03 0.01-0.07 = 704-7) Lab Interpretation Abnormal (test code = 59371-9) [facility] 03:58[facility]00 Test Item Value Reference Range Interpretation Comments APPEARANCE (test code = Clear Clear 9230532659) COLOR (test code = Cynthia Yellow A 6519283701) PH (test code = 4.8-8.0 0898578068) SP GRAVITY (test code = 1.003-1.030 9866162098) GLU U QUAL (test code = Normal Normal 1095979225) BLOOD (test code = Negative Negative 3221146531) KETONES (test code = 5 mg/dL Negative A 8028962940) PROTEIN (test code = Negative Negative 2887-8) UROBILIN (test code = Normal Normal 8989026695) BILIRUBIN (test code = Negative Negative 0079295442) NITRITE (test code = Negative Negative 8623939165) LEUK HAYDEE (test code = Negative Negative 3809964363) RBC/HPF (test code = <1 See_Comment [Autom ated message] 4623873898) The system [employer] generated this result transmitted ref erence range: 0 - 3 HP F. The reference range was not used to int erpret this result as normal/abnormal . WBC/HPF (test code = See_Comment [Autom ated message] 3659731568) The system [employer] generated this result transmitted ref erence range: 0 - 5 HP F. The reference range was not used to int erpret this result as normal/abnormal . BACTERIA (test code = Few Negative A 3195337416) MUCOUS (test code = Marked Negative LPF A 5665539674) SQ EPITH (test code = HPF 5398293998) Lab Interpretation (test Abnormal code = 21241-7) [facility] W SPECIFIC [id number] 19:26:00 Test Item Value Reference Range Interpretation Comments POCT U SP GRAV (test code = . 1.005-1.025 3255) POCT PH U (test code = 3254) . 5-8 POCT U LEUK EST (test code = . Negative - Negative 3263) POCT U NIT (test code = 3262) . Negative - Negative POCT U PROT (test code = 3259) trace Negative - Negative POCT U GLU (test code = 3256) neg Negative - Negative POCT U KETONE (test code = 3258) . Negative - Negative POCT U UROBILI (test code = . 0.2-1 3260) POCT U BILI (test code = 3261) . Negative - Negative POCT U BLD (test code = 3257) . Negative - Negative POCT U COLOR (test code = 3266) POCT U APPEAR (test code = 3267) Lab Interpretation (test code = Abnormal 61867-6) [facility] - [facility]ET [id number] 03:18:00 Test Item Value Reference Range Interpretation Comments Wet Prep (test Few Budding yeast Bacteria Present code = per high-power field 6437227591) [facility] 03:04:00 Test Item Value Reference Range Interpretation Comments APPEARANCE (test code = Clear Clear 9093066524) COLOR (test code = Yellow Yellow 0073914893) PH (test code = 4.8-8.0 9714374005) SP GRAVITY (test code = 1.003-1.030 8663027638) GLU U QUAL (test code = Normal Normal 1582088211) BLOOD (test code = Negative Negative 4550212446) KETONES (test code = Negative Negative 6746039124) PROTEIN (test code = Negative Negative 2887-8) UROBILIN (test code = Normal Normal 0278818049) BILIRUBIN (test code = Negative Negative 8006625769) NITRITE (test code = Negative Negative 5409595384) LEUK HAYDEE (test code = Negative Negative 9595252010) RBC/HPF (test code = See_Comment [Autom ated message] 8356954983) The system [employer] generated this result transmitted ref erence range: 0 - 3 HP F. The reference range was not used to int erpret this result as normal/abnormal . WBC/HPF (test code = See_Comment [Autom ated message] 0718345871) The system [employer] generated this result transmitted ref erence range: 0 - 5 HP F. The reference range was not used to int erpret this result as normal/abnormal . BACTERIA (test code = Few Negative A 3184426402) MUCOUS (test code = Slight Negative LPF A 5599003034) SQ EPITH (test code = HPF 2686097691) Lab Interpretation (test Abnormal code = 20850-3) [facility] URINALYSIS W SPECIFIC [id number] 22:32:00 Test Item Value Reference Range Interpretation Comments POCT U SP GRAV (test code = 3255) . 1.005-1.025 POCT PH U (test code = 3254) . 5-8 POCT U LEUK EST (test code = 3263) . Negative - Negative POCT U NIT (test code = 3262) . Negative - Negative POCT U PROT (test code = 3259) 1+ Negative - Negative POCT U GLU (test code = 3256) neg Negative - Negative POCT U KETONE (test code = 3258) . Negative - Negative POCT U UROBILI (test code = 3260) . 0.2-1 POCT U BILI (test code = 3261) . Negative - Negative POCT U BLD (test code = 3257) . Negative - Negative POCT U COLOR (test code = 3266) POCT U APPEAR (test code = 3267) [facility] URINALYSIS W SPECIFIC [id number] 20:32:00 Test Item Value Reference Range Interpretation Comments POCT U SP GRAV (test code = . 1.005-1.025 3255) POCT PH U (test code = 3254) 7 mg/dl 5-8 POCT U LEUK EST (test code = neg Negative - Negative 3263) POCT U NIT (test code = 3262) neg Negative - Negative POCT U PROT (test code = 3259) trace Negative - Negative POCT U GLU (test code = 3256) neg Negative - Negative POCT U KETONE (test code = 3258) neg Negative - Negative POCT U UROBILI (test code = neg 0.2-1 3260) POCT U BILI (test code = 3261) neg Negative - Negative POCT U BLD (test code = 3257) neg Negative - Negative POCT U COLOR (test code = 3266) . POCT U APPEAR (test code = 3267) . Lab Interpretation (test code = Abnormal 43685-5) [facility] URINALYSIS W SPECIFIC [id number] 20:32:00 Test Item Value Reference Range Interpretation Comments POCT U SP GRAV (test code = . 1.005-1.025 3255) POCT PH U (test code = 3254) 7 mg/dl 5-8 POCT U LEUK EST (test code = neg Negative - Negative 3263) POCT U NIT (test code = 3262) neg Negative - Negative POCT U PROT (test code = 3259) trace Negative - Negative POCT U GLU (test code = 3256) neg Negative - Negative POCT U KETONE (test code = 3258) neg Negative - Negative POCT U UROBILI (test code = neg 0.2-1 3260) POCT U BILI (test code = 3261) neg Negative - Negative POCT U BLD (test code = 3257) neg Negative - Negative POCT U COLOR (test code = 3266) . POCT U APPEAR (test code = 3267) . Lab Interpretation (test code = Abnormal 92918-3) [facility] URINALYSIS W SPECIFIC [id number] 20:32:00 Test Item Value Reference Range Interpretation Comments POCT U SP GRAV (test code = . 1.005-1.025 3255) POCT PH U (test code = 3254) 7 mg/dl 5-8 POCT U LEUK EST (test code = neg Negative - Negative 3263) POCT U NIT (test code = 3262) neg Negative - Negative POCT U PROT (test code = 3259) trace Negative - Negative POCT U GLU (test code = 3256) neg Negative - Negative POCT U KETONE (test code = 3258) neg Negative - Negative POCT U UROBILI (test code = neg 0.2-1 3260) POCT U BILI (test code = 3261) neg Negative - Negative POCT U BLD (test code = 3257) neg Negative - Negative POCT U COLOR (test code = 3266) . POCT U APPEAR (test code = 3267) . Lab Interpretation (test code = Abnormal 54580-9) [facility] URINALYSIS W SPECIFIC [id number] 14:39:00 Test Item Value Reference Range Interpretation Comments POCT U SP GRAV (test code = . 1.005-1.025 3255) POCT PH U (test code = 3254) . 5-8 POCT U LEUK EST (test code = . Negative - Negative 3263) POCT U NIT (test code = 3262) . Negative - Negative POCT U PROT (test code = 3259) 3+ Negative - Negative POCT U GLU (test code = 3256) negative Negative - Negative POCT U KETONE (test code = 3258) . Negative - Negative POCT U UROBILI (test code = . 0.2-1 3260) POCT U BILI (test code = 3261) . Negative - Negative POCT U BLD (test code = 3257) . Negative - Negative POCT U COLOR (test code = 3266) POCT U APPEAR (test code = 3267) [facility] URINALYSIS W SPECIFIC [id number] 14:39:00 Test Item Value Reference Range Interpretation Comments POCT U SP GRAV (test code = . 1.005-1.025 3255) POCT PH U (test code = 3254) . 5-8 POCT U LEUK EST (test code = . Negative - Negative 3263) POCT U NIT (test code = 3262) . Negative - Negative POCT U PROT (test code = 3259) 3+ Negative - Negative POCT U GLU (test code = 3256) negative Negative - Negative POCT U KETONE (test code = 3258) . Negative - Negative POCT U UROBILI (test code = . 0.2-1 3260) POCT U BILI (test code = 3261) . Negative - Negative POCT U BLD (test code = 3257) . Negative - Negative POCT U COLOR (test code = 3266) POCT U APPEAR (test code = 3267) [facility]
[2021-11-20] MEDS ORDERED: ONDANSETRON 4 MG/2 ML VIAL ONE ×2 (04:40→10:39)
[2021-11-20] MEDS ORDERED: MORPHINE 4 MG/ML SYR ONE (04:40)
[2021-11-20] MEDS ORDERED: NA CHLORIDE 0.9% 1,000 ML ONE (04:40)
[2021-11-20 04:55] LABS: Absolute Lymphocytes (CBC) 1.8 K/uL (0.7-4.9); Hematocrit 39.2 % (36.0-45.0); Lymphocytes % 13.8 % (15.3-44.8); MPV 8.8 fL (7.6-11.3)
[2021-11-20 05:03] LABS: ALT/SGPT 70 U/L (12-78); AST/SGOT 30 U/L (15-37); Albumin 3.9 g/dL (3.4-5.0); Alkaline Phosphatase 94 U/L (45-117); BUN Blood Urea Nitrogen 13 mg/dL (7-18); Bicarbonate 26 mmol/L (21-32); Bilirubin Direct 0.1 mg/dL (0-0.2); Bilirubin Total 0.5 mg/dL (0.2-1.0); Glucose Level 128 mg/dL (74-106); Lipase 105 U/L (73-393); Potassium 3.6 mmol/L (3.5-5.1); Protein, Total 7.9 g/dL (6.4-8.2); Sodium Level 140 mmol/L (136-145)
[2021-11-20 05:25] LABS: Urine Blood 2+ (Negative); Urine Glucose Negative (Negative); Urine Protein Negative (Negative); Urine Specific Gravity >=1.030 (1.005-1.030); Urine pH 5.5 (5.0-7.0)
[2021-11-20] MEDS ORDERED: KETOROLAC 30 MG/ML INJ ONE ×2 (05:53→10:39)
[2021-11-20] MEDS ORDERED: PIPERACIL/TAZO 3.375 GM VIAL IV ONE (06:32)
[2021-11-20] MEDS ORDERED: NA CHLORIDE 0.9% 100 ML ONE (06:32)
--- NOTE | 2021-11-20 07:19 | EDPHYS ---
Physician Documentation [facility] Name: Kathrine Yang Age: 31 yrs Sex: Female : 1990 Arrival Date: 11/20/2021 Time: 03:46 Bed 11 Private MD: KINDRA Physician Tereso Navarro HPI: 11/20 04:26 This 31 yrs old Female presents to ER via Ambulatory with complaints of mh7 Abdominal Pain - Right side. 04:26 The patient presents with abdominal pain right lower quadrant. Onset: The mh7 symptoms/episode began/occurred last night. The symptoms radiate to the right flank. Associated signs and symptoms: Pertinent positives: nausea and vomiting, Pertinent negatives: anorexia, blood in stools, chest pain, constipation, diarrhea, dysuria, fever, headache, hematuria, palpitations, shortness of breath, vaginal discharge, vomiting blood. The symptoms are described as intermittent, vague, waxing/waning. Modifying factors: The symptoms are alleviated by nothing, the symptoms are aggravated by movement, touching the area. Severity of pain: At its worst the pain was moderate last night, in the emergency department the pain is unchanged. 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 - Social history:: Smoking status: Patient denies any tobacco usage or history of. ROS: 04:26 Constitutional: Negative for fever, chills, and weight loss, Eyes: Negative for injury, mh7 pain, redness, and discharge, ENT: Negative for injury, pain, and discharge, Neck: Negative for injury, pain, and swelling, Cardiovascular: Negative for chest pain, palpitations, and edema, Respiratory: Negative for shortness of breath, cough, wheezing, and pleuritic chest pain, : Negative for injury, bleeding, discharge, and swelling, MS/Extremity: Negative for injury and deformity, Skin: Negative for injury, rash, and discoloration, Neuro: Negative for headache, weakness, numbness, tingling, and seizure, Psych: Negative for depression, anxiety, suicide ideation, homicidal ideation, and hallucinations, Allergy/Immunology: Negative for hives, rash, and allergies, Endocrine: Negative for neck swelling, polydipsia, polyuria, polyphagia, and marked weight changes, Hematologic/Lymphatic: Negative for swollen nodes, abnormal bleeding, and unusual bruising. Exam: 04:26 Constitutional: The patient appears in no acute distress, alert, awake, uncomfortable. mh7 04:26 Head/Face: Normocephalic, atraumatic. Eyes: Pupils equal round and reactive to light, mh7 extra-ocular motions intact. Lids and lashes normal. Conjunctiva and sclera are non-icteric and not injected. Cornea within normal limits. Periorbital areas with no swelling, redness, or edema. Neck: Trachea midline, no thyromegaly or masses palpated, and no cervical lymphadenopathy. Supple, full range of motion without nuchal rigidity, or vertebral point tenderness. No Meningismus. Chest/axilla: Normal chest wall appearance and motion. Nontender with no deformity. No lesions are appreciated. Cardiovascular: Regular rate and rhythm with a normal S1 and S2. No gallops, murmurs, or rubs. Normal PMI, no JVD. No pulse deficits. Respiratory: Lungs have equal breath sounds bilaterally, clear to auscultation and percussion. No rales, rhonchi or wheezes noted. No increased work of breathing, no retractions or nasal flaring. 04:26 Back: No spinal tenderness. No costovertebral tenderness. Full range of motion. Skin: Warm, dry with normal turgor. Normal color with no rashes, no lesions, and no evidence of cellulitis. MS/ Extremity: Pulses equal, no cyanosis. Neurovascular intact. Full, normal range of motion. Neuro: Awake and alert, GCS 15, oriented to person, place, time, and situation. Cranial nerves II-XII grossly intact. Motor strength 5/5 in all extremities. Sensory grossly intact. Cerebellar exam normal. Normal gait. Psych: Awake, alert, with orientation to person, place and time. Behavior, mood, and affect are within normal limits. 04:26 Abdomen/GI: Inspection: abdomen appears normal, Bowel sounds: normal, in all quadrants, Palpation: moderate abdominal tenderness, in the right lower quadrant, mass, is not appreciated, rebound tenderness, is not appreciated, voluntary guarding, is not appreciated, involuntary guarding, is not appreciated, no appreciated organomegaly, Rectal exam: the exam is deferred, because of patient request, Indicators: McBurney's point is not tender, Cannon's sign is negative, Rovsing's sign is negative, Obturator sign is negative, Psoas sign is negative, Liver: no appreciated palpable abnormalities, Hernia: not appreciated. Vital Signs: 03:55 BP 133 / 68; Pulse 93; Resp 16; Temp 98.5; Pulse Ox 100% ; Weight 93.89 kg; Height 5 kd3 ft. 3 in. (160.02 cm); Pain 10/10; 06:20 BP 123 / 58; Pulse 77; Resp 16; Pulse Ox 98% on R/A; kd3 10:10 BP 117 / 65; Pulse 61; Resp 16; Pulse Ox 98% ; Pain 8/10; ll1 03:55 Body Mass Index 36.67 (93.89 kg, 160.02 cm) kd3 MDM: 07:15 Differential diagnosis: appendicitis, bowel obstruction, diverticulitis, Ectopic mh7 , non-specific abd pain, Pyelonephritis, Ureterolithiasis, urinary tract infection. Data reviewed: vital signs, nurses notes, old medical records, lab test result(s), CBC, electrolytes, urinalysis, UPT: negative radiologic studies, CT scan. Data interpreted: Pulse oximetry: on room air is 98 %. Interpretation: normal. Counseling: I had a detailed discussion with the patient and/or guardian regarding: the historical points, exam findings, and any diagnostic results supporting the discharge/admit diagnosis, lab results, radiology results, the need for further work-up and treatment in the hospital. Response to treatment: the patient's symptoms have mildly improved after treatment. 07:17 Physician consultation: Darek Delaney MD. [facility] 07:18 Patient medically screened. 11/20 04:25 Order name: Basic Metabolic Panel; Complete Time: 05:16 11/20 04:25 Order name: CBC with Diff; Complete Time: 05:16 11/20 04:25 Order name: Hepatic Function; Complete Time: 05:16 11/20 04:25 Order name: Lipase; Complete Time: 05:16 11/20 05:25 Order name: Urine Dipstick-Ancillary; Complete Time: 05:39 EDMS 11/20 05:27 Order name: Urine --Ancillary (enter results); Complete Time: 05:39 [facility] 11/20 04:25 Order name: CT Stone Protocol [facility] 11/20 07:20 Order name: COVID-19 SARS RT PCR (Document "Date of Onset" if Symptomatic) [facility] 11/20 04:25 Order name: IV Saline Lock; Complete Time: 04:36 [facility] 11/20 04:25 Order name: Labs collected and sent; Complete Time: 04:36 [facility] 11/20 04:25 Order name: Urine Dipstick-Ancillary (obtain specimen); Complete Time: 05:28 [facility] 11/20 04:25 Order name: Urine Test (obtain specimen); Complete Time: 05:28 [facility] 11/20 07:24 Order name: NPO EDMS Administered Medications: 04:46 Drug: NS 0.9% 1000 ml Route: IV; Rate: 1000 ml; Site: left antecubital; kd3 07:44 Follow up: Response: No adverse reaction; IV Status: Completed infusion; IV Intake: ll1 1000ml 04:46 Drug: morphine 4 mg Route: IVP; Site: left antecubital; kd3 07:44 Follow up: Response: No adverse reaction ll1 04:46 Drug: Zofran (Ondansetron) 4 mg Route: IVP; Site: left antecubital; kd3 07:43 Follow up: Response: No adverse reaction ll1 05:53 Drug: Ketorolac 30 mg Route: IVP; Site: left antecubital; kd3 07:43 Follow up: Response: No adverse reaction ll1 06:36 Drug: Zosyn (piperacillin-tazobactam) 3.375 grams Route: IVPB; Infused Over: 60 mins; kd3 Site: left antecubital; 07:43 Follow up: Response: No adverse reaction; IV Status: Completed infusion; IV Intake: ll1 100ml 07:43 Drug: morphine 4 mg {Note: rass 0.} Route: IVP; Site: right antecubital; ll1 10:10 Follow up: Response: No adverse reaction ll1 Disposition Summary: 11/20/21 07:18 Hospitalization Ordered Hospitalization Status: Inpatient Admission [facility] Provider: Darek Delaney Location: Telemetry/MedSurg (Inpatient) 7 Condition: Stable mh7 Problem: new mh7 Symptoms: have improved mh7 Bed/Room Type: Standard [facility] Room Assignment: [facility] Diagnosis - Unspecified acute appendicitis [facility] Forms: - Medication Reconciliation Form mh7 - SBAR form mh7 Signatures: Dispatcher [employer] EDTanvir Taylor RN RN ll1 Tereso Navarro MD MD 7 Bailey Franco RN RN kd3
--- NOTE | 2021-11-20 07:19 | ER ---
Nurse's Notes [facility] Name: Kathrine Yang Age: 31 yrs Sex: Female : 1990 Arrival Date: 11/20/2021 Time: 03:46 Bed 11 Private MD: Diagnosis: Unspecified acute appendicitis Presentation: 11/20 03:55 Chief complaint: Patient states: MY STOMACH HURTS ON THE RIGHT SIDE AND IN MY RIGHT kd3 SIDE OF MY BACK. STARTED LAST NIGHT. Coronavirus screen: Vaccine status: Patient reports being unvaccinated. At this time, the client does not indicate any symptoms associated with coronavirus-19. Ebola Screen: No symptoms or risks identified at this time. Initial Sepsis Screen: Does the patient meet any 2 criteria? No. Patient's initial sepsis screen is negative. Does the patient have a suspected source of infection? No. Patient's initial sepsis screen is negative. Risk Assessment: Do you want to hurt yourself or someone else? Patient reports no desire to harm self or others. Onset of symptoms was November 19, 2021. 03:55 Method Of Arrival: Ambulatory kd3 03:55 Acuity: TATA 4 kd3 05:29 Acuity: TATA 3 kd3 Triage Assessment: 03:57 General: Appears uncomfortable, ill, Behavior is calm, cooperative, appropriate for kd3 age. Pain: Complains of pain in right lower quadrant. Pain: Pain radiates to right mid back and right low back. EENT: No deficits noted. Neuro: Level of Consciousness is awake, alert, obeys commands, Oriented to person, place, time, situation, Appropriate for age. Cardiovascular: No deficits noted. Respiratory: No deficits noted. GI: Reports nausea, Patient currently denies diarrhea. : No deficits noted. Derm: No deficits noted. Musculoskeletal: No deficits noted. 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 - Social history:: Smoking status: Patient denies any tobacco usage or history of. Screenin:00 Abuse screen: Denies threats or abuse. Denies injuries from another. Nutritional kd3 screening: No deficits noted. Tuberculosis screening: No symptoms or risk factors identified. Fall Risk None identified. Assessment: 04:17 General: Appears uncomfortable, Behavior is calm, cooperative, appropriate for age. kd3 Pain: Complains of pain in right lower quadrant. Neuro: Level of Consciousness is awake, alert, obeys commands, Oriented to person, place, time, situation, Appropriate for age. Cardiovascular: No deficits noted. Respiratory: No deficits noted. GI: Bowel sounds present X 4 quads. Abd is soft X 4 quads Abdomen is tender to palpation in right lower quadrant. : No deficits noted. EENT: No deficits noted. Derm: No deficits noted. Musculoskeletal: No deficits noted. Vital Signs: 03:55 BP 133 / 68; Pulse 93; Resp 16; Temp 98.5; Pulse Ox 100% ; Weight 93.89 kg; Height 5 kd3 ft. 3 in. (160.02 cm); Pain 10/10; 06:20 BP 123 / 58; Pulse 77; Resp 16; Pulse Ox 98% on R/A; kd3 10:10 BP 117 / 65; Pulse 61; Resp 16; Pulse Ox 98% ; Pain 8/10; ll1 03:55 Body Mass Index 36.67 (93.89 kg, 160.02 cm) kd3 ED Course: 03:46 Patient arrived in ED. wm 03:57 Triage completed. kd3 03:57 Arm band placed on right wrist. kd3 04:00 Patient has correct armband on for positive identification. kd3 04:10 Bailey Franco, [place] is Primary Nurse. kd3 04:17 Tereso Navarro MD is Attending Physician. mh7 04:37 Basic Metabolic Panel Sent. kd3 04:37 CBC with Diff Sent. kd3 04:37 Hepatic Function Sent. kd3 04:37 Lipase Sent. kd3 04:47 Inserted saline lock: 22 gauge in left antecubital area, using aseptic technique. kd3 05:51 CT Stone Protocol In Process Unspecified. EDMS 07:18 Darek Delaney MD is Hospitalizing Provider. 7 10:51 Report given to OR nurse. To OR via wheelchair. ll1 10:52 No provider procedures requiring assistance completed. Patient admitted, IV remains in ll1 place. Administered Medications: 04:46 Drug: NS 0.9% 1000 ml Route: IV; Rate: 1000 ml; Site: left antecubital; kd3 07:44 Follow up: Response: No adverse reaction; IV Status: Completed infusion; IV Intake: ll1 1000ml 04:46 Drug: morphine 4 mg Route: IVP; Site: left antecubital; kd3 07:44 Follow up: Response: No adverse reaction ll1 04:46 Drug: Zofran (Ondansetron) 4 mg Route: IVP; Site: left antecubital; kd3 07:43 Follow up: Response: No adverse reaction ll1 05:53 Drug: Ketorolac 30 mg Route: IVP; Site: left antecubital; kd3 07:43 Follow up: Response: No adverse reaction ll1 06:36 Drug: Zosyn (piperacillin-tazobactam) 3.375 grams Route: IVPB; Infused Over: 60 mins; kd3 Site: left antecubital; 07:43 Follow up: Response: No adverse reaction; IV Status: Completed infusion; IV Intake: ll1 100ml 07:43 Drug: morphine 4 mg {Note: rass 0.} Route: IVP; Site: right antecubital; ll1 10:10 Follow up: Response: No adverse reaction 1 Intake: 07:43 IV: 100ml; Total: 100ml. ll1 07:44 IV: 1000ml; Total: 1100ml. 1 Outcome: 07:18 Decision to Hospitalize by Provider. [facility] 10:52 Admitted to OR accompanied by nurse, via wheelchair, with chart. 1 10:52 Condition: stable 10:52 Instructed on the need for admit. 11:07 Patient left the ED. 1 Signatures: Dispatcher [employer] EDTanvir Taylor RN RN 1 Tereso Navarro MD MD 7 [place] Kyli, RN RN kd3
[2021-11-20] MEDS ORDERED: MORPHINE 4 MG/ML SYR IV PRN (07:21)
[2021-11-20] MEDS ORDERED: ONDANSETRON 4 MG/2 ML VIAL IV PRN (07:21)
[2021-11-20] MEDS ORDERED: D5 0.45 NS 1,000 ML IV SCH (08:00)
[2021-11-20] MEDS: PIPER TAZO 3.375 GM in NA CHLORIDE 0.9% 100 ML IV SCH ×2 (09:00→16:12)
[2021-11-20] MEDS ORDERED: propofoL 200 MG/20 ML VIAL IV ONE (10:38)
[2021-11-20] MEDS ORDERED: dexAMETHasone 10 MG/ML VIAL ONE (10:38)
[2021-11-20] MEDS ORDERED: ROCURONIUM 50 MG/5 ML VIAL IV ONE (10:38)
[2021-11-20] MEDS ORDERED: FENTANYL CITR 100 MCG/2 ML ONE (10:38)
[2021-11-20] MEDS ORDERED: MIDAZOLAM HCL 2 MG/2 ML INJ ONE (10:39)
[2021-11-20] MEDS ORDERED: LIDOCAINE 2% MPF 5 ML VIAL ONE (10:39)
[2021-11-20] MEDS ORDERED: Ringers Lactate 1,000 ML IV ONE (10:57)
--- NOTE | 2021-11-20 11:52 | P.HP ---
Date of Service: 11/20/21 PC: This 31-year-old female presented emergency room with severe right lower quadrant abdominal pain for diagnosis and treatment. HPC: Patient had severe right upper quadrant abdominal pain for the last 24 hours. Came to the emergency room after she could not walk and pain appear to be increasing even more. PSHx: Previous , lap [facility] PMHx: Negative Social Hx: No known allergies Sys R: No cough, wheeze, shortness of breath. No chest pain or palpitations. Denies any urinary complaints O/E: Awake alert vital signs are stable HEENT: Within normal limits Chest: Air entry equal bilaterally Abd: Tender with guarding in the right lower quadrant [place]: Intact Data: Elevated white cell count with left shift, CT scan supports clinical diagnosis of acute abdomen Impression: Acute abdomen with appendicitis Plan: I will taken the operating room for laparoscopic possible open appendectomy. The risks of this procedure have been discussed. The possibility of bleeding, infection, injury to bowel, blood vessels, and surrounding structures were explained. The possible need for an open and/or further surgeries and procedures was discussed. She understands and wishes to proceed.
[2021-11-20] MEDS ORDERED: NEOSTIGMINE 1 MG/ML -5 ML ONE (12:23)
[2021-11-20] MEDS ORDERED: GLYCOPYRROLATE 0.2 MG/ML SYR ONE (12:23)
--- NOTE | 2021-11-20 12:35 | P.OP ---
Preoperative diagnosis: Acute abdomen Postoperative diagnosis: Acute appendicitis Primary procedure: Laparoscopic appendectomy Secondary procedure: Tap block Other procedure(s): Lysis of adhesions Anesthesia: General Estimated blood loss: Less than 10 cc Specimen: 1 appendix Operative Technique: The patient brought the operating room placed supine on the table. After the induction of adequate general, the area was prepped and. A subumbilical incision was made. This was brought down through the skin and subcutaneous tissue. The Visiport was now used to enter the peritoneal cavity. Pneumoperitoneum approximate 12 mmHg. We could see in the right lower quadrant and mildly inflamed appendix. A 5 mm trocar was then placed in the lower midline. This patient has had a previous C-sections large amount of adhesions to her old scar in this area. These were taken down using blunt and sharp dissection as well as selective electrocautery. This improved her visualization of the right lower quadrant immensely. Another 5 mm trocar was then placed in the right upper abdomen. With the patient placed in marked Trendelenburg and rolled to the left we were able to visualize the cecum. This wall inflamed appendix was identified. The midportion of the body of the appendix was attached to the retroperitoneum these peritoneal attachments were taken down with again using blunt and sharp dissection. The junction of the appendix with the cecum was identified. A window was made at the base of the appendix just at its junction with the cecum. This was now able to introduce a linear stapler which was placed across the base of the appendix and fired. The appendix was taken down again using blunt and sharp dissection. Antibiotics now taking care of using a linear stapler with a vascular reload. Having detached appendix, it was now placed into an Endo Catch, and brought out through the umbilical trocar site. Attention was turned towards the anterior abdominal wall. A tap block with 6 cc of Marcaine with both sides. The patient was then returned to the neutral position on the table after having aspirated all of the effluent from the right lower quadrant. There the umbilical trocar site was approximated using Endo Close and formable suture. The pneumoperitoneum was collapsed, the suture tied, and mora applied to the skin. At the end of the procedure she was in a stable condition was sent to the recovery room. Needle sponge instrument count were correct. No drains were placed.
[2021-11-20] MEDS ORDERED: PROMETHAZINE INJ 25 MG/ML AMP ONE (12:41)
[2021-11-20] MEDS: HYDROMORPHONE HCL 1 MG/ML INJ ONE ×2 (12:45→13:52)
--- NOTE | 2021-11-20 13:39 | RAD REPORT ---
EXAM DESCRIPTION: CT - Stone Protocol - 11/20/2021 6:45 am CLINICAL HISTORY: Abdominal Flank pain; Nausea/vomiting COMPARISON: CT Abdomen/Pelvis Without Contrast 03/18/2021 TECHNIQUE: Abdomen/pelvis axial images acquired Without IV contrast. Coronal and sagittal reformats created. Exam performed according to departmental dose-optimization program which includes automated exposure control, adjustment of mA and/or kV according to patient size, and/or use of iterative recon struction technique. FINDINGS: No free air. Mild free fluid in pelvic cul-de-sac. Marked, diffuse, fatty infiltration of liver. Cholecystectomy. Spleen, pancreas, adrenals, kidneys, anteverted uterus, adnexa, and urinary bladder unremarkable nonc ontrast appearance. Nonopacified appendix is mildly dilated measuring up to 10 mm diameter, shows no luminal gas, and mil d periappendiceal fat stranding. No fecalith or right lower abdominal abscess. Nonopacified stomach, small bowel, and large bowel appear grossly unremarkable. Portions of large bowel difficult to accurately evaluate due to lack of distention. Abdominal aorta unremarkable. Bones unremarkable. Urle-[id number] right hemidiaphragm elevation. IMPRESSION: 1. Mild acute appendicitis. 2. Mild free fluid in pelvic cul-de-sac. 3. Marked, diffuse, fatty infiltration of liver. 4. Cholecystectomy. DR. RADHA SERRATO is notified of findings on 11/20/2021 at 7:15 AM ET. Electronically signed by: Juliano Solorzano MD 11/20/2021 6:31 AM ADMISSIONS CONSULTANT Due to temporary technical issues with the PACS/Fluency reporting system, reports are being signed by the in house radiologist without review as a courtesy to ensure prompt reporting. The interpreting r adiologist is fully responsible for the content of the report.
[2021-11-20 14:47] VITALS: BMI 36.6
[2021-11-20] MEDS: D5 0.45 NS 1,000 ML IV SCH (14:52)
[2021-11-20] MEDS ORDERED: INFLUENZA VACCINE (for 6+ mo) 0.5 ML DOSE IMVAC ONE (15:00)
[2021-11-20] MEDS: MORPHINE 4 MG/ML SYR IV PRN ×4 (16:10→23:30)
[2021-11-21] MEDS: PIPER TAZO 3.375 GM in NA CHLORIDE 0.9% 100 ML IV SCH ×2 (00:24→08:24)
[2021-11-21] MEDS: MORPHINE 4 MG/ML SYR IV PRN (06:31)
[2021-11-21] MEDS: D5 0.45 NS 1,000 ML IV SCH (08:25)
[2021-11-21 09:05] VITALS: BP 104/51; TEMP 96.8
[2021-11-21 09:35] VITALS: O2SAT 97
== END 2021-11-21 10:57 | disposition home or self-care (01) | DRG 343 ==
LOC: ER 03:43 → ERHOLD 07:20 → 2ND 13:49
PROVIDERS: ADMIT Surgery; ATTEND Surgery
PROC: 0DTJ4ZZ Resection of Appendix, Percutaneous Endoscopic Approach (ICD-10-PCS; principal; 2021-11-20 10:30)
DX: K35.80 Unspecified acute appendicitis (principal); Z23 Encounter for immunization; Z20.822 Contact with and (suspected) exposure to COVID-19
CPT/HCPCS: 36415; 74176; 76377; 80048; 80076; 81003; 81025; 83690; 85025; 88304; 90471; 94010; 99285; J1100; J1170; J2250; J2405; J2543; J2550; J2704; J2710; J3010; J7030; J7120; J7799; Q2035; U0003

== ENCOUNTER 2023-03-22 13:35 | Emergency (ER) | payer SELFPAY ==
--- OUTSIDE RECORDS SUMMARY | 2023-03-22 14:35 | XMS REPORT | Continuity of Care Document ---
:1990 Author Organization [facility] [place] [facility] t Address [address] [place] [address] Care Team Providers Name Role Phone Cecilia Whitley Primary Care Physician [phone] CECILIA MIRELES Attending Clinician Unavailable Cecilia Whitley Attending Clinician Doctor Unassigned, [place] Attending Clinician Unavailable Brian Cuadra Attending Clinician [facility] Nurse Vst, Fp Nrpt Pills Class Attending Clinician Unavailable Yesenia Dacosta CNM Attending Clinician Boy, [facility] Attending Clinician Unavailable Lucy Hammond Attending Clinician ROS BARBOSA Attending Clinician Unavailable ROS BARBOSA Attending Clinician Unavailable BRIAN BAILEY Attending Clinician Unavailable MONICA SPENCE Attending Clinician Unavailable Monica He Attending Clinician ANGELI EVANS Attending Clinician Unavailable Angeli Evans MD Attending Clinician [phone] ISAMAR BERG Attending Clinician Unavailable ISAMAR BERG Attending Clinician Unavailable 1, [facility] Attending Clinician Unavailable Isamar Berg MD Attending Clinician MANUEL GREEN Attending Clinician Unavailable Manuel Green MD Attending Clinician Pippa Porras MD Attending Clinician PIPPA PORRAS Attending Clinician Unavailable Risk, [facility] Provider/High Attending Clinician UnavailLISSETTE Blair Attending Clinician Unavailable Eleonora CNP, Lissette Berkowitz Attending Clinician MATTEO MORRISSEY Attending Clinician Unavailable Ghanshyam GOMEZ, Matteo Chakraborty Attending Clinician [phone] Mika Woodruff MD Attending Clinician JAD VILLARREAL Attending Clinician Unavailable Lilly GOMEZ, Dinesh Wang Attending Clinician Jad Villarreal MD Attending Clinician Jerman GOMEZ, Lena Milligan Attending Clinician Brian Bailey MD Attending Clinician SHERINE SCHAEFFER Attending Clinician Unavailable Sherine Gu S Attending Clinician Ibarianeuncristhian BRAKE LINER, aMrine F Attending Clinician MARINE LAMBERT F Attending Clinician Unavailable CHOCO MANTILLA Attending Clinician Unavailable Therapy, Pcp Covid Infusion Attending Clinician Unavailable Choco Mantilla MD Attending Clinician Sylvia Morgan Attending Clinician SYLVIA ROY Attending Clinician Unavailable Dona RN, Mari T Attending Clinician Unavailable KARL MAHONEY Attending Clinician Unavailable Provider, [facility] Attending Clinician Unavailable Karl Omer Attending Clinician Dillon Stoll DO Attending Clinician Xochitl Gamble Attending Clinician XOCHITL ESPOSITO Attending Clinician Unavailable [facility], [facility]ending Clinician Unavailable Doris Varela MD Attending Clinician Lab, [facility] Attending Clinician Unavailable Akinsipe CLEMP, Debbie Wang Attending Clinician [phone] Ultrasound, Ang[facility] Attending Clinician Unavailable Erick GOMEZ, Vicky Bazan Attending Clinician Deyvi AMATO, Padmaja Attending Clinician Unavailable TARA JARQUIN Attending Clinician Unavailable Bienvenido GOMEZ, Tara Roberts Attending Clinician QUE CASTRO Attending Clinician Unavailable JAD VILLARREAL Admitting Clinician Unavailable PIPPA PORRAS Admitting Clinician Unavailable TARA JARQUIN Admitting Clinician Unavailable ANGELI EVANS Admitting Clinician Unavailable Angeli Evans MD Admitting Clinician [phone] MANUEL GREEN Admitting Clinician Unavailable Manuel Green MD Admitting Clinician Pippa Porras MD Admitting Clinician Jad Villarreal MD Admitting Clinician SHERINE SCHAEFFER Admitting Clinician Unavailable Nichole GOMEZ, Doris Admitting Clinician Tara Jarquin MD Admitting Clinician Payers Payer Name Policy Type Policy Number Effective Date Expiration Date S inés [employer] [id number] 2022 HEALTH PLAN MOM 00:00:00 CHIP LOW FPL [facility] [id number] 2022 2022 EMERGENCY MEDICAID 00:00:00 00:00:00 TITLE V 0-100% [id number] 2022 2022 00:00:00 00:00:00 BCBS [facility] [id number] 2021 2021 00:00:00 00:00:00 [facility] [id number] 2016 [facility] 00:00:00 Problems Condition Condition Condition Status Onset Resolution Last Treating Co mments Source Name Details Category Date Date Treatment Clinician Date Abnormal Abnormal Disease Active Unive rs maternal maternal 4-26 ity of glucose glucose 00:00: [place] tolerance, tolerance, 00 Me dical antepartum antepartum Br anch Anxiety Anxiety Disease Active Univers and and 4-18 [place] 00[place] 00 [facility] [place] History of History of Disease Active U nivers cholestasi cholestasi 4-18 it y of s during s during 00:00: [place] 00 [facility] Family Family Disease Active Univers planning planning 1-10 [place] of counseling [place] [facility] 37 weeks 37 weeks Disease Active 2021-11 Unive rs gestation gestation 1-29 ity of of of 00:00: [place] 00 [facility] Cholestasi Cholestasi Disease Active 2021-11 U nivers s of s of 1-29 [place] in third in third 00 Medica l trimester trimester Bran ch Obesity Obesity Disease Active 2021-11 Univers (BMI (BMI 1-29 ity of 30-39.9) 30-39.9) 00:00: [place] [facility] Previous Previous Disease Active 2021-11 Unive rs 1-29 ity of section section 00:00: [address] Branch Influenza Influenza Disease Active 2021-11 Uni vers A A 1-19 ity of 00:00: [address] Depression Depression Disease Active 2021-11 U nivers complicati complicati 1-08 it y of ng ng 00:00: [place] , , 00 Me dical antepartum antepartum Br anch , third , third trimester trimester Vaginal Vaginal Disease Active Univers bleeding bleeding 8-26 ity of in in 00:00: [place] , , 00 Me dical second second Branch trimester trimester History of History of Disease Active U nivers herpes herpes 6-21 ity of genital[place] genitalis [place] [facility] ASCUS with ASCUS with Disease Active Overview : Univers positive positive 5-27 Formattin ity of high risk high risk 00:00: g of this [place] HPV HPV 00 note Medical cervical cervical might be Bran ch different from the original. No LINDA noted on colposcop y bx. Needs repeat co-testin g in 12 months (02/2023) . Modified Modified Disease Active Unive rs White White 5-02 ity of class B class B 00:00: [place] pregestati pregestati 00 Me dical onal onal Branch diabetes diabetes mellitus mellitus Supervisio Supervisio Disease Active U nivers n of high n of high 4-29 ity of risk risk 00:00: [place] 00 Medi barbara in third in third Branch trimester trimester Multiparit Multiparit Disease Active U nivers y y 4-29 ity of 00:00: [place] [facility] Previous Previous Disease Active Unive rs 4-29 ity of delivery delivery 00:00: [place] affecting affecting 00 Medi barbara , , Br anch antepartum antepartum Obesity Obesity Disease Active Univers affecting affecting 4-29 ity of , , [place] antepartum antepartum 00 Me dical Branch Herpes Herpes Disease Active Univers virus virus 4-29 it[place] of infection [place] 00:00[place] in mother in mother 00 Medi barbara during during Branch , , antepartum antepartum COVID-19 COVID-19 Disease Active Unive rs virus virus 8-08 ity of detected detected 00:00: [address] Allergies, Adverse Reactions, Alerts Allergy Allergy Status Severity Reaction(s) Onset Inactive Treating Comm ents Source Name Type Date Date Clinician NO KNOWN Drug Active Univers ALLERGIE Class ity of S [facility] Social History Social Habit Start Date Stop Date Quantity Comments Source ASSERTION 2023-01-28 [facility] 00:00:00 [facility] Exposure to 2023-03-09 2023-03-19 Not sure [facility] SARS-CoV-2 00:00:00 11:19:00 [facility] (event) [place] Alcohol intake 2023-03-19 2023-03-19 .43 /d [facility] 00:00:00 00:00:00 [facility] Tobacco use and 2022-08-31 2022-08-31 Smokeless tobacco Un iversity of exposure 00:00:00 00:00:00 non-user [facility] Sex [birth year] Universit y of 00:00:00 00:00:00 [facility] Smoking Status Start Date Stop Date Source Never smoked tobacco [facility] Medications Ordered Filled Start Stop Current Ordering Indication Dosage Frequency Signature Comments Components Source Medication Medication Date Date Medication? Clinician (SIG) Name Name rahul Yes [id number] 4{each} 4 Each 4 U nivers glucose 5-16 (four) ity of sensor 00:00: times [place] (FREESTYLE 00 daily. Medical PROSPER 14 Branch DAY SENSOR) Kit flash Yes [id number] 4{each} 4 Each 4 U nivers glucose 5-16 (four) ity of sensor 00:00: times [place] (FREESTYLE 00 daily. Medical PROSPER 14 Branch DAY SENSOR) Kit metFORMIN 2023- Yes [id number] 500mg Take 1 Univers 500 mg 5-16 05-16 tablet by ity of tablet 00:00: 04:59 mouth in [place] 00 :00 the Medical morning Branch and 1 tablet in the evening. Take with meals. metFORMIN 2023- Yes [id number] 500mg Take 1 Univers 500 mg 5-16 05-16 tablet by ity of tablet 00:00: 04:59 mouth in [place] 00 :00 the Medical morning Branch and 1 tablet in the evening. Take with meals. Prenat Vit Yes [id number] 1{each} Take 1 Univers Comb.10-Iro 5-10 Each by ity o f n-FA-DHA 00:00: mouth in [place] (VITAFOL-OB 00 the Medical +DHA) morning. Branch 65-1-250 mg combo pack Prenat Vit 0 Yes [id number] 1{each} Take 1 Univers Comb.10-Iro 5-10 Each by ity o f n-FA-DHA 00:00: mouth in [place] (VITAFOL-OB 00 the Medical +DHA) morning. Branch 65-1-250 mg combo pack Prenat Vit Yes [id number] 1{each} Take 1 Univers Comb.10-Iro 5-10 Each by ity o f n-FA-DHA 00:00: mouth in [place] (VITAFOL-OB 00 the Medical +DHA) morning. Branch 65-1-250 mg combo pack lancets Yes Check Univers (FREESTYLE 5-05 blood ity of LANCETS) 28 00:00: sugar via [place] gauge Misc 00 fingerstic Med ical k 4 times Branch daily blood sugar Yes Check Unive rs diagnostic 5-05 blood ity of (FREESTYLE 00:00: sugars via [place] LITE 00 fingerstic Medical STRIPS) k 4 times Branch strip daily. Blood-Gluco Yes Check Unive rs se Meter 5-05 blood ity of (FREESTYLE 00:00: sugar via [place] LITE METER) 00 fingerstic Me dical Kit k 4 times Branch daily. lancets Yes Check Univers (FREESTYLE 5-05 blood ity of LANCETS) 28 00:00: sugar via [place] gauge Misc 00 fingerstic Med ical k 4 times Branch daily blood sugar Yes Check Unive rs diagnostic 5-05 blood ity of (FREESTYLE 00:00: sugars via [place] LITE 00 fingerstic Medical STRIPS) k 4 times Branch strip daily. Blood-Gluco Yes Check Unive rs se Meter 5-05 blood ity of (FREESTYLE 00:00: sugar via [place] LITE METER) 00 fingerstic Me dical Kit k 4 times Branch daily. lancets Yes Check Univers (FREESTYLE 5-05 blood ity of LANCETS) 28 00:00: sugar via [place] gauge Misc 00 fingerstic Med ical k 4 times Branch daily blood sugar Yes Check Unive rs diagnostic 5-05 blood ity of (FREESTYLE 00:00: sugars via [place] LITE 00 fingerstic Medical STRIPS) k 4 times Branch strip daily. Blood-Gluco Yes Check Unive rs se Meter 5-05 blood ity of (FREESTYLE 00:00: sugar via [place] LITE METER) 00 fingerstic Me dical Kit k 4 times Branch daily. lancets Yes Check Univers (FREESTYLE 5-05 blood ity of LANCETS) 28 00:00: sugar via [place] gauge Misc 00 fingerstic Med ical k 4 times Branch daily blood sugar Yes Check Unive rs diagnostic 5-05 blood ity of (FREESTYLE 00:00: sugars via [place] LITE 00 fingerstic Medical STRIPS) k 4 times Branch strip daily. Blood-Gluco Yes Check Unive rs se Meter 5-05 blood ity of (FREESTYLE 00:00: sugar via [place] LITE METER) 00 fingerstic Me dical Kit k 4 times Branch daily. lancets Yes Check Univers (FREESTYLE 5-05 blood ity of LANCETS) 28 00:00: sugar via [place] gauge Misc 00 fingerstic Med ical k 4 times Branch daily blood sugar Yes Check Unive rs diagnostic 5-05 blood ity of (FREESTYLE 00:00: sugars via [place] LITE 00 fingerstic Medical STRIPS) k 4 times Branch strip daily. Blood-Gluco Yes Check Unive rs se Meter 5-05 blood ity of (FREESTYLE 00:00: sugar via [place] LITE METER) 00 fingerstic Me dical Kit k 4 times Branch daily. silver 2021-11- No [id number] 1{appli Un capri nitrate 2- 12-20 cator} ity of applicator 22:00: 21:03 [place] 1 00 :00 Medical Applicator Branch silver 2021-11- No [id number] 1{appli 1 Un capri nitrate 2-20 12-20 cator} Applicator ity of applicator 22:00: 21:03 , Topical, [place] 1 00 :00 ONCE, 1 Medical Applicator dose, On Sat10/23/22 at 1600, Routine metFORMIN 2021-11 Yes 500mg 500 mg, Univ ers (GLUCOPHAGE 2- Oral, QHS, it y of ) tablet 03:00: First dose [place] as 500 mg 00 on Sat10/03/22 Branch at 2100, Until Discontinu ed, Routine metFORMIN 2021-11- No 500mg 500 mg, Uni vers (GLUCOPHAGE 2-11 15- Oral, QHS, i ty of ) tablet 03:00: 01:40 First dose [place] 500 mg 00 :54 on Sat10/03/22 Branch at 2100, Until Discontinu ed, Routine hydrOXYzine 2021-11 Yes 10mg 10 mg, Univ ers (ATARAX) 12-03 Oral, ity of tablet 10 16:49: Q6HPRN, [place] mg 49 Starting Medical on Sat10/03/22 at 1049, Until Discontinu ed, Routine, Itching hydrOXYzine 2021-11- No 10mg 10 mg, Uni vers (ATARAX) 12-03 12- Oral, ity of tablet 10 16:49: 01:40 Q6HPRN, [place] mg 49 :54 Starting Medical on Sat Branch 10/03/22 at 1049, Until Sat10/03/22 at 1940, Routine, Itching polyethylen 2021-11 Yes 17g 17 g, Unive rs e glycol 1-30 Oral, ity of 3350 powder 15:00: DAILY, [place] 17 g 00 First dose Medical on Sat Branch 10/03/22 at 0900, Until Discontinu ed, Routine polyethylen 2021-11 17g 17 g, Univ ers e glycol 1-30 10-04 Oral, ity of 3350 powder 15:00: 01:40 DAILY, [place] 17 g 00 :54 First dose Medical on Sat Branch 10/03/22 at 0900, Until Discontinu ed, Routine 2021-11 Yes [id number] 1{tbl} Take 1 Univers vitamin 1-30 tablet by ity of w/FA tablet 00:00: mouth in [place] 00 the Medical morning. Branch docusate 2021-11 Yes [id number] 200mg Take 2 U nivers 100 mg 1-30 capsules ity of capsule 00:00: by mouth [place] 00 once daily Medical as needed Branch for Constipati on. ferrous 2021-11 Yes [id number] 325mg Take 1 Un capri sulfate 325 1-30 tablet by ity of mg (65 mg 00:00: [place] iron) 00 the Medical tablet morning Branch and 1 tablet in the evening. ibuprofen 2021-11 Yes [id number] 600mg Take 1 Univers 600 mg 1-30 tablet by ity of tablet 00:00: mouth [place] 00 every 6 Medical (six) Branch hours as needed (Pain). Take with food or milk. HYDROcodone 2021-11 Yes [id number] 1{tbl} Take 1 Un capri -acetaminop 1-30 tablet by ity of hen 5-325 00:00: mouth [place] mg tablet 00 every 6 Medical (six) Branch hours as needed for Pain (scale 7-10) (Pain scale above 4). Do not exceed 3 grams of acetaminop hen in 24 hours. Indication s: acute pain 2021-11 Yes [id number] 1{tbl} Take 1 Univers vitamin 1-30 tablet by ity of w/FA tablet 00:00: mouth in [place] 00 the Medical morning. Branch docusate 2021-11 Yes [id number] 200mg Take 2 U nivers 100 mg 1-30 capsules ity of capsule 00:00: by mouth [place] 00 once daily Medical as needed Branch for Constipati on. ferrous 2021-11 Yes [id number] 325mg Take 1 Un capri sulfate 325 1-30 tablet by ity of mg (65 mg 00:00: mouth [place] iron) 00 the Medical tablet morning Branch and 1 tablet in the evening. ibuprofen 2021-11 Yes [id number] 600mg Take 1 Univers 600 mg 1-30 tablet by ity of tablet 00:00: mouth [place] 00 every 6 Medical (six) Branch hours as needed (Pain). Take with food or milk. HYDROcodone 2021-11 Yes [id number] 1{tbl} Take 1 Un capri -acetaminop 1-30 tablet by ity of hen 5-325 00:00: mouth [place] mg tablet 00 every 6 Medical (six) Branch hours as needed for Pain (scale 7-10) (Pain scale above 4). Do not exceed 3 grams of acetaminop hen in 24 hours. Indication s: acute pain hydrOXYzine 2021-11 Yes [id number] 10mg Take 1 Univers 10 mg 1-30 tablet by ity of tablet 00:00: mouth [place] 00 every 6 Medical (six) Branch hours as needed for Itching. ibuprofen 2021-11 Yes 600mg 600 mg, Univ ers (IBU) 1-30 Oral, Q6H, ity of tablet 600 00:00: First dose [place] mg 00 on [facility] 10/02/22 Branch at 1800, Until Discontinu ed, Routine 2021-11 Yes [id number] 1{tbl} Take 1 Univers vitamin 1-30 tablet by ity of w/FA tablet 00:00: mouth in [place] 00 the Medical morning. Branch docusate 2021-11 Yes [id number] 200mg Take 2 U nivers 100 mg 1-30 capsules ity of capsule 00:00: by mouth [place] 00 once daily Medical as needed Branch for Constipati on. ferrous 2021-11 Yes [id number] 325mg Take 1 Un capri sulfate 325 1-30 tablet by ity of mg (65 mg 00:00: mouth [place] iron) 00 the Medical tablet morning Branch and 1 tablet in the evening. ibuprofen 2021-11 Yes [id number] 600mg Take 1 Univers 600 mg 1-30 tablet by ity of tablet 00:00: mouth [place] 00 every 6 Medical (six) Branch hours as needed (Pain). Take with food or milk. HYDROcodone 2021-11 Yes [id number] 1{tbl} Take 1 Un capri -acetaminop 1-30 tablet by ity of hen 5-325 00:00: mouth [place] mg tablet 00 every 6 Medical (six) Branch hours as needed for Pain (scale 7-10) (Pain scale above 4). Do not exceed 3 grams of acetaminop hen in 24 hours. Indication s: acute pain hydrOXYzine 2021-11 Yes [id number] 10mg Take 1 Univers 10 mg 1-30 tablet by ity of tablet 00:00: mouth [place] 00 every 6 Medical (six) Branch hours as needed for Itching. 2021-11 Yes [id number] 1{tbl} Take 1 Univers vitamin 1-30 tablet by ity of w/FA tablet 00:00: mouth in [place] 00 the Medical morning. Branch docusate 2021-11 Yes [id number] 200mg Take 2 U nivers 100 mg 1-30 capsules ity of capsule 00:00: by mouth [place] 00 once daily Medical as needed Branch for Constipati on. ferrous 2021-11 Yes [id number] 325mg Take 1 Un capri sulfate 325 1-30 tablet by ity of mg (65 mg 00:00: mouth [place] iron) 00 the Medical tablet morning Branch and 1 tablet in the evening. ibuprofen 2021-11 Yes [id number] 600mg Take 1 Univers 600 mg 1-30 tablet by ity of tablet 00:00: mouth [place] 00 every 6 Medical (six) Branch hours as needed (Pain). Take with food or milk. HYDROcodone 2021-11 Yes [id number] 1{tbl} Take 1 Un capri -acetaminop 1-30 tablet by ity of hen 5-325 00:00: mouth [place] mg tablet 00 every 6 Medical (six) Branch hours as needed for Pain (scale 7-10) (Pain scale above 4). Do not exceed 3 grams of acetaminop hen in 24 hours. Indication s: acute pain hydrOXYzine 2021-11 Yes [id number] 10mg Take 1 Univers 10 mg 1-30 tablet by ity of tablet 00:00: mouth [place] 00 every 6 Medical (six) Branch hours as needed for Itching. 2021-11 Yes [id number] 1{tbl} Take 1 Univers vitamin 1-30 tablet by ity of w/FA tablet 00:00: mouth in [place] 00 the Medical morning. Branch docusate 2021-11 Yes [id number] 200mg Take 2 U nivers 100 mg 1-30 capsules ity of capsule 00:00: by mouth [place] 00 once daily Medical as needed Branch for Constipati on. ferrous 2021-11 Yes [id number] 325mg Take 1 Un capri sulfate 325 1-30 tablet by ity of mg (65 mg 00:00: mouth [place] iron) 00 the Medical tablet morning Branch and 1 tablet in the evening. ibuprofen 2021-11 Yes [id number] 600mg Take 1 Univers 600 mg 1-30 tablet by ity of tablet 00:00: mouth [place] 00 every 6 Medical (six) Branch hours as needed (Pain). Take with food or milk. HYDROcodone 2021-11 Yes [id number] 1{tbl} Take 1 Un capri -acetaminop 1-30 tablet by ity of hen 5-325 00:00: mouth [place] mg tablet 00 every 6 Medical (six) Branch hours as needed for Pain (scale 7-10) (Pain scale above 4). Do not exceed 3 grams of acetaminop hen in 24 hours. Indication s: acute pain hydrOXYzine 2021-11 Yes [id number] 10mg Take 1 Univers 10 mg 1-30 tablet by ity of tablet 00:00: mouth [place] 00 every 6 Medical (six) Branch hours as needed for Itching. 2021-11 Yes [id number] 1{tbl} Take 1 Univers vitamin 1-30 tablet by ity of w/FA tablet 00:00: mouth in [place] 00 the Medical morning. Branch docusate 2021-11 Yes [id number] 200mg Take 2 U nivers 100 mg 1-30 capsules ity of capsule 00:00: by mouth [place] 00 once daily Medical as needed Branch for Constipati on. ferrous 2021-11 Yes [id number] 325mg Take 1 Un capri sulfate 325 1-30 tablet by ity of mg (65 mg 00:00: mouth [place] iron) 00 the Medical tablet morning Branch and 1 tablet in the evening. ibuprofen 2021-11 Yes [id number] 600mg Take 1 Univers 600 mg 1-30 tablet by ity of tablet 00:00: mouth [place] 00 every 6 Medical (six) Branch hours as needed (Pain). Take with food or milk. HYDROcodone 2021-11 Yes [id number] 1{tbl} Take 1 Un capri -acetaminop 1-30 tablet by ity of hen 5-325 00:00: mouth [place] mg tablet 00 every 6 Medical (six) Branch hours as needed for Pain (scale 7-10) (Pain scale above 4). Do not exceed 3 grams of acetaminop hen in 24 hours. Indication s: acute pain hydrOXYzine 2021-11 Yes [id number] 10mg Take 1 Univers 10 mg 1-30 tablet by ity of tablet 00:00: mouth [place] 00 every 6 Medical (six) Branch hours as needed for Itching. 2021-11 Yes [id number] 1{tbl} Take 1 Univers vitamin 1-30 tablet by ity of w/FA tablet 00:00: mouth in [place] 00 the Medical morning. Branch docusate 2021-11 Yes [id number] 200mg Take 2 U nivers 100 mg 1-30 capsules ity of capsule 00:00: by mouth [place] 00 once daily Medical as needed Branch for Constipati on. ferrous 2021-11 Yes [id number] 325mg Take 1 Un capri sulfate 325 1-30 tablet by ity of mg (65 mg 00:00: mouth [place] iron) 00 the Medical tablet morning Branch and 1 tablet in the evening. ibuprofen 2021-11 Yes [id number] 600mg Take 1 Univers 600 mg 1-30 tablet by ity of tablet 00:00: mouth [place] 00 every 6 Medical (six) Branch hours as needed (Pain). Take with food or milk. HYDROcodone 2021-11 Yes [id number] 1{tbl} Take 1 Un capri -acetaminop 1-30 tablet by ity of hen 5-325 00:00: mouth [place] mg tablet 00 every 6 Medical (six) Branch hours as needed for Pain (scale 7-10) (Pain scale above 4). Do not exceed 3 grams of acetaminop hen in 24 hours. Indication s: acute pain hydrOXYzine 2021-11 Yes [id number] 10mg Take 1 Univers 10 mg 1-30 tablet by ity of tablet 00:00: mouth [place] 00 every 6 Medical (six) Branch hours as needed for Itching. 2021-11 Yes [id number] 1{tbl} Take 1 Univers vitamin 1-30 tablet by ity of w/FA tablet 00:00: mouth in [place] 00 the Medical morning. Branch docusate 2021-11 Yes [id number] 200mg Take 2 U nivers 100 mg 1-30 capsules ity of capsule 00:00: by mouth [place] 00 once daily Medical as needed Branch for Constipati on. ferrous 2021-11 Yes [id number] 325mg Take 1 Un capri sulfate 325 1-30 tablet by ity of mg (65 mg 00:00: mouth [place] iron) 00 the Medical tablet morning Branch and 1 tablet in the evening. ibuprofen 2021-11 Yes [id number] 600mg Take 1 Univers 600 mg 1-30 tablet by ity of tablet 00:00: mouth [place] 00 every 6 Medical (six) Branch hours as needed (Pain). Take with food or milk. HYDROcodone 2021-11 Yes [id number] 1{tbl} Take 1 Un capri -acetaminop 1-30 tablet by ity of hen 5-325 00:00: mouth [place] mg tablet 00 every 6 Medical (six) Branch hours as needed for Pain (scale 7-10) (Pain scale above 4). Do not exceed 3 grams of acetaminop hen in 24 hours. Indication s: acute pain hydrOXYzine 2021-11 Yes [id number] 10mg Take 1 Univers 10 mg 1-30 tablet by ity of tablet 00:00: mouth [place] 00 every 6 Medical (six) Branch hours as needed for Itching. 2021-11 Yes [id number] 1{tbl} Take 1 Univers vitamin 1-30 tablet by ity of w/FA tablet 00:00: mouth in [place] 00 the Medical morning. Branch docusate 2021-11 Yes [id number] 200mg Take 2 U nivers 100 mg 1-30 capsules ity of capsule 00:00: by mouth [place] 00 once daily Medical as needed Branch for Constipati on. ferrous 2021-11 Yes [id number] 325mg Take 1 Un capri sulfate 325 1-30 tablet by ity of mg (65 mg 00:00: mouth [place] iron) 00 the Medical tablet morning Branch and 1 tablet in the evening. ibuprofen 2021-11 Yes [id number] 600mg Take 1 Univers 600 mg 1-30 tablet by ity of tablet 00:00: mouth [place] 00 every 6 Medical (six) Branch hours as needed (Pain). Take with food or milk. HYDROcodone 2021-11 Yes [id number] 1{tbl} Take 1 Un capri -acetaminop 1-30 tablet by ity of hen 5-325 00:00: mouth [place] mg tablet 00 every 6 Medical (six) Branch hours as needed for Pain (scale 7-10) (Pain scale above 4). Do not exceed 3 grams of acetaminop hen in 24 hours. Indication s: acute pain hydrOXYzine 2021-11 Yes [id number] 10mg Take 1 Univers 10 mg 1-30 tablet by ity of tablet 00:00: mouth [place] 00 every 6 Medical (six) Branch hours as needed for Itching. 2021-11 Yes [id number] 1{tbl} Take 1 [facility] vitamin 1-30 tablet by ity of w/FA tablet 00:00: mouth in [place] 00 the Medical morning. Branch docusate 2021-11 Yes [id number] 200mg Take 2 U nivers 100 mg 1-30 capsules ity of capsule 00:00: by mouth [place] 00 once daily Medical as needed Branch for Constipati on. ferrous 2021-11 Yes [id number] 325mg Take 1 Un capri sulfate 325 1-30 tablet by ity of mg (65 mg 00:00: [place] iron[place] 00 the Medical tablet morning Branch and 1 tablet in the evening. ibuprofen 2021-11 Yes [id number] 600mg Take 1 [facility] 600 mg 1-30 tablet by ity of tablet 00:00: mouth [place] 00 every 6 Medical (six) Branch hours as needed (Pain). Take with food or milk. HYDROcodone 2021-11 Yes [id number] 1{tbl} Take 1 Un capri -acetaminop 1-30 tablet by ity of hen 5-325 00:00: mouth [place] mg tablet 00 every 6 Medical (six) Branch hours as needed for Pain (scale 7-10) (Pain scale above 4). Do not exceed 3 grams of acetaminop hen in 24 hours. Indication s: acute pain hydrOXYzine 2021-11 Yes [id number] 10mg Take 1 [facility] 10 mg 1-30 tablet by ity of tablet 00:00: mouth [place] 00 every 6 Medical (six) Branch hours as needed for Itching. 2021-11 Yes [id number] 1{tbl} Take 1 [facility] vitamin 1-30 tablet by ity of w/FA tablet 00:00: mouth in [place] 00 the Medical morning. Branch docusate 2021-11 Yes [id number] 200mg Take 2 U nivers 100 mg 1-30 capsules ity of capsule 00:00: by mouth [place] 00 once daily Medical as needed Branch for Constipati on. ferrous 2021-11 Yes [id number] 325mg Take 1 Un capri sulfate 325 1-30 tablet by ity of mg (65 mg 00:00: [place] iron[place] 00 the Medical tablet morning Branch and 1 tablet in the evening. ibuprofen 2021-11 Yes [id number] 600mg Take 1 [facility] 600 mg 1-30 tablet by ity of tablet 00:00: mouth [place] 00 every 6 Medical (six) Branch hours as needed (Pain). Take with food or milk. HYDROcodone 2021-11 Yes [id number] 1{tbl} Take 1 Un capri -acetaminop 1-30 tablet by ity of hen 5-325 00:00: mouth [place] mg tablet 00 every 6 Medical (six) Branch hours as needed for Pain (scale 7-10) (Pain scale above 4). Do not exceed 3 grams of acetaminop hen in 24 hours. Indication s: acute pain hydrOXYzine 2021-11 Yes [id number] 10mg Take 1 [facility] 10 mg 1-30 tablet by ity of tablet 00:00: mouth [place] 00 every 6 Medical (six) Branch hours as needed for Itching. 2021-11 Yes [id number] 1{tbl} Take 1 [facility] vitamin 1-30 tablet by ity of w/FA tablet 00:00: mouth in [place] 00 the Medical morning. Branch docusate 2021-11 Yes [id number] 200mg Take 2 U nivers 100 mg 1-30 capsules ity of capsule 00:00: by mouth [place] 00 once daily Medical as needed Branch for Constipati on. ferrous 2021-11 Yes [id number] 325mg Take 1 Un capri sulfate 325 1-30 tablet by ity of mg (65 mg 00:00: [place] iron[place] 00 the Medical tablet morning Branch and 1 tablet in the evening. ibuprofen 2021-11 Yes [id number] 600mg Take 1 [facility] 600 mg 1-30 tablet by ity of tablet 00:00: mouth [place] 00 every 6 Medical (six) Branch hours as needed (Pain). Take with food or milk. HYDROcodone 2021-11 Yes [id number] 1{tbl} Take 1 Un capri -acetaminop 1-30 tablet by ity of hen 5-325 00:00: mouth [place] mg tablet 00 every 6 Medical (six) Branch hours as needed for Pain (scale 7-10) (Pain scale above 4). Do not exceed 3 grams of acetaminop hen in 24 hours. Indication s: acute pain hydrOXYzine 2021-11 Yes [id number] 10mg Take 1 [facility] 10 mg 1-30 tablet by ity of tablet 00:00: mouth [place] 00 every 6 Medical (six) Branch hours as needed for Itching. 2021-11 Yes [id number] 1{tbl} Take 1 [facility] vitamin 1-30 tablet by ity of w/FA tablet 00:00: mouth in [place] 00 the Medical morning. Branch docusate 2021-11 Yes [id number] 200mg Take 2 U nivers 100 mg 1-30 capsules ity of capsule 00:00: by mouth [place] 00 once daily Medical as needed Branch for Constipati on. ferrous 2021-11 Yes [id number] 325mg Take 1 Un capri sulfate 325 1-30 tablet by ity of mg (65 mg 00:00: [place] iron) 00 the Medical tablet morning Branch and 1 tablet in the evening. ibuprofen 2021-11 Yes [id number] 600mg Take 1 [facility] 600 mg 1-30 tablet by ity of tablet 00:00: mouth [place] 00 every 6 Medical (six) Branch hours as needed (Pain). Take with food or milk. HYDROcodone 2021-11 Yes [id number] 1{tbl} Take 1 Un capri -acetaminop 1-30 tablet by ity of hen 5-325 00:00: mouth [place] mg tablet 00 every 6 Medical (six) Branch hours as needed for Pain (scale 7-10) (Pain scale above 4). Do not exceed 3 grams of acetaminop hen in 24 hours. Indication s: acute pain hydrOXYzine 2021-11 Yes [id number] 10mg Take 1 [facility] 10 mg 1-30 tablet by ity of tablet 00:00: mouth [place] 00 every 6 Medical (six) Branch hours as needed for Itching. 2021-11 Yes [id number] 1{tbl} Take 1 [facility] vitamin 1-30 tablet by ity of w/FA tablet 00:00: mouth in [place] 00 the Medical morning. Branch docusate 2021-11 Yes [id number] 200mg Take 2 U nivers 100 mg 1-30 capsules ity of capsule 00:00: by mouth [place] 00 once daily Medical as needed Branch for Constipati on. ferrous 2021-11 Yes [id number] 325mg Take 1 Un capri sulfate 325 1-30 tablet by ity of mg (65 mg 00:00: [place] iron[place] 00 the Medical tablet morning Branch and 1 tablet in the evening. ibuprofen 2021-11 Yes [id number] 600mg Take 1 [facility] 600 mg 1-30 tablet by ity of tablet 00:00: mouth [place] 00 every 6 Medical (six) Branch hours as needed (Pain). Take with food or milk. HYDROcodone 2021-11 Yes [id number] 1{tbl} Take 1 Un capri -acetaminop 1-30 tablet by ity of hen 5-325 00:00: mouth [place] mg tablet 00 every 6 Medical (six) Branch hours as needed for Pain (scale 7-10) (Pain scale above 4). Do not exceed 3 grams of acetaminop hen in 24 hours. Indication s: acute pain hydrOXYzine 2021-11 Yes [id number] 10mg Take 1 [facility] 10 mg 1-30 tablet by ity of tablet 00:00: mouth [place] 00 every 6 Medical (six) Branch hours as needed for Itching. 2021-11 Yes [id number] 1{tbl} Take 1 [facility] vitamin 1-30 tablet by ity of w/FA tablet 00:00: mouth in [place] 00 the Medical morning. Branch docusate 2021-11 Yes [id number] 200mg Take 2 U nivers 100 mg 1-30 capsules ity of capsule 00:00: by mouth [place] 00 once daily Medical as needed Branch for Constipati on. ferrous 2021-11 Yes [id number] 325mg Take 1 Un capri sulfate 325 1-30 tablet by ity of mg (65 mg 00:00: [place] iron) 00 the Medical tablet morning Branch and 1 tablet in the evening. ibuprofen 2021-11 Yes [id number] 600mg Take 1 [facility] 600 mg 1-30 tablet by ity of tablet 00:00: mouth [place] 00 every 6 Medical (six) Branch hours as needed (Pain). Take with food or milk. HYDROcodone 2021-11 Yes [id number] 1{tbl} Take 1 Un capri -acetaminop 1-30 tablet by ity of hen 5-325 00:00: mouth [place] mg tablet 00 every 6 Medical (six) Branch hours as needed for Pain (scale 7-10) (Pain scale above 4). Do not exceed 3 grams of acetaminop hen in 24 hours. Indication s: acute pain hydrOXYzine 2021-11 Yes [id number] 10mg Take 1 [facility] 10 mg 1-30 tablet by ity of tablet 00:00: mouth [place] 00 every 6 Medical (six) Branch hours as needed for Itching. 2021-11- No [id number] 1{tbl} Take 1 [facility] vitamin 1-30 02-16 tablet by ity of w/FA tablet 00:00: 00:00 mouth in [place] 00 :00 the Medical morning. Branch docusate 2021-11- No [id number] 200mg Take 2 [facility] 100 mg 1-30 02-16 capsules ity of capsule 00:00: 00:00 by mouth [place] 00 :00 once daily Medical as needed Branch for Constipati on. ferrous 2021-11- No [id number] 325mg Take 1 U nivers sulfate 325 1-30 02-16 tablet by it y of mg (65 mg 00:00: 00:00 mouth in [place] iron) 00 :00 the Medical tablet morning Branch and 1 tablet in the evening. ibuprofen 2021-11- No [id number] 600mg Take 1 [facility] 600 mg 1-30 02-16 tablet by ity of tablet 00:00: 00:00 mouth [place] 00 :00 every 6 Medical (six) Branch hours as needed (Pain). Take with food or milk. HYDROcodone 2021-11 No [id number] 1{tbl} Take 1 U nivers -acetaminop 12-03 tablet by it y of hen 5-325 00:00: 00:00 mouth [place] mg tablet 00 :00 every 6 Medical (six) Branch hours as needed for Pain (scale 7-10) (Pain scale above 4). Do not exceed 3 grams of acetaminop hen in 24 hours. Indication s: acute pain hydrOXYzine 2021-11 No [id number] 10mg Take 1 [facility] 10 mg 12-03 tablet by ity of tablet 00:00: 00:00 mouth [place] 00 :00 every 6 Medical (six) Branch hours as needed for Itching. ibuprofen 2021-11 600mg 600 mg, Uni vers (IBU) 12-03 Oral, Q6H, ity of tablet 600 00:00: 01:40 First dose [place] mg 00 :54 on [facility] 10/02/22 Branch at 1800, Until Discontinu ed, Routine lactated 2021-11 No 1000mL at 125 Univ ers ringers IV 12-02 11-30 mL/hr, ity of infusion 23:45: 09:23 1,000 mL, [place] 1,000 mL 00 :00 IV Medical Infusion, Branch ONCE, 1 dose, On [facility] 10/02/22 at 1745, Routine rho(D) 2021-11 Yes 300ug 300 mcg, Univer s immune 12-02 Intramuscu ity of globulin 23:31: lar, ONCE, [place] (RHOGAM) 01 For 1 Medical syringe 300 dose, Branch mcg Conditiona l, Routine rho(D) 2021-11 No 300ug 300 mcg, Unive rs immune 12-02 12 Intramuscu ity of globulin 23:31: 01:40 [place], ONCE, [place] (RHOGAM) 01 :54 For 1 Medical syringe 300 dose, Branch mcg Conditiona l, Routine HYDROcodone 2021-11 Yes 2{tbl} 2 tablet, Univers -acetaminop 12-02 Oral, ity of hen (NORCO 23:30: Q6HPRN, [place] 5) 5-325 mg 56 Starting Medi [place] tablet 2 on [facility] tablet 10/02/22 at 1730, Until Discontinu ed, Routine, Pain (scale 7-10), Alternate with Ibuprofen HYDROcodone 2021-11 Yes 1{tbl} 1 tablet, Univers -acetaminop 12-02 Oral, ity of hen (NORCO 23:30: Q6HPRN, [place] 5) 5-325 mg 56 Starting Medi [place] tablet 1 on [facility] tablet 10/02/22 at 1730, Until Discontinu ed, Routine, Pain (scale 4-6), Alternate with Ibuprofen diphenhydrA 2021-11 Yes 25mg 25 mg, Univ ers MINE 12-02 Oral, ity of (BENADRYL) 23:30: Q6HPRN, [place] tablet 25 56 Starting Medica l mg on Branch 10/02/22 at 1730, Until Discontinu ed, Routine, Sleep, Itching ondansetron 2021-11 Yes 4mg 4 mg, Slow Univers (ZOFRAN 12-02 IV Push, ity of (PF)) 23:30: Q8HPRN, [place] injection 4 56 Starting Medi barbara mg on 10/02/22 at 1730, Until Discontinu ed, Routine, Nausea and Vomiting (N/V) bisacodyL 2021-11 Yes 10mg 10 mg, Univer s (DULCOLAX) 12-02 Rectal, ity of suppository 23:30: QDAILYPRN, [place] 10 mg 56 Starting Medical on [facility] Branch 10/02/22 at 1730, Until Discontinu ed, Routine, Constipati on simethicone 2021-11 Yes 160mg 160 mg, Un capri (GAS RELIEF 12-02 Oral, ity of (SIMETHICON 23:30: PC+HSPRN, [place] E)) 56 Starting Medical chewable on Sat tablet 160 10/02/22 mg at 1730, Until Discontinu ed, Routine, Gas magnesium 2021-11 Yes 30mL 30 mL, Univer s hydroxide 12-02 Oral, ity of (MILK OF 23:30: QDAILYPRN, [place] MAGNESIA) 56 Starting Medica l 400 mg/5 mL on Sat suspension 10/02/22 30 mL at 1730, Until Discontinu ed, Routine, Constipati on HYDROcodone 2021-11 No 2{tbl} 2 tablet, Univers -acetaminop 12-02 Oral, ity of hen (NORCO 23:30: 01:40 Q6HPRN, [place] 5) 5-325 mg 56 :54 Starting Medi barbara tablet 2 on e Branch tablet 10/02/22 at 1730, Until Sat10/03/22 at 1940, Routine, Pain (scale 7-10), Alternate with Ibuprofen HYDROcodone 2021-11 No 1{tbl} 1 tablet, Univers -acetaminop 12-02 Oral, ity of hen (NORCO 23:30: 01:40 Q6HPRN, [place] 5) 5-325 mg 56 :54 Starting Medi [place] tablet 1 on [facility] tablet 10/02/22 at 1730, Until Sat10/03/22 at 1940, Routine, Pain (scale 4-6), Alternate with Ibuprofen diphenhydrA 2021-11 No 25mg 25 mg, Uni vers MINE 12-02 Oral, ity of (BENADRYL) 23:30: 01:40 Q6HPRN, [place] tablet 25 56 :54 Starting Medica l mg on Sat Branch 10/02/22 at 1730, Until Sat10/03/22 at 1940, Routine, Sleep, Itching ondansetron 2021-11 No 4mg 4 mg, Slow Univers (ZOFRAN 12-02 IV Push, ity of (PF)) 23:30: 01:40 Q8HPRN, [place] injection 4 56 :54 Starting Medi barbara mg on e Branch 10/02/22 at 1730, Until Sat10/03/22 at 1940, Routine, Nausea and Vomiting (N/V) bisacodyL 2021-11 No 10mg 10 mg, Unive rs (DULCOLAX) 12-02 Rectal, ity o f suppository 23:30: 01:40 QDAILYPRN, [place] 10 mg 56 :54 Starting Medical on e Branch 10/02/22 at 1730, Until Sat10/03/22 at 1940, Routine, Constipati on simethicone 2021-11- No 160mg 160 mg, U nivers (GAS RELIEF 12-02 Oral, ity of (SIMETHICON 23:30: 01:40 PC+HSPRN, [place] E)) 56 :54 Starting Medical chewable on Sat tablet 160 10/02/22 mg at 1730, Until Sat10/03/22 at 1940, Routine, Gas magnesium 2021-11- No 30mL 30 mL, Univ rs hydroxide 12-02 Oral, ity of (MILK OF 23:30: 01:40 QDAILYPRN, [place] MAGNESIA) 56 :54 Starting Medica l 400 mg/5 mL on Sat Branch suspension 10/02/22 30 mL at 1730, Until Sat10/03/22 at 1940, Routine, Constipati on lactated 2021-11- No 1000mL at [address] [facility] ers ringers IV 12-02 11-30 mL/hr, ity of infusion 23:30: 02:25 1,000 mL, [place] 1,000 mL 56 :00 IV Medical Infusion, Branch PRN, 1 dose, Starting on Sat10/02/22 at 1730, Until Sat10/02/22 at 2024, Routine diphenhydrA 2021-11 Yes 25mg 25 mg, [facility] MINE 12-02 Slow IV ity of (BENADRYL) 22:13: Push, [place] injection 39 Q6HPRN, Medical 25 mg Starting Branch on Sat10/02/22 at 1613, Until Discontinu ed, Routine, Itching diphenhydrA 2021-11 No 25mg 25 mg, [facility] [place] [facility] MINE 12-02 Slow IV ity of (BENADRYL) 22:13: 01:40 Push, [place] injection 39 :54 Q6HPRN, Medical 25 mg Starting Branch on Sat10/02/22 at 1613, Until Sat10/03/22 at 1940, Routine, Itching lactated 2021-11- No 1000mL at [address] [facility] ers ringers IV 12-02 11-29 mL/hr, ity of infusion 20:15: 23:30 1,000 mL, [place] 1,000 mL 00 :59 IV Medical Infusion, Branch CONTINUOUS , Starting on Sat10/02/22 at 1415, Until Sat10/02/22 at 1730, TORSTEN HYDROcodone 2021-11 No 1{tbl} 1 tablet, Univers -acetaminop 12-02 Oral, ity of hen (NORCO) 20:03: 23:02 Q6HPRN, 1 [place] 10-325 mg 55 :00 dose, Medical tablet 1 Starting Branch tablet on Sat10/02/22 at 1403, Until Discontinu ed, Routine, Pain (scale 7-10) lactated 2021-11 No 1000mL at 125 Univ ers ringers IV 12-02 mL/hr, ity of infusion 15:00: 20:06 1,000 mL, [place] 1,000 mL 00 :23 IV Medical Infusion, Branch CONTINUOUS , Starting on Sat10/02/22 at 0900, Until Sat10/02/22 at 1406, Routine lactated 2021-11 No 500mL at 999 Unive rs ringers IV 12-02 mL/hr, 500 it y of infusion 15:00: 19:53 mL, IV [place] 500 mL 00 :00 Infusion, Medical ONCE, 1 Branch dose, On Sat10/02/22 at 0900, Routine acetaminoph 2021-11 No 650mg 650 mg, U nivers en 12-02 Oral, ity of (TYLENOL) 15:00: 15:40 ONCE, 1 [place] tablet 650 00 :00 dose, On Medic al mg Branch 10/02/22 at 0900, Routine ceFAZolin 2021-11 No 2000mg 2 g (2,000 Univers in 0.9% 12-02 mg), IV ity of sodium 14:50: 23:30 Piggyback, [place] chloride 18 :59 O.R. Medical (ANCEF) 2 HOLDING Branch gram/100 mL ONCE, RTU 2 g Starting on Sat10/02/22 at 0850, Until Sat10/02/22 at 1730, Administer over 30 Minutes, 100 mL
Reas on for Anti-Infec tive: Surgical Prophylaxi s
Surgi [place]bara Prophylaxi s: DIRECTOR MOTION PICTURE
Duration of therapy: within 24 hours of surgery sodium 2021-11- No 30mL 30 mL, Univers citrate-cit 12-02 Oral, ity of lashonda acid 14:50: 19:54 PRE-PROCED [place] (BICITRA) 18 :00 URE ONCE, Medic al [id number] 1 dose, Branch mg/5 mL Starting solution 30 on Tue mL 10/02/22 at 0850, Until [place] 10/04/22 at 2359, Routine, Surgery/Pr ocedure ursodioL 2021-11- No [id number] 300mg Take 1 Univers (ACTIGALL) 12-01 capsule by it y of 300 mg 00:00: 05:59 mouth in [place] capsule 00 :00 the [facility] morning Branch and 1 capsule in the evening. Do all this for 30 days. ursodioL 2021-11- No [id number] 300mg Take 1 Univers (ACTIGALL) 12-01 capsule by it y of 300 mg 00:00: 05:59 mouth in [place] capsule 00 :00 the [facility] morning Branch and 1 capsule in the evening. Do all this for 30 days. ursodioL 2021-11- No [id number] 300mg Take 1 Univers (ACTIGALL) 12-01 capsule by it y of 300 mg 00:00: 05:59 mouth in [place] capsule 00 :00 the [facility] morning Nye and 1 capsule in the evening. Do all this for 30 days. valACYclovi 2021-11- No [id number] 500mg Take 1 Univers r (VALTREX) 11-26 tablet by it y of 500 mg 00:00: 05:59 mouth in [place] tablet 00 :00 the [facility] morning Nye for 60 days. valACYclovi 2021-11- No [id number] 500mg Take 1 Univers r (VALTREX) 11-26 tablet by it y of 500 mg 00:00: 05:59 mouth in [place] tablet 00 :00 the [facility] morning Nye for 60 days. valACYclovi 2021-11- No [id number] 500mg Take 1 Univers r (VALTREX) 11-26 tablet by it y of 500 mg 00:00: 05:59 mouth in [place] tablet 00 :00 the [facility] for 60 days. valACYclovi 2021-11- No [id number] 500mg Take 1 Univers r (VALTREX) 11-26 tablet by it y of 500 mg 00:00: 05:59 mouth in [place] tablet 00 :00 the [facility] for 60 days. acetaminoph 2021-11 No 1000mg 1,000 mg, Univers en 11-22 Oral, ity of (TYLENOL) 21:45: 21:03 ONCE, 1 [place] tablet 00 :00 dose, On Medical 1,000 mg [facility] 09/22/22 at 1545, Routine metoclopram 2021-11 No 10mg 10 mg, Uni vers chris HCl 11-22 Oral, ity of (REGLAN) 21:30: 21:03 ONCE, 1 [place] tablet 10 00 :00 dose, On Medica l mg [facility] 09/22/22 at 1530, Routine lactated 2021-11 No 1000mL at 999 Univ ers ringers IV 11-22 mL/hr, ity of infusion 21:15: 20:55 1,000 mL, [place] 1,000 mL 00 :43 Intravenou Medic al s, ONCE, 1 Branch dose, On [facility] 09/22/22 at 1515, Routine metoclopram 2021-11 Yes [id number] 10mg Take 1 U nivers chris HCl 10 11-22 tablet by ity of mg tablet 00:00: [place] 00 [facility] and 1 tablet at noon and 1 tablet in the evening. Take before meals. metoclopram 2021-11 Yes [id number] 10mg Take 1 U nivers chris HCl 10 -19 tablet by ity of mg tablet 00:00: mouth [place] 00 [facility] and 1 tablet at noon and 1 tablet in the evening. Take before meals. metoclopram 2021-11 Yes [id number] 10mg Take 1 U nivers chris HCl 10 -19 tablet by ity of mg tablet 00:00: mouth [place] 00 [facility] and 1 tablet at noon and 1 tablet in the evening. Take before meals. metoclopram 2021-11 Yes [id number] 10mg Take 1 U nivers chris HCl 10 -19 tablet by ity of mg tablet 00:00: [place] 00 the Medical morning Branch and 1 tablet at noon and 1 tablet in the evening. Take before meals. metoclopram 2021-11 Yes [id number] 10mg Take 1 U nivers chris HCl 10 1-19 tablet by ity of mg tablet 00:00: mouth [place] 00 the Medical morning Branch and 1 tablet at noon and 1 tablet in the evening. Take before meals. metoclopram 2021-11 Yes [id number] 10mg Take 1 U nivers chris HCl 10 1-19 tablet by ity of mg tablet 00:00: mouth [place] 00 the Medical morning Branch and 1 tablet at noon and 1 tablet in the evening. Take before meals. metoclopram 2021-11 Yes [id number] 10mg Take 1 U nivers chris HCl 10 1-19 tablet by ity of mg tablet 00:00: [place] 00 the Medical morning Branch and 1 tablet at noon and 1 tablet in the evening. Take before meals. metoclopram 2021-11- No [id number] 10mg Take 1 [facility] chris HCl 10 1-19 11-30 tablet by ity of mg tablet 00:00: 00:00 mouth in [place] 00 :00 the Medical morning Branch and 1 tablet at noon and 1 tablet in the evening. Take before meals. metoclopram 2021-11- No [id number] 10mg Take 1 [facility] chris HCl 10 1-19 11-30 tablet by ity of mg tablet 00:00: 00:00 mouth in [place] 00 :00 the Medical morning Branch and 1 tablet at noon and 1 tablet in the evening. Take before meals. acetaminoph 2021-11 No 1000mg 1,000 mg, Univers en 11-21 Oral, ity of (TYLENOL) 03:45: 02:52 ONCE, 1 [place] tablet 00 :00 dose, On Medical 1,000 mg [place] Branch 09/20/22 at 2145, Routine Nitrofurant 2021-11 No 100mg 100 mg, U nivers oin&Nit. 11-21 Oral, ity of Macrocryst 03:45: 02:52 ONCE, 1 [place] (MACROBID) 00 :00 dose, On Medic al 100 mg [place] Branch capsule 100 09/20/22 mg at 2145, Routine
Reason for Anti-Infec tive: Empiric Therapy for Suspected Infection< br>Empiric Therapy Site: Urine
D uration of therapy: 72 hours NaCl 0.9% 2021-11 1000mL at 999 Uni vers (NS) bolus 1-18 11-18 mL/hr, ity of infusion 03:30: 03:12 1,000 mL, [place] 1,000 mL 00 :40 IV Medical Infusion, Branch ONCE, 1 dose, On [place] 09/20/22 at 2130, STAT Nitrofurant 2021-11 Yes [id number] 100mg Take 1 Univers oin&Nit. 1-18 capsule by ity o f Macrocryst 00:00: mouth in [place] 100 mg 00 the Medical capsule morning Branch and 1 capsule in the evening. Nitrofurant 2021-11 Yes [id number] 100mg Take 1 Univers oin&Nit. 1-18 capsule by ity o f Macrocryst 00:00: mouth in [place] 100 mg 00 the Medical capsule morning Branch and 1 capsule in the evening. Nitrofurant 2021-11 Yes [id number] 100mg Take 1 Univers oin&Nit. 1-18 capsule by ity o f Macrocryst 00:00: mouth in [place] 100 mg 00 the Medical capsule morning Branch and 1 capsule in the evening. Nitrofurant 2021-11 Yes [id number] 100mg Take 1 Univers oin&Nit. 1-18 capsule by ity o f Macrocryst 00:00: mouth in [place] 100 mg 00 the Medical capsule morning Branch and 1 capsule in the evening. Nitrofurant 2021-11 Yes [id number] 100mg Take 1 Univers oin&Nit. 1-18 capsule by ity o f Macrocryst 00:00: mouth in [place] 100 mg 00 the Medical capsule morning Branch and 1 capsule in the evening. Nitrofurant 2021-11 Yes [id number] 100mg Take 1 Univers oin&Nit. 1-18 capsule by ity o f Macrocryst 00:00: mouth in [place] 100 mg 00 the Medical capsule morning Branch and 1 capsule in the evening. Nitrofurant 2021-11 Yes [id number] 100mg Take 1 Univers oin&Nit. 1-18 capsule by ity o f Macrocryst 00:00: mouth in [place] 100 mg 00 the Medical capsule morning Branch and 1 capsule in the evening. Nitrofurant 2021-11- No [id number] 100mg Take 1 Univers oin&Nit. 18 -30 capsule by ity of Macrocryst 00:00: 00:00 mouth in [place] 100 mg 00 :00 the Medical capsule morning Branch and 1 capsule in the evening. Nitrofurant 2021-11- No [id number] 100mg Take 1 Univers oin&Nit. 18 -30 capsule by ity of Macrocryst 00:00: 00:00 mouth in [place] 100 mg 00 :00 the Medical capsule morning Branch and 1 capsule in the evening. oseltamivir 2021-11- No [id number] 75mg Take 1 Univers (TAMIFLU) 18 -24 capsule by ity of 75 mg 00:00: 05:59 mouth in [place] capsule 00 :00 the Medical morning Branch and 1 capsule in the evening. Do all this for 5 days. oseltamivir 2021-11- No [id number] 75mg Take 1 Univers (TAMIFLU) 18 -24 capsule by ity of 75 mg 00:00: 05:59 mouth in [place] capsule 00 :00 the Medical morning Branch and 1 capsule in the evening. Do all this for 5 days. oseltamivir 2021-11- No [id number] 75mg Take 1 [facility] (TAMIFLU) 18 -24 capsule by ity of 75 mg 00:00: 05:59 mouth in [place] capsule 00 :00 the Medical morning Branch and 1 capsule in the evening. Do all this for 5 days. oseltamivir 2021-11- No [id number] 75mg Take 1 Univers (TAMIFLU) 18 -24 capsule by ity of 75 mg 00:00: 05:59 mouth in [place] capsule 00 :00 the Medical morning Branch and 1 capsule in the evening. Do all this for 5 days. SERTraline 2021-11- No [id number] 25mg Take 1 Univers (ZOLOFT) 25 1-15 12-16 tablet by it y of mg tablet 00:00: 05:59 mouth in [place] 00 :00 the Medical morning Branch for 30 days. SERTraline 2021-11- No [id number] 25mg Take 1 Univers (ZOLOFT) 25 1-15 12-16 tablet by it y of mg tablet 00:00: 05:59 mouth in [place] 00 :00 the Medical morning Branch for 30 days. SERTraline 2021-11- No [id number] 25mg Take 1 Univers (ZOLOFT) 25 1-15 12-16 tablet by it y of mg tablet 00:00: 05:59 mouth in [place] 00 :00 the Medical morning Branch for 30 days. SERTraline 2021-11- No [id number] 25mg Take 1 Univers (ZOLOFT) 25 1-15 12-16 tablet by it y of mg tablet 00:00: 05:59 mouth in [place] 00 :00 the Medical morning Branch for 30 days. SERTraline 2021-11- No [id number] 25mg Take 1 Univers (ZOLOFT) 25 1-15 12-16 tablet by it y of mg tablet 00:00: 05:59 mouth in [place] 00 :00 the Medical morning Branch for 30 days. SERTraline 2021-11- No [id number] 25mg Take 1 Univers (ZOLOFT) 25 1-15 12-16 tablet by it y of mg tablet 00:00: 05:59 mouth in [place] 00 :00 the Medical morning Branch for 30 days. SERTraline 2021-11- No [id number] 25mg Take 1 Univers (ZOLOFT) 25 1-15 12-16 tablet by it y of mg tablet 00:00: 05:59 mouth in [place] 00 :00 the Medical morning Branch for 30 days. SERTraline 2021-11- No [id number] 25mg Take 1 Univers (ZOLOFT) 25 1-15 12-16 tablet by it y of mg tablet 00:00: 05:59 mouth in [place] 00 :00 the Medical morning Branch for 30 days. SERTraline 2021-11- No [id number] 25mg Take 1 [facility] ([facility] 25 1-15 12-16 tablet by it y of mg tablet 00:00: 05:59 mouth in [place] 00 :00 the Medical morning Branch for 30 days. SERTraline 2021-11- No [id number] 25mg Take 1 [facility] ([facility]) 25 1-15 12-16 tablet by it y of mg tablet 00:00: 05:59 mouth in [place] 00 :00 the Medical morning Branch for 30 days. SERTraline 2021-11- No [id number] 25mg Take 1 [facility] ([facility]) 25 1-15 12-16 tablet by it y of mg tablet 00:00: 05:59 mouth in [place] 00 :00 the Medical morning Branch for 30 days. SERTraline 2021-11- No [id number] 25mg Take 1 [facility] ([facility]) 25 1-15 12-16 tablet by it y of mg tablet 00:00: 05:59 mouth in [place] 00 :00 the Medical morning Branch for 30 days. SERTraline 2021-11- No [id number] 25mg Take 1 [facility] ([facility]) 25 1-15 12-16 tablet by it y of mg tablet 00:00: 05:59 mouth in [place] 00 :00 the Medical morning Branch for 30 days. SERTraline 2021-11- No [id number] 25mg Take 1 [facility] ([facility]) 25 1-15 12-16 tablet by it y of mg tablet 00:00: 05:59 mouth in [place] 00 :00 the Medical morning Branch for 30 days. SERTraline 2021-11- No [id number] 25mg Take 1 [facility] ([facility]) 25 1-15 12-16 tablet by it y of mg tablet 00:00: 05:59 mouth in [place] 00 :00 the Medical morning Branch for 30 days. metFORMIN 2021-11- No [id number] 500mg Take 1 [facility] 500 mg 0-25 12-25 tablet by ity of tablet 00:00: 05:59 mouth at [place] 00 :00 bedtime Medical for 60 Branch days. buPROPion 2021-11- No [id number] 150mg Take 1 [facility] SR 0-25 12-25 tablet by ity of (WELLBUTRIN 00:00: 05:59 [place] SR[place] 150 mg 00 :00 every Medical SR tablet morning Branch for 60 days. metFORMIN 2021-11- No [id number] 500mg Take 1 [facility] 500 mg 0-25 12-25 tablet by ity of tablet 00:00: 05:59 mouth at [place] 00 :00 bedtime Medical for 60 Branch days. buPROPion 2021-11- No [id number] 150mg Take 1 [facility] SR 0-25 12-25 tablet by ity of (WELLBUTRIN 00:00: 05:59 [place] SR[place] 150 mg 00 :00 every Medical SR tablet morning Branch for 60 days. metFORMIN 2021-11- No [id number] 500mg Take 1 [facility] 500 mg 0-25 12-25 tablet by ity of tablet 00:00: 05:59 mouth at [place] 00 :00 bedtime Medical for 60 Branch days. buPROPion 2021-11- No [id number] 150mg Take 1 [facility] SR 0-25 12-25 tablet by ity of (WELLBUTRIN 00:00: 05:59 [place] SR[place] 150 mg 00 :00 every Medical SR tablet morning Branch for 60 days. metFORMIN 2021-11- No [id number] 500mg Take 1 [facility] 500 mg 0-25 12-25 tablet by ity of tablet 00:00: 05:59 mouth at [place] 00 :00 bedtime Medical for 60 Branch days. buPROPion 2021-11- No [id number] 150mg Take 1 [facility] SR 0-25 12-25 tablet by ity of (WELLBUTRIN 00:00: 05:59 [place] SR[place] 150 mg 00 :00 every Medical SR tablet morning Branch for 60 days. metFORMIN 2021-11- No [id number] 500mg Take 1 [facility] 500 mg 0-25 12-25 tablet by ity of tablet 00:00: 05:59 mouth at [place] 00 :00 bedtime Medical for 60 Branch days. buPROPion 2021-11- No [id number] 150mg Take 1 [facility] SR 0-25 12-25 tablet by ity of (WELLBUTRIN 00:00: 05:59 [place] SR[place] 150 mg 00 :00 every Medical SR tablet morning Branch for 60 days. metFORMIN 2021-11- No [id number] 500mg Take 1 [facility] 500 mg 0-25 12-25 tablet by ity of tablet 00:00: 05:59 mouth at [place] 00 :00 bedtime Medical for 60 Branch days. buPROPion 2021-11- No [id number] 150mg Take 1 [facility] SR 0-25 12-25 tablet by ity of (WELLBUTRIN 00:00: 05:59 [place] SR[place] 150 mg 00 :00 every Medical SR tablet morning Branch for 60 days. metFORMIN 2021-11- No [id number] 500mg Take 1 [facility] 500 mg 0-25 12-25 tablet by ity of tablet 00:00: 05:59 mouth at [place] 00 :00 bedtime Medical for 60 Branch days. buPROPion 2021-11- No [id number] 150mg Take 1 [facility] SR 0-25 12-25 tablet by ity of (WELLBUTRIN 00:00: 05:59 [place] SR[place] 150 mg 00 :00 every Medical SR tablet morning Branch for 60 days. metFORMIN 2021-11- No [id number] 500mg Take 1 [facility] 500 mg 0-25 12-25 tablet by ity of tablet 00:00: 05:59 mouth at [place] 00 :00 bedtime Medical for 60 Branch days. buPROPion 2021-11- No [id number] 150mg Take 1 [facility] SR 0-25 12-25 tablet by ity of (WELLBUTRIN 00:00: 05:59 [place] SR[place] 150 mg 00 :00 every Medical SR tablet morning Branch for 60 days. metFORMIN 2021-11- No [id number] 500mg Take 1 [facility] 500 mg 0-25 12-25 tablet by ity of tablet 00:00: 05:59 mouth at [place] 00 :00 bedtime Medical for 60 Branch days. buPROPion 2021-11- No [id number] 150mg Take 1 [facility] SR 0-25 12-25 tablet by ity of (WELLBUTRIN 00:00: 05:59 [place] SR[place] 150 mg 00 :00 every Medical SR tablet morning Branch for 60 days. metFORMIN 2021-11- No [id number] 500mg Take 1 [facility] 500 mg 0-25 12-25 tablet by ity of tablet 00:00: 05:59 mouth at [place] 00 :00 bedtime Medical for 60 Branch days. metFORMIN 2021-11- No [id number] 500mg Take 1 [facility] 500 mg 0-25 12-25 tablet by ity of tablet 00:00: 05:59 mouth at [place] 00 :00 bedtime Medical for 60 Branch days. metFORMIN 2021-11- No [id number] 500mg Take 1 [facility] 500 mg 0-25 12-25 tablet by ity of tablet 00:00: 05:59 mouth at [place] 00 :00 bedtime Medical for 60 Branch days. metFORMIN 2021-11- No [id number] 500mg Take 1 [facility] 500 mg 0-25 12-25 tablet by ity of tablet 00:00: 05:59 mouth at [place] 00 :00 bedtime Medical for 60 Branch days. metFORMIN 2021-11- No [id number] 500mg Take 1 [facility] 500 mg 0-25 12-25 tablet by ity of tablet 00:00: 05:59 mouth at [place] 00 :00 bedtime Medical for 60 Branch days. metFORMIN 2021-11- No [id number] 500mg Take 1 [facility] 500 mg 0-25 12-25 tablet by ity of tablet 00:00: 05:59 mouth at [place] 00 :00 bedtime Medical for 60 Branch days. metFORMIN 2021-11- No [id number] 500mg Take 1 [facility] 500 mg 0-25 12-25 tablet by ity of tablet 00:00: 05:59 mouth at [place] 00 :00 bedtime Medical for 60 Branch days. metFORMIN 2021-11- No [id number] 500mg Take 1 [facility] 500 mg 0-25 12-25 tablet by ity of tablet 00:00: 05:59 mouth at [place] 00 :00 bedtime Medical for 60 Branch days. metFORMIN 2021-11- No [id number] 500mg Take 1 [facility] 500 mg 0-25 12-25 tablet by ity of tablet 00:00: 05:59 mouth at [place] 00 :00 bedtime Medical for 60 Branch days. metFORMIN 2021-11- No [id number] 500mg Take 1 [facility] 500 mg 0-25 12-25 tablet by ity of tablet 00:00: 05:59 mouth at [place] 00 :00 bedtime Medical for 60 Branch days. metFORMIN 2021-11- No [id number] 500mg Take 1 [facility] 500 mg 0-25 12-25 tablet by ity of tablet 00:00: 05:59 mouth at [place] 00 :00 bedtime Medical for 60 Branch days. metFORMIN 2021-11- No [id number] 500mg Take 1 [facility] 500 mg 0-25 12-25 tablet by ity of tablet 00:00: 05:59 mouth at [place] 00 :00 bedtime Medical for 60 Branch days. metFORMIN 2021-11- No [id number] 500mg Take 1 [facility] 500 mg 0-25 12-25 tablet by ity of tablet 00:00: 05:59 mouth at [place] 00 :00 bedtime Medical for 60 Branch days. metFORMIN 2021-11- No [id number] 500mg Take 1 [facility] 500 mg 0-25 12-25 tablet by ity of tablet 00:00: 05:59 mouth at [place] 00 :00 bedtime Medical for 60 Branch days. metFORMIN 2021-11- No [id number] 500mg Take 1 [facility] 500 mg 0-25 12-25 tablet by ity of tablet 00:00: 05:59 mouth at [place] 00 :00 bedtime Medical for 60 Branch days. metFORMIN 2021-11- No [id number] 500mg Take 1 [facility] 500 mg 0-25 12-25 tablet by ity of tablet 00:00: 05:59 mouth at [place] 00 :00 bedtime Medical for 60 Branch days. buPROPion 2021-11- No [id number] 150mg Take 1 [facility] SR 0-25 11-15 tablet by ity of (WELLBUTRIN 00:00: 00:00 [place] SR[place] 150 mg 00 :00 every Medical SR tablet morning Branch for 60 days. metroNIDAZO 2021- No [id number] 500mg Take 1 [facility] LE 500 mg 07-25 tablet by ity of tablet 00:00: 04:59 mouth in [place] 00 :00 the Medical morning Branch and 1 tablet in the evening. Do all this for 7 days. metroNIDAZO 2021- No [id number] 500mg Take 1 [facility] LE 500 mg 07-25 tablet by ity of tablet 00:00: 04:59 mouth in [place] 00 :00 the Medical morning Branch and 1 tablet in the evening. Do all this for 7 days. metroNIDAZO 2021- No [id number] 500mg Take 1 [facility] LE 500 mg 07-25 tablet by ity of tablet 00:00: 04:59 mouth in [place] 00 :00 the Medical morning Branch and 1 tablet in the evening. Do all this for 7 days. metroNIDAZO 2021- No [id number] 500mg Take 1 [facility] LE 500 mg 07-17 tablet by ity of tablet 00:00: 04:59 mouth in [place] 00 :00 the Medical morning Branch and 1 tablet in the evening. Do all this for 7 days. lancets 2021-0 Yes [id number] Check Unive rs (FREESTYLE 8-18 blood ity of LANCETS) 28 00:00: sugar four [facility] Misc 00 times per Medi [place] day. Branch Blood-Gluco 2021-0 Yes [id number] Check U nivers se Meter 8-18 blood ity of (FREESTYLE 00:00: sugar four [place] LITE METER) 00 times per Med ical Kit day. Branch blood sugar 2021-0 Yes [id number] Check U nivers diagnostic 8-18 blood ity of (FREESTYLE 00:00: sugar four [place] LITE 00 times per Medical STRIPS) day. Branch strip lancets 2021-0 Yes [id number] Check Unive rs (FREESTYLE 8-18 blood ity of LANCETS) 28 00:00: sugar four [facility] Misc 00 times per Medi [place] day. Branch Blood-Gluco 2-0 Yes [id number] Check U nivers se Meter 8-18 blood ity of (FREESTYLE 00:00: sugar four [place] LITE METER) 00 times per Med ical Kit day. Branch blood sugar 2021-0 Yes [id number] Check U nivers diagnostic 8-18 blood ity of (FREESTYLE 00:00: sugar four [place] LITE 00 times per Medical STRIPS) day. Branch strip lancets 2021-0 Yes [id number] Check Unive rs (FREESTYLE 8-18 blood ity of LANCETS) 28 00:00: sugar four [facility] Misc 00 times per Medi [place] day. Branch Blood-Gluco 2-0 Yes [id number] Check U nivers se Meter 8-18 blood ity of (FREESTYLE 00:00: sugar four [place] LITE METER) 00 times per Med ical Kit day. Branch blood sugar 2-0 Yes [id number] Check U nivers diagnostic 8-18 blood ity of (FREESTYLE 00:00: sugar four [place] LITE 00 times per Medical STRIPS) day. Branch strip lancets 2-0 Yes [id number] Check Unive rs (FREESTYLE 8-18 blood ity of LANCETS) 28 00:00: sugar four [facility] Misc 00 times per Medi [place] day. Branch Blood-Gluco 2-0 Yes [id number] Check U nivers se Meter 8-18 blood ity of (FREESTYLE 00:00: sugar four [place] LITE METER) 00 times per Med ical Kit day. Branch blood sugar 2021-0 Yes [id number] Check U nivers diagnostic 8-18 blood ity of (FREESTYLE 00:00: sugar four [place] LITE 00 times per Medical STRIPS) day. Branch strip lancets 2021-0 Yes [id number] Check Unive rs (FREESTYLE 8-18 blood ity of LANCETS) 28 00:00: sugar four [place] gauge Misc 00 times per Medi [place]bara day. Branch Blood-Gluco 2-0 Yes [id number] Check U nivers se Meter 8-18 blood ity of (FREESTYLE 00:00: sugar four [place] LITE METER) 00 times per Med ical Kit day. Branch blood sugar 2021-0 Yes [id number] Check U nivers diagnostic 8-18 blood ity of (FREESTYLE 00:00: sugar four [place] LITE 00 times per Medical STRIPS) day. Branch strip lancets 2021-0 Yes [id number] Check Unive rs (FREESTYLE 8-18 blood ity of LANCETS) 28 00:00: sugar four [place] gauge Misc 00 times per Medi [place]bara day. Branch Blood-Gluco 2-0 Yes [id number] Check U nivers se Meter 8-18 blood ity of (FREESTYLE 00:00: sugar four [place] LITE METER) 00 times per Med ical Kit day. Branch blood sugar 2021-0 Yes [id number] Check U nivers diagnostic 8-18 blood ity of (FREESTYLE 00:00: sugar four [place] LITE 00 times per Medical STRIPS) day. Branch strip lancets 2021-0 Yes [id number] Check Unive rs (FREESTYLE 8-18 blood ity of LANCETS) 28 00:00: sugar four [place] gauge Misc 00 times per Medi [place]bara day. Branch Blood-Gluco 2-0 Yes [id number] Check U nivers se Meter 8-18 blood ity of (FREESTYLE 00:00: sugar four [place] LITE METER) 00 times per Med ical Kit day. Branch blood sugar 0 Yes [id number] Check U nivers diagnostic 8-18 blood ity of (FREESTYLE 00:00: sugar four [place] LITE 00 times per Medical STRIPS) day. Branch strip lancets 0 Yes [id number] Check Unive rs (FREESTYLE 8-18 blood ity of LANCETS) 28 00:00: sugar four [place] gauge Misc 00 times per Medi barbara day. Branch Blood-Gluco 0 Yes [id number] Check U nivers se Meter 8-18 blood ity of (FREESTYLE 00:00: sugar four [place] LITE METER) 00 times per Med ical Kit day. Branch blood sugar 0 Yes [id number] Check U nivers diagnostic 8-18 blood ity of (FREESTYLE 00:00: sugar four [place] LITE 00 times per Medical STRIPS) day. Branch strip lancets Yes [id number] Check Unive rs (FREESTYLE 8-18 blood ity of LANCETS) 28 00:00: sugar four [place] gauge Misc 00 times per Medi [place]bara day. Branch Blood-Gluco 0 Yes [id number] Check U nivers se Meter 8-18 blood ity of (FREESTYLE 00:00: sugar four [place] LITE METER) 00 times per Med ical Kit day. Branch blood sugar 0 Yes [id number] Check U nivers diagnostic 8-18 blood ity of (FREESTYLE 00:00: sugar four [place] LITE 00 times per Medical STRIPS) day. Branch strip lancets 0 Yes [id number] Check Unive rs (FREESTYLE 8-18 blood ity of LANCETS) 28 00:00: sugar four [place] gauge Misc 00 times per Medi barbara day. Branch Blood-Gluco 2021-0 Yes [id number] Check U nivers se Meter 8-18 blood ity of (FREESTYLE 00:00: sugar four [place] LITE METER) 00 times per Med ical Kit day. Branch blood sugar 0 Yes [id number] Check U nivers diagnostic 8-18 blood ity of (FREESTYLE 00:00: sugar four [place] LITE 00 times per Medical STRIPS) day. Branch strip lancets 2021-0 Yes [id number] Check Unive rs (FREESTYLE 8-18 blood ity of LANCETS) 28 00:00: sugar four [place] gauge Misc 00 times per Medi [place]bara day. Branch Blood-Gluco 2021-0 Yes [id number] Check U nivers se Meter 8-18 blood ity of (FREESTYLE 00:00: sugar four [place] LITE METER) 00 times per Med ical Kit day. Branch blood sugar 2021-0 Yes [id number] Check U nivers diagnostic 8-18 blood ity of (FREESTYLE 00:00: sugar four [place] LITE 00 times per Medical STRIPS) day. Branch strip lancets 2021-0 Yes [id number] Check Unive rs (FREESTYLE 8-18 blood ity of LANCETS) 28 00:00: sugar four [place] gauge Misc 00 times per Medi barbara day. Branch Blood-Gluco 2021-0 Yes [id number] Check U nivers se Meter 8-18 blood ity of (FREESTYLE 00:00: sugar four [place] LITE METER) 00 times per Med ical Kit day. Branch blood sugar 2021-0 Yes [id number] Check U nivers diagnostic 8-18 blood ity of (FREESTYLE 00:00: sugar four [place] LITE 00 times per Medical STRIPS) day. Branch strip lancets 2021-0 Yes [id number] Check Unive rs (FREESTYLE 8-18 blood ity of LANCETS) 28 00:00: sugar four [place] gauge Misc 00 times per Medi barbara day. Branch Blood-Gluco 2021-0 Yes [id number] Check U nivers se Meter 8-18 blood ity of (FREESTYLE 00:00: sugar four [place] LITE METER) 00 times per Med ical Kit day. Branch blood sugar 2021-0 Yes [id number] Check U nivers diagnostic 8-18 blood ity of (FREESTYLE 00:00: sugar four [place] LITE 00 times per Medical STRIPS) day. Branch strip lancets 2021-0 Yes [id number] Check Unive rs (FREESTYLE 8-18 blood ity of LANCETS) 28 00:00: sugar four [place] gauge Misc 00 times per Medi barbara day. Branch Blood-Gluco 2021-0 Yes [id number] Check U nivers se Meter 8-18 blood ity of (FREESTYLE 00:00: sugar four [place] LITE METER) 00 times per Med ical Kit day. Branch blood sugar 2021-0 Yes [id number] Check U nivers diagnostic 8-18 blood ity of (FREESTYLE 00:00: sugar four [place] LITE 00 times per Medical STRIPS) day. Branch strip lancets 2021-0 Yes [id number] Check Unive rs (FREESTYLE 8-18 blood ity of LANCETS) 28 00:00: sugar four [place] gauge Misc 00 times per Medi barbara day. Branch Blood-Gluco 2021-0 Yes [id number] Check U nivers se Meter 8-18 blood ity of (FREESTYLE 00:00: sugar four [place] LITE METER) 00 times per Med ical Kit day. Branch blood sugar 0 Yes [id number] Check U nivers diagnostic 8-18 blood ity of (FREESTYLE 00:00: sugar four [place] LITE 00 times per Medical STRIPS) day. Branch strip lancets 2021-0 Yes [id number] Check Unive rs (FREESTYLE 8-18 blood ity of LANCETS) 28 00:00: sugar four [place] gauge Misc 00 times per Medi barbara day. Branch Blood-Gluco 2021-0 Yes [id number] Check U nivers se Meter 8-18 blood ity of (FREESTYLE 00:00: sugar four [place] LITE METER) 00 times per Med ical Kit day. Branch blood sugar 2021-0 Yes [id number] Check U nivers diagnostic 8-18 blood ity of (FREESTYLE 00:00: sugar four [place] LITE 00 times per Medical STRIPS) day. Branch strip lancets 2021-0 Yes [id number] Check Unive rs (FREESTYLE 8-18 blood ity of LANCETS) 28 00:00: sugar four [place] gauge Misc 00 times per Medi barbara day. Branch Blood-Gluco 2021-0 Yes [id number] Check U nivers se Meter 8-18 blood ity of (FREESTYLE 00:00: sugar four [place] LITE METER) 00 times per Med ical Kit day. Branch blood sugar 2021-0 Yes [id number] Check U nivers diagnostic 8-18 blood ity of (FREESTYLE 00:00: sugar four [place] LITE 00 times per Medical STRIPS) day. Branch strip lancets 2021-0 Yes [id number] Check Unive rs (FREESTYLE 8-18 blood ity of LANCETS) 28 00:00: sugar four [place] gauge Misc 00 times per Medi barbara day. Branch Blood-Gluco 2-0 Yes [id number] Check U nivers se Meter 8-18 blood ity of (FREESTYLE 00:00: sugar four [place] LITE METER) 00 times per Med ical Kit day. Branch blood sugar 2021-0 Yes [id number] Check U nivers diagnostic 8-18 blood ity of (FREESTYLE 00:00: sugar four [place] LITE 00 times per Medical STRIPS) day. Branch strip lancets 2021-0 Yes [id number] Check Unive rs (FREESTYLE 8-18 blood ity of LANCETS) 28 00:00: sugar four [place] gauge Misc 00 times per Medi barbara day. Branch Blood-Gluco 2021-0 Yes [id number] Check U nivers se Meter 8-18 blood ity of (FREESTYLE 00:00: sugar four [place] LITE METER) 00 times per Med ical Kit day. Branch blood sugar 2021-0 Yes [id number] Check U nivers diagnostic 8-18 blood ity of (FREESTYLE 00:00: sugar four [place] LITE 00 times per Medical STRIPS) day. Branch strip lancets 2021-0 Yes [id number] Check Unive rs (FREESTYLE 8-18 blood ity of LANCETS) 28 00:00: sugar four [place] gauge Misc 00 times per Medi barbara day. Branch Blood-Gluco 2-0 Yes [id number] Check U nivers se Meter 8-18 blood ity of (FREESTYLE 00:00: sugar four [place] LITE METER) 00 times per Med ical Kit day. Branch blood sugar 2-0 Yes [id number] Check U nivers diagnostic 8-18 blood ity of (FREESTYLE 00:00: sugar four [place] LITE 00 times per Medical STRIPS) day. Branch strip lancets 2021-0 Yes [id number] Check Unive rs (FREESTYLE 8-18 blood ity of LANCETS) 28 00:00: sugar four [place] gauge Misc 00 times per Medi barbara day. Branch Blood-Gluco 2021-0 Yes [id number] Check U nivers se Meter 8-18 blood ity of (FREESTYLE 00:00: sugar four [place] LITE METER) 00 times per Med ical Kit day. Branch blood sugar 0 Yes [id number] Check U nivers diagnostic 8-18 blood ity of (FREESTYLE 00:00: sugar four [place] LITE 00 times per Medical STRIPS) day. Branch strip lancets 2021-0 Yes [id number] Check Unive rs (FREESTYLE 8-18 blood ity of LANCETS) 28 00:00: sugar four [place] gauge Misc 00 times per Medi barbara day. Branch Blood-Gluco 2021-0 Yes [id number] Check U nivers se Meter 8-18 blood ity of (FREESTYLE 00:00: sugar four [place] LITE METER) 00 times per Med ical Kit day. Branch blood sugar 0 Yes [id number] Check U nivers diagnostic 8-18 blood ity of (FREESTYLE 00:00: sugar four [place] LITE 00 times per Medical STRIPS) day. Branch strip lancets 0 Yes [id number] Check Unive rs (FREESTYLE 8-18 blood ity of LANCETS) 28 00:00: sugar four [place] gauge Misc 00 times per Medi barbara day. Branch Blood-Gluco 2021-0 Yes [id number] Check U nivers se Meter 8-18 blood ity of (FREESTYLE 00:00: sugar four [place] LITE METER) 00 times per Med ical Kit day. Branch blood sugar 0 Yes [id number] Check U nivers diagnostic 8-18 blood ity of (FREESTYLE 00:00: sugar four [place] LITE 00 times per Medical STRIPS) day. Branch strip lancets 2021-0 Yes [id number] Check Unive rs (FREESTYLE 8-18 blood ity of LANCETS) 28 00:00: sugar four [place] gauge Misc 00 times per Medi barbara day. Branch Blood-Gluco 2021-0 Yes [id number] Check U nivers se Meter 8-18 blood ity of (FREESTYLE 00:00: sugar four [place] LITE METER) 00 times per Med ical Kit day. Branch blood sugar 2021-0 Yes [id number] Check U nivers diagnostic 8-18 blood ity of (FREESTYLE 00:00: sugar four [place] LITE 00 times per Medical STRIPS) day. Branch strip lancets 2021-0 Yes [id number] Check Unive rs (FREESTYLE 8-18 blood ity of LANCETS) 28 00:00: sugar four [place] gauge Misc 00 times per Medi barbara day. Branch Blood-Gluco 2021-0 Yes [id number] Check U nivers se Meter 8-18 blood ity of (FREESTYLE 00:00: sugar four [place] LITE METER) 00 times per Med ical Kit day. Branch blood sugar 2021-0 Yes [id number] Check U nivers diagnostic 8-18 blood ity of (FREESTYLE 00:00: sugar four [place] LITE 00 times per Medical STRIPS) day. Branch strip lancets 2021-0 Yes [id number] Check Unive rs (FREESTYLE 8-18 blood ity of LANCETS) 28 00:00: sugar four [place] gauge Misc 00 times per Medi barbara day. Branch Blood-Gluco 2021-0 Yes [id number] Check U nivers se Meter 8-18 blood ity of (FREESTYLE 00:00: sugar four [place] LITE METER) 00 times per Med ical Kit day. Branch blood sugar 2021-0 Yes [id number] Check U nivers diagnostic 8-18 blood ity of (FREESTYLE 00:00: sugar four [place] LITE 00 times per Medical STRIPS) day. Branch strip lancets 2021-0 Yes [id number] Check Unive rs (FREESTYLE 8-18 blood ity of LANCETS) 28 00:00: sugar four [place] gauge Misc 00 times per Medi barbara day. Branch Blood-Gluco 2-0 Yes [id number] Check U nivers se Meter 8-18 blood ity of (FREESTYLE 00:00: sugar four [place] LITE METER) 00 times per Med ical Kit day. Branch blood sugar 2021-0 Yes [id number] Check U nivers diagnostic 8-18 blood ity of (FREESTYLE 00:00: sugar four [place] LITE 00 times per Medical STRIPS) day. Branch strip lancets 2021-0 Yes [id number] Check Unive rs (FREESTYLE 8-18 blood ity of LANCETS) 28 00:00: sugar four [place] gauge Misc 00 times per Medi barbara day. Branch Blood-Gluco 2-0 Yes [id number] Check U nivers se Meter 8-18 blood ity of (FREESTYLE 00:00: sugar four [place] LITE METER) 00 times per Med ical Kit day. Branch blood sugar 2021-0 Yes [id number] Check U nivers diagnostic 8-18 blood ity of (FREESTYLE 00:00: sugar four [place] LITE 00 times per Medical STRIPS) day. Branch strip lancets 2021-0 Yes [id number] Check Unive rs (FREESTYLE 8-18 blood ity of LANCETS) 28 00:00: sugar four [place] gauge Misc 00 times per Medi barbara day. Branch Blood-Gluco 2021-0 Yes [id number] Check U nivers se Meter 8-18 blood ity of (FREESTYLE 00:00: sugar four [place] LITE METER) 00 times per Med ical Kit day. Branch blood sugar 2021-0 Yes [id number] Check U nivers diagnostic 8-18 blood ity of (FREESTYLE 00:00: sugar four [place] LITE 00 times per Medical STRIPS) day. Branch strip lancets 2021-0 Yes [id number] Check Unive rs (FREESTYLE 8-18 blood ity of LANCETS) 28 00:00: sugar four [place] gauge Misc 00 times per Medi barbara day. Branch Blood-Gluco 2-0 Yes [id number] Check U nivers se Meter 8-18 blood ity of (FREESTYLE 00:00: sugar four [place] LITE METER) 00 times per Med ical Kit day. Branch blood sugar 2021-0 Yes [id number] Check U nivers diagnostic 8-18 blood ity of (FREESTYLE 00:00: sugar four [place] LITE 00 times per Medical STRIPS) day. Branch strip lancets 2021-0 Yes [id number] Check Unive rs (FREESTYLE 8-18 blood ity of LANCETS) 28 00:00: sugar four [place] gauge Misc 00 times per Medi barbara day. Branch Blood-Gluco 2022-0 Yes [id number] Check U nivers se Meter 8-18 blood ity of (FREESTYLE 00:00: sugar four [place] LITE METER) 00 times per Med ical Kit day. Branch blood sugar 2021-0 Yes [id number] Check U nivers diagnostic 8-18 blood ity of (FREESTYLE 00:00: sugar four [place] LITE 00 times per Medical STRIPS) day. Branch strip lancets 2021-0 Yes [id number] Check Unive rs (FREESTYLE 8-18 blood ity of LANCETS) 28 00:00: sugar four [place] gauge Misc 00 times per Medi barbara day. Branch Blood-Gluco 2021-0 Yes [id number] Check U nivers se Meter 8-18 blood ity of (FREESTYLE 00:00: sugar four [place] LITE METER) 00 times per Med ical Kit day. Branch blood sugar 2021-0 Yes [id number] Check U nivers diagnostic 8-18 blood ity of (FREESTYLE 00:00: sugar four [place] LITE 00 times per Medical STRIPS) day. Branch strip lancets 2021-0 Yes [id number] Check Unive rs (FREESTYLE 8-18 blood ity of LANCETS) 28 00:00: sugar four [place] gauge Misc 00 times per Medi barbara day. Branch Blood-Gluco 2021-0 Yes [id number] Check U nivers se Meter 8-18 blood ity of (FREESTYLE 00:00: sugar four [place] LITE METER) 00 times per Med ical Kit day. Branch blood sugar 2021-0 Yes [id number] Check [facility] diagnostic 8-18 blood ity of (FREESTYLE 00:00: sugar four [place] LITE 00 times per Medical STRIPS) day. Branch strip lancets 2021-0 Yes [id number] Check Unive rs (FREESTYLE 8-18 blood ity of LANCETS) 28 00:00: sugar four [place] gauge Misc 00 times per Medi barbara day. Branch Blood-Gluco 2-0 Yes [id number] Check [facility] se Meter 8-18 blood ity of (FREESTYLE 00:00: sugar four [place] LITE METER) 00 times per Med ical Kit day. Branch blood sugar 2021-0 Yes [id number] Check [facility] diagnostic 8-18 blood ity of (FREESTYLE 00:00: sugar four [place] LITE 00 times per Medical STRIPS) day. Branch strip lancets 2021-0 Yes [id number] Check [facility] rs (FREESTYLE 8-18 blood ity of LANCETS) 28 00:00: sugar four [place] gauge Misc 00 times per Medi barbara day. Branch Blood-Gluco 2021-0 Yes [id number] Check [facility] se Meter 8-18 blood ity of (FREESTYLE 00:00: sugar four [place] LITE METER) 00 times per Med ical Kit day. Branch blood sugar 0 Yes [id number] Check [facility] diagnostic 8-18 blood ity of (FREESTYLE 00:00: sugar four [place] LITE 00 times per Medical STRIPS) day. Branch strip lancets 0 Yes [id number] Check [facility]ive rs (FREESTYLE 8-18 blood ity of LANCETS) 28 00:00: sugar four [place] gauge Misc 00 times per Medi barbara day. Branch Blood-Gluco 2021-0 Yes [id number] Check [facility] se Meter 8-18 blood ity of (FREESTYLE 00:00: sugar four [place] LITE METER) 00 times per Med ical Kit day. Branch blood sugar 0 Yes [id number] Check [facility] diagnostic 8-18 blood ity of (FREESTYLE 00:00: sugar four [place] LITE 00 times per Medical STRIPS) day. Branch strip lancets 0 Yes [id number] Check [facility]ive rs (FREESTYLE 8-18 blood ity of LANCETS) 28 00:00: sugar four [place] gauge Misc 00 times per Medi barbara day. Branch Blood-Gluco 2021-0 Yes [id number] Check [facility] se Meter 8-18 blood ity of (FREESTYLE 00:00: sugar four [place] LITE METER) 00 times per Med ical Kit day. Branch blood sugar 2021-0 Yes [id number] Check [facility] diagnostic 8-18 blood ity of (FREESTYLE 00:00: sugar four [place] LITE 00 times per Medical STRIPS) day. Branch strip lancets 2021-0 Yes [id number] Check [facility] rs (FREESTYLE 8-18 blood ity of LANCETS) 28 00:00: sugar four [place] gauge Misc 00 times per Medi barbara day. Branch Blood-Gluco 2021-0 Yes [id number] Check [facility] se Meter 8-18 blood ity of (FREESTYLE 00:00: sugar four [place] LITE METER) 00 times per Med ical Kit day. Branch blood sugar 2021-0 Yes [id number] Check [facility] diagnostic 8-18 blood ity of (FREESTYLE 00:00: sugar four [place] LITE 00 times per Medical STRIPS) day. Branch strip lancets 2021-0 Yes [id number] Check [facility] rs (FREESTYLE 8-18 blood ity of LANCETS) 28 00:00: sugar four [place] gauge Misc 00 times per Medi barbara day. Branch Blood-Gluco 2021-0 Yes [id number] Check [facility] se Meter 8-18 blood ity of (FREESTYLE 00:00: sugar four [place] LITE METER) 00 times per Med ical Kit day. Branch blood sugar 0 Yes [id number] Check [facility] diagnostic 8-18 blood ity of (FREESTYLE 00:00: sugar four [place] LITE 00 times per Medical STRIPS) day. Branch strip lancets 0 Yes [id number] Check [facility] rs (FREESTYLE 8-18 blood ity of LANCETS) 28 00:00: sugar four [place] gauge Misc 00 times per Medi barbara day. Branch Blood-Gluco 2021-0 Yes [id number] Check [facility] se Meter 8-18 blood ity of (FREESTYLE 00:00: sugar four [place] LITE METER) 00 times per Med ical Kit day. Branch blood sugar 2021-0 Yes [id number] Check [facility] diagnostic 8-18 blood ity of (FREESTYLE 00:00: sugar four [place] LITE 00 times per Medical STRIPS) day. Branch strip lancets 2021-0 Yes [id number] Check [facility] rs (FREESTYLE 8-18 blood ity of LANCETS) 28 00:00: sugar four [place] gauge Misc 00 times per Medi barbara day. Branch Blood-Gluco 2021-0 Yes [id number] Check [facility] se Meter 8-18 blood ity of (FREESTYLE 00:00: sugar four [place] LITE METER) 00 times per Med ical Kit day. Branch blood sugar 2021-0 Yes [id number] Check [facility] diagnostic 8-18 blood ity of (FREESTYLE 00:00: sugar four [place] LITE 00 times per Medical STRIPS) day. Branch strip lancets 2-0 Yes [id number] Check [facility] rs (FREESTYLE 8-18 blood ity of LANCETS) 28 00:00: sugar four [place] gauge Misc 00 times per Medi barbara day. Branch Blood-Gluco 2-0 Yes [id number] Check [facility] se Meter 8-18 blood ity of (FREESTYLE 00:00: sugar four [place] LITE METER) 00 times per Med ical Kit day. Branch blood sugar 2-0 Yes [id number] Check [facility] diagnostic 8-18 blood ity of (FREESTYLE 00:00: sugar four [place] LITE 00 times per Medical STRIPS) day. Branch strip lancets 2021-0 Yes [id number] Check [facility] rs (FREESTYLE 8-18 blood ity of LANCETS) 28 00:00: sugar four [place] gauge Misc 00 times per Medi barbara day. Branch Blood-Gluco 2-0 Yes [id number] Check [facility] se Meter 8-18 blood ity of (FREESTYLE 00:00: sugar four [place] LITE METER) 00 times per Med ical Kit day. Branch blood sugar 2021-0 Yes [id number] Check [facility] diagnostic 8-18 blood ity of (FREESTYLE 00:00: sugar four [place] LITE 00 times per Medical STRIPS) day. Branch strip lancets 2-0 Yes [id number] Check [facility] rs (FREESTYLE 8-18 blood ity of LANCETS) 28 00:00: sugar four [place] gauge Misc 00 times per Medi barbara day. Branch Blood-Gluco 2-0 Yes [id number] Check [facility] se Meter 8-18 blood ity of (FREESTYLE 00:00: sugar four [place] LITE METER) 00 times per Med ical Kit day. Branch blood sugar 2-0 Yes [id number] Check [facility] diagnostic 8-18 blood ity of (FREESTYLE 00:00: sugar four [place] LITE 00 times per Medical STRIPS) day. Branch strip lancets 2-0 Yes [id number] Check [facility] rs (FREESTYLE 8-18 blood ity of LANCETS) 28 00:00: sugar four [place] gauge Misc 00 times per Medi barbara day. Branch Blood-Gluco 2021-0 Yes [id number] Check [facility] se Meter 8-18 blood ity of (FREESTYLE 00:00: sugar four [place] LITE METER) 00 times per Med ical Kit day. Branch blood sugar 0 Yes [id number] Check [facility] diagnostic 8-18 blood ity of (FREESTYLE 00:00: sugar four [place] LITE 00 times per Medical STRIPS) day. Branch strip lancets 0 Yes [id number] Check [facility] rs (FREESTYLE 8-18 blood ity of LANCETS) 28 00:00: sugar four [place] gauge Misc 00 times per Medi barbara day. Branch Blood-Gluco 0 Yes [id number] Check [facility] se Meter 8-18 blood ity of (FREESTYLE 00:00: sugar four [place] LITE METER) 00 times per Med ical Kit day. Branch blood sugar 0 Yes [id number] Check [facility] diagnostic 8-18 blood ity of (FREESTYLE 00:00: sugar four [place] LITE 00 times per Medical STRIPS) day. Branch strip lancets 0 Yes [id number] Check [facility] rs (FREESTYLE 8-18 blood ity of LANCETS) 28 00:00: sugar four [place] gauge Misc 00 times per Medi barbara day. Branch Blood-Gluco 2021-0 Yes [id number] Check [facility] se Meter 8-18 blood ity of (FREESTYLE 00:00: sugar four [place] LITE METER) 00 times per Med ical Kit day. Branch blood sugar 0 Yes [id number] Check [facility] diagnostic 8-18 blood ity of (FREESTYLE 00:00: sugar four [place] LITE 00 times per Medical STRIPS) day. Branch strip lancets 0 Yes [id number] Check [facility] rs (FREESTYLE 8-18 blood ity of LANCETS) 28 00:00: sugar four [place] gauge Misc 00 times per Medi barbara day. Branch Blood-Gluco 2021-0 Yes [id number] Check [facility] se Meter 8-18 blood ity of (FREESTYLE 00:00: sugar four [place] LITE METER) 00 times per Med ical Kit day. Branch blood sugar 2022-0 Yes [id number] Check [facility] diagnostic 8-18 blood ity of (FREESTYLE 00:00: sugar four [place] LITE 00 times per Medical STRIPS) day. Branch strip lancets 2022- No [id number] Check Univ ers (FREESTYLE 8-18 02-16 blood ity of LANCETS) 28 00:00: 00:00 sugar four [place] gauge Misc 00 :00 times per Medi barbara day. Branch Blood-Gluco 2022- No [id number] Check [facility] se Meter 8-18 02-16 blood ity of (FREESTYLE 00:00: 00:00 sugar four [place] LITE METER) 00 :00 times per Med ical Kit day. Branch blood sugar 2022- No [id number] Check [facility] diagnostic 818 -16 blood ity of (FREESTYLE 00:00: 00:00 sugar four [place] LITE 00 :00 times per Medical STRIPS) day. Branch strip flash Yes [id number] 4{strip 4 Strips 4 [facility] glucose 8-09 } (four) ity of sensor 00:00: times [place] (FREESTYLE 00 daily. Medical PROSPER 14 Branch DAY SENSOR) Kit flash Yes [id number] 4{strip 4 Strips 4 [facility] glucose 8-09 } (four) ity of sensor 00:00: times [place] (FREESTYLE 00 daily. Medical PROSPER 14 Branch DAY SENSOR) Kit flash Yes [id number] 4{strip 4 Strips 4 [facility] glucose 8-09 } (four) ity of sensor 00:00: times [place] (FREESTYLE 00 daily. Medical PROSPER 14 Branch DAY SENSOR) Kit flash Yes [id number] 4{strip 4 Strips 4 [facility] glucose 8-09 } (four) ity of sensor 00:00: times [place] (FREESTYLE 00 daily. Medical PROSPER 14 Branch DAY SENSOR) Kit flash 2021-0 Yes [id number] 4{strip 4 Strips 4 [facility] glucose 8-09 } (four) ity of sensor 00:00: times [place] (FREESTYLE 00 daily. Medical PROSPER 14 Branch DAY SENSOR) Kit flash 2021-0 Yes [id number] 4{strip 4 Strips 4 [facility] glucose 8-09 } (four) ity of sensor 00:00: times [place] (FREESTYLE 00 daily. Medical PROSPER 14 Branch DAY SENSOR) Kit flash 2022-0 Yes [id number] 4{strip 4 Strips 4 [facility] glucose 8-09 } (four) ity of sensor 00:00: times [place] (FREESTYLE 00 daily. Medical PROSPER 14 Branch DAY SENSOR) Kit flash 2022-0 Yes [id number] 4{strip 4 Strips 4 [facility] glucose 8-09 } (four) ity of sensor 00:00: times [place] (FREESTYLE 00 daily. Medical PROSPER 14 Branch DAY SENSOR) Kit flash 2022-0 Yes [id number] 4{strip 4 Strips 4 [facility] glucose 8-09 } (four) ity of sensor 00:00: times [place] (FREESTYLE 00 daily. Medical PROSPER 14 Branch DAY SENSOR) Kit flash 2022-0 Yes [id number] 4{strip 4 Strips 4 [facility] glucose 8-09 } (four) ity of sensor 00:00: times [place] (FREESTYLE 00 daily. Medical PROSPER 14 Branch DAY SENSOR) Kit flash 2022-0 Yes [id number] 4{strip 4 Strips 4 [facility] glucose 8-09 } (four) ity of sensor 00:00: times [place] (FREESTYLE 00 daily. Medical PROSPER 14 Branch DAY SENSOR) Kit flash 2022-0 Yes [id number] 4{strip 4 Strips 4 [facility] glucose 8-09 } (four) ity of sensor 00:00: times [place] (FREESTYLE 00 daily. Medical PROSPER 14 Branch DAY SENSOR) Kit flash 2022-0 Yes [id number] 4{strip 4 Strips 4 [facility] glucose 8-09 } (four) ity of sensor 00:00: times [place] (FREESTYLE 00 daily. Medical PROSPER 14 Branch DAY SENSOR) Kit flash 2022-0 Yes [id number] 4{strip 4 Strips 4 [facility] glucose 8-09 } (four) ity of sensor 00:00: times [place] (FREESTYLE 00 daily. Medical PROSPER 14 Branch DAY SENSOR) Kit flash 2022-0 Yes [id number] 4{strip 4 Strips 4 [facility] glucose 8-09 } (four) ity of sensor 00:00: times [place] (FREESTYLE 00 daily. Medical PROSPER 14 Branch DAY SENSOR) Kit flash 2022-0 Yes [id number] 4{strip 4 Strips 4 [facility] glucose 8-09 } (four) ity of sensor 00:00: times [place] (FREESTYLE 00 daily. Medical PROSPER 14 Branch DAY SENSOR) Kit flash 2022-0 Yes [id number] 4{strip 4 Strips 4 [facility] glucose 8-09 } (four) ity of sensor 00:00: times [place] (FREESTYLE 00 daily. Medical PROSPER 14 Branch DAY SENSOR) Kit flash 2022-0 Yes [id number] 4{strip 4 Strips 4 [facility] glucose 8-09 } (four) ity of sensor 00:00: times [place] (FREESTYLE 00 daily. Medical PROSPER 14 Branch DAY SENSOR) Kit flash 2022-0 Yes [id number] 4{strip 4 Strips 4 [facility] glucose 8-09 } (four) ity of sensor 00:00: times [place] (FREESTYLE 00 daily. Medical PROSPER 14 Branch DAY SENSOR) Kit flash 2022-0 Yes [id number] 4{strip 4 Strips 4 [facility] glucose 8-09 } (four) ity of sensor 00:00: times [place] (FREESTYLE 00 daily. Medical PROSPER 14 Branch DAY SENSOR) Kit flash 2022-0 Yes [id number] 4{strip 4 Strips 4 [facility] glucose 8-09 } (four) ity of sensor 00:00: times [place] (FREESTYLE 00 daily. Medical PROSPER 14 Branch DAY SENSOR) Kit flash 2022-0 Yes [id number] 4{strip 4 Strips 4 [facility] glucose 8-09 } (four) ity of sensor 00:00: times [place] (FREESTYLE 00 daily. Medical PROSPER 14 Branch DAY SENSOR) Kit flash 2022-0 Yes [id number] 4{strip 4 Strips 4 [facility] glucose 8-09 } (four) ity of sensor 00:00: times [place] (FREESTYLE 00 daily. Medical PROSPER 14 Branch DAY SENSOR) Kit flash 2022-0 Yes [id number] 4{strip 4 Strips 4 [facility] glucose 8-09 } (four) ity of sensor 00:00: times [place] (FREESTYLE 00 daily. Medical PROSPER 14 Branch DAY SENSOR) Kit flash 2022-0 Yes [id number] 4{strip 4 Strips 4 [facility] glucose 8-09 } (four) ity of sensor 00:00: times [place] (FREESTYLE 00 daily. Medical PROSPER 14 Branch DAY SENSOR) Kit flash 2022-0 Yes [id number] 4{strip 4 Strips 4 [facility] glucose 8-09 } (four) ity of sensor 00:00: times [place] (FREESTYLE 00 daily. Medical PROSPER 14 Branch DAY SENSOR) Kit flash 2022-0 Yes [id number] 4{strip 4 Strips 4 [facility] glucose 8-09 } (four) ity of sensor 00:00: times [place] (FREESTYLE 00 daily. Medical PROSPER 14 Branch DAY SENSOR) Kit flash 2022-0 Yes [id number] 4{strip 4 Strips 4 [facility] glucose 8-09 } (four) ity of sensor 00:00: times [place] (FREESTYLE 00 daily. Medical PROSPER 14 Branch DAY SENSOR) Kit flash 2022-0 Yes [id number] 4{strip 4 Strips 4 [facility] glucose 8-09 } (four) ity of sensor 00:00: times [place] (FREESTYLE 00 daily. Medical PROSPER 14 Branch DAY SENSOR) Kit flash 2022-0 Yes [id number] 4{strip 4 Strips 4 [facility] glucose 8-09 } (four) ity of sensor 00:00: times [place] (FREESTYLE 00 daily. Medical PROSPER 14 Branch DAY SENSOR) Kit flash 2022-0 Yes [id number] 4{strip 4 Strips 4 [facility] glucose 8-09 } (four) ity of sensor 00:00: times [place] (FREESTYLE 00 daily. Medical PROSPER 14 Branch DAY SENSOR) Kit flash 2022-0 Yes [id number] 4{strip 4 Strips 4 [facility] glucose 8-09 } (four) ity of sensor 00:00: times [place] (FREESTYLE 00 daily. Medical PROSPER 14 Branch DAY SENSOR) Kit flash 2022-0 Yes [id number] 4{strip 4 Strips 4 [facility] glucose 8-09 } (four) ity of sensor 00:00: times [place] (FREESTYLE 00 daily. Medical PROSPER 14 Branch DAY SENSOR) Kit flash 2022-0 Yes [id number] 4{strip 4 Strips 4 [facility] glucose 8-09 } (four) ity of sensor 00:00: times [place] (FREESTYLE 00 daily. Medical PROSPER 14 Branch DAY SENSOR) Kit flash 2022-0 Yes [id number] 4{strip 4 Strips 4 [facility] glucose 8-09 } (four) ity of sensor 00:00: times [place] (FREESTYLE 00 daily. Medical PROSPER 14 Branch DAY SENSOR) Kit flash 2022-0 Yes [id number] 4{strip 4 Strips 4 [facility] glucose 8-09 } (four) ity of sensor 00:00: times [place] (FREESTYLE 00 daily. Medical PROSPER 14 Branch DAY SENSOR) Kit flash 2022-0 Yes [id number] 4{strip 4 Strips 4 [facility] glucose 8-09 } (four) ity of sensor 00:00: times [place] (FREESTYLE 00 daily. Medical PROSPER 14 Branch DAY SENSOR) Kit flash 2022-0 Yes [id number] 4{strip 4 Strips 4 [facility] glucose 8-09 } (four) ity of sensor 00:00: times [place] (FREESTYLE 00 daily. Medical PROSPER 14 Branch DAY SENSOR) Kit flash 2022-0 Yes [id number] 4{strip 4 Strips 4 [facility] glucose 8-09 } (four) ity of sensor 00:00: times [place] (FREESTYLE 00 daily. Medical PROSPER 14 Branch DAY SENSOR) Kit flash 2022-0 Yes [id number] 4{strip 4 Strips 4 [facility] glucose 8-09 } (four) ity of sensor 00:00: times [place] (FREESTYLE 00 daily. Medical PROSPER 14 Branch DAY SENSOR) Kit flash 2022-0 Yes [id number] 4{strip 4 Strips 4 [facility] glucose 8-09 } (four) ity of sensor 00:00: times [place] (FREESTYLE 00 daily. Medical PROSPER 14 Branch DAY SENSOR) Kit flash 2022-0 Yes [id number] 4{strip 4 Strips 4 [facility] glucose 8-09 } (four) ity of sensor 00:00: times [place] (FREESTYLE 00 daily. Medical PROSPER 14 Branch DAY SENSOR) Kit flash 2022-0 Yes [id number] 4{strip 4 Strips 4 [facility] glucose 8-09 } (four) ity of sensor 00:00: times [place] (FREESTYLE 00 daily. Medical PROSPER 14 Branch DAY SENSOR) Kit flash 2022-0 Yes [id number] 4{strip 4 Strips 4 [facility] glucose 8-09 } (four) ity of sensor 00:00: times [place] (FREESTYLE 00 daily. Medical PROSPER 14 Branch DAY SENSOR) Kit flash 2022-0 Yes [id number] 4{strip 4 Strips 4 [facility] glucose 8-09 } (four) ity of sensor 00:00: times [place] (FREESTYLE 00 daily. Medical PROSPER 14 Branch DAY SENSOR) Kit flash 2022-0 Yes [id number] 4{strip 4 Strips 4 [facility] glucose 8-09 } (four) ity of sensor 00:00: times [place] (FREESTYLE 00 daily. Medical PROSPER 14 Branch DAY SENSOR) Kit flash 2021-0 Yes [id number] 4{strip 4 Strips 4 [facility] glucose 8-09 } (four) ity of sensor 00:00: times [place] (FREESTYLE 00 daily. Medical PROSPER 14 Branch DAY SENSOR) Kit flash 2021-0 2023- No [id number] 4{strip 4 Strips 4 [facility] glucose 8-09 02-16 } (four) ity of sensor 00:00: 00:00 times [place] (FREESTYLE 00 :00 daily. Medical PROSPER 14 Branch DAY SENSOR) Kit aspirin 81 2021-0 Yes [id number] 81mg Take 1 [facility] mg EC 6-10 tablet by ity of tablet 00:00: mouth [place] 00 daily. Medical Branch aspirin 81 2021-0 Yes [id number] 81mg Take 1 [facility] mg EC 6-10 tablet by ity of tablet 00:00: mouth [place] 00 daily. Medical Branch aspirin 81 2021-0 Yes [id number] 81mg Take 1 [facility] mg EC 6-10 tablet by ity of tablet 00:00: mouth [place] 00 daily. Medical Branch aspirin 81 2021-0 Yes [id number] 81mg Take 1 [facility] mg EC 6-10 tablet by ity of tablet 00:00: mouth [place] 00 daily. Medical Branch aspirin 81 2021-0 Yes [id number] 81mg Take 1 [facility] mg EC 6-10 tablet by ity of tablet 00:00: mouth [place] 00 daily. Medical Branch aspirin 81 2021-0 Yes [id number] 81mg Take 1 [facility] mg EC 6-10 tablet by ity of tablet 00:00: mouth [place] 00 daily. Medical Branch aspirin 81 2021-0 Yes [id number] 81mg Take 1 [facility] mg EC 6-10 tablet by ity of tablet 00:00: mouth [place] 00 daily. Medical Branch aspirin 81 2-0 Yes [id number] 81mg Take 1 [facility] mg EC 6-10 tablet by ity of tablet 00:00: mouth [place] 00 daily. Medical Branch aspirin 81 2-0 Yes [id number] 81mg Take 1 [facility] mg EC 6-10 tablet by ity of tablet 00:00: mouth [place] 00 daily. Medical Branch aspirin 81 2021-0 Yes [id number] 81mg Take 1 [facility] mg EC 6-10 tablet by ity of tablet 00:00: mouth [place] 00 daily. Medical Branch aspirin 81 2021-0 Yes [id number] 81mg Take 1 [facility] mg EC 6-10 tablet by ity of tablet 00:00: mouth [place] 00 daily. Medical Branch aspirin 81 2022-0 Yes [id number] 81mg Take 1 [facility] mg EC 6-10 tablet by ity of tablet 00:00: mouth [place] 00 daily. Medical Branch aspirin 81 2022-0 Yes [id number] 81mg Take 1 [facility] mg EC 6-10 tablet by ity of tablet 00:00: mouth [place] 00 daily. Medical Branch aspirin 81 2-0 Yes [id number] 81mg Take 1 [facility] mg EC 6-10 tablet by ity of tablet 00:00: mouth [place] 00 daily. Medical Branch aspirin 81 2-0 Yes [id number] 81mg Take 1 [facility] mg EC 6-10 tablet by ity of tablet 00:00: mouth [place] 00 daily. Medical Branch aspirin 81 2021-0 Yes [id number] 81mg Take 1 [facility] mg EC 6-10 tablet by ity of tablet 00:00: mouth [place] 00 daily. Medical Branch aspirin 81 2021-0 Yes [id number] 81mg Take 1 [facility] mg EC 6-10 tablet by ity of tablet 00:00: mouth [place] 00 daily. Medical Branch aspirin 81 2-0 Yes [id number] 81mg Take 1 [facility] mg EC 6-10 tablet by ity of tablet 00:00: mouth [place] 00 daily. Medical Branch aspirin 81 2-0 Yes [id number] 81mg Take 1 [facility] mg EC 6-10 tablet by ity of tablet 00:00: mouth [place] 00 daily. Medical Branch aspirin 81 2-0 Yes [id number] 81mg Take 1 [facility] mg EC 6-10 tablet by ity of tablet 00:00: mouth [place] 00 daily. Medical Branch aspirin 81 2022-0 Yes [id number] 81mg Take 1 [facility] mg EC 6-10 tablet by ity of tablet 00:00: mouth [place] 00 daily. Medical Branch aspirin 81 2022-0 Yes [id number] 81mg Take 1 [facility] mg EC 6-10 tablet by ity of tablet 00:00: mouth [place] 00 daily. Medical Branch aspirin 81 2022-0 Yes [id number] 81mg Take 1 [facility] mg EC 6-10 tablet by ity of tablet 00:00: mouth [place] 00 daily. Medical Branch aspirin 81 2021-0 Yes [id number] 81mg Take 1 [facility] mg EC 6-10 tablet by ity of tablet 00:00: mouth [place] 00 daily. Medical Branch aspirin 81 2021-0 Yes [id number] 81mg Take 1 [facility] mg EC 6-10 tablet by ity of tablet 00:00: mouth [place] 00 daily. Medical Branch aspirin 81 2021-0 Yes [id number] 81mg Take 1 [facility] mg EC 6-10 tablet by ity of tablet 00:00: mouth [place] 00 daily. Medical Branch aspirin 81 2021-0 Yes [id number] 81mg Take 1 [facility] mg EC 6-10 tablet by ity of tablet 00:00: mouth [place] 00 daily. Medical Branch aspirin 81 2021-0 Yes [id number] 81mg Take 1 [facility] mg EC 6-10 tablet by ity of tablet 00:00: mouth [place] 00 daily. Medical Branch aspirin 81 2021-0 Yes [id number] 81mg Take 1 [facility] mg EC 6-10 tablet by ity of tablet 00:00: mouth [place] 00 daily. Medical Branch aspirin 81 2021-0 Yes [id number] 81mg Take 1 [facility] mg EC 6-10 tablet by ity of tablet 00:00: mouth [place] 00 daily. Medical Branch aspirin 81 2021-0 Yes [id number] 81mg Take 1 [facility] mg EC 6-10 tablet by ity of tablet 00:00: mouth [place] 00 daily. Medical Branch aspirin 81 2021-0 Yes [id number] 81mg Take 1 [facility] mg EC 6-10 tablet by ity of tablet 00:00: mouth [place] 00 daily. Medical Branch aspirin 81 2021-0 2021- No [id number] 81mg Take 1 [facility] mg EC 6-10 11-30 tablet by ity of tablet 00:00: 00:00 mouth [place] 00 :00 daily. Medical Branch aspirin 81 2021-0 2- No [id number] 81mg Take 1 [facility] mg EC 6-10 11-30 tablet by ity of tablet 00:00: 00:00 mouth [place] 00 :00 daily. Medical Branch PNV 67-iron 2021-0 Yes [id number] 1{capsu Take 1 [facility] ps-folate 5-27 le} capsule by ity of no.1-dha 00:00: mouth [place] (VITAFOL 00 daily. Medical ULTRA) 29 Branch mg iron- 1 mg-200 mg Cap PNV 67-iron 2-0 Yes [id number] 1{capsu Take 1 [facility] ps-folate 5-27 le} capsule by ity of no.1-dha 00:00: mouth [place] (VITAFOL 00 daily. Medical ULTRA) 29 Branch mg iron- 1 mg-200 mg Cap PNV 67-iron 2-0 Yes [id number] 1{capsu Take 1 [facility] ps-folate 5-27 le} capsule by ity of no.1-dha 00:00: mouth [place] (VITAFOL 00 daily. Medical ULTRA) 29 Branch mg iron- 1 mg-200 mg Cap PNV 67-iron 2-0 Yes [id number] 1{capsu Take 1 [facility] ps-folate 5-27 le} capsule by ity of no.1-dha 00:00: mouth [place] (VITAFOL 00 daily. Medical ULTRA) 29 Branch mg iron- 1 mg-200 mg Cap PNV 67-iron 2-0 Yes [id number] 1{capsu Take 1 [facility] ps-folate 5-27 le} capsule by ity of no.1-dha 00:00: mouth [place] (VITAFOL 00 daily. Medical ULTRA) 29 Branch mg iron- 1 mg-200 mg Cap PNV 67-iron 2-0 Yes [id number] 1{capsu Take 1 [facility] ps-folate 5-27 le} capsule by ity of no.1-dha 00:00: mouth [place] (VITAFOL 00 daily. Medical ULTRA) 29 Branch mg iron- 1 mg-200 mg Cap PNV 67-iron 2-0 Yes [id number] 1{capsu Take 1 [facility] ps-folate 5-27 le} capsule by ity of no.1-dha 00:00: mouth [place] (VITAFOL 00 daily. Medical ULTRA) 29 Branch mg iron- 1 mg-200 mg Cap PNV 67-iron 2-0 Yes [id number] 1{capsu Take 1 [facility] ps-folate 5-27 le} capsule by ity of no.1-dha 00:00: mouth [place] (VITAFOL 00 daily. Medical ULTRA) 29 Branch mg iron- 1 mg-200 mg Cap PNV 67-iron 2-0 Yes [id number] 1{capsu Take 1 [facility] ps-folate 5-27 le} capsule by ity of no.1-dha 00:00: mouth [place] (VITAFOL 00 daily. Medical ULTRA) 29 Branch mg iron- 1 mg-200 mg Cap PNV 67-iron 2-0 Yes [id number] 1{capsu Take 1 [facility] ps-folate 5-27 le} capsule by ity of no.1-dha 00:00: mouth [place] (VITAFOL 00 daily. Medical ULTRA) 29 Branch mg iron- 1 mg-200 mg Cap PNV 67-iron 2-0 Yes [id number] 1{capsu Take 1 [facility] ps-folate 5-27 le} capsule by ity of no.1-dha 00:00: mouth [place] (VITAFOL 00 daily. Medical ULTRA) 29 Branch mg iron- 1 mg-200 mg Cap PNV 67-iron 2-0 Yes [id number] 1{capsu Take 1 [facility] ps-folate 5-27 le} capsule by ity of no.1-dha 00:00: mouth [place] (VITAFOL 00 daily. Medical ULTRA) 29 Branch mg iron- 1 mg-200 mg Cap PNV 67-iron 2-0 Yes [id number] 1{capsu Take 1 [facility] ps-folate 5-27 le} capsule by ity of no.1-dha 00:00: mouth [place] (VITAFOL 00 daily. Medical ULTRA) 29 Branch mg iron- 1 mg-200 mg Cap PNV 67-iron 2-0 Yes [id number] 1{capsu Take 1 [facility] ps-folate 5-27 le} capsule by ity of no.1-dha 00:00: mouth [place] (VITAFOL 00 daily. Medical ULTRA) 29 Branch mg iron- 1 mg-200 mg Cap PNV 67-iron 2-0 Yes [id number] 1{capsu Take 1 [facility] ps-folate 5-27 le} capsule by ity of no.1-dha 00:00: mouth [place] (VITAFOL 00 daily. Medical ULTRA) 29 Branch mg iron- 1 mg-200 mg Cap PNV 67-iron 2-0 Yes [id number] 1{capsu Take 1 [facility] ps-folate 5-27 le} capsule by ity of no.1-dha 00:00: mouth [place] (VITAFOL 00 daily. Medical ULTRA) 29 Branch mg iron- 1 mg-200 mg Cap PNV 67-iron 2022-0 Yes [id number] 1{capsu Take 1 [facility] ps-folate 5-27 le} capsule by ity of no.1-dha 00:00: mouth [place] (VITAFOL 00 daily. Medical ULTRA) 29 Branch mg iron- 1 mg-200 mg Cap PNV 67-iron 2022-0 Yes [id number] 1{capsu Take 1 [facility] ps-folate 5-27 le} capsule by ity of no.1-dha 00:00: mouth [place] (VITAFOL 00 daily. Medical ULTRA) 29 Branch mg iron- 1 mg-200 mg Cap PNV 67-iron 2022-0 Yes [id number] 1{capsu Take 1 [facility] ps-folate 5-27 le} capsule by ity of no.1-dha 00:00: mouth [place] (VITAFOL 00 daily. Medical ULTRA) 29 Branch mg iron- 1 mg-200 mg Cap PNV 67-iron 2022-0 Yes [id number] 1{capsu Take 1 [facility] ps-folate 5-27 le} capsule by [facility] no.1-dha 00:00: mouth [place] (VITAFOL 00 daily. Medical ULTRA) 29 Branch mg iron- 1 mg-200 mg Cap PNV 67-iron 2022-0 Yes [id number] 1{capsu Take 1 [facility] ps-folate 5-27 le} capsule by [facility] of no.1-dha 00:00: mouth [place] (VITAFOL 00 daily. Medical ULTRA) 29 Branch mg iron- 1 mg-200 mg Cap PNV 67-iron 2022-0 Yes [id number] 1{capsu Take 1 [facility] ps-folate 5-27 le} capsule by [facility] of no.1-dha 00:00: mouth [place] (VITAFOL 00 daily. Medical ULTRA) 29 Branch mg iron- 1 mg-200 mg Cap PNV 67-iron 2022-0 Yes [id number] 1{capsu Take 1 [facility] ps-folate 5-27 le} capsule by [facility] of no.1-dha 00:00: mouth [place] (VITAFOL 00 daily. Medical ULTRA) 29 Branch mg iron- 1 mg-200 mg Cap PNV 67-iron 2022-0 Yes [id number] 1{capsu Take 1 [facility] ps-folate 5-27 le} capsule by [facility] of no.1-dha 00:00: mouth [place] (VITAFOL 00 daily. Medical ULTRA) 29 Branch mg iron- 1 mg-200 mg Cap PNV 67-iron 2022-0 Yes [id number] 1{capsu Take 1 [facility] ps-folate 5-27 le} capsule by [facility] of no.1-dha 00:00: mouth [place] (VITAFOL 00 daily. Medical ULTRA) 29 Branch mg iron- 1 mg-200 mg Cap PNV 67-iron 2022-0 Yes [id number] 1{capsu Take 1 [facility] ps-folate 5-27 le} capsule by [facility] of no.1-dha 00:00: mouth [place] (VITAFOL 00 daily. Medical ULTRA) 29 Branch mg iron- 1 mg-200 mg Cap PNV 67-iron 2022-0 Yes [id number] 1{capsu Take 1 [facility] ps-folate 5-27 le} capsule by [facility] of no.1-dha 00:00: mouth [place] (VITAFOL 00 daily. Medical ULTRA) 29 Branch mg iron- 1 mg-200 mg Cap PNV 67-iron 2022-0 Yes [id number] 1{capsu Take 1 [facility] ps-folate 5-27 le} capsule by [facility] of no.1-dha 00:00: mouth [place] (VITAFOL 00 daily. Medical ULTRA) 29 Branch mg iron- 1 mg-200 mg Cap PNV 67-iron 2-0 Yes [id number] 1{capsu Take 1 [facility] ps-folate 5-27 le} capsule by [facility] of no.1-dha 00:00: mouth [place] (VITAFOL 00 daily. Medical ULTRA) 29 Branch mg iron- 1 mg-200 mg Cap PNV 67-iron 2-0 Yes [id number] 1{capsu Take 1 [facility] ps-folate 5-27 le} capsule by [facility] of no.1-dha 00:00: mouth [place] (VITAFOL 00 daily. Medical ULTRA) 29 Branch mg iron- 1 mg-200 mg Cap PNV 67-iron 2022-0 Yes [id number] 1{capsu Take 1 [facility] ps-folate 5-27 le} capsule by [facility] no.1-dha 00:00: mouth [place] (VITAFOL 00 daily. Medical ULTRA) 29 Branch mg iron- 1 mg-200 mg Cap PNV 67-iron 2022-0 Yes [id number] 1{capsu Take 1 [facility] ps-folate 5-27 le} capsule by [facility] of no.1-dha 00:00: mouth [place] (VITAFOL 00 daily. Medical ULTRA) 29 Branch mg iron- 1 mg-200 mg Cap PNV 67-iron 0 2021- No [id number] 1{capsu Take 1 [facility] ps-folate 5-27 11-30 le} capsule by [facility] of no.1-dha 00:00: 00:00 mouth [place] (VITAFOL 00 :00 daily. Medical ULTRA) 29 Branch mg iron- 1 mg-200 mg Cap PNV 67-iron 2021-2021- No [id number] 1{capsu Take 1 [facility] ps-folate 5-27 11-30 le} capsule by [facility] of no.1-dha 00:00: 00:00 mouth [place] (VITAFOL 00 :00 daily. Medical ULTRA) 29 Branch mg iron- 1 mg-200 mg Cap proMETHazin 2021-0 Yes [id number] 25mg Take 1 [facility] e 25 mg 5-09 tablet by ity of tablet 00:00: mouth [place] 00 every 6 Medical (six) Branch hours as needed for Nausea and Vomiting (N/V). proMETHazin 2021-0 Yes [id number] 25mg Take 1 [facility] e 25 mg 5-09 tablet by ity of tablet 00:00: mouth [place] 00 every 6 Medical (six) Branch hours as needed for Nausea and Vomiting (N/V). proMETHazin 2021-0 Yes [id number] 25mg Take 1 [facility] e 25 mg 5-09 tablet by ity of tablet 00:00: mouth [place] 00 every 6 Medical (six) Branch hours as needed for Nausea and Vomiting (N/V). proMETHazin 2021-0 Yes [id number] 25mg Take 1 [facility] e 25 mg 5-09 tablet by ity of tablet 00:00: mouth [place] 00 every 6 Medical (six) Branch hours as needed for Nausea and Vomiting (N/V). proMETHazin 202-0 Yes [id number] 25mg Take 1 [facility] e 25 mg 5-09 tablet by ity of tablet 00:00: mouth [place] 00 every 6 Medical (six) Branch hours as needed for Nausea and Vomiting (N/V). proMETHazin 2021-0 Yes [id number] 25mg Take 1 [facility] e 25 mg 5-09 tablet by ity of tablet 00:00: mouth [place] 00 every 6 Medical (six) Branch hours as needed for Nausea and Vomiting (N/V). proMETHazin 0 Yes [id number] 25mg Take 1 [facility] e 25 mg 5-09 tablet by ity of tablet 00:00: mouth [place] 00 every 6 Medical (six) Branch hours as needed for Nausea and Vomiting (N/V). proMETHazin 0 Yes [id number] 25mg Take 1 [facility] e 25 mg 5-09 tablet by ity of tablet 00:00: mouth [place] 00 every 6 Medical (six) Branch hours as needed for Nausea and Vomiting (N/V). proMETHazin 0 Yes [id number] 25mg Take 1 [facility] e 25 mg 5-09 tablet by ity of tablet 00:00: mouth [place] 00 every 6 Medical (six) Branch hours as needed for Nausea and Vomiting (N/V). proMETHazin 0 Yes [id number] 25mg Take 1 [facility] e 25 mg 5-09 tablet by ity of tablet 00:00: mouth [place] 00 every 6 Medical (six) Branch hours as needed for Nausea and Vomiting (N/V). proMETHazin 0 Yes [id number] 25mg Take 1 [facility] e 25 mg 5-09 tablet by ity of tablet 00:00: mouth [place] 00 every 6 Medical (six) Branch hours as needed for Nausea and Vomiting (N/V). proMETHazin 0 Yes [id number] 25mg Take 1 [facility] e 25 mg 5-09 tablet by ity of tablet 00:00: mouth [place] 00 every 6 Medical (six) Branch hours as needed for Nausea and Vomiting (N/V). proMETHazin 0 Yes [id number] 25mg Take 1 [facility] e 25 mg 5-09 tablet by ity of tablet 00:00: mouth [place] 00 every 6 Medical (six) Branch hours as needed for Nausea and Vomiting (N/V). proMETHazin 2021-0 2021- No [id number] 25mg Take 1 [facility] e 25 mg 5-09 10-25 tablet by ity of tablet 00:00: 00:00 mouth [place] 00 :00 every 6 Medical (six) Branch hours as needed for Nausea and Vomiting (N/V). proMETHazin 2021-0 202- No [id number] 25mg Take 1 [facility] e 25 mg 5-09 10-25 tablet by ity of tablet 00:00: 00:00 mouth [place] 00 :00 every 6 Medical (six) Branch hours as needed for Nausea and Vomiting (N/V). Immunizations Ordered Filled Immunization Date Status Comments [facility] Immunization Name Name HPV9 2022-11-13 Completed [facility] of 00:00:00 [facility] HPV9 2022-11-13 Completed [facility] of 00:00:00 [facility] HPV9 2022-11-13 Completed [facility] 00:00:00 [facility] HPV9 2022-11-13 Completed [facility] 00:00:00 [facility] HPV9 2022-11-13 Completed [facility] of 00:00:00 [facility] HPV9 2022-11-13 Completed [facility] of 00:00:00 [facility] HPV9 2022-11-13 Completed [facility] 00:00:00 [facility] HPV9 2022-11-13 Completed [facility] 00:00:00 [facility] HPV9 2022-11-13 Completed [facility] 00:00:00 [facility] HPV9 2022-11-13 Completed [facility] 00:00:00 [facility] HPV9 2022-11-13 Completed [facility] of 00:00:00 [facility] HPV9 2022-11-13 Completed [facility] of 00:00:00 [facility] HPV9 2022-11-13 Completed [facility] of 00:00:00 [facility] HPV9 2022-11-13 Completed [facility] of 00:00:00 [facility] HPV9 2022-11-13 Completed [facility] of 00:00:00 [facility] HPV9 2022-11-13 Completed [facility] of 00:00:00 [facility] HPV9 2022-11-13 Completed [facility] of 00:00:00 [facility] HPV9 2022-11-13 Completed [facility] of 00:00:00 [facility] HPV9 2022-11-13 Completed [facility] of 00:00:00 [facility] HPV9 2022-11-13 Completed [facility] of 00:00:00 [facility] HPV9 2022-11-13 Completed [facility] of 00:00:00 [facility] TDAP 2022-08-14 Completed [facility] of 00:00:00 [facility] TDAP 2022-08-14 Completed [facility] of 00:00:00 [facility] TDAP 2022-08-14 Completed [facility] of 00:00:00 [place] [facility] TDAP 2022-08-14 Completed [facility] 00:00:00 [facility] TDAP 2022-08-14 Completed [facility] of 00:00:00 [place] [facility] TDAP 2022-08-14 Completed [facility] of 00:00:00 [place] [facility] TDAP 2022-08-14 Completed [facility] of 00:00:00 [place] [facility] TDAP 2022-08-14 Completed [facility] 00:00:00 [place] [facility] TDAP 2022-08-14 Completed [facility] of 00:00:00 [place] [facility] TDAP 2022-08-14 Completed [facility] of 00:00:00 [place] [facility] TDAP 2022-08-14 Completed [facility] 00:00:00 [place] [facility] TDAP 2022-08-14 Completed [facility] of 00:00:00 [place] [facility] TDAP 2022-08-14 Completed [facility] of 00:00:00 [place] [facility] TDAP 2022-08-14 Completed [facility] of 00:00:00 [place] [facility] TDAP 2022-08-14 Completed [facility] of 00:00:00 [place] [facility] TDAP 2022-08-14 Completed [facility] of 00:00:00 [place] [facility] TDAP 2022-08-14 Completed [facility] of 00:00:00 [place] [facility] TDAP 2022-08-14 Completed [facility] of 00:00:00 [place] [facility] TDAP 2022-08-14 Completed [facility] of 00:00:00 [place] [facility] TDAP 2022-08-14 Completed [facility] of 00:00:00 [place] [facility] TDAP 2022-08-14 Completed [facility] of 00:00:00 [place] [facility] TDAP 2022-08-14 Completed [facility] of 00:00:00 [place] [facility] TDAP 2022-08-14 Completed [facility] of 00:00:00 [place] [facility] TDAP 2022-08-14 Completed [facility] of 00:00:00 [place] [facility] TDAP 2022-08-14 Completed [facility] of 00:00:00 [place] [facility] TDAP 2022-08-14 Completed [facility] of 00:00:00 [place] [facility] TDAP 2022-08-14 Completed [facility] of 00:00:00 [place] [facility] TDAP 2022-08-14 Completed [facility] of 00:00:00 [place] [facility] TDAP 2022-08-14 Completed [facility] of 00:00:00 [facility] TDAP 2022-08-14 Completed [facility] of 00:00:00 [place] [facility] TDAP 2022-08-14 Completed [facility] of 00:00:00 [place] [facility] TDAP 2022-08-14 Completed [facility] of 00:00:00 [place] [facility] TDAP 2022-08-14 Completed [facility] of 00:00:00 [facility] TDAP 2022-08-14 Completed [facility] of 00:00:00 [place] [facility] TDAP 2022-08-14 Completed [facility] of 00:00:00 [place] [facility] TDAP 2022-08-14 Completed [facility] of 00:00:00 [facility] TDAP 2022-08-14 Completed [facility] of 00:00:00 [facility] TDAP 2022-08-14 Completed [facility] of 00:00:00 [facility] TDAP 2022-08-14 Completed [facility] of 00:00:00 [facility] TDAP 2022-08-14 Completed [facility] of 00:00:00 [facility] TDAP 2022-08-14 Completed [facility] of 00:00:00 [facility] TDAP 2022-08-14 Completed [facility] of 00:00:00 [facility] TDAP 2022-08-14 Completed [facility] of 00:00:00 [facility] TDAP 2022-08-14 Completed [facility] of 00:00:00 [facility] TDAP 2022-08-14 Completed [facility] of 00:00:00 [facility] TDAP 2022-08-14 Completed [facility] of 00:00:00 [facility] TDAP 2022-08-14 Completed [facility] of 00:00:00 [facility] TDAP 2022-08-14 Completed [facility] of 00:00:00 [facility] TDAP 2022-08-14 Completed [facility] of 00:00:00 [facility] Influenza Virus 2022-07-31 Completed [facility]it y [facility], 00:00:00 [place] [facility] Preserv and ABX Branch Free 6 MO-64 YRS Influenza Virus 2022-07-31 Completed [facility] y [facility], 00:00:00 [place] [facility] Preserv and ABX Branch Free 6 MO-64 YRS Influenza Virus 2022-07-31 Completed [facility] y [facility], 00:00:00 [place] [facility] Preserv and ABX Branch Free 6 MO-64 YRS Influenza Virus 2022-07-31 Completed [facility] y [facility], 00:00:00 [place] [facility] Preserv and ABX Branch Free 6 MO-64 YRS Influenza Virus 2022-07-31 Completed [facility] y of [facility], 00:00:00 [place] [facility] Preserv and ABX Branch Free 6 MO-64 YRS Influenza Virus 2022-07-31 Completed [facility] y of [facility], 00:00:00 [place] [facility] Preserv and ABX Branch Free 6 MO-64 YRS Influenza Virus 2022-07-31 Completed [facility] y of [facility], 00:00:00 [place] [facility] Preserv and ABX Branch Free 6 MO-64 YRS Influenza Virus 2022-07-31 Completed [facility] y [facility], 00:00:00 [place] [facility] Preserv and ABX Branch Free 6 MO-64 YRS Influenza Virus 2022-07-31 Completed [facility] y [facility], 00:00:00 [place] [facility] Preserv and ABX Branch Free 6 MO-64 YRS Influenza Virus 2022-07-31 Completed [facility] y [facility], 00:00:00 [place] [facility] Preserv and ABX Branch Free 6 MO-64 YRS Influenza Virus 2022-07-31 Completed [facility] y [facility], 00:00:00 [place] [facility] Preserv and ABX Branch Free 6 MO-64 YRS Influenza Virus 2022-07-31 Completed [facility] y [facility], 00:00:00 [place] [facility] Preserv and ABX Branch Free 6 MO-64 YRS Influenza Virus 2022-07-31 Completed [facility] y of [facility], 00:00:00 [place] [facility] Preserv and ABX Branch Free 6 MO-64 YRS Influenza Virus 2022-07-31 Completed [facility] y of [facility], 00:00:00 [place] [facility] Preserv and ABX Branch Free 6 MO-64 YRS Influenza Virus 2022-07-31 Completed [facility] y [facility], 00:00:00 [place] [facility] Preserv and ABX Branch Free 6 MO-64 YRS Influenza Virus 2022-07-31 Completed [facility] y [facility], 00:00:00 [place] [facility] Preserv and ABX Branch Free 6 MO-64 YRS Influenza Virus 2022-07-31 Completed [facility] y [facility], 00:00:00 [place] [facility] Preserv and ABX Branch Free 6 MO-64 YRS Influenza Virus 2022-07-31 Completed [facility] y [facility], 00:00:00 [place] [facility] Preserv and ABX Branch Free 6 MO-64 YRS Influenza Virus 2022-07-31 Completed [facility] y [facility], 00:00:00 [place] [facility] Preserv and ABX Branch Free 6 MO-64 YRS Influenza Virus 2022-07-31 Completed [facility] y of [facility], 00:00:00 [place] [facility] Preserv and ABX Branch Free 6 MO-64 YRS Influenza Virus 2022-07-31 Completed [facility] y [facility], 00:00:00 [place] [facility] Preserv and ABX Branch Free 6 MO-64 YRS Influenza Virus 2022-07-31 Completed [facility] y [facility], 00:00:00 [place] [facility] Preserv and ABX Branch Free 6 MO-64 YRS Influenza Virus 2022-07-31 Completed [facility] y [facility], 00:00:00 [place] [facility] Preserv and ABX Branch Free 6 MO-64 YRS Influenza Virus 2022-07-31 Completed [facility] y [facility], 00:00:00 [place] [facility] Preserv and ABX Branch Free 6 MO-64 YRS Influenza Virus 2022-07-31 Completed [facility] y [facility], 00:00:00 [place] [facility] Preserv and ABX Branch Free 6 MO-64 YRS Influenza Virus 2022-07-31 Completed [facility] y [facility], 00:00:00 [place] [facility] Preserv and ABX Branch Free 6 MO-64 YRS Influenza Virus 2022-07-31 Completed [facility] y [facility], 00:00:00 [place] [facility] Preserv and ABX Branch Free 6 MO-64 YRS Influenza Virus 2022-07-31 Completed [facility] y of [facility], 00:00:00 [place] [facility] Preserv and ABX Branch Free 6 MO-64 YRS Influenza Virus 2022-07-31 Completed [facility] y [facility], 00:00:00 [place] [facility] Preserv and ABX Branch Free 6 MO-64 YRS Influenza Virus 2022-07-31 Completed [facility] y of [facility], 00:00:00 [place] [facility] Preserv and ABX Branch Free 6 MO-64 YRS Influenza Virus 2022-07-31 Completed [facility] y of [facility], 00:00:00 [place] [facility] Preserv and ABX Branch Free 6 MO-64 YRS Influenza Virus 2022-07-31 Completed [facility] y of [facility], 00:00:00 [place] [facility] Preserv and ABX Branch Free 6 MO-64 YRS Influenza Virus 2022-07-31 Completed [facility] y [facility], 00:00:00 [place] [facility] Preserv and ABX Branch Free 6 MO-64 YRS Influenza Virus 2022-07-31 Completed [facility] y [facility], 00:00:00 [place] [facility] Preserv and ABX Branch Free 6 MO-64 YRS Influenza Virus 2022-07-31 Completed [facility] y [facility], 00:00:00 [place] [facility] Preserv and ABX Branch Free 6 MO-64 YRS Influenza Virus 2022-07-31 Completed [facility] y [facility], 00:00:00 [place] [facility] Preserv and ABX Branch Free 6 MO-64 YRS Influenza Virus 2022-07-31 Completed [facility] y [facility], 00:00:00 [place] [facility] Preserv and ABX Branch Free 6 MO-64 YRS Influenza Virus 2022-07-31 Completed [facility] y [facility], 00:00:00 [place] [facility] Preserv and ABX Branch Free 6 MO-64 YRS Influenza Virus 2022-07-31 Completed [facility] y [facility], 00:00:00 [place] [facility] Preserv and ABX Branch Free 6 MO-64 YRS Influenza Virus 2022-07-31 Completed [facility] y [facility], 00:00:00 [place] [facility] Preserv and ABX Branch Free 6 MO-64 YRS Influenza Virus 2022-07-31 Completed [facility] y [facility], 00:00:00 [place] [facility] Preserv and ABX Branch Free 6 MO-64 YRS Influenza Virus 2022-07-31 Completed [facility] y [facility], 00:00:00 [place] [facility] Preserv and ABX Branch Free 6 MO-64 YRS Influenza Virus 2022-07-31 Completed [facility] y [facility], 00:00:00 [place] [facility] Preserv and ABX Branch Free 6 MO-64 YRS Influenza Virus 2022-07-31 Completed [facility] y [facility], 00:00:00 [place] [facility] Preserv and ABX Branch Free 6 MO-64 YRS Influenza Virus 2022-07-31 Completed [facility] y [facility], 00:00:00 [place] [facility] Preserv and ABX Branch Free 6 MO-64 YRS Influenza Virus 2022-07-31 Completed [facility] y [facility], 00:00:00 [place] [facility] Preserv and ABX Branch Free 6 MO-64 YRS Influenza Virus 2022-07-31 Completed [facility] y [facility], 00:00:00 [place] [facility] Preserv and ABX Branch Free 6 MO-64 YRS Influenza Virus 2022-07-31 Completed [facility] y [facility], 00:00:00 [place] [facility] Preserv and ABX Branch Free 6 MO-64 YRS Influenza Virus 2022-07-31 Completed [facility] y [facility], 00:00:00 [place] [facility] Preserv and ABX Branch Free 6 MO-64 YRS Influenza Virus 2022-07-31 Completed [facility] y [facility], 00:00:00 [place] [facility] Preserv and ABX Branch Free 6 MO-64 YRS Influenza Virus 2022-07-31 Completed [facility] y [facility], 00:00:00 [place] [facility] Preserv and ABX Branch Free 6 MO-64 YRS Influenza Virus 2022-07-31 Completed [facility] y [facility], 00:00:00 [place] [facility] Preserv and ABX Branch Free 6 MO-64 YRS Influenza Virus 2021-12-02 Completed [facility]it y of Vaccine 00:00:00 [facility] Influenza Virus 2021-12-02 Completed [facility]it y of Vaccine 00:00:00 [facility] Influenza Virus 2021-12-02 Completed [facility]it y of Vaccine 00:00:00 [facility] Influenza Virus 2021-12-02 Completed [facility] y of Vaccine 00:00:00 [facility] Influenza Virus 2021-12-02 Completed [facility] y of Vaccine 00:00:00 [facility] Influenza Virus 2021-12-02 Completed [facility] y of Vaccine 00:00:00 [facility] Influenza Virus 2021-12-02 Completed [facility] y of Vaccine 00:00:00 [facility] Influenza Virus 2021-12-02 Completed [facility] y of Vaccine 00:00:00 [facility] Influenza Virus 2021-12-02 Completed [facility] y of Vaccine 00:00:00 [facility] Influenza Virus 2021-12-02 Completed Universit y of Vaccine 00:00:00 [facility] Influenza Virus 2021-12-02 Completed [facility]it y of Vaccine 00:00:00 [facility] Influenza Virus 2021-12-02 Completed [facility] y of Vaccine 00:00:00 [facility] Influenza Virus 2021-12-02 Completed [facility] y of Vaccine 00:00:00 [facility] Influenza Virus 2021-12-02 Completed [facility] y of Vaccine 00:00:00 [facility] Influenza Virus 2021-12-02 Completed [facility] y of Vaccine 00:00:00 [facility] Influenza Virus 2021-12-02 Completed [facility] y of Vaccine 00:00:00 [facility] Influenza Virus 2021-12-02 Completed [facility] y of Vaccine 00:00:00 [facility] Influenza Virus 2021-12-02 Completed [facility] y of Vaccine 00:00:00 [facility] Influenza Virus 2021-12-02 Completed [facility] y of Vaccine 00:00:00 [facility] Influenza Virus 2021-12-02 Completed [facility] y of Vaccine 00:00:00 [facility] Influenza Virus 2021-12-02 Completed [facility] y of Vaccine 00:00:00 [facility] Influenza Virus 2021-12-02 Completed [facility] y of Vaccine 00:00:00 [facility] Influenza Virus 2021-12-02 Completed [facility] y of Vaccine 00:00:00 [facility] Influenza Virus 2021-12-02 Completed [facility] y of Vaccine 00:00:00 [facility] Influenza Virus 2021-12-02 Completed [facility] y of Vaccine 00:00:00 [facility] Influenza Virus 2021-12-02 Completed [facility] y of Vaccine 00:00:00 [facility] Influenza Virus 2021-12-02 Completed [facility] y of Vaccine 00:00:00 [facility] Influenza Virus 2021-12-02 Completed [facility] y of Vaccine 00:00:00 [facility] Influenza Virus 2021-12-02 Completed [facility] y of Vaccine 00:00:00 [place] [facility] Influenza Virus 2021-12-02 Completed [facility] y of Vaccine 00:00:00 [facility] Influenza Virus 2021-12-02 Completed [facility] y of Vaccine 00:00:00 [facility] Influenza Virus 2021-12-02 Completed [facility] y of Vaccine 00:00:00 [facility] Influenza Virus 2021-12-02 Completed [facility] y of Vaccine 00:00:00 [facility] Influenza Virus 2021-12-02 Completed [facility] y of Vaccine 00:00:00 [facility] Influenza Virus 2021-12-02 Completed [facility] y of Vaccine 00:00:00 [facility] Influenza Virus 2021-12-02 Completed [facility] y of Vaccine 00:00:00 [facility] Influenza Virus 2021-12-02 Completed [facility] y of Vaccine 00:00:00 [facility] Influenza Virus 2021-12-02 Completed [facility] y of Vaccine 00:00:00 [facility] Influenza Virus 2021-12-02 Completed [facility] y of Vaccine 00:00:00 [facility] Influenza Virus 2021-12-02 Completed [facility] y of Vaccine 00:00:00 [facility] Influenza Virus 2021-12-02 Completed [facility] y of Vaccine 00:00:00 [facility] Influenza Virus 2021-12-02 Completed [facility] y of Vaccine 00:00:00 [facility] Influenza Virus 2021-12-02 Completed [facility] y of Vaccine 00:00:00 [facility] Influenza Virus 2021-12-02 Completed [facility] y of Vaccine 00:00:00 [facility] Influenza Virus 2021-12-02 Completed [facility] y of Vaccine 00:00:00 [facility] Influenza Virus 2021-12-02 Completed [facility] y of Vaccine 00:00:00 [facility] Influenza Virus 2021-12-02 Completed [facility] y of Vaccine 00:00:00 [facility] Influenza Virus 2021-12-02 Completed [facility] y of Vaccine 00:00:00 [facility] Influenza Virus 2021-12-02 Completed [facility] y of Vaccine 00:00:00 [facility] Influenza Virus 2021-12-02 Completed [facility] y of Vaccine 00:00:00 [facility] Influenza Virus 2021-12-02 Completed [facility] y of Vaccine 00:00:00 [facility] Influenza Virus 2021-12-02 Completed [facility] y of Vaccine 00:00:00 [facility] Influenza Virus 2021-12-02 Completed [facility] y of Vaccine 00:00:00 [facility] Influenza Virus 2021-12-02 Completed [facility] y of Vaccine 00:00:00 [facility] Influenza Virus 2021-12-02 Completed [facility] of Vaccine 00:00:00 [facility] Influenza Virus 2021-12-02 Completed [facility]00 [facility] Influenza Virus 2021-12-02 Completed [facility] 00[facility]00:00 [facility] Influenza Virus 2021-12-02 Completed [facility] 00:00:00 [facility] Influenza Virus 2021-12-02 Completed [facility] 00:00:00 [facility] Influenza Virus 2021-12-02 Completed [facility]ine 00[facility]00:00 [facility] Influenza Virus 2021-12-02 Completed [facility]ine 00:00:00 [facility] Influenza Virus 2020-08-13 Completed [facility] .5 mL 00:00:00 [facility] Influenza Virus 2020-08-13 Completed [facility] .5 mL 00:00:00 [facility] Influenza Virus 2020-08-13 Completed [facility] .5 mL 00:00:00 [facility] Influenza Virus 2020-08-13 Completed [facility] .5 mL 00:00:00 [facility] Influenza Virus 2020-08-13 Completed [facility] .5 mL 00:00:00 [facility] Influenza Virus 2020-08-13 Completed [facility] .5 mL 00:00:00 [facility] Influenza Virus 2020-08-13 Completed [facility] .5 mL 00:00:00 [facility] Influenza Virus 2020-08-13 Completed [facility] .5 mL 00:00:00 [facility] Influenza Virus 2020-08-13 Completed [facility] .5 mL 00:00:00 [facility] Influenza Virus 2020-08-13 Completed [facility] .5 mL 00:00:00 [facility] Influenza Virus 2020-08-13 Completed [facility] .5 mL 00:00:00 [facility] Influenza Virus 2020-08-13 Completed [facility] .5 mL 00:00:00 [facility] Influenza Virus 2020-08-13 Completed [facility] .5 mL 00:00:00 [facility] Influenza Virus 2020-08-13 Completed [facility] .5 mL 00:00:00 [facility] Influenza Virus 2020-08-13 Completed [facility] .5 mL 00:00:00 [facility] Influenza Virus 2020-08-13 Completed [facility] .5 mL 00:00:00 [facility] Influenza Virus 2020-08-13 Completed [facility] .5 mL 00:00:00 [facility] Influenza Virus 2020-08-13 Completed [facility] .5 mL 00:00:00 [facility] Influenza Virus 2020-08-13 Completed [facility] .5 mL 00:00:00 [facility] Influenza Virus 2020-08-13 Completed [facility] .5 mL 00:00:00 [facility] Influenza Virus 2020-08-13 Completed [facility] .5 mL 00:00:00 [facility] Influenza Virus 2020-08-13 Completed [facility] .5 mL 00:00:00 [facility] Influenza Virus 2020-08-13 Completed [facility] .5 mL 00:00:00 [facility] Influenza Virus 2020-08-13 Completed [facility] .5 mL 00:00:00 [facility] Influenza Virus 2020-08-13 Completed [facility] .5 mL 00:00:00 [facility] Influenza Virus 2020-08-13 Completed [facility] .5 mL 00:00:00 [facility] Influenza Virus 2020-08-13 Completed [facility] .5 mL 00:00:00 [facility] Influenza Virus 2020-08-13 Completed [facility] .5 mL 00:00:00 [facility] Influenza Virus 2020-08-13 Completed [facility] .5 mL 00:00:00 [facility] Influenza Virus 2020-08-13 Completed [facility] .5 mL 00:00:00 [facility] Influenza Virus 2020-08-13 Completed [facility] .5 mL 00:00:00 [facility] Influenza Virus 2020-08-13 Completed [facility] .5 mL 00:00:00 [facility] Influenza Virus 2020-08-13 Completed [facility] .5 mL 00:00:00 [facility] Influenza Virus 2020-08-13 Completed [facility] .5 mL 00:00:00 [facility] Influenza Virus 2020-08-13 Completed [facility] .5 mL 00:00:00 [facility] Influenza Virus 2020-08-13 Completed [facility] .5 mL 00:00:00 [facility] Influenza Virus 2020-08-13 Completed [facility] .5 mL 00:00:00 [facility] Influenza Virus 2020-08-13 Completed [facility] .5 mL 00:00:00 [facility] Influenza Virus 2020-08-13 Completed [facility] .5 mL 00:00:00 [facility] Influenza Virus 2020-08-13 Completed [facility] .5 mL 00:00:00 [facility] Influenza Virus 2020-08-13 Completed [facility] .5 mL 00:00:00 [facility] Influenza Virus 2020-08-13 Completed [facility] .5 mL 00:00:00 [facility] Influenza Virus 2020-08-13 Completed [facility] .5 mL 00:00:00 [facility] Influenza Virus 2020-08-13 Completed [facility] .5 mL 00:00:00 [facility] Influenza Virus 2020-08-13 Completed [facility] .5 mL 00:00:00 [facility] Influenza Virus 2020-08-13 Completed [facility] .5 mL 00:00:00 [facility] Influenza Virus 2020-08-13 Completed [facility] .5 mL 00:00:00 [facility] Influenza Virus 2020-08-13 Completed [facility] .5 mL 00:00:00 [facility] Influenza Virus 2020-08-13 Completed [facility] .5 mL 00:00:00 [facility] Influenza Virus 2020-08-13 Completed [facility] .5 mL 00:00:00 [facility] Influenza Virus 2020-08-13 Completed [facility] .5 mL 00:00:00 [facility] Influenza Virus 2020-08-13 Completed [facility] .5 mL 00:00:00 [facility] Influenza Virus 2020-08-13 Completed [facility] .5 mL 00:00:00 [facility] Influenza Virus 2020-08-13 Completed [facility] .5 mL 00:00:00 [facility] Influenza Virus 2020-08-13 Completed [facility] .5 mL 00:00:00 [facility] Influenza Virus 2020-08-13 Completed [facility] .5 mL 00:00:00 [facility] Influenza Virus 2020-08-13 Completed [facility] .5 mL 00:00:00 [facility] Influenza Virus 2020-08-13 Completed [facility] .5 mL 00:00:00 [facility] Influenza Virus 2020-08-13 Completed [facility] .5 mL 00:00:00 [facility] Influenza Virus 2020-08-13 Completed [facility] .5 mL 00:00:00 [facility] Influenza Virus 2020-08-13 Completed [facility] .5 mL 00:00:00 [facility] HPV9 2020-05-30 Completed [facility] 00:00:00 [facility] HPV9 2020-05-30 Completed [facility] 00:00:00 [facility] HPV9 2020-05-30 Completed [facility] 00:00:00 [facility] HPV9 2020-05-30 Completed [facility] 00:00:00 [facility] HPV9 2020-05-30 Completed [facility] 00:00:00 [facility] HPV9 2020-05-30 Completed [facility] 00:00:00 [facility] HPV9 2020-05-30 Completed [facility] 00:00:00 [facility] HPV9 2020-05-30 Completed [facility] 00:00:00 [facility] HPV9 2020-05-30 Completed [facility] 00:00:00 [facility] HPV9 2020-05-30 Completed [facility] 00:00:00 [facility] HPV9 2020-05-30 Completed [facility] 00:00:00 [facility] HPV9 2020-05-30 Completed [facility] 00:00:00 [facility] HPV9 2020-05-30 Completed [facility] 00:00:00 [facility] HPV9 2020-05-30 Completed [facility] 00:00:00 [facility] HPV9 2020-05-30 Completed [facility] 00:00:00 [facility] HPV9 2020-05-30 Completed [facility] 00:00:00 [facility] HPV9 2020-05-30 Completed [facility] 00:00:00 [facility] HPV9 2020-05-30 Completed [facility] 00:00:00 [facility] HPV9 2020-05-30 Completed [facility] 00:00:00 [facility] HPV9 2020-05-30 Completed [facility] 00:00:00 [facility] HPV9 2020-05-30 Completed [facility] 00:00:00 [facility] HPV9 2020-05-30 Completed [facility] 00:00:00 [facility] HPV9 2020-05-30 Completed [facility] 00:00:00 [facility] HPV9 2020-05-30 Completed [facility] 00:00:00 [facility] HPV9 2020-05-30 Completed [facility] 00:00:00 [facility] HPV9 2020-05-30 Completed [facility] 00:00:00 [facility] HPV9 2020-05-30 Completed [facility] 00:00:00 [facility] HPV9 2020-05-30 Completed [facility] 00:00:00 [facility] HPV9 2020-05-30 Completed [facility] 00:00:00 [facility] HPV9 2020-05-30 Completed [facility] 00:00:00 [facility] HPV9 2020-05-30 Completed [facility] 00:00:00 [facility] HPV9 2020-05-30 Completed [facility] 00:00:00 [facility] HPV9 2020-05-30 Completed [facility] 00:00:00 [facility] HPV9 2020-05-30 Completed [facility] 00:00:00 [facility] HPV9 2020-05-30 Completed [facility] 00:00:00 [facility] HPV9 2020-05-30 Completed [facility] 00:00:00 [facility] HPV9 2020-05-30 Completed [facility] 00:00:00 [facility] HPV9 2020-05-30 Completed [facility] 00:00:00 [facility] HPV9 2020-05-30 Completed [facility] 00:00:00 [facility] HPV9 2020-05-30 Completed [facility] 00:00:00 [facility] HPV9 2020-05-30 Completed [facility] 00:00:00 [facility] HPV9 2020-05-30 Completed [facility] 00:00:00 [facility] HPV9 2020-05-30 Completed [facility] 00:00:00 [facility] HPV9 2020-05-30 Completed [facility] 00:00:00 [facility] HPV9 2020-05-30 Completed [facility] 00:00:00 [facility] HPV9 2020-05-30 Completed [facility] 00:00:00 [facility] HPV9 2020-05-30 Completed [facility] 00:00:00 [facility] HPV9 2020-05-30 Completed [facility] 00:00:00 [facility] HPV9 2020-05-30 Completed [facility] 00:00:00 [facility] HPV9 2020-05-30 Completed [facility] 00:00:00 [facility] HPV9 2020-05-30 Completed [facility] 00:00:00 [facility] HPV9 2020-05-30 Completed [facility] 00:00:00 [facility] HPV9 2020-05-30 Completed [facility] 00:00:00 [facility] HPV9 2020-05-30 Completed [facility] 00:00:00 [facility] HPV9 2020-05-30 Completed [facility] 00:00:00 [facility] HPV9 2020-05-30 Completed [facility] 00:00:00 [facility] HPV9 2020-05-30 Completed [facility] 00:00:00 [facility] HPV9 2020-05-30 Completed [facility] 00:00:00 [facility] HPV9 2020-05-30 Completed [facility] 00:00:00 [facility] HPV9 2020-05-30 Completed [facility] 00:00:00 [facility] HPV9 2020-05-30 Completed [facility] 00:00:00 [facility] Influenza Virus 2019-09-25 Completed [facility] [...] y of Vaccine Quad .5 mL 00:00:00 [facility] Influenza Virus 2019-09-25 Completed [facility] .5 mL 00:00:00 [facility] Influenza Virus 2019-09-25 Completed [facility] .5 mL 00:00:00 [facility] Influenza Virus 2019-09-25 Completed [facility] .5 mL 00:00:00 [facility] Influenza Virus 2019-09-25 Completed [facility] .5 mL 00:00:00 [facility] Influenza Virus [...] y of Vaccine [facility] .5 mL 00:00:00 [facility] Influenza Virus 2019-09-25 Completed [facility] .5 mL 00:00:00 [facility] Influenza Virus 2019-09-25 Completed [facility] .5 mL 00:00:00 [facility] Influenza Virus 2019-09-25 Completed [facility] .5 mL 00:00:00 [facility] Influenza Virus 2019-09-25 Completed [facility] .5 mL 00:00:00 [facility] Influenza Virus 2019-09-25 Completed [facility] .5 mL 00:00:00 [facility] MMR 2018-11-17 Completed [facility] 00:00:00 [facility] MMR 2018-11-17 Completed [facility] 00:00:00 [facility] MMR 2018-11-17 Completed [facility] 00:00:00 [facility] MMR 2018-11-17 Completed [facility] 00:00:00 [facility] MMR 2018-11-17 Completed [facility] 00:00:00 [facility] MMR 2018-11-17 Completed [facility] 00:00:00 [facility] MMR 2018-11-17 Completed [facility] 00:00:00 [facility] MMR 2018-11-17 Completed [facility] 00:00:00 [facility] MMR 2018-11-17 Completed [facility] 00:00:00 [facility] MMR 2018-11-17 Completed [facility] 00:00:00 [facility] MMR 2018-11-17 Completed [facility] 00:00:00 [facility] MMR 2018-11-17 Completed [facility] 00:00:00 [facility] MMR 2018-11-17 Completed [facility] 00:00:00 [facility] MMR 2018-11-17 Completed [facility] 00:00:00 [facility] MMR 2018-11-17 Completed [facility] 00:00:00 [facility] MMR 2018-11-17 Completed [facility] 00:00:00 [facility] MMR 2018-11-17 Completed [facility] 00:00:00 [facility] MMR 2018-11-17 Completed [facility] 00:00:00 [facility] MMR 2018-11-17 Completed [facility] 00:00:00 [facility] MMR 2018-11-17 Completed [facility] 00:00:00 [facility] MMR 2018-11-17 Completed [facility] 00:00:00 [facility] MMR 2018-11-17 Completed [facility] 00:00:00 [facility] MMR 2018-11-17 Completed [facility] 00:00:00 [facility] MMR 2018-11-17 Completed [facility] 00:00:00 [facility] MMR 2018-11-17 Completed [facility] 00:00:00 [facility] MMR 2018-11-17 Completed [facility] 00:00:00 [facility] MMR 2018-11-17 Completed [facility] 00:00:00 [facility] MMR 2018-11-17 Completed [facility] 00:00:00 [facility] MMR 2018-11-17 Completed [facility] 00:00:00 [facility] MMR 2018-11-17 Completed [facility] 00:00:00 [facility] MMR 2018-11-17 Completed [facility] 00:00:00 [facility] MMR 2018-11-17 Completed [facility] 00:00:00 [facility] MMR 2018-11-17 Completed [facility] 00:00:00 [facility] MMR 2018-11-17 Completed [facility] 00:00:00 [facility] MMR 2018-11-17 Completed [facility] 00:00:00 [facility] MMR 2018-11-17 Completed [facility] 00:00:00 [facility] MMR 2018-11-17 Completed [facility] 00:00:00 [facility] MMR 2018-11-17 Completed [facility] 00:00:00 [facility] MMR 2018-11-17 Completed [facility] 00:00:00 [facility] MMR 2018-11-17 Completed [facility] 00:00:00 [facility] MMR 2018-11-17 Completed [facility] 00:00:00 [facility] MMR 2018-11-17 Completed [facility] 00:00:00 [facility] MMR 2018-11-17 Completed [facility] 00:00:00 [facility] MMR 2018-11-17 Completed [facility] 00:00:00 [facility] MMR 2018-11-17 Completed [facility] 00:00:00 [facility] MMR 2018-11-17 Completed [facility] 00:00:00 [facility] MMR 2018-11-17 Completed [facility] 00:00:00 [facility] MMR 2018-11-17 Completed [facility] 00:00:00 [facility] MMR 2018-11-17 Completed [facility] 00:00:00 [facility] MMR 2018-11-17 Completed [facility] 00:00:00 [facility] MMR 2018-11-17 Completed [facility] 00:00:00 [facility] MMR 2018-11-17 Completed [facility] 00:00:00 [facility] MMR 2018-11-17 Completed [facility] 00:00:00 [facility] MMR 2018-11-17 Completed [facility] 00:00:00 [facility] MMR 2018-11-17 Completed [facility] 00:00:00 [facility] MMR 2018-11-17 Completed [facility] 00:00:00 [facility] MMR 2018-11-17 Completed [facility] 00:00:00 [facility] MMR 2018-11-17 Completed [facility] 00:00:00 [facility] MMR 2018-11-17 Completed [facility] 00:00:00 [facility] MMR 2018-11-17 Completed [facility] 00:00:00 [facility] MMR 2018-11-17 Completed [facility] 00:00:00 [facility] Influenza Virus 2018-09-15 Completed [facility] Vacc[facility] IM 3+ 00:00:00 [facility] TDAP 2018-09-15 Completed [facility] 00:00:00 [facility] Influenza Virus 2018-09-15 Completed [facility] Vacc[facility] IM 3+ 00:00:00 [facility] TDAP 2018-09-15 Completed [facility] 00:00:00 [facility] Influenza Virus 2018-09-15 Completed [facility] Vaccine [facility] IM 3+ 00:00:00 [facility] TDAP 2018-09-15 Completed [facility] 00:00:00 [facility] Influenza Virus 2018-09-15 Completed [facility] IM 3+ 00:00:00 [facility] TDAP 2018-09-15 Completed [facility] 00:00:00 [facility] Influenza Virus 2018-09-15 Completed [facility] Vaccine [facility] IM 3+ 00:00:00 [facility] TDAP 2018-09-15 Completed [facility] 00:00:00 [facility] Influenza Virus 2018-09-15 Completed [facility] Vaccine [facility] IM 3+ 00:00:00 [facility] TDAP 2018-09-15 Completed [facility] 00:00:00 [facility] Influenza Virus 2018-09-15 Completed [facility] IM 3+ 00:00:00 [facility] TDAP 2018-09-15 Completed [facility] 00:00:00 [facility] Influenza Virus 2018-09-15 Completed [facility] Vaccine [facility] IM 3+ 00:00:00 [facility] TDAP 2018-09-15 Completed [facility] 00:00:00 [facility] Influenza Virus 2018-09-15 Completed [facility] IM 3+ 00:00:00 [facility] TDAP 2018-09-15 Completed [facility] 00:00:00 [facility] Influenza Virus 2018-09-15 Completed [facility] IM 3+ 00:00:00 [facility] TDAP 2018-09-15 Completed [facility] 00:00:00 [facility] Influenza Virus 2018-09-15 Completed [facility] Vacc[facility] IM 3+ 00:00:00 [facility] TDAP 2018-09-15 Completed [facility] 00:00:00 [facility] Influenza Virus 2018-09-15 Completed [facility] Vacc[facility] IM 3+ 00:00:00 [facility] TDAP 2018-09-15 Completed [facility] 00:00:00 [facility] Influenza Virus 2018-09-15 Completed [facility] Vaccine [facility] IM 3+ 00:00:00 [facility] TDAP 2018-09-15 Completed [facility] 00:00:00 [facility] Influenza Virus 2018-09-15 Completed [facility] Vacc[facility] IM 3+ 00:00:00 [facility] TDAP 2018-09-15 Completed [facility] 00:00:00 [facility] Influenza Virus 2018-09-15 Completed [facility] Vacc[facility] IM 3+ 00:00:00 [facility] TDAP 2018-09-15 Completed [facility] 00:00:00 [facility] Influenza Virus 2018-09-15 Completed [facility] Vacc[facility] IM 3+ 00:00:00 [facility] TDAP 2018-09-15 Completed [facility] 00:00:00 [facility] Influenza Virus 2018-09-15 Completed [facility] Vacc[facility] IM 3+ 00:00:00 [facility] TDAP 2018-09-15 Completed [facility] 00:00:00 [facility] Influenza Virus 2018-09-15 Completed [facility] IM 3+ 00:00:00 [facility] TDAP 2018-09-15 Completed [facility] 00:00:00 [facility] Influenza Virus 2018-09-15 Completed [facility] IM 3+ 00:00:00 [facility] TDAP 2018-09-15 Completed [facility] 00:00:00 [facility] Influenza Virus 2018-09-15 Completed [facility] IM 3+ 00:00:00 [facility] TDAP 2018-09-15 Completed [facility] 00:00:00 [facility] Influenza Virus 2018-09-15 Completed [facility] IM 3+ 00:00:00 [facility] TDAP 2018-09-15 Completed [facility] 00:00:00 [facility] Influenza Virus 2018-09-15 Completed [facility] IM 3+ 00:00:00 [facility] TDAP 2018-09-15 Completed [facility] 00:00:00 [facility] Influenza Virus 2018-09-15 Completed [facility] IM 3+ 00:00:00 [facility] TDAP 2018-09-15 Completed [facility] 00:00:00 [facility] Influenza Virus 2018-09-15 Completed [facility] IM 3+ 00:00:00 [facility] TDAP 2018-09-15 Completed [facility] 00:00:00 [facility] Influenza Virus 2018-09-15 Completed [facility] IM 3+ 00:00:00 [facility] TDAP 2018-09-15 Completed [facility] 00:00:00 [facility] Influenza Virus 2018-09-15 Completed [facility] IM 3+ 00:00:00 [facility] TDAP 2018-09-15 Completed [facility] 00:00:00 [facility] Influenza Virus 2018-09-15 Completed [facility] IM 3+ 00:00:00 [facility] TDAP 2018-09-15 Completed [facility] 00:00:00 [facility] Influenza Virus 2018-09-15 Completed [facility] IM 3+ 00:00:00 [facility] TDAP 2018-09-15 Completed [facility] 00:00:00 [facility] Influenza Virus 2018-09-15 Completed [facility] IM 3+ 00:00:00 [facility] TDAP 2018-09-15 Completed [facility] 00:00:00 [facility] Influenza Virus 2018-09-15 Completed [facility] IM 3+ 00:00:00 [facility] TDAP 2018-09-15 Completed [facility] 00:00:00 [facility] Influenza Virus 2018-09-15 Completed [facility] IM 3+ 00:00:00 [facility] TDAP 2018-09-15 Completed [facility] 00:00:00 [facility] Influenza Virus 2018-09-15 Completed [facility] IM 3+ 00:00:00 [facility] TDAP 2018-09-15 Completed [facility] 00:00:00 [facility] Influenza Virus 2018-09-15 Completed [facility] IM 3+ 00:00:00 [facility] TDAP 2018-09-15 Completed [facility] 00:00:00 [facility] Influenza Virus 2018-09-15 Completed [facility] IM 3+ 00:00:00 [facility] TDAP 2018-09-15 Completed [facility] 00:00:00 [facility] Influenza Virus 2018-09-15 Completed [facility] IM 3+ 00:00:00 [facility] TDAP 2018-09-15 Completed [facility] 00:00:00 [facility] Influenza Virus 2018-09-15 Completed [facility]it y of Vacc[facility] Quad IM 3+ 00:00:00 [facility] TDAP 2018-09-15 Completed [facility] 00:00:00 [facility] Influenza Virus 2018-09-15 Completed [facility] y [facility] IM 3+ 00:00:00 [facility] TDAP 2018-09-15 Completed [facility] 00:00:00 [facility] Influenza Virus 2018-09-15 Completed [facility] y [facility] IM 3+ 00:00:00 [facility] TDAP 2018-09-15 Completed [facility] 00:00:00 [facility] Influenza Virus 2018-09-15 Completed [facility] y [facility] IM 3+ 00:00:00 [facility] TDAP 2018-09-15 Completed [facility] 00:00:00 [facility] Influenza Virus 2018-09-15 Completed [facility] IM 3+ 00:00:00 [facility] TDAP 2018-09-15 Completed [facility] 00:00:00 [facility] Influenza Virus 2018-09-15 Completed [facility] y [facility] IM 3+ 00:00:00 [facility] TDAP 2018-09-15 Completed [facility] 00:00:00 [facility] Influenza Virus 2018-09-15 Completed [facility] y [facility] IM 3+ 00:00:00 [facility] TDAP 2018-09-15 Completed [facility] 00:00:00 [facility] Influenza Virus 2018-09-15 Completed [facility] y [facility] IM 3+ 00:00:00 [facility] TDAP 2018-09-15 Completed [facility] 00:00:00 [facility] Influenza Virus 2018-09-15 Completed [facility] IM 3+ 00:00:00 [facility] TDAP 2018-09-15 Completed [facility] 00:00:00 [facility] Influenza Virus 2018-09-15 Completed [facility] y [facility] IM 3+ 00:00:00 [facility] TDAP 2018-09-15 Completed [facility] 00:00:00 [facility] Influenza Virus 2018-09-15 Completed [facility] IM 3+ 00:00:00 [facility] TDAP 2018-09-15 Completed [facility] 00:00:00 [facility] Influenza Virus 2018-09-15 Completed [facility] y of [facility] IM 3+ 00:00:00 [facility] TDAP 2018-09-15 Completed [facility] 00:00:00 [facility] Influenza Virus 2018-09-15 Completed [facility] IM 3+ 00:00:00 [facility] TDAP 2018-09-15 Completed [facility] 00:00:00 [facility] Influenza Virus 2018-09-15 Completed [facility] IM 3+ 00:00:00 [facility] TDAP 2018-09-15 Completed [facility] 00:00:00 [facility] Influenza Virus 2018-09-15 Completed [facility] IM 3+ 00:00:00 [facility] TDAP 2018-09-15 Completed [facility] 00:00:00 [facility] Influenza Virus 2018-09-15 Completed [facility] IM 3+ 00:00:00 [facility] TDAP 2018-09-15 Completed [facility] 00:00:00 [facility] Influenza Virus 2018-09-15 Completed [facility] IM 3+ 00:00:00 [facility] TDAP 2018-09-15 Completed [facility] 00:00:00 [facility] Influenza Virus 2018-09-15 Completed [facility] IM 3+ 00:00:00 [facility] TDAP 2018-09-15 Completed [facility] 00:00:00 [facility] Influenza Virus 2018-09-15 Completed [facility] IM 3+ 00:00:00 [facility] TDAP 2018-09-15 Completed [facility] 00:00:00 [facility] Influenza Virus 2018-09-15 Completed [facility] IM 3+ 00:00:00 [facility] TDAP 2018-09-15 Completed [facility] 00:00:00 [facility] Influenza Virus 2018-09-15 Completed [facility] IM 3+ 00:00:00 [facility] TDAP 2018-09-15 Completed [facility] 00:00:00 [facility] Influenza Virus 2018-09-15 Completed [facility] IM 3+ 00:00:00 [facility] TDAP 2018-09-15 Completed [facility] 00:00:00 [facility] Influenza Virus 2018-09-15 Completed [facility] of [facility] IM 3+ 00:00:00 [facility] TDAP 2018-09-15 Completed [facility] 00:00:00 [facility] Influenza Virus 2018-09-15 Completed [facility] IM 3+ 00:00:00 [facility] TDAP 2018-09-15 Completed [facility] 00:00:00 [facility] Influenza Virus 2018-09-15 Completed [facility] IM 3+ 00:00:00 [facility] TDAP 2018-09-15 Completed [facility] 00:00:00 [facility] Influenza Virus 2018-09-15 Completed [facility] IM 3+ 00:00:00 [facility] TDAP 2018-09-15 Completed [facility] 00:00:00 [facility] HPV9 2017-08-23 Completed [facility] 00:00:00 [facility] HPV9 2017-08-23 Completed [facility] 00:00:00 [facility] HPV9 2017-08-23 Completed [facility] 00:00:00 [facility] HPV9 2017-08-23 Completed [facility] 00:00:00 [facility] HPV9 2017-08-23 Completed [facility] 00:00:00 [facility] HPV9 2017-08-23 Completed [facility] 00:00:00 [facility] HPV9 2017-08-23 Completed [facility] of 00:00:00 [facility] HPV9 2017-08-23 Completed [facility] 00:00:00 [facility] HPV9 2017-08-23 Completed [facility] 00:00:00 [facility] HPV9 2017-08-23 Completed [facility] 00:00:00 [facility] HPV9 2017-08-23 Completed [facility] 00:00:00 [facility] HPV9 2017-08-23 Completed [facility] 00:00:00 [facility] HPV9 2017-08-23 Completed [facility] 00:00:00 [facility] HPV9 2017-08-23 Completed [facility] of 00:00:00 [facility] HPV9 2017-08-23 Completed [facility] 00:00:00 [facility] HPV9 2017-08-23 Completed [facility] 00:00:00 [facility] HPV9 2017-08-23 Completed [facility] 00:00:00 [facility] HPV9 2017-08-23 Completed [facility] 00:00:00 [facility] HPV9 2017-08-23 Completed [facility] 00:00:00 [facility] HPV9 2017-08-23 Completed [facility] 00:00:00 [facility] HPV9 2017-08-23 Completed [facility] 00:00:00 [facility] HPV9 2017-08-23 Completed [facility] 00:00:00 [facility] HPV9 2017-08-23 Completed [facility] 00:00:00 [facility] HPV9 2017-08-23 Completed [facility] 00:00:00 [facility] HPV9 2017-08-23 Completed [facility] 00:00:00 [facility] HPV9 2017-08-23 Completed [facility] 00:00:00 [facility] HPV9 2017-08-23 Completed [facility] 00:00:00 [facility] HPV9 2017-08-23 Completed [facility] 00:00:00 [facility] HPV9 2017-08-23 Completed [facility] 00:00:00 [facility] HPV9 2017-08-23 Completed [facility] 00:00:00 [facility] HPV9 2017-08-23 Completed [facility] 00:00:00 [facility] HPV9 2017-08-23 Completed [facility] 00:00:00 [facility] HPV9 2017-08-23 Completed [facility] 00:00:00 [facility] HPV9 2017-08-23 Completed [facility] 00:00:00 [facility] HPV9 2017-08-23 Completed [facility] 00:00:00 [facility] HPV9 2017-08-23 Completed [facility] 00:00:00 [facility] HPV9 2017-08-23 Completed [facility] 00:00:00 [facility] HPV9 2017-08-23 Completed [facility] 00:00:00 [facility] HPV9 2017-08-23 Completed [facility] 00:00:00 [facility] HPV9 2017-08-23 Completed [facility] 00:00:00 [facility] HPV9 2017-08-23 Completed [facility] 00:00:00 [facility] HPV9 2017-08-23 Completed [facility] 00:00:00 [facility] HPV9 2017-08-23 Completed [facility] 00:00:00 [facility] HPV9 2017-08-23 Completed [facility] 00:00:00 [facility] HPV9 2017-08-23 Completed [facility] 00:00:00 [facility] HPV9 2017-08-23 Completed [facility] 00:00:00 [facility] HPV9 2017-08-23 Completed [facility] 00:00:00 [facility] HPV9 2017-08-23 Completed [facility] 00:00:00 [facility] HPV9 2017-08-23 Completed [facility] 00:00:00 [facility] HPV9 2017-08-23 Completed [facility] 00:00:00 [facility] HPV9 2017-08-23 Completed [facility] 00:00:00 [facility] HPV9 2017-08-23 Completed [facility] 00:00:00 [facility] HPV9 2017-08-23 Completed [facility] 00:00:00 [facility] HPV9 2017-08-23 Completed [facility] 00:00: [facility] HPV9 2017-08-23 Completed [facility] 00:00: [facility] HPV9 2017-08-23 Completed [facility] 00:00: [facility] HPV9 2017-08-23 Completed [facility] 00:00: [facility] HPV9 2017-08-23 Completed [facility] 00:00: [facility] HPV9 2017-08-23 Completed [facility] 00:00:00 [facility] HPV9 2017-08-23 Completed [facility] 00:00:00 [facility] HPV9 2017-08-23 Completed [facility] 00:00:00 [facility] Influenza Virus 2017-07-26 Completed [facility] y [facility] [...] [facility] 00[facility]00:00 [place] [facility] Flu Trivalent 2013-10-27 Completed [facility] 00:00:00 [facility] Influenza Virus 2013-10-27 Completed [facility] 00:00:00 [place] [facility] Flu Trivalent 2013-10-27 Completed [facility] 00:00:00 [facility] Influenza Virus 2013-10-27 Completed [facility] 00:00:00 [place] [facility] Flu Trivalent 2013-10-27 Completed [facility] 00:00:00 [facility] Influenza Virus 2013-10-27 Completed [facility] 00:00:00 [place] [facility] Flu Trivalent 2013-10-27 Completed [facility] 00:00:00 [facility] Influenza Virus 2013-10-27 Completed [facility] IM 00:00:00 [place] [facility] Flu Trivalent 2013-10-27 Completed [facility] 00:00:00 [facility] Influenza Virus 2013-10-27 Completed [facility] 00:00:00 [place] [facility] Flu Trivalent 2013-10-27 Completed [facility] 00:00:00 [facility] Influenza Virus 2013-10-27 Completed [facility] IM 00:00:00 [place] [facility] Flu Trivalent 2013-10-27 Completed [facility] 00:00:00 [facility] Influenza Virus 2013-10-27 Completed [facility] IM 00:00:00 [place] [facility] Flu Trivalent 2013-10-27 Completed [facility] 00:00:00 [facility] Influenza Virus 2013-10-27 Completed [facility] IM 00:00:00 [place] [facility] Flu Trivalent 2013-10-27 Completed [facility] 00:00:00 [facility] Influenza Virus 2013-10-27 Completed [facility] IM 00:00:00 [place] [facility] Flu Trivalent 2013-10-27 Completed [facility] 00:00:00 [facility] Influenza Virus 2013-10-27 Completed [facility] IM 00:00:00 [place] [facility] 6[facility] Flu Trivalent 2013-10-27 Completed [facility] 00:00:00 [facility] Influenza Virus 2013-10-27 Completed [facility] IM 00:00:00 [place] [facility] 6[facility] Flu Trivalent 2013-10-27 Completed [facility] 00:00:00 [facility] Influenza Virus 2013-10-27 Completed [facility] IM 00:00:00 [place] [facility] Flu Trivalent 2013-10-27 Completed [facility] 00:00:00 [facility] Influenza Virus 2013-10-27 Completed [facility] IM 00:00:00 [place] [facility] 6[facility] Flu Trivalent 2013-10-27 Completed [facility] 00:00:00 [facility] Influenza Virus 2013-10-27 Completed [facility] IM 00:00:00 [place] [facility] 6[facility] Flu Trivalent 2013-10-27 Completed [facility] 00:00:00 [facility] Influenza Virus 2013-10-27 Completed [facility] IM 00:00:00 [place] [facility] 6[facility] Flu Trivalent 2013-10-27 Completed [facility] 00:00:00 [facility] Influenza Virus 2013-10-27 Completed [facility] IM 00:00:00 [place] [facility] Multi[facility] 6[facility] Flu Trivalent 2013-10-27 Completed [facility] 00:00:00 [facility] Influenza Virus 2013-10-27 Completed [facility] IM 00:00:00 [place] [facility] Multi[facility] 6[facility] Flu Trivalent 2013-10-27 Completed [facility] 00:00:00 [facility] Influenza Virus 2013-10-27 Completed [facility] IM 00:00:00 [place] [facility] Multi[facility] 6[facility] Flu Trivalent 2013-10-27 Completed [facility] 00:00:00 [facility] Influenza Virus 2013-10-27 Completed [facility] IM 00:00:00 [place] [facility] Multi-[facility] 6[facility] Flu Trivalent 2013-10-27 Completed [facility] 00:00:00 [facility] Influenza Virus 2013-10-27 Completed [facility] IM 00:00:00 [place] [facility] 6[facility] Flu Trivalent 2013-10-27 Completed [facility] 00:00:00 [facility] Vital Signs Vital Name Observation Time Observation Value Comments Source Systolic blood 2023-03-19 16:19:00 116 mm[Hg] Univer sity of pressure [facility] Diastolic blood 2023-03-19 16:19:00 67 mm[Hg] Unive rsity of pressure [facility] Heart rate 2023-03-19 16:19:00 70 /min [facility] Body temperature 2023-03-19 16:19:[address] [facility] Res[facility] rate 2023-03-19 16:19:00 17 /min [facility] Body height 2023-03-19 16:19:00 160 cm [facility] Body weight 2023-03-19 16:19:00 94.972 kg [facility] BMI 2023-03-19 16:19:00 37.09 kg/m2 [facility] Systolic blood 2023-03-07 18:26:00 125 mm[Hg] Univer [facility]ity of pressure [facility] Diastolic blood 2023-03-07 18:26:00 69 mm[Hg] Unive rsity of pressure [facility] Heart rate 2023-03-07 18:26:00 89 /min [facility] Body temperature 2023-03-07 18:26:00 36.22 Nancy [facility] Respiratory rate 2023-03-07 18:26:00 19 /min [facility] Body height 2023-03-07 18:26:00 160 cm [facility] Body weight 2023-03-07 18:26:00 94.575 kg [facility] BMI 2023-03-07 18:26:00 36.93 kg/m2 [facility] Systolic blood 2023-02-19 15:48:00 137 mm[Hg] Univer sity of pressure [facility] Diastolic blood 2023-02-19 15:48:00 77 mm[Hg] Unive rsity of pressure [facility] Heart rate 2023-02-19 15:48:00 78 /min [facility] Body temperature 2023-02-19 15:48:00 36.28 Nancy [facility] Respiratory rate 2023-02-19 15:48:00 17 /min [facility] Body height 2023-02-19 15:48:00 160 cm [facility] Body weight 2023-02-19 15:48:00 94.575 kg [facility] BMI 2023-02-19 15:48:00 36.93 kg/m2 [facility] Systolic blood 2022-12-06 19:27:00 131 mm[Hg] Univer sity of pressure [facility] Diastolic blood 2022-12-06 19:27:00 78 mm[Hg] Unive rsity of pressure [facility] Heart rate 2022-12-06 19:27:00 77 /min [facility] Body temperature 2022-12-06 19:27:00 36.56 Nancy [facility] Respiratory rate 2022-12-06 19:27:00 17 /min [facility] Body height 2022-12-06 19:27:00 160 cm [facility] Body weight 2022-12-06 19:27:00 90.583 kg [facility] BMI 2022-12-06 19:27:00 35.38 kg/m2 [facility] Systolic blood 2022-11-13 21:50:00 128 mm[Hg] Univer sity of pressure [facility] Diastolic blood 2022-11-13 21:50:00 72 mm[Hg] Unive rsity of pressure [facility] Heart rate 2022-11-13 21:50:00 90 /min [facility] Body temperature 2022-11-13 21:50:00 36.39 Nancy [facility] Respiratory rate 2022-11-13 21:50:00 19 /min [facility] Body height 2022-11-13 21:50:00 160 cm [facility] Body weight 2022-11-13 21:50:00 88.962 kg [facility] BMI 2022-11-13 21:50:00 34.74 kg/m2 [facility] Systolic blood 2022-10-23 20:02:00 128 mm[Hg] Univer sity of pressure [facility] Diastolic blood 2022-10-23 20:02:00 79 mm[Hg] Unive rsity of pressure [facility] Heart rate 2022-10-23 20:02:00 71 /min [facility] Body temperature 2022-10-23 20:02:00 36.61 Nancy [facility] Respiratory rate 2022-10-23 20:02:00 17 /min [facility] Body height 2022-10-23 20:02:00 160 cm [facility] Body weight 2022-10-23 20:02:00 87.726 kg [facility] BMI 2022-10-23 20:02:00 34.26 kg/m2 [facility] Systolic blood 2022-10-09 19:36:00 131 mm[Hg] Univer sity of pressure [facility] Diastolic blood 2022-10-09 19:36:00 68 mm[Hg] Unive rsity of pressure [facility] Heart rate 2022-10-09 19:36:00 58 /min [facility] Body temperature 2022-10-09 19:36:00 36.72 Nancy [facility] Respiratory rate 2022-10-09 19:36:00 17 /min [facility] Body height 2022-10-09 19:36:00 160 cm [facility] Body weight 2022-10-09 19:36:00 91.944 kg [facility] BMI 2022-10-09 19:36:00 35.91 kg/m2 [facility] Systolic blood 2022-10-03 17:30:00 104 mm[Hg] Univer sity of pressure [facility] Diastolic blood 2022-10-03 17:30:00 53 mm[Hg] Unive rsity of pressure [facility] Heart rate 2022-10-03 17:30:00 68 /min [facility] Body temperature 2022-10-03 17:30:00 36.61 Nancy [facility] Respiratory rate 2022-10-03 17:30:00 18 /min [facility] Oxygen saturation in 2022-10-03 17:30:00 98 /min [facility] Arterial blood by [facility] Pulse oximetry Branch Body height 2022-10-02 14:02:00 160 cm [facility] Body weight 2022-10-02 14:02:00 95.754 kg [facility] BMI 2022-10-02 14:02:00 37.39 kg/m2 [facility] Systolic blood 2022-10-02 15:30:00 113 mm[Hg] Univer sity of pressure [facility] Diastolic blood 2022-10-02 15:30:00 70 mm[Hg] Unive rsity of pressure [facility] Heart rate 2022-10-02 15:30:00 82 /min [facility] Oxygen saturation in 2022-10-02 15:30:00 97 /min [facility] Arterial blood by [facility] Pulse oximetry [facility] Body temperature 2022-10-02 14:15:00 36.78 Nancy [facility] Respiratory rate 2022-10-02 14:15:00 18 /min [facility] Body height 2022-10-02 14:02:00 160 cm [facility] Body weight 2022-10-02 14:02:00 95.754 kg [facility] BMI 2022-10-02 14:02:00 37.39 kg/m2 [facility] Systolic blood 2022-10-01 20:43:00 123 mm[Hg] Univer sity of pressure [facility] Diastolic blood 2022-10-01 20:43:00 77 mm[Hg] Unive rsity of pressure [facility] Heart rate 2022-10-01 20:43:00 80 /min [facility] Body temperature 2022-10-01 20:43:00 36.56 Nancy [facility] Respiratory rate 2022-10-01 20:43:00 18 /min [facility] Body height 2022-10-01 20:43:00 160 cm [facility] Body weight 2022-10-01 20:43:00 95.165 kg [facility] BMI 2022-10-01 20:43:00 37.16 kg/m2 [facility] Oxygen saturation in 2022-10-01 20:43:00 100 /min [facility] Arterial blood by [facility] Pulse oximetry Branch Systolic blood 2022-09-26 20:36:00 127 mm[Hg] Univer sity of pressure [facility] Diastolic blood 2022-09-26 20:36:00 81 mm[Hg] Unive rsity of pressure [facility] Heart rate 2022-09-26 20:36:00 89 /min [facility] Body temperature 2022-09-26 20:36:00 36.28 Nancy [facility] Respiratory rate 2022-09-26 20:36:00 18 /min [facility] Body height 2022-09-26 20:36:00 160 cm [facility] Body weight 2022-09-26 20:36:00 95.794 kg [facility] BMI 2022-09-26 20:36:00 37.41 kg/m2 [facility] Heart rate 2022-09-22 23:56:00 103 /min [facility] Oxygen saturation in 2022-09-22 23:56:00 98 /min [facility] Arterial blood by [facility] Pulse oximetry Branch Systolic blood 2022-09-22 23:30:00 137 mm[Hg] Univer sity of pressure [facility] Diastolic blood 2022-09-22 23:30:00 70 mm[Hg] Unive rsity of pressure [facility] Respiratory rate 2022-09-22 23:30:00 18 /min [facility] Body temperature 2022-09-22 22:00:00 37.72 Nancy [facility] Systolic blood 2022-09-21 01:55:00 133 mm[Hg] Univer sity of pressure [facility] Diastolic blood 2022-09-21 01:55:00 81 mm[Hg] Unive rsity of pressure [facility] Body temperature 2022-09-21 01:55:00 37.33 Nancy [facility] Respiratory rate 2022-09-21 01:55:00 18 /min [facility] Heart rate 2022-09-21 01:38:00 116 /min [facility] Oxygen saturation in 2022-09-21 01:38:00 99 /min [facility] Arterial blood by [facility] Pulse oximetry Branch Systolic blood 2022-09-18 20:28:00 122 mm[Hg] Univer sity of pressure [facility] Diastolic blood 2022-09-18 20:28:00 67 mm[Hg] Unive rsity of pressure [facility] Heart rate 2022-09-18 20:28:00 94 /min [facility] Body temperature 2022-09-18 20:28:00 36.17 Nancy [facility] Respiratory rate 2022-09-18 20:28:00 18 /min [facility] Body height 2022-09-18 20:28:00 160 cm [facility] Body weight 2022-09-18 20:28:00 96.645 kg [facility] BMI 2022-09-18 20:28:00 37.74 kg/m2 [facility] Systolic blood 2022-09-11 20:42:00 123 mm[Hg] [facility] Diastolic blood 2022-09-11 20:42:00 81 mm[Hg] [facility] Heart rate 2022-09-11 20:42:00 99 /min [facility] Body temperature 2022-09-11 20:42:00 36.5 Nancy [facility] Respiratory rate 2022-09-11 20:42:00 17 /min [facility] Body height 2022-09-11 20:42:00 160 cm [facility] Body weight 2022-09-11 20:42:00 95.34 kg [facility] BMI 2022-09-11 20:42:00 37.23 kg/m2 [facility] Systolic blood 2022-09-07 18:52:00 106 mm[Hg] [facility] Diastolic blood 2022-09-07 18:52:00 71 mm[Hg] [facility] Heart rate 2022-09-07 18:52:00 83 /min [facility] Body temperature 2022-09-07 18:52:00 36.83 Nancy [facility] Respiratory rate 2022-09-07 18:52:00 18 /min [facility] Body height 2022-09-07 18:52:00 160 cm [facility] Body weight 2022-09-07 18:52:00 96.163 kg [facility] BMI 2022-09-07 18:52:00 37.55 kg/m2 [facility] Systolic blood 2022-09-04 19:18:00 112 mm[Hg] [facility] Diastolic blood 2022-09-04 19:18:00 65 mm[Hg] [facility] Heart rate 2022-09-04 19:18:00 95 /min [facility] Body temperature 2022-09-04 19:18:00 36.28 Nancy [facility] Respiratory rate 2022-09-04 19:18:00 18 /min [facility] Body height 2022-09-04 19:18:00 160 cm [facility] Body weight 2022-09-04 19:18:00 96.389 kg [facility] BMI 2022-09-04 19:18:00 37.64 kg/m2 [facility] Systolic blood 2022-08-31 18:23:00 114 mm[Hg] [facility] Diastolic blood 2022-08-31 18:23:00 62 mm[Hg] [facility] Heart rate 2022-08-31 18:23:00 81 /min [facility] Body temperature 2022-08-31 18:23:00 36 Nancy [facility] Respiratory rate 2022-08-31 18:23:00 20 /min [facility] Body height 2022-08-31 18:23:00 160 cm [facility] Body weight 2022-08-31 18:23:00 95.437 kg [facility] BMI 2022-08-31 18:23:00 37.27 kg/m2 [facility] Systolic blood 2022-08-28 19:29:00 105 mm[Hg] [facility] Diastolic blood 2022-08-28 19:29:00 60 mm[Hg] [facility] Heart rate 2022-08-28 19:29:00 83 /min [facility] Body temperature 2022-08-28 19:29:00 35.72 Nancy [facility] Respiratory rate 2022-08-28 19:29:00 18 /min [facility] Body height 2022-08-28 19:29:00 160 cm [facility] Body weight 2022-08-28 19:29:00 95.397 kg [facility] BMI 2022-08-28 19:29:00 37.26 kg/m2 [facility] Systolic blood 2022-08-14 18:33:00 112 mm[Hg] [facility] Diastolic blood 2022-08-14 18:33:00 60 mm[Hg] [facility] Heart rate 2022-08-14 18:33:00 87 /min [facility] Body temperature 2022-08-14 18:33:00 36.28 Nancy [facility] Respiratory rate 2022-08-14 18:33:00 18 /min [facility] Body height 2022-08-14 18:33:00 160 cm [facility] Body weight 2022-08-14 18:33:00 94.575 kg [facility] BMI 2022-08-14 18:33:00 36.93 kg/m2 [facility] Systolic blood 2022-07-31 19:10:00 119 mm[Hg] [facility] Diastolic blood 2022-07-31 19:10:00 61 mm[Hg] [facility] Heart rate 2022-07-31 19:10:00 85 /min [facility] Body temperature 2022-07-31 19:10:00 36.11 Nancy [facility] Respiratory rate 2022-07-31 19:10:00 18 /min [facility] Body height 2022-07-31 19:10:00 160 cm [facility] Body weight 2022-07-31 19:10:00 95.255 kg [facility] BMI 2022-07-31 19:10:00 37.20 kg/m2 [facility] Systolic blood 2022-07-17 19:07:00 126 mm[Hg] Univer sity of pressure [facility] Diastolic blood 2022-07-17 19:07:00 77 mm[Hg] Unive rsity of pressure [facility] Heart rate 2022-07-17 19:07:00 80 /min [facility] Body temperature 2022-07-17 19:07:[address] [facility] 2022-07-17 19:07:00 17 /min [facility] Body height 2022-07-17 19:07:00 160 cm [facility] Body weight 2022-07-17 19:07:00 94.008 kg [facility] BMI 2022-07-17 19:07:00 36.71 kg/m2 [facility] Procedures Procedure Date / Time Performed Performing Clinician Sourc e POCT URINALYSIS W/O 2023-03-19 16:20:00 Cecilia Mireles [facility] SPECIFIC GRAVITY [facility] DIABETES TESTING 2023-03-19 05:01:00 Doctor Unassigned, No [facility] REPORTS Name [facility] PATIENT FINANCIAL 2023-02-27 13:25:03 Doctor Unassigned, No [facility] POLICY Name [facility] BILE ACIDS, TOTAL 2023-02-19 16:50:00 Cecilia Mireles [facility] SGOT (ASPARTATE AMINO 2023-02-19 16:50:00 Cecilia Mireles [facility]) [facility] GLUCOSE 1 HOUR POST 2023-02-19 16:50:[address] [facility] PRANDIAL [facility] ALANINE AMINO 2023-02-19 16:50:00 Cecilia Mireles [facility] TRANSFERASE(SGPT Medical Branch CBC WITH DIFF 2023-02-19 16:50:00 Cecilia Mireles [facility] RUBELLA SCREEN IGG 2023-02-19 16:50:00 Cecilia Mireles [facility] HEPATITIS B SURFACE 2023-02-19 16:50:[address] [facility] ANTIGEN [facility] HB ABO GROUPING 2023-02-19 16:50:00 Cecilia Mireles [facility] URINE CULTURE 2023-02-19 16:50:00 Cecilia Mireles [facility] GC & CHLAMYDIA 2023-02-19 16:50:00 Cecilia Mireles [facility] AMPLIFIED ASSAY [facility] HIV 1/2 AG-AB WITH 2023-02-19 16:50:00 Cecilia Mireles [facility] REFLEX [facility] HIGH RISK HPV-THIN 2023-02-19 16:50:00 Cecilia Mireles [facility] PREP [facility] PAP SMEAR-LIQUID 2023-02-19 16:50:00 Cecilia Mireles [facility] BASED-CP [facility] SYPHILIS IGG/IGM 2023-02-19 16:50:00 Cecilia Mireles [facility] POCT TEST 2023-02-19 15:55:[address] [facility] POCT URINALYSIS W/O 2023-02-19 15:55:[address] [facility] REPORT OF 2023-02-19 05:01:00 Doctor Unassigned, No [facility] 2022-12-06 20:15:00 Cecilia Mireles [facility] POCT TEST 2022-12-06 19:29:[address] [facility] DISCLOSURE AND 2022-12-06 06:01:00 Doctor Unassigned, No [facility], MEDICAL AND [facility] SURGICAL PROCEDURES CBC WITH DIFF 2022-11-13 22:40:00 Ros Barbosa [place] [facility] GARDASIL 9 (HPV 9V) 2022-11-13 22:12:46 Ros Barbosa [facility] VACCINE [facility] POCT URINALYSIS W/O 2022-10-09 20:18:[address] [facility] rsity [facility] CBC WITH DIFF 2022-10-03 12:12:00 Hodgins, [facility] EXTRA TUBE LAV 2022-10-03 12:12:00 Haider Medina [facility] CBC WITH DIFF 2022-10-03 12:12:00 Massiel [facility] EXTRA TUBE LAV 2022-10-03 12:12:00 Haider Medina [facility] SECTION 2022-10-02 19:43:00 Haider Medina [facility] CBC WITH DIFF 2022-10-02 15:09:00 [facility] HEPATITIS B SURFACE 2022-10-02 15:09:00 [facility] GALV ONLY - SYPHILIS 2022-10-02 15:09:00 [facility] IGG/IGM [facility] CBC WITH DIFF 2022-10-02 15:09:00 [facility] HEPATITIS B SURFACE 2022-10-02 15:09:00 [facility] GALV ONLY - SYPHILIS 2022-10-02 15:09:00 [facility] IGG/IGM [facility] HB ABO GROUPING 2022-10-02 15:01:00 [facility] RHO (D) IMMUNE 2022-10-02 15:01:00 [facility] GLOBULIN [facility] HB ABO GROUPING 2022-10-02 15:01:00 [facility] RHO (D) IMMUNE 2022-10-02 15:01:00 [facility] POCT GLUCOSE 2022-10-02 14:06:00 Haider Medina [facility] (AUTOMATED) [facility] POCT GLUCOSE 2022-10-02 14:06:00 [facility] ADMISSION 2022-10-02 06:01:00 Doctor Unassigned, No [facility] NON-STRESS TEST 2022-10-01 21:55:57 Brian Bailey [facility] POCT URINALYSIS W/O 2022-10-01 20:52:00 Brian Bailey [facility] NON-STRESS TEST 2022-09-26 21:24:41 Cecilia Mireles [facility] POCT URINALYSIS W/O 2022-09-26 20:38:00 Brian Bailey [facility] XR CHEST 1 VW 2022-09-22 22:25:00 [facility] AMYLASE 2022-09-22 21:31:00 [facility] LIPASE 2022-09-22 21:31:00 [facility] MAGNESIUM 2022-09-22 21:31:00 [facility] COMP. METABOLIC PANEL 2022-09-22 21:31:00 [facility] ([id number]) [facility] CBC WITH DIFF 2022-09-22 21:31:00 [facility] HB ABO GROUPING 2022-09-22 21:31:00 [facility] EXTRA TUBE SST 2022-09-22 21:31:00 Manuel Green [facility] URINALYSIS 2022-09-22 21:14:00 [facility] POCT GLUCOSE 2022-09-22 20:41:00 Manuel Green [facility] (AUTOMATED) [facility] CONSENT/REFUSAL FOR 2022-09-22 06:01:00 Doctor Unassigned, [facility] AND Name Medical Branch TREATMENT RAPID INFLUENZA A/B 2022-09-21 02:55:00 Pippa Porras [facility] ASSIGNMENT OF BENEFITS 2022-09-21 01:35:06 Doctor Unassigned, No [facility] Name [facility] CONSENT/REFUSAL FOR 2022-09-21 01:34:44 Doctor Unassigned, No [facility] DIAGNOSIS AND Name Medical Branch TREATMENT NON-STRESS TEST 2022-09-18 22:51:[address] [facility] POCT URINALYSIS W/O 2022-09-18 20:31:00 Brian Bailey [facility] DIABETES TESTING 2022-09-18 06:01:00 Doctor Unassdrea, Sherry Unive [facility] REPORTS Name Medical Branch NON-STRESS TEST 2022-09-11 20:59:55 Lissette Crews [facility] POCT URINALYSIS W/O 2022-09-11 20:43:00 Brian Bailey [facility] NON-STRESS TEST 2022-09-07 19:46:[address] [facility] POCT URINALYSIS W/O 2022-09-07 00:00:00 Monica Spence [facility] NON-STRESS TEST 2022-09-04 19:41:[address] [facility] POCT URINALYSIS W/O 2022-09-04 19:19:00 Brian Bailey [facility] NON-STRESS TEST 2022-08-31 19:50:20 Ros Barbosa [facility] POCT URINALYSIS W/O 2022-08-31 00:00:00 Ros Barbosa [facility] NON-STRESS TEST 2022-08-28 21:17:[address] [facility] POCT URINALYSIS W/O 2022-08-28 19:30:00 Brian Bailey [facility] DIABETES TESTING 2022-08-28 05:01:00 Doctor Guillermo, Sherry Pricee [facility] REPORTS Name [facility] TDAP VACCINE, >11 YRS, 2022-08-14 18:43:52 Brian Bailey [facility] POCT URINALYSIS W/O 2022-08-14 18:35:00 Brian Bailey [facility] sitchandan [facility] FLU VACC (), 2022-07-31 19:41:01 Doctor UnassSherry shepard [facility] 6 MO-64 YRS, .5ML, IM, Name Medical B yulianach QUAD (FLUCELVAX) POCT URINALYSIS W/O 2022-07-31 19:11:00 Brian Bailey [facility] PO[facility] URINALYSIS W/O 2022-07-17 19:08:00 Brian Bailey [facility] DIABETES TESTING 2022-07-15 05:01:00 Doctor Unassdrea, Sherry [facility] REPORTS Name Medical Branch L&D VISIT 2022-05-08 05:01:00 Doctor UnaSherry rosario [facility] (NON-DELIVERED) Name Medical Branch Encounters Start End Encounter Admission Attending Care Care Encounter Source Date/Time Date/Time Type Type Clinicians Facility Department ID 2022-08-14 Outpatient P [facility] [id number] [facility] Outpatient P [facility] [id number] Univers 23[facility]26[facility] 2021-08-31 Outpatient P [facility] [id number] Univers 23:20:06 ity [facility] 2021-08-31 Emergency [facility] [id number] Univers [facility] 2021-08-31 Outpatient P [facility] [id number] Univers 12:54:[facility] 2021-08-31 Emergency [facility] [id number] Univers 12:54:[facility] 2023-03-25 2023-03-25 Outpatient R [facility] [id number] Univers 13:00:00 13:00:[facility] 2023-03-19 2023-03-19 Outpatient R ALINE [facility] [id number] Univers 11:00:00 11:59:47 CECILIA chicas f [facility] 2023-03-19 2023-03-19 Routine Aline [facility] 1.2.840.114 [id number] Univers 11:00:00 11:59:47 Cecilia Samuel DIRECTOR MOTION PICTURE 350.1.13.10 ity of Visit REGIONAL 4.2.7.2.686 Robbie as MATERNAL [id number] [facility] & CHILD [address] [place] [address] 2023-03-19 2023-03-19 Orders Doctor NORBERTO 1.2.840.114 [id number] Univers 00:00:00 00:00:00 Only Unassigned, MYA 350.1.13.10 ity of [place] [facility] 4.2.7.2.686 Robbie as [phone] [address] 2023-03-13 2023-03-13 Patient Aline [facility] 1.2.840.114 [id number] Univers 00:00:00 00:00:00 Secure Msg Cecilia Samuel DIRECTOR MOTION PICTURE 350.1.13.10 ity of REGIONAL 4.2.7.2.686 Robbie as MATERNAL [id number] [facility] CHILD [address] [place] [address] 2023-03-08 2023-03-08 Telephone Lynn [facility] 1.2.840.114 [id number] Univers 00:00:00 00:00:00 Brian Stratton DIRECTOR MOTION PICTURE 350.1.13.10 it y of REGIONAL 4.2.7.2.686 Robbie as MATERNAL [id number] [address] 2023-03-07 2023-03-07 [facility], Fp Nrpt Pills Class [facility] 1.2.840.114 [id number] Univers 13:30:00 14:15:22 Visit Cecilia Mireles DIRECTOR MOTION PICTURE 350.1.13.10 ity of REGIONAL 4.2.7.2.686 Robbie as MATERNAL [id number] [facility] CHILD [address] [place] [address] 2023-03-07 2023-03-07 Outpatient R ALINE [facility] [id number] Univers 13:30:00 13:30:00 CECILIA carpio o diane [facility] 2023-03-04 2023-03-04 Telephone Aline [facility] [id number] Univers 00:00:00 00:00:00 Cecilia Samuel DIRECTOR MOTION PICTURE 350.1.13.10 ity of REGIONAL 4.2.7.2.686 Robbie as MATERNAL [id number] [address] 2023-02-28 2023-02-28 Case [facility] 1.2.840.114 [id number] Univers 00:00:00 00:00:00 Management Yesenia DIRECTOR MOTION PICTURE 350.1.13.10 ity of REGIONAL 4.2.7.2.686 Robbie as MATERNAL [id number] [address] 2023-02-27 2023-02-27 Outpatient Simone MIRELES [facility] [id number] Univers 09:00:00 11:49:34 CECILIA carpio o diane [facility] 2023-02-27 2023-02-27 Customer Care Associate Lab, [facility] 1.2.840. 114 [id number] Univers 09:00:00 11:49:34 Visit Cecilia Mireles DIRECTOR MOTION PICTURE 350.1.13.10 ity of [facility] 4.2.7.2.686 Robbie as MATERNAL [id number] [address] 2023-02-27 2023-02-27 Orders Doctor NORBERTO 1.2.840.114 [id number] Univers 00:00:00 00:00:00 Only Unassigned, MYA 350.1.13.10 ity of [place] [facility] 4.2.7.2.686 Robbie as [id number] [address] 2023-02-19 2023-02-19 Initial Aline [facility] 1.2.840.114 [id number] Univers 10:00:00 12:22:12 Cecilia Samuel DIRECTOR MOTION PICTURE 350.1.13.10 ity of Visit [facility] 4.2.7.2.686 Robbie as MATERNAL [id number] [address] 2023-02-19 2023-02-19 Outpatient Simone MIRELES [facility] [id number] Univers 09:30:00 09:31:07 CECILIA contreras [facility] 2023-02-19 2023-02-19 Case [facility] 1.2.840.114 [id number] Univers 00:00:00 00:00:00 Management Lucy Toledo DIRECTOR MOTION PICTURE 350.1.13.10 ity of [facility] 4.2.7.2.686 Robbie as MATERNAL [id number] [facility] ical & CHILD [address] [place] [address] 2023-02-19 2023-02-19 Orders Doctor THORNTON 1.2.840.114 [id number] Univers 00:00:00 00:00:00 Only Unassigned, MYA 350.1.13.10 ity of [place] [address]2.686 Robbie as [id number] [address] 2023-02-18 2023-02-18 Outpatient R ROS BARBOSA [facility] [id number] Univers 09:15:00 09:15:00 ROS BARBOSA [facility] 2023-01-07 2023-01-07 Outpatient R ALINE [facility] [id number] Univers 15:00:00 15:00:00 CECILIA contreras [facility] 2022-12-20 2022-12-20 Outpatient R LYNN [facility] [id number] Univers 12:45:00 12:45:00 BRIAN chandan [facility] 2022-12-06 2022-12-06 [facility] [id number] Univers 13:30:00 14:16:35 CECILIA contreras [facility] 2022-12-06 2022-12-06 Office [facility] 1.2.840.114 [id number] Univers 13:30:00 14:16:35 Visit Cecilia Samuel DIRECTOR MOTION PICTURE 350.1.13.10 ity of [facility] 42.7.2.686 Robbie as MATERNAL [id number] [facility] ical & CHILD [address] [place] [address] 2022-12-06 2022-12-06 Out[facility] [id number] Univers 13:00:00 13:00:00 CECILIA contreras [facility] 2022-12-06 2022-12-06 Orders Doctor NORBERTO 1.2.840.114 [id number] Univers 00:00:00 00:00:00 Only Unassigned, YMA 350.1.13.10 ity of [place] [facility] 4.2.7.2.686 Robbie as [id number] [address] 2022-11-27 2022-11-27 Outpatient R ROS BARBOSA [facility] [id number] Univers 15:30:00 16:30:44 ROS BARBOSA [facility] 2022-11-27 2022-11-27 Office Galo [facility] 1.2.840.114 [id number] Univers 15:30:00 16:30:44 Visit Ros DIRECTOR MOTION PICTURE 350.1.13.10 it y of [facility] 4.2.7.2.686 Robbie as MATERNAL [phone] [facility] ical & CHILD [address] [place] [address] 2022-11-22 2022-11-22 Outpatient R BEBE [facility] [id number] Univers 08:30:00 10:33:31 MONICA carpio [facility] 2022-11-22 2022-11-22 Customer Care Associate Lab, [facility] 1.2.840. 114 [id number] Univers 08:30:00 10:33:31 Visit Monica Spence DIRECTOR MOTION PICTURE 350.1.13.10 ity [facility] 4.2.7.2.686 Robbie as MATERNAL [id number] [facility] ical & CHILD [address] [place] [address] 2022-11-13 2022-11-13 Outpatient R ALINE [facility] [id number] Univers 15:30:00 16:42:04 CECILIA contreras [facility] 2022-11-13 2022-11-13 Office Ros Barbosa [facility] 1.2.840.11 [id number] Univers 15:30:00 16:42:04 Visit Cecilia Mireles DIRECTOR MOTION PICTURE 350.1.13.10 ity [facility] 4.2.7.2.686 Robbie as MATERNAL [id number] [facility] ical & CHILD [address] [place] [address] 2022-11-13 2022-11-13 Outpatient R ROS BARBOSA [facility] [id number] Univers 15:00:00 15:00:00 ROS BARBOSA chandan [facility] 2022-10-31 2022-10-31 Refill [facility] 1.2.840.114 [id number] Univers 00:00:00 00:00:00 Cecilia Samuel DIRECTOR MOTION PICTURE 350.1.13.10 ity of REGIONAL 4.2.7.2.686 Robbie as MATERNAL [id number] [facility] & CHILD [address] [place] [address] 2022-10-23 2022-10-23 Outpatient Simone MIRELES [facility] [id number] Univers 13:45:00 14:47:38 CECILIA contreras [facility] 2022-10-23 2022-10-23 Routine Ros Barbosa [facility] 1.2.840.11 [id number] Univers 13:45:00 14:47:38 Cecilia Mireles DIRECTOR MOTION PICTURE 350.1.13.1 0 ity of Visit REGIONAL 4.2.7.2.686 Robbie as MATERNAL [id number] [facility] & CHILD [address] [place] [address] 2022-10-09 2022-10-09 Nurse Nataliia-Rmchp Nurse Vst, Fp Nrpt Pills Class [facility] 1.2.840.114 [id number] Univers 13:30:00 14:15:25 Visit Cecilia Mireles DIRECTOR MOTION PICTURE 350.1.13.10 ity of REGIONAL 4.2.7.2.686 Robbie as MATERNAL [id number] [facility] & CHILD [address] [place] [address] 2022-10-09 2022-10-09 Outpatient Simone MIRELES [facility] [id number] Univers 13:30:00 13:30:00 CECILIA contreras [facility] 2022-10-05 2022-10-05 Outpatient Simone SPENCE [facility] [id number] Univers 14:45:00 14:45:00 MONICA carpio [facility] 2022-10-02 2022-10-03 Inpatient P HAIDER [facility] [id number] Univers 07:52:00 17:40:00 MARIAHROGERI it y of S, SUH [facility] 2022-10-02 2022-10-03 Hospital Haider [facility] 1.2.840.114 [id number] Univers 07:52:00 17:40:00 Encounter Kael ROQUE 350.1.13.10 ity of s [facility] 4.2.7.2.686 Robbie as [id number] [facility] [address] 2022-10-03 2022-10-03 Abstract [facility] 1.2.331.457 [id number] Univers 00:00:00 00:00:00 Ros DIRECTOR MOTION PICTURE 350.1.13.10 it y of [facility] 4.2.7.2.686 Robbie as MATERNAL [id number] [facility] ical & CHILD [address] [place] [address] 2022-10-02 2022-10-02 Outpatient R ALINE [facility] [id number] Univers 14:30:00 14:30:00 CECILIA carpio o f [facility] 2022-10-02 2022-10-02 Surgery Haider THORNTON 1.2.840.114 [id number] Univers 08:00:00 09:45:00 Mariahrogerkyler ROQUE 350.1.13.10 ity of s [facility] 4.2.7.2.686 Robbie as [phone] [facility] 013 Nye 2022-10-02 2022-10-02 Orders Doctor THORNTON 1.2.840.114 [id number] Univers 00:00:00 00:00:00 Only Unassigned, MYA 350.1.13.10 ity of [place] [facility] 4.2.7.2.686 Robbie as [phone] [facility] [address] 2022-10-01 2022-10-01 Outpatient R LYNN [facility] [id number] Univers 14:30:00 15:13:52 BRIAN carpio of [facility] 2022-10-01 2022-10-01 [facility] 1.2.729.343 [id number] Univers 14:30:00 15:13:52 Brian Stratton DIRECTOR MOTION PICTURE 350.1.13.10 i ty of Visit REGIONAL 4.2.7.2.686 Robbie as MATERNAL [id number] [facility] ical & CHILD [address] [place] [address] 2022-10-01 2022-10-01 Case [facility] 1.2.840.114 [id number] Univers 00:00:00 00:00:00 Management Cecilia Samuel DIRECTOR MOTION PICTURE 350.1.13.10 ity of REGIONAL 4.2.7.2.686 Robbie as MATERNAL [id number] [facility] & CHILD [address] [place] [address] 2022-10-01 2022-10-01 Telephone [facility] 1.2.857.734 [id number] Univers 00:00:00 00:00:00 Cecilia Samuel DIRECTOR MOTION PICTURE 350.1.13.10 ity of REGIONAL 4.2.7.2.686 Robbie as MATERNAL [id number] [facility] & CHILD [address] [place] [address] 2022-09-26 2022-09-26 Routine [facility] 1.2.840.114 [id number] Univers 15:00:00 15:30:54 Cecilia Samuel DIRECTOR MOTION PICTURE 350.1.13.10 ity of Visit REGIONAL 4.2.7.2.686 Robbie as MATERNAL [phone] [facility] & CHILD [address] [place] [address] 2022-09-26 2022-09-26 Outpatient P ISAMAR BERG [facility] [id number] Univers 14:00:00 14:22:04 ISAMAR BERG itchandan [facility] 2022-09-26 2022-09-26 Customer Care Associate [facility] 1.2. 840.114 [id number] Univers 14:00:00 14:22:04 Visit Isamar Berg DIRECTOR MOTION PICTURE 350.1.13.10 ity of REGIONAL 4.2.7.2.686 Robbie as MATERNAL [phone] [facility] & CHILD [address] [place] [address] 2022-09-24 2022-09-24 Outpatient [facility] [id number] Univers 13:30:00 13:30:00 CECILIA carpio o f [facility] 2022-09-22 2022-09-22 Outpatient [facility] [place] [id number] Univers 13:41:00 18:40:00 MANUEL contreras [facility] 2022-09-22 2022-09-22 [facility] NORBERTO [place] 1.2.120.557 [id number] Univers 13:41:00 18:40:00 Encounter Manuel CONTRERASY 350.1.13.10 ity [facility] 4.2.7.2.686 Robbie as [phone] [facility] 140 Nye 2022-09-21 2022-09-21 Telephone [facility] 1.2.373.530 [id number] Univers 00:00:00 00:00:00 Pippa KONG 350.1.13.10 ity [facility] 4.2.7.2.686 [place] [facility] [phone] Ri dical [facility] 134 [facility] 2022-09-21 2022-09-21 Telephone [facility] 1.2.840.114 [id number] Univers 00:00:00 00:00:00 Ros DIRECTOR MOTION PICTURE 350.1.13.10 it y of [facility] 4.2.7.2.686 Robbie as MATERNAL [phone] Med ical & CHILD [address] [place] [address] 2022-09-20 2022-09-20 Outpatient P [facility] [place] [id number] Univers 19:48:00 22:30:00 PIPPA carpio [facility] 2022-09-20 2022-09-20 [facility] 1.2.840.114 [id number] Univers 19:48:00 22:30:00 Encounter Pippa KONG 350.1.13.10 ity [facility] 4.2.7.2.686 [place] MATTHEWS [id number] [facility] 083 Nye 2022-09-18 2022-09-18 Outpatient R BEBE [facility] [id number] Univers 14:15:00 15:39:52 MONICA carpio [facility] 2022-09-18 2022-09-18 Routine Risk, Pea-Rmchp Provider/High [facility] 1.2.840.114 [id number] Univers 14:15:00 15:39:52 Monica Spence DIRECTOR MOTION PICTURE 350.1.13.10 ity of Visit REGIONAL 4.2.7.2.686 Robbie as MATERNAL [id number] [facility] & CHILD [address] [place] [address] 2022-09-18 2022-09-18 Orders Doctor NORBERTO 1.2.840.114 [id number] Univers 00:00:00 00:00:00 Only Unassigned, MYA 350.1.13.10 ity of [place] [facility] 4.2.7.2.686 Robbie as [id number] [address] 2022-09-14 2022-09-14 Outpatient R ROS BARBOSA [facility] [id number] Univers 14:30:00 14:30:00 ROS BARBOSA [facility] 2022-09-11 2022-09-11 Outpatient Simone CREWS [facility] [id number] Univers 14:15:00 14:59:53 LISSETTE carpio [facility] 2022-09-11 2022-09-11 Routine Risk, Pea-Rmchp Provider/High [facility] 1.2.840.114 [id number] Univers 14:15:00 14:59:53 Lissette Crews DIRECTOR MOTION PICTURE 350.1.13.10 ity of Visit REGIONAL 4.2.7.2.686 Robbie as MATERNAL [id number] [facility] & CHILD [address] [place] [address] 2022-09-07 2022-09-07 Outpatient Simone SPENCE [facility] [id number] Univers 14:15:00 14:39:00 MONICA carpio [facility] 2022-09-07 2022-09-07 Routine Risk, Pea-Rmchp Provider/High [facility] 1.2.840.114 [id number] Univers 14:15:00 14:39:00 Monica Spence DIRECTOR MOTION PICTURE 350.1.13.10 ity of Visit REGIONAL 4.2.7.2.686 Robbie as MATERNAL [id number] [facility] & CHILD [address] [place] [address] 2022-09-04 2022-09-04 Outpatient R BEBE [facility] [id number] Univers 14:15:00 14:39:21 MONICA carpio [facility] 2022-09-04 2022-09-04 Routine Nataliia Sauceda-Rmchp Provider/High [facility] 1.2.840.114 [id number] Univers 14:15:00 14:39:21 Monica Spence DIRECTOR MOTION PICTURE 350.1.13.10 ity of Visit REGIONAL 4.2.7.2.686 Robbie as MATERNAL [phone] Med ical & CHILD [address] [place] [address] 2022-08-31 2022-08-31 Outpatient ROS ALONSO [facility] [id number] Univers 13:45:00 14:46:36 ROS BARBOSA [facility] 2022-08-31 2022-08-31 Routine Galo [facility] 1.2.840.114 [id number] Univers 13:45:00 14:46:36 Ros DIRECTOR MOTION PICTURE 350.1.13.10 i ty of Visit REGIONAL 4.2.7.2.686 Robbie as MATERNAL [phone] Med ical & CHILD [address] [place] [address] 2022-08-31 2022-08-31 Abstract Galo [facility] 1.2.160.764 [id number] Univers 00:00:00 00:00:00 Ros DIRECTOR MOTION PICTURE 350.1.13.10 it y of REGIONAL 4.2.7.2.686 Robbie as MATERNAL [phone] Med ical & CHILD [address] [place] [address] 2022-08-29 2022-08-29 Outpatient P GHANSHYAM [facility] [id number] Univers 14:00:00 14:14:45 MATTEO carpio [facility] 2022-08-29 2022-08-29 Customer Care Associate 1John Room [facility] 1.2. 840.114 [id number] Univers 14:00:00 14:14:45 Visit Matteo Morrissey DIRECTOR MOTION PICTURE 350.1. 13.10 ity of REGIONAL 4.2.7.2.686 Robbie as MATERNAL [phone] Med ical & CHILD 369 [facility] 2022-08-28 2022-08-28 Outpatient R BEBE [facility] [id number] Univers 14:00:00 15:06:19 MONICA carpio [facility] 2022-08-28 2022-08-28 Routine Nataliia Sauceda-chp Provider/High [facility] 1.2.840.114 [id number] Univers 14:00:00 15:06:19 Monica Spence DIRECTOR MOTION PICTURE 350.1.13.10 ity of Visit REGIONAL 4.2.7.2.686 Robbie as MATERNAL [id number] [facility] & CHILD [address] [place] [address] 2022-08-28 2022-08-28 Orders Doctor NORBERTO 1.2.840.114 [id number] Univers 00:00:00 00:00:00 Only Unassigned, MYA 350.1.13.10 ity of [place] [facility] 4.2.7.2.686 Robbie as [id number] [address] 2022-08-14 2022-08-14 Outpatient [facility] [id number] Univers 13:45:00 14:19:42 BRIAN carpio [facility] 2022-08-14 2022-08-14 Routine [facility] 1.2.155.606 [id number] Univers 13:45:00 14:19:42 Brian Stratton DIRECTOR MOTION PICTURE 350.1.13.10 i ty of Visit [facility] 4.2.7.2.686 Robbie as MATERNAL [phone] [facility] & CHILD [address] [place] [address] 2022-08-03 2022-08-03 Abstract Galo [facility] 1.2.056.800 [id number] Univers 00:00:00 00:00:00 Ros DIRECTOR MOTION PICTURE 350.1.13.10 it y of [facility] 4.2.7.2.686 Robbie as MATERNAL [id number] [facility] & CHILD [address] [place] [address] 2022-08-01 2022-08-01 Customer Care Associate John Stewart Room [facility] 1.2. 840.114 [id number] Univers 14:00:00 14:30:00 Visit Omere, Chasey Mylene DIRECTOR MOTION PICTURE 350.1. 13.10 ity of REGIONAL 4.2.7.2.686 Robbie as MATERNAL [id number] [facility] ical & CHILD [address] [facility] 2022-08-01 2022-08-01 Outpatient P GHANSHYAM [facility] [id number] Univers 14:00:00 14:19:44 MATTEO [facility] 2022-07-31 2022-07-31 Outpatient R BEBE [facility] [id number] Univers 14:00:00 14:41:47 MONICA [facility] 2022-07-31 2022-07-31 Routine Risk, Pea-Rmchp Provider/High [facility] 1.2.840.114 [id number] Univers 14:00:00 14:41:47 Monica Spence DIRECTOR MOTION PICTURE 350.1.13.10 ity of Visit REGIONAL 4.2.7.2.686 Robbie as MATERNAL [id number] [facility] ical & CHILD [address] [place] [address] 2022-07-25 2022-07-25 Case [facility] 1.2.840.114 [id number] Univers 00:00:00 00:00:00 Management Monica Damon DIRECTOR MOTION PICTURE 350.1.13.10 ity of REGIONAL 4.2.7.2.686 Robbie as MATERNAL [id number] [facility] & CHILD 111 [facility] 2022-07-24 2022-07-24 Telephone [facility] 1.2.727.012 [id number] Univers 00:00:00 00:00:00 Monica Damon DIRECTOR MOTION PICTURE 350.1.13.10 i ty of REGIONAL 4.2.7.2.686 Robbie as MATERNAL [id number] [facility] ical & CHILD [address] [place] [address] 2022-07-17 2022-07-17 Outpatient Simone SPENCE [facility] [id number] Univers 14:00:00 14:47:30 MONICA [facility] 2022-07-17 2022-07-17 Routine Risk, Pea-Rmchp Provider/High [facility] 1.2.840.114 [id number] Univers 14:00:00 14:47:30 Monica Spence DIRECTOR MOTION PICTURE 350.1.13.10 ity of Visit REGIONAL 4.2.7.2.686 Robbie as MATERNAL [id number] [facility] & CHILD [address] [place] [address] 2022-07-17 2022-07-17 Outpatient R [facility] [id number] Univers 14:00:00 14:00:00 ity of [facility] 2022-07-16 2022-07-16 Telephone Spence [facility] 1.2.077.012 [id number] Univers 00:00:00 00:00:00 Monica Damon DIRECTOR MOTION PICTURE 350.1.13.10 i ty of [facility] 4.2.7.2.686 Robbie as MATERNAL [id number] [facility] & [address] 2022-07-15 2022-07-15 Orders Doctor NORBERTO 1.2.840.114 [id number] Univers 00:00:00 00:00:00 Only Unassigned, MYA 350.1.13.10 ity of [place] [facility] 4.2.7.2.686 Robbie as [id number] [address] 2022-07-11 2022-07-11 Abstract Galo [facility] 1.2.519.218 [id number] Univers 00:00:00 00:00:00 Ros DIRECTOR MOTION PICTURE 350.1.13.10 it y of [facility] 4.2.7.2.686 Robbie as MATERNAL [id number] [facility] & CHILD [address] [place] [address] 2022-07-05 2022-07-05 Abstract Galo [facility] 1.2.181.440 [id number] Univers 00:00:00 00:00:00 Ros DIRECTOR MOTION PICTURE 350.1.13.10 it y of [facility] 4.2.7.2.686 Robbie as MATERNAL [id number] [facility] & [address] 2022-07-04 2022-07-04 Outpatient P ISAMAR BERG [facility] [id number] Univers 14:15:00 14:31:11 ISAMAR BERG ity [facility] 2022-07-04 2022-07-04 Customer Care Associate 1John Room [facility] 1.2. 840.114 [id number] Univers 14:15:00 14:31:11 Visit Otis Isamar DIRECTOR MOTION PICTURE 350.1.13.10 ity [facility] 4.2.7.2.686 Robbie as MATERNAL [id number] [facility] & [address] 2022-07-04 2022-07-04 Outpatient P BERGISAMAR [facility] [id number] Univers 14:15:00 14:31:11 BERGMARBIN LUEETA [facility] 2022-07-04 2022-07-04 Telephone Aline [facility] 1.2.074.613 [id number] Univers 00:00:00 00:00:00 Cecilia Samuel DIRECTOR MOTION PICTURE [facility].13.10 [facility] 4.2.7.2.686 Robbie as MATERNAL [id number] [facility] & [address] 2022-06-29 2022-06-29 Outpatient X ADUM, [facility] [id number] Univers 02:59:00 12:36:00 PIPPA [facility] 2022-06-29 2022-06-29 Emergency Mika Woodruff [facility] 1..840. 114 [id number] Univers 02:59:00 12:36:00 AdPippa box 350.1.13.10 [facility] 4.2.7.2.686 [place] [facility] [id number] [address] 2022-06-29 2022-06-29 Outpatient X ADUM, [facility] [id number] Univers 02:59:00 12:36:00 PIPPA [facility] 2022-06-26 2022-06-26 Outpatient R ELEONORA [facility] [id number] Univers 14:45:00 15:12:04 LISSETTE [facility] 2022-06-26 2022-06-26 Routine Risk, Pea-Rmchp Provider/High [facility] 1.2.840.114 [id number] Univers 14:45:00 15:12:04 CrewsLissette molina DIRECTOR MOTION PICTURE 350.1.13.10 ity of Visit REGIONAL 4.2.7.2.686 Robbie as MATERNAL [id number] [facility] ical & CHILD [address] [place] [address] 2022-06-12 2022-06-12 Outpatient Simone SPENCE [facility] [id number] Univers 13:30:00 14:15:09 MONICA ity [facility] 2022-06-12 2022-06-12 Routine Risk, Pea-Rmchp Provider/High [facility] 1.2.840.114 [id number] Univers 13:30:00 14:15:09 Monica Spence DIRECTOR MOTION PICTURE 350.1.13.10 ity of Visit [facility] 4.2.7.2.686 Robbie as MATERNAL [id number] [facility] & CHILD [address] [place] [address] 2022-06-12 2022-06-12 Orders Doctor NORBERTO 1.2.840.114 [id number] Univers 00:00:00 00:00:00 Only Unassigned, MYA 350.1.13.10 ity of [place] [facility] 4.2.7.2.686 Robbie as [id number] [address] 2022-06-07 2022-06-07 Abstract [facility] 1.2.211.273 [id number] Univers 00:00:00 00:00:00 Ros DIRECTOR MOTION PICTURE 350.1.13.10 it y of [facility] 4.2.7.2.686 Robbie as MATERNAL [id number] [facility] ical & CHILD [address] [place] [address] 2022-06-06 2022-06-06 Customer Care Associate 1John Room [facility] 1.2. 840.114 [id number] Univers 13:00:00 14:08:01 Visit Angeli Evans DIRECTOR MOTION PICTURE 350.1. 13.10 ity of [facility] 4.2.7.2.686 Robbie as MATERNAL [id number] [facility] & CHILD [address] [place] [address] 2022-06-06 2022-06-06 Outpatient P [facility] [id number] Univers 13:00:00 13:00:00 ity of [facility] 2022-06-06 2022-06-06 Outpatient P [facility] [id number] Univers 13:00:00 13:00:00 ity of [facility] 2022-06-06 2022-06-06 Outpatient P HAIDER [facility] [id number] Univers 13:00:00 13:00:00 KAEL it y of S, SHU [facility] 2022-05-29 2022-05-29 Outpatient R BEBE [facility] [id number] Univers 13:00:00 14:05:55 MONICA chandan [facility] 2022-05-29 2022-05-29 Routine Risk, Pea-Rmchp Provider/High [facility] 1.2.840.114 [id number] Univers 13:00:00 14:05:55 Monica Spence DIRECTOR MOTION PICTURE 350.1.13.10 ity of Visit REGIONAL 4.2.7.2.686 Robbie as MATERNAL [id number] [facility] ical & CHILD [address] [place] [address] 2022-05-29 2022-05-29 Outpatient R BEBE [facility] [id number] Univers 13:00:00 13:00:00 MONICA chandan [facility] 2022-05-29 2022-05-29 Orders Doctor NORBERTO 1.2.840.114 [id number] Univers 00:00:00 00:00:00 Only Unassigned, MYA 350.1.13.10 ity of [place] [facility] 4.2.7.2.686 Robbie as [id number] [address] 2022-05-21 2022-05-21 Refill [facility] 1.2.840.114 [id number] Univers 00:00:00 00:00:00 Lissette Berkowitz DIRECTOR MOTION PICTURE 350.1.13.10 ity of REGIONAL 4.2.7.2.686 Robbie as MATERNAL [id number] [facility] ical & CHILD [address] [place] [address] 2022-05-17 2022-05-17 Outpatient R ALINE [facility] [id number] Univers 14:00:00 15:04:29 CECILIA contreras [facility] 2022-05-17 2022-05-17 Office Aline [facility] 1.2.840.114 [id number] Univers 14:00:00 15:04:29 Visit Cecilia Samuel DIRECTOR MOTION PICTURE 350.1.13.10 ity of [facility] 4.2.7.2.686 Robbie as MATERNAL [id number] [facility] & CHILD [address] [place] [address] 2022-05-17 2022-05-17 Outpatient R ALINE [facility] [id number] Univers 14:00:00 14:00:00 CECILIA contreras [facility] 2022-05-17 2022-05-17 Orders Doctor NORBERTO 1.2.840.114 [id number] Univers 00:00:00 00:00:00 Only Unassigned, MYA 350.1.13.10 ity of [place] [facility] 4.2.7.2.686 Robbie as [id number] [facility] 009 Nye 2022-05-08 2022-05-08 Outpatient P JAD VILLARREAL [facility] [id number] Univers 15:32:00 16:10:00 ity of [facility] 2022-05-08 2022-05-08 [facility] Dinesh Carr [facility] 1.2.840.11 4 [id number] Univers 15:32:00 16:10:00 Encounter Jad Villarreal 350.1.13.10 ity [facility] 4.2.7.2.686 [facility] [phone] [facility] 083 Nye 2022-05-08 2022-05-08 Telephone Aline [facility] 1.2.738.378 [id number] Univers 00:00:00 00:00:00 Cecilia Samuel DIRECTOR MOTION PICTURE 350.1.13.10 ity of [facility] 4.2.7.2.686 Robbie as MATERNAL [id number] [facility] & CHILD [address] [place] [address] 2022-04-25 2022-04-25 Betzy Stoll [facility] 1.2.840.114 [id number] Univers 00:00:00 00:00:00 Lena Milligan DIRECTOR MOTION PICTURE 350.1.13.10 ity of REGIONAL 4.2.7.2.686 Robbie as MATERNAL [id number] [facility] ical & CHILD [address] [place] [address] 2022-04-24 2022-04-24 Outpatient Simone SPENCE [facility] [id number] Univers 14:30:00 15:00:11 MONICA [facility] 2022-04-24 2022-04-24 Routine Risk, Pea-Rmchp Provider/High [facility] 1.2.840.114 [id number] Univers 14:30:00 15:00:11 SpenceMonica DIRECTOR MOTION PICTURE 350.1.13.10 ity of Visit REGIONAL 4.2.7.2.686 Robbie as MATERNAL [id number] [facility] & CHILD [address] [place] [address] 2022-04-24 2022-04-24 Orders Doctor NORBERTO 1.2.840.114 [id number] Univers 00:00:00 00:00:00 Only Unassigned, MYA 350.1.13.10 ity of [place] [facility] 4.2.7.2.686 Robbie as [id number] [address] 2022-04-13 2022-04-13 Outpatient ROS ALONSO [facility] [id number] Univers 14:15:00 15:19:06 ORS BARBOSA [facility] 2022-04-13 2022-04-13 [facility]ine [facility] 1.2.840.114 [id number] Univers 14:15:00 15:19:06 Ros DIRECTOR MOTION PICTURE 350.1.13.10 i ty of Visit REGIONAL 4.2.7.2.686 Robbie as MATERNAL [id number] [facility] CHILD [address] [place] [address] 2022-04-13 2022-04-13 Orders Doctor NORBERTO 1.2.840.114 [id number] Univers 00:00:00 00:00:00 Only Unassigned, MYA 350.1.13.10 ity of [place] [facility] 4.2.7.2.686 Robbie as [id number] [address] 2022-04-05 2022-04-05 Outpatient Simone MIRELES [facility] [id number] Univers 11:00:00 15:49:21 CECILIA contreras [facility] 2022-04-05 2022-04-05 Customer Care Associate [facility] 1.2.840. 114 [id number] Univers 11:00:00 11:15:00 Visit Cecilia Mireles DIRECTOR MOTION PICTURE 350.1.13.10 ity of REGIONAL 4.2.7.2.686 Robbie as MATERNAL [phone] [facility] CHILD [address] [place] [address] 2022-04-05 2022-04-05 Outpatient R ALINE [facility] [id number] Univers 11:00:00 11:00:00 CECILIA contreras [facility] 2022-03-30 2022-03-30 [facility] [id number] Univers 10:45:00 11:46:01 BRIAN carpio [facility] 2022-03-30 2022-03-30 Routine [facility] 1.2.507.553 [id number] Univers 10:45:00 11:46:01 Brian Stratton DIRECTOR MOTION PICTURE 350.1.13.10 i ty of Visit REGIONAL 4.2.7.2.686 Robbie as MATERNAL [id number] [address] 2022-03-28 2022-03-28 Abstract [facility] 1.2.840.114 [id number] Univers 00:00:00 00:00:00 Brian Stratton DIRECTOR MOTION PICTURE 350.1.13.10 it y of REGIONAL 4.2.7.2.686 Robbie as MATERNAL [id number] [facility] & CHILD [address] [place] [address] 2022-03-27 2022-03-27 Customer Care Associate 1, [facility] 1.2. 840.114 [id number] Univers 15:45:00 16:23:59 Visit Angeli Evans DIRECTOR MOTION PICTURE 350.1. 13.10 ity of REGIONAL 4.2.7.2.686 Robbie as MATERNAL [phone] [facility] & CHILD [address] [place] [address] 2022-03-27 2022-03-27 Outpatient P HAIDER [facility] [id number] Univers 15:45:00 15:45:00 KAEL it y of ANGELI Bazan [facility] 2022-03-27 2022-03-27 [facility]phone [facility] 1.2.840.114 [id number] Univers 00:00:00 00:00:00 Brian DIRECTOR MOTION PICTURE 350.1.13.10 it y of REGIONAL 4.2.7.2.686 Robbie as MATERNAL [id number] [facility] & [address] 2022-03-15 2022-03-15 [facility] 1.2.840.114 [id number] Univers 00:00:00 00:00:00 Brian N DIRECTOR MOTION PICTURE 350.1.13.10 it y of REGIONAL 4.2.7.2.686 Robbie as MATERNAL [id number] [address] 2022-03-12 2022-03-12 Emergency X JUMA [facility] E[facility] [id number] Univers 16:06:00 22:07:00 SHERINE shirin [facility] 2022-03-12 2022-03-12 Emergency [facility] 1.2.608.089 [id number] Univers 16:06:00 22:07:00 Sherine Bazan DILAN 350.1.13.10 i ty [facility] 4.2.7.2.[place] [id number] [address] 2022-03-12 2022-03-12 Emergency X JUMA [facility] [id number] Univers 16:06:00 22:07:00 SHERINE carpio [facility] 2022-03-12 2022-03-12 [facility]phone [facility] 1.2.840.114 [id number] Univers 00:00:00 00:00:00 Brian Stratton DIRECTOR MOTION PICTURE 350.1.13.10 it y of [facility] 4.2.7.2.686 Robbie as MATERNAL [id number] [address] 2022-03-05 2022-03-05 [facility]phone [facility] 1.2.840.114 [id number] Univers 00:00:00 00:00:00 Brian N DIRECTOR MOTION PICTURE 350.1.13.10 it y of REGIONAL 4.2.7.2.686 Robbie as MATERNAL [id number] [facility] & [address] 2022-03-02 2022-03-02 Outpatient Simone BAILEY [facility] [id number] Univers 14:45:00 15:43:21 BRIAN carpio [facility] 2022-03-02 2022-03-02 Initial [facility] 1.2.230.325 [id number] Univers 14:45:00 15:43:21 Brian N DIRECTOR MOTION PICTURE 350.1.13.10 i ty of Visit REGIONAL 4.2.7.2.686 Robbie as MATERNAL [id number] [address] 2022-03-02 2022-03-02 Outpatient Simone [facility] [facility] [id number] Univers 14:15:00 14:53:52 BRIAN [facility] 2021-06-11 2021-06-11 Emergency Veena, [facility] 1.2.840.114 [id number] Univers 18:18:00 19:49:00 [place] [facility]2.686 [facility] [id number] [address] 2021-06-11 2021-06-11 Emergency X IBDANELLE, [facility] ERT [id number] Univers 18:18:00 19:49:00 [facility] 2021-06-11 2021-06-11 Emergency X IBIKUNCRISTHIAN, [facility] ERT [id number] Univers 18:18:00 19:49:00 MARINE carpio [facility] 2021-06-11 2021-06-11 Outpatient Simone MANTILLA [facility] [id number] Univers 14:00:00 14:00:00 CHOCO carpio [facility] 2021-06-11 2021-06-11 Nurse Therapy, Pcp Covid Infusion [facility] 1.2.840.114 [id number] Univers 13:00:40 13:30:40 Visit Jose RafaelJarekgm Haas PRIMARY 350.1.13.10 ity of CARE 4.2.7.2.686 [place] [facility] [phone] Ri dical [address] 2021-06-11 2021-06-11 Emergency [facility] 1.2.840.114 [id number] Univers 10:24:00 13:09:00 Sylvia [place] 350.1.13.10 i ty of [place].2.7.2.686 [place] [phone] [facility] [address] 2021-06-11 2021-06-11 Emergency [facility], [facility] ERT [id number] Univers 10:24:00 13:09:00 SYLVIA ity of [facility] 2021-06-11 2021-06-11 Letter NORBERTO Carcamo 1.2.840.114 [id number] Univers 00:00:00 00:00:00 (Out) Mari ROQUE 350.1.13.10 it y of HOSPITAL 4.2.7.2.686 Robbie as [phone] [facility] [address] 2021-06-09 2021-06-09 Outpatient R MARU [facility] [id number] Univers 20:00:00 20:13:46 KARL shirin chicas [facility] 2021-06-09 2021-06-09 Urgent Provider, [facility] 1.2.840.114 [id number] Univers 19:50:47 20:13:46 Care [facility] 350.1.13.10 ity of [place] 4.2.7.2.686 Robbie as Rishabh [phone] Ri dical nal [address] Office [address] 2021-06-09 2021-06-09 Orders Doctor NORBERTO 1.2.840.114 [id number] Univers 00:00:00 00:00:00 Only Unassigned, MYA 350.1.13.10 ity of [place] [facility] 4.2.7.2.686 Robbie as [phone] [facility] 009 Branch 2021-01-24 2021-01-24 Patient Jerman [facility] 1.2.840.114 [id number] 00:00:00 00:00:00 Outreach Dillon PRIMARY 350.1.13.10 Rigo CARE 4.2.7.2.686 PAVILLION [id number] 388 2021-01-24 2021-01-24 Patient Jerman [facility] 1.2.840.114 [id number] Univers 00:00:00 00:00:00 Outreach [place] PRIMARY 350.1.13.10 i ty of [place] CARE [place].2.7.2.686 [place] [phone] [address] 2020-10-03 2020-10-03 Outpatient R [facility] [id number] Univers 15:30:00 15:30:00 ity of [facility] 2020-07-12 2020-07-12 Telephone Esposito [facility] 1.2.021.469 [id number] [facility] 00:00:00 00:00:00 Rossathishnda R DIRECTOR MOTION PICTURE 350.1.13.10 ity of [facility] 4.2.7.2.686 Robbie as MATERNAL [phone] Med ical & CHILD [address] [place] [address] 2020-07-12 2020-07-12 [facility] 1.2.447.360 [id number] 00:00:00 00:00:00 Rosnda R DIRECTOR MOTION PICTURE 350.1.13.10 [facility] 4.2.7.2.686 MATERNAL [phone] & CHILD [address] [place] [address] 2020-05-30 2020-05-30 Office Cate [facility] 1.2.840.114 [id number] [facility] 15:22:31 16:40:25 Visit Roshunda R DIRECTOR MOTION PICTURE 350.1.13.10 ity of [facility] 4.2.7.2.686 Robbie as MATERNAL [phone] Med ical & CHILD [address] [place] [address] 2020-05-30 2020-05-30 Office [facility] 1.2.840.114 [id number] 15:22:31 16:40:25 Visit Rosnda R DIRECTOR MOTION PICTURE 350.1.13.10 REGIONAL 4.2.7.2.686 MATERNAL [phone] & CHILD [address] [place] [address] 2020-05-30 2020-05-30 Outpatient Simone ESPOSITO [facility] [id number] Univers 15:00:00 15:00:00 XOCHITL contreras [facility] 2020-05-09 2020-05-09 Routine Cate [facility] 1.2.840.114 [id number] Univers 12:46:57 13:16:49 Xochitl Nichols DIRECTOR MOTION PICTURE 350.1.13.10 ity of Visit REGIONAL 4.2.7.2.686 Robbie as MATERNAL [phone] [facility] ical & CHILD [address] [place] [address] 2020-05-09 2020-05-09 Outpatient Simone ESPOSITO [facility] [id number] Univers 12:45:00 12:45:00 XOCHITL contreras [facility] 2020-05-02 2020-05-02 Nurse Visit, [facility] Nurse [facility] 1.2 .840.114 [id number] Univers 09:04:17 09:31:19 Visit Xochitl Esposito R DIRECTOR MOTION PICTURE 350.1.13.10 ity of [facility] 4.2.7.2.686 Robbie as MATERNAL [phone] [facility] & [address] 2020-05-02 2020-05-02 Outpatient Simone ESPOSITO [facility] [id number] Univers 09:00:00 09:00:00 XOCHITL contreras [facility] 2020-04-26 2020-04-26 Outpatient [facility] [id number] Univers 15:00:00 15:00:00 XOCHITL contreras [facility] 2020-04-22 2020-04-26 Hospital NORBERTO Varela 1.2.840.114 [id number] Univers 19:24:00 12:26:00 Encounter Doris MYA 350.1.13.10 ity of [facility] 4.2.7.2.686 Robbie as [phone] [address] 2020-04-26 2020-04-26 [facility] 1.2.840.1 1.2.840.114 [id number] Univers 00:00:00 00:00:00 Encounter 54318.1.1 350.1.13.10 ity of 3.104.2.7 [place]2.696 [place][id number] 570 [facility] 2020-04-22 2020-04-22 Customer Care Associate Lab, Ang-Rm[facility] 1.2.840. 114 [id number] Univers 07:57:31 08:11:03 Visit Xochitl Esposito R DIRECTOR MOTION PICTURE 350.1.13.10 ity of REGIONAL 4.2.7.2.686 Robbie as MATERNAL [phone] Med ical & CHILD [address] [place] [address] 2020-04-22 2020-04-22 Outpatient R [facility] [id number] Univers 07:45:00 07:45:00 ity of [facility] 2020-04-22 2020-04-22 Orders Doctor NORBERTO 1.2.840.114 [id number] Univers 00:00:00 00:00:00 Only Unassigned, MYA 350.1.13.10 ity of [place] [facility] 4.2.7.2.686 Robbie as [phone] [address] 2020-04-21 2020-04-21 Telephone [facility] 1.2.511.759 [id number] Univers 00:00:00 00:00:00 Rossathishnda R DIRECTOR MOTION PICTURE 350.1.13.10 ity of REGIONAL 4.2.7.2.686 Robbie as MATERNAL [phone] Med ical & CHILD [address] [place] [address] 2020-04-21 2020-04-21 Case Esposito [facility] 1.2.840.114 [id number] Univers 00:00:00 00:00:00 Management Enmaraula R DIRECTOR MOTION PICTURE 350.1.13.10 ity of REGIONAL 4.2.7.2.686 Robbie as MATERNAL [phone] Med ical & CHILD [address] [place] [address] 2020-04-20 2020-04-20 Routine Esposito [facility] 1.2.840.114 [id number] Univers 09:09:50 10:19:35 Rossathishnda R DIRECTOR MOTION PICTURE 350.1.13.10 ity of Visit REGIONAL 4.2.7.2.686 Robbie as MATERNAL [phone] Med ical & CHILD [address] [place] [address] 2020-04-20 2020-04-20 Outpatient [facility] [id number] Univers 08:45:00 08:45:00 ROSHUNDA ity o f [facility] 2020-04-12 2020-04-12 [facility] 1.2.840.114 [id number] Univers 08:08:23 08:34:45 Roshunda R DIRECTOR MOTION PICTURE 350.1.13.10 ity of Visit REGIONAL 4.2.7.2.686 Robbie as MATERNAL [phone] [facility] ical & CHILD [address] [place] [address] 2020-04-12 2020-04-12 Outpatient [facility] [id number] Univers 08:00:00 08:00:00 ROSHUNDA ity o f [facility] 2020-04-12 2020-04-12 Orders Doctor NORBERTO 1.2.840.114 [id number] Univers 00:00:00 00:00:00 Only Unassigned, MYA 350.1.13.10 ity of [place] [facility] 4.2.7.2.686 Robbie as [phone] [address] 2020-04-12 2020-04-12 Orders Doctor NORBERTO 1.2.840.114 [id number] 00:00:00 00:00:00 Only Unassigned, MYA 350.1.13.10 [place] [facility] 4.2.7.2.686 [id number] 009 2020-04-08 2020-04-08 Routine [facility] 1.2.840.114 [id number] Univers 09:12:15 09:41:14 Roshunda R DIRECTOR MOTION PICTURE 350.1.13.10 ity of Visit [facility] 4.2.7.2.686 Robbie as MATERNAL [phone] [facility] ical & CHILD [address] [place] [address] 2020-04-08 2020-04-08 Outpatient Simone [facility] [id number] Univers 09:00:00 09:00:00 ROSHUNDA ity o f [facility] 2020-04-08 2020-04-08 Orders Doctor THORNTON 1.2.840.114 [id number] Univers 00:00:00 00:00:00 Only Unassigned, MYA 350.1.13.10 ity of [place] [facility] 4.2.7.2.686 Robbie as [phone] [facility] 009 Nye 2020-04-06 2020-04-06 [facility] 1.2.840.114 [id number] Univers 10:47:00 16:25:00 Encounter Pippa Kong 350.1.13.10 ity of [place] 4.2.7.2.686 [place] [facility] [phone] [facility] [address] 2020-04-06 2020-04-06 Outpatient [facility] [id number] Univers 13:00:00 13:00:00 ENMAANDREA carpio o [facility] 2020-03-31 2020-03-31 Orders Doctor NORBERTO 1.2.840.114 [id number] Univers 00:00:00 00:00:00 Only Unassigned, MYA 350.1.13.10 ity of [place] [facility] 4.2.7.2.686 Robbie as [phone] [address] 2020-03-22 2020-03-22 Outpatient [facility] [id number] Univers 15:00:00 15:00:00 ENMAANDREA carpio o [facility] 2020-03-22 2020-03-22 Outpatient [facility] [id number] Univers 14:45:00 14:45:00 ENMAANDREA carpio o [facility] 2020-03-22 2020-03-22 Outpatient R [facility] [id number] Univers 13:00:00 13:00:00 ENMANDJimmie carpio o [facility] 2020-03-22 2020-03-22 [facility] 1.2.840.114 [id number] Univers 08:44:45 10:53:12 ne Visit Enmaandrea R DIRECTOR MOTION PICTURE 350.1.13.10 ity of [facility] 4.2.7.2.686 Robbie as MATERNAL [phone] Med ical & CHILD [address] [place] [address] 2020-03-16 2020-03-16 Telephone Cate [facility] 1.2.371.134 [id number] Univers 00:00:00 00:00:00 Rossathishnda R DIRECTOR MOTION PICTURE 350.1.13.10 ity of REGIONAL 4.2.7.2.686 Robbie as MATERNAL [phone] [facility] CHILD [address] [place] [address] 2020-03-07 2020-03-07 Routine [facility] 1.2.840.114 [id number] Univers 10:14:29 10:40:14 Roshunda R DIRECTOR MOTION PICTURE 350.1.13.10 ity of Visit REGIONAL 4.2.7.2.686 Robbie as MATERNAL [phone] Med ical & CHILD [address] [place] [address] 2020-03-07 2020-03-07 Outpatient [facility] [id number] Univers 10:15:00 10:15:00 ROSHUNDA ity o f [facility] 2020-03-07 2020-03-07 Orders Doctor NORBERTO 1.2.840.114 [id number] Univers 00:00:00 00:00:00 Only Unassigned, MYA 350.1.13.10 ity of [place] [facility] 4.2.7.2.686 Robbie as [phone] [address] 2020-02-25 2020-02-25 Telemedici [facility] 1.2.840.114 [id number] Univers 08:57:42 15:33:04 ne Visit Xochitl R DIRECTOR MOTION PICTURE 350.1.13.10 ity of REGIONAL 4.2.7.2.686 Robbie as MATERNAL [phone] [facility] & CHILD [address] [place] [address] 2020-02-25 2020-02-25 Outpatient R [facility] [id number] Univers 15:15:00 15:15:00 ROSNDA ity o f [facility] 2020-02-25 2020-02-25 [facility] 1.2.453.108 [id number] Univers 00:00:00 00:00:00 Rossathishnda R DIRECTOR MOTION PICTURE 350.1.13.10 ity of REGIONAL 4.2.7.2.686 Robbie as MATERNAL [phone] [facility] ical & CHILD [address] [place] [address] 2020-02-24 2020-02-24 Nurse Visit, Sandychlokesh Nurse [facility] 1.2 .840.114 [id number] Univers 15:36:57 16:28:00 Visit Ml Espositosue Nichols DIRECTOR MOTION PICTURE 350.1.13.10 ity of REGIONAL 4.2.7.2.686 Robbie as MATERNAL [phone] Med ical & CHILD [address] [place] [address] 2020-02-24 2020-02-24 Outpatient R CATE [facility] [id number] Univers 15:00:00 15:00:00 ENMAANDREA ity o f [facility] 2020-02-24 2020-02-24 Telephone Cate [facility] 1.2.264.656 [id number] Univers 00:00:00 00:00:00 Enmaandrea Nichols DIRECTOR MOTION PICTURE 350.1.13.10 ity of [facility] 4.2.7.2.686 Robbie as MATERNAL [phone] Med ical & CHILD [address] [place] [address] 2020-02-24 2020-02-24 Letter Cate [facility] 1.2.840.114 [id number] Univers 00:00:00 00:00:00 (Out) Enmaandrea Nichols DIRECTOR MOTION PICTURE 350.1.13.10 ity of REGIONAL 4.2.7.2.686 Robbie as MATERNAL [phone] Med ical & CHILD [address] [place] [address] 2020-02-23 2020-02-23 Abstract Shorty [facility] 1.2.840.114 [id number] Univers 00:00:00 00:00:00 Debbie Wang DIRECTOR MOTION PICTURE 350.1.13.10 ity of REGIONAL 4.2.7.2.686 Robbie as MATERNAL [phone] Med ical & CHILD [address] [place] [address] 2020-02-23 2020-02-23 Telephone Cate [facility] 1.2.743.294 [id number] Univers 00:00:00 00:00:00 Kendalla R DIRECTOR MOTION PICTURE 350.1.13.10 ity of REGIONAL 4.2.7.2.686 Robbie as MATERNAL [phone] Med ical & CHILD [address] [place] [address] 2020-02-22 2020-02-22 Customer Care Associate Ultrasound, [facility] 1.2 .840.114 [id number] Univers 15:04:08 15:34:08 Visit Haider Maynardleah Angeli DIRECTOR MOTION PICTURE 350.1. 13.10 ity of REGIONAL 4.2.7.2.686 Robbie as MATERNAL [phone] [facility] ical & CHILD [address] [place] [address] 2020-02-22 2020-02-22 Outpatient P [facility] [id number] Univers 15:00:00 15:00:00 ity of [facility] 2020-02-22 2020-02-22 [facility] 1.2.454.835 [id number] Univers 00:00:00 00:00:00 Enmanda R DIRECTOR MOTION PICTURE 350.1.13.10 ity of REGIONAL 4.2.7.2.686 Robbie as MATERNAL [phone] [facility] ical & CHILD [address] [place] [address] 2020-02-22 2020-02-22 Telephone [facility] 1.2.924.635 [id number] Univers 00:00:00 00:00:00 Enmanda R DIRECTOR MOTION PICTURE 350.1.13.10 ity of REGIONAL 4.2.7.2.686 Robbie as MATERNAL [phone] [facility] & [address] 2020-02-19 2020-02-19 Customer Care Associate Lab, [facility] [place] 1.2.840. 114 [id number] Univers 08:13:54 08:31:09 Visit Xochitl Esposito DIRECTOR MOTION PICTURE 350.1.13.10 ity of REGIONAL 4.2.7.2.686 Robbie as MATERNAL [phone] [facility] & CHILD [address] [place] [address] 2020-02-19 2020-02-19 Outpatient R CATE [facility] [id number] Univers 08:15:00 08:15:00 ROSHUNDA ity o f [facility] 2020-02-17 2020-02-17 Customer Care Associate Lab, [facility] [place] 1.2.840. 114 [id number] Univers 07:58:26 08:16:02 Visit Xochitl Esposito DIRECTOR MOTION PICTURE 350.1.13.10 ity of REGIONAL 4.2.7.2.686 Robbie as MATERNAL [phone] [facility] & CHILD [address] [place] [address] 2020-02-17 2020-02-17 Outpatient Simone CATE [facility] [id number] Univers 08:00:00 08:00:00 ENMANDA ity o f [facility] 2020-02-11 2020-02-11 Telephone [facility] 1.2.988.275 [id number] Univers 00:00:00 00:00:00 Roshunda R DIRECTOR MOTION PICTURE 350.1.13.10 ity of REGIONAL 4.2.7.2.686 Robbie as MATERNAL [phone] [facility] & CHILD [address] [place] [address] 2020-02-10 2020-02-10 Routine [facility] 1.2.840.114 [id number] Univers 10:09:37 10:38:21 Roshunda R DIRECTOR MOTION PICTURE 350.1.13.10 ity of Visit REGIONAL 4.2.7.2.686 Robbie as MATERNAL [phone] [facility] & [address] 2020-02-10 2020-02-10 Outpatient [facility] [id number] Univers 10:15:00 10:15:00 XOCHITL carpio o f [facility] 2020-02-09 2020-02-09 Outpatient [facility] [id number] Univers 10:45:00 10:45:00 KENDALLA reneey o f [facility] 2020-01-29 2020-01-30 Emergency [facility] 1.2.191.565 [id number] Univers 22:25:24 00:14:00 Vicky Beni [place] 350.1.13.10 ity of [place] 4.2.7.2.686 [place] [facility] [phone] [facility] [address] [place] [address] 2020-01-29 2020-01-29 [facility]phone [facility] 1.2.704.545 [id number] Univers 00:00:00 00:00:00 Roshunda R DIRECTOR MOTION PICTURE 350.1.13.10 ity of [facility] 4.2.7.2.686 Robbie as MATERNAL [phone] [facility] ical & CHILD [address] [place] [address] 2020-01-29 2020-01-29 Nurse Padmaja Carnes 1.2.840.114 [id number] Univers 00:00:00 00:00:00 Triage MYA 350.1.13.10 it y of HOSPITAL 4.2.7.2.686 Robbie as [phone] [facility] 019 [place] 2020-01-29 2020-01-29 Orders Doctor NORBERTO 1.2.840.114 [id number] Univers 00:00:00 00:00:00 Only Unassigned, MYA 350.1.13.10 ity of [place] [facility] 4.2.7.2.686 Robbie as [phone] [facility] 009 [place] 2020-01-14 2020-01-14 Outpatient R TARA JARQUIN [facility] [id number] Univers 11:00:00 11:00:00 ity of [facility] 2020-01-12 2020-01-12 Routine [facility] 1.2.840.114 [id number] Univers 14:09:38 14:41:31 Roshunda R DIRECTOR MOTION PICTURE 350.1.13.10 ity of Visit [facility] 4.2.7.2.686 Robbie as MATERNAL [phone] [facility] & CHILD [address] [place] [address] 2020-01-12 2020-01-12 Outpatient R CATE [facility] [id number] Univers 14:15:00 14:15:00 ROSHUNDA ity o f [facility] 2020-01-07 2020-01-07 [facility] Tara Jarquin [facility] 1.2.840.114 [id number] Univers 19:04:00 22:25:00 Encounter Armando Kong 350.1.13.10 ity [facility] 4.2.7.2.686 [facility] [phone] [facility] 083 Nye 2020-01-07 2020-01-07 Outpatient P TARA JARQUIN [facility] [place] [id number] Univers 19:04:00 22:25:00 ity of [facility] 2019-12-29 2019-12-29 [facility] 1.2.840.114 [id number] Univers 15:53:39 16:27:22 Roshunda R DIRECTOR MOTION PICTURE 350.1.13.10 ity of Visit REGIONAL 4.2.7.2.686 Robbie as MATERNAL [phone] [facility] & CHILD [address] [place] [address] 2019-12-29 2019-12-29 Outpatient R CATE [facility] [id number] Univers 15:45:00 15:45:00 ROSHUNDA ity o f [facility] 2019-12-25 2019-12-25 Telephone [facility] 1.2.107.279 [id number] Univers 00:00:00 00:00:00 Rossathishnda R DIRECTOR MOTION PICTURE 350.1.13.10 ity of REGIONAL 4.2.7.2.686 Robbie as MATERNAL [phone] [facility] & [address] 2019-12-21 2019-12-22 Routine [facility] 1.2.840.114 [id number] Univers 14:03:17 09:28:51 Enmanda R DIRECTOR MOTION PICTURE 350.1.13.10 ity of Visit REGIONAL 4.2.7.2.686 Robbie as MATERNAL [phone] [facility] & [address] 2019-12-16 2019-12-16 Abstract [facility] 1.2.840.114 [id number] Univers 00:00:00 00:00:00 Debbie C DIRECTOR MOTION PICTURE 350.1.13.10 ity of [facility] 4.2.7.2.686 Robbie as MATERNAL [phone] [address] 2019-11-20 2019-11-20 Routine [facility] 1.2.059.559 [id number] Univers 08:03:53 08:18:53 Debbie C DIRECTOR MOTION PICTURE 350.1.13.10 ity of Visit [facility] 4.2.7.2.686 Robbie as MATERNAL [phone] [facility] & [address] 2017-05-28 2017-05-28 Emergency X MATTHEW [facility] ERT [id number] Univers 18:33:21 20:05:00 QUE carpio of [facility] Results Test Description Test Time Test Comments Results Result Comments Source POCT URINALYSIS W/O SPECIFIC GRAVITY 2023-03-19 16:20:00 Test Item Value Reference Range Interpretation Comme nts POCT PH U (test code = 3254) 6 mg/dl 5-8 POCT U LEUK EST (test code = 3263) neg Negative - Negative POCT U NIT (test code = 3262) neg Negative - Negative POCT U PROT (test code = 3259) neg Negative - Negative POCT U GLU (test code = 3256) neg Negative - Negative POCT U KETONE (test code = 3258) neg Negative - Negative POCT U BLD (test code = 3257) neg Negative - Negative Lab Interpretation (test code = 18138-3) Normal [facility] URINALYSIS W/O SPECIFIC [id number] 15:56:00 Test Item Value Reference Range Interpretation Comments POCT PH U (test code = 3254) 5 mg/dl 5-8 POCT U LEUK EST (test code = neg Negative - Negative 3263) POCT U NIT (test code = 3262) neg Negative - Negative POCT U PROT (test code = 3259) neg Negative - Negative POCT U GLU (test code = 3256) neg Negative - Negative POCT U KETONE (test code = 3258) neg Negative - Negative POCT U BLD (test code = 3257) neg Negative - Negative [facility] [id number] 15:55:00 Test Item Value Reference Range Interpretation Comments POCT PREG (test code = 1605) Positive On board controls acceptable with C Yes Line (test code = 3574) POCT PREG LOT # (test code = 3575) POCT PREG TEST DATE (test code = 3576) [facility] [id number] 19:29:00 Test Item Value Reference Range Interpretation Comments POCT PREG (test code = 1605) Negative On board controls acceptable with C Yes Line (test code = 3574) POCT PREG LOT # (test code = 3575) POCT PREG TEST DATE (test code = 3576) [facility] [id number] 19:29:00 Test Item Value Reference Range Interpretation Comments POCT PREG (test code = 1605) Negative On board controls acceptable with C Yes Line (test code = 3574) POCT PREG LOT # (test code = 3575) PO[facility]REG [facility] DATE (test code = 3576) [id number] 19:29:00 Test Item Value Reference Range Interpretation Comments POCT PREG (test code = 1605) Negative On board controls acceptable with C Yes Line (test code = 3574) POCT PREG LOT # (test code = 3575) POCT PREG TEST DATE (test code = 357) [facility] [id number] 03:19:50 Test Item Value Reference Range Interpretation Comments WBC (test code = See_Comment [Automated 0690-2) message] The sy stem which generated this result transmitted reference range : 4.30 - 11.10 10*3/?L. The reference range was not used to interpret this result as normal/abnormal . RBC (test code = See_Comment [Automated 789-8) message] The sy stem which generated this result transmitted reference range : 3.93 - 5.25 10*6/?L. The reference range was not used to interpret this result as normal/abnormal . HGB (test code = 11.7 g/dL 11.6-15.0 718-7) HCT (test code = 37.8 % 35.7-45.2 4544-3) MCV (test code = 82.7 fL 80.6-95.5 787-2) MCH (test code = 25.6 pg 25.9-32.8 L 785-6) MCHC (test code = 31.0 g/dL 31.6-35.1 L 786-4) RDW-SD (test code = 49.8 fL 39.0-49.9 30144-0) RDW-CV (test code = 16.6 % 12.0-15.5 H 788-0) PLT (test code = See_Comment [Automated 777-3) message] The sy stem which generated this result transmitted reference range : 166 - 358 10*3/ ?L. The reference r margo was not used to interpret this result as normal/abnormal . MPV (test code = 11.0 fL 9.5-12.9 27836-5) NRBC/100 WBC (test See_Comment [Automat ed code = [id number]) message] The system which generated this result transmitted reference range : 0.0 - 10.0 /100 WBCs. The refer ence range was not u sed to interpret th is result as normal/abnormal . NRBC x10^3 (test code See_Comment [Auto mated = [id number]) message] The s ystem which generated this result transmitted reference range : 10*3/?L. The reference range was not used to interpret this result as normal/abnormal . GRAN MAT (NEUT) % 65.3 % (test code = 770-8) IMM GRAN % (test code 0.30 % = 5800360537) LYMPH % (test code = 28.1 % 736-9) MONO % (test code = 4.3 % 5905-5) EOS % (test code = 1.4 % 713-8) BASO % (test code = 0.6 % 706-2) GRAN MAT x10^3(ANC) 5.91 10*3/uL 1.88-7.09 (test code = 8372436226) IMM GRAN x10^3 (test 0.03 10*3/uL 0.00-0.06 code = 4893133660) LYMPH x10^3 (test code 2.55 10*3/uL 1.32-3.29 = 731-0) MONO x10^3 (test code 0.39 10*3/uL 0.33-0.92 = 742-7) EOS x10^3 (test code = 0.13 10*3/uL 0.03-0.39 711-2) BASO x10^3 (test code 0.05 10*3/uL 0.01-0.07 = 704-7) Lab Interpretation Abnormal (test code = 45759-0) [facility] WITH [id number] 03:19:50 Test Item Value Reference Range Interpretation Comments WBC (test code = See_Comment [Automated 7190-2) message] The sy stem which generated this result transmitted reference range : 4.30 - 11.10 10*3/?L. The reference range was not used to interpret this result as normal/abnormal . RBC (test code = See_Comment [Automated 939-8) message] The sy stem which generated this result transmitted reference range : 3.93 - 5.25 10*6/?L. The reference range was not used to interpret this result as normal/abnormal . HGB (test code = 11.7 g/dL 11.6-15.0 718-7) HCT (test code = 37.8 % 35.7-45.2 4544-3) MCV (test code = 82.7 fL 80.6-95.5 787-2) MCH (test code = 25.6 pg 25.9-32.8 L 785-6) MCHC (test code = 31.0 g/dL 31.6-35.1 L 786-4) RDW-SD (test code = 49.8 fL 39.0-49.9 16095-6) RDW-CV (test code = 16.6 % 12.0-15.5 H 788-0) PLT (test code = See_Comment [Automated 777-3) message] The sy stem which generated this result transmitted reference range : 166 - 358 10*3/ ?L. The reference r margo was not used to interpret this result as normal/abnormal . MPV (test code = 11.0 fL 9.5-12.9 74246-9) NRBC/100 WBC (test See_Comment [Automat ed code = 1784776709) message] The system which generated this result transmitted reference range : 0.0 - 10.0 /100 WBCs. The refer ence range was not u sed to interpret th is result as normal/abnormal . NRBC x10^3 (test code See_Comment [Auto mated = 3911753173) message] The s ystem which generated this result transmitted reference range : 10*3/?L. The reference range was not used to interpret this result as normal/abnormal . GRAN MAT (NEUT) % 65.3 % (test code = 770-8) IMM GRAN % (test code 0.30 % = 2263242112) LYMPH % (test code = 28.1 % 736-9) MONO % (test code = 4.3 % 5905-5) EOS % (test code = 1.4 % 713-8) BASO % (test code = 0.6 % 706-2) GRAN MAT x10^3(ANC) 5.91 10*3/uL 1.88-7.09 (test code = 1211324839) IMM GRAN x10^3 (test 0.03 10*3/uL 0.00-0.06 code = 7834458860) LYMPH x10^3 (test code 2.55 10*3/uL 1.32-3.29 = 731-0) MONO x10^3 (test code 0.39 10*3/uL 0.33-0.92 = 742-7) EOS x10^3 (test code = 0.13 10*3/uL 0.03-0.39 711-2) BASO x10^3 (test code 0.05 10*3/uL 0.01-0.07 = 704-7) Lab Interpretation Abnormal (test code = 50232-4) [facility] [id number] 20:18:00 Test Item Value Reference Range Interpretation Comments POCT PH U (test code = 3254) 6 mg/dl 5-8 POCT U LEUK EST (test code = Negative Negative - Negative 3263) POCT U NIT (test code = 3262) Negative Negative - Negative POCT U PROT (test code = 3259) Negative Negative - Negative POCT U GLU (test code = 3256) Negative Negative - Negative POCT U KETONE (test code = 3258) Negative Negative - Negative POCT U BLD (test code = 3257) Negative - Negative [facility] ONLY - SYPHILIS [id number] 16:48:59 Test Item Value Reference Range Interpretation Comments Syphilis IgG/IgM (test Non-reactive Non-reactive code = 38876-4) LINDA (test code = LINDA) Non-reactive - No serologic evidence of T. pallidum infection. Cannot exclude incubating or early syphilis. Submit a second specimen in 2-4 weeks if syphilis is clinically suspected. Equivocal - Further testing to follow. Reactive - Further testing to follow. Lab Interpretation (test Normal code = 33019-9) [facility] ONLY - SYPHILIS [id number] 16:48:59 Test Item Value Reference Range Interpretation Comments Syphilis IgG/IgM (test Non-reactive Non-reactive code = 58473-2) LINDA (test code = LINDA) Non-reactive - No serologic evidence of T. pallidum infection. Cannot exclude incubating or early syphilis. Submit a second specimen in 2-4 weeks if syphilis is clinically suspected. Equivocal - Further testing to follow. Reactive - Further testing to follow. Lab Interpretation (test Normal code = 28169-6) [facility] (D) IMMUNE [id number] 23:59:56 Test Item Value Reference Range Interpretation Comments RHIG CANDIDATE? No- see comment Patient i s not a (test code = candidate for R hIg- 5055) Patient is Rh Positive.Perfor med at [facility] Laboratory Services [facility] Blood [place] [id number] Free: [phone] A No. [id number] [facility] (D) IMMUNE [id number] 23:59:56 Test Item Value Reference Range Interpretation Comments RHIG CANDIDATE? No- see comment Patient i s not a (test code = candidate for R hIg- 5055) Patient is Rh Positive.Perfor med at [facility] Laboratory Services - [facility] Blood [place] [address]Toll Free: [phone] A No. [id number] [facility] B Surface [id number] 16:22:01 Test Item Value Reference Range Interpretation Comments HBsAg Semi-Quantitative (test code = Negative Negative 5195-3) [facility] B Surface [id number] 16:22:01 Test Item Value Reference Range Interpretation Comments HBsAg Semi-Quantitative (test code = Negative Negative 5195-3) [facility]CE [id number] 15:53:48 Test Item Value Reference Range Interpretation Comments ABO & RH (test code O POSITIVE Performe d at [facility] = 20) Laboratory Serv [facility] Blood Bank3 [facility] s [address]Xiqu Free: [phone] A No. [id number] IAT (test code = Negative Performed a t [facility] 1185) Laboratory Serv [facility] Blood Bank3 [facility] [address]Thjr Free: [phone] A No. [id number] [facility] - ONCE [id number] 15:53:48 Test Item Value Reference Range Interpretation Comments ABO & RH (test code O POSITIVE Performe d at [facility] = 20) Laboratory [facility] Blood [facility] 01 [facility] s [address]Msnd Free: [phone] A No. [id number] IAT (test code = Negative Performed a t [facility] 1185) Laboratory [facility] Blood [facility] 01 [facility] s [address]Zjpb Free: [phone] A No. [id number] [facility] with [id number] 15:21:27 Test Item Value Reference Range Interpretation Comments WBC (test code = See_Comment [Automated 6690-2) message] The sy stem which generated this result transmitted reference range : 4.30 - 11.10 10*3/?L. The reference range was not used to interpret this result as normal/abnormal . RBC (test code = See_Comment L [Automated 789-8) message] The sy stem which generated this result transmitted reference range : 3.93 - 5.25 10*6/?L. The reference range was not used to interpret this result as normal/abnormal . HGB (test code = 10.0 g/dL 11.6-15.0 L 718-7) HCT (test code = 30.7 % 35.7-45.2 L 4544-3) MCV (test code = 80.2 fL 80.6-95.5 L 787-2) MCH (test code = 26.1 pg 25.9-32.8 785-6) MCHC (test code = 32.6 g/dL 31.6-35.1 786-4) RDW-SD (test code = 45.6 fL 39.0-49.9 31466-9) RDW-CV (test code = 15.8 % 12.0-15.5 H 788-0) PLT (test code = See_Comment [Automated 777-3) message] The sy stem which generated this result transmitted reference range : 166 - 358 10*3/ ?L. The reference r margo was not used to interpret this result as normal/abnormal . MPV (test code = 11.4 fL 9.5-12.9 88898-8) NRBC/100 WBC (test See_Comment [Automat ed code = 2815395662) message] The system which generated this result transmitted reference range : 0.0 - 10.0 /100 WBCs. The refer ence range was not u sed to interpret th is result as normal/abnormal . NRBC x10^3 (test code See_Comment [Auto mated = 2540020013) message] The s ystem which generated this result transmitted reference range : 10*3/?L. The reference range was not used to interpret this result as normal/abnormal . GRAN MAT (NEUT) % 68.8 % (test code = 770-8) IMM GRAN % (test code 0.30 % = 3304873122) LYMPH % (test code = 24.1 % 736-9) MONO % (test code = 3.9 % 5905-5) EOS % (test code = 2.3 % 713-8) BASO % (test code = 0.6 % 706-2) GRAN MAT x10^3(ANC) 4.83 10*3/uL 1.88-7.09 (test code = 2087013173) IMM GRAN x10^3 (test 0.00-0.06 code = 5108529050) LYMPH x10^3 (test code 1.69 10*3/uL 1.32-3.29 = 731-0) MONO x10^3 (test code 0.27 10*3/uL 0.33-0.92 L = 742-7) EOS x10^3 (test code = 0.16 10*3/uL 0.03-0.39 711-2) BASO x10^3 (test code 0.04 10*3/uL 0.01-0.07 = 704-7) Lab Interpretation Abnormal (test code = 39833-1) [facility] with [id number] 15:21:27 Test Item Value Reference Range Interpretation Comments WBC (test code = See_Comment [Automated 6690-2) message] The sy stem which generated this result transmitted reference range : 4.30 - 11.10 10*3/?L. The reference range was not used to interpret this result as normal/abnormal . RBC (test code = See_Comment L [Automated 789-8) message] The sy stem which generated this result transmitted reference range : 3.93 - 5.25 10*6/?L. The reference range was not used to interpret this result as normal/abnormal . HGB (test code = 10.0 g/dL 11.6-15.0 L 718-7) HCT (test code = 30.7 % 35.7-45.2 L 4544-3) MCV (test code = 80.2 fL 80.6-95.5 L 787-2) MCH (test code = 26.1 pg 25.9-32.8 785-6) MCHC (test code = 32.6 g/dL 31.6-35.1 786-4) RDW-SD (test code = 45.6 fL 39.0-49.9 66510-4) RDW-CV (test code = 15.8 % 12.0-15.5 H 788-0) PLT (test code = See_Comment [Automated 777-3) message] The sy stem which generated this result transmitted reference range : 166 - 358 10*3/ ?L. The reference r margo was not used to interpret this result as normal/abnormal . MPV (test code = 11.4 fL 9.5-12.9 48183-2) NRBC/100 WBC (test See_Comment [Automat ed code = 3566620332) message] The system which generated this result transmitted reference range : 0.0 - 10.0 /100 WBCs. The refer ence range was not u sed to interpret th is result as normal/abnormal . NRBC x10^3 (test code See_Comment [Auto mated = 0553376770) message] The s ystem which generated this result transmitted reference range : 10*3/?L. The reference range was not used to interpret this result as normal/abnormal . GRAN MAT (NEUT) % 68.8 % (test code = 770-8) IMM GRAN % (test code 0.30 % = 1196216595) LYMPH % (test code = 24.1 % 736-9) MONO % (test code = 3.9 % 5905-5) EOS % (test code = 2.3 % 713-8) BASO % (test code = 0.6 % 706-2) GRAN MAT x10^3(ANC) 4.83 10*3/uL 1.88-7.09 (test code = 6979533044) IMM GRAN x10^3 (test 0.00-0.06 code = 9619387982) LYMPH x10^3 (test code 1.69 10*3/uL 1.32-3.29 = 731-0) MONO x10^3 (test code 0.27 10*3/uL 0.33-0.92 L = 742-7) EOS x10^3 (test code = 0.16 10*3/uL 0.03-0.39 711-2) BASO x10^3 (test code 0.04 10*3/uL 0.01-0.07 = 704-7) Lab Interpretation Abnormal (test code = 99736-6) [facility] GLUCOSE (AUTOMATED)2022-10-02 14:08:05 Test Item Value Reference Range Interpretation Comments POCT GLU (test code = 4239091643) 100 mg/dL 70-110 Lab Interpretation (test code = Normal 66845-7) [facility] GLUCOSE (AUTOMATED)2022-10-02 14:08:05 Test Item Value Reference Range Interpretation Comments POCT GLU (test code = 5706338362) 100 mg/dL 70-110 Lab Interpretation (test code = Normal 90394-8) [facility] URINALYSIS W/O SPECIFIC [id number] 20:52:00 Test Item Value Reference Range Interpretation Comments POCT PH U (test code = 3254) 5 mg/dl 5-8 POCT U LEUK EST (test code = trace Negative - Negative 3263) POCT U NIT (test code = 3262) - Negative - Negative POCT U PROT (test code = 3259) trace Negative - Negative POCT U GLU (test code = 3256) - Negative - Negative POCT U KETONE (test code = 3258) - Negative - Negative POCT U BLD (test code = 3257) - Negative - Negative Lab Interpretation (test code = Abnormal 70885-8) [facility] URINALYSIS W/O SPECIFIC [id number] 20:38:00 Test Item Value Reference Range Interpretation Comments POCT PH U (test code = 3254) 5 mg/dl 5-8 POCT U LEUK EST (test code = neg Negative - Negative 3263) POCT U NIT (test code = 3262) neg Negative - Negative POCT U PROT (test code = 3259) neg Negative - Negative POCT U GLU (test code = 3256) neg Negative - Negative POCT U KETONE (test code = 3258) 1+ Negative - Negative POCT U BLD (test code = 3257) neg Negative - Negative [facility] 22:48:07 Test Item Value Reference Range Interpretation Comments MEMO (test code = 8660759862) 109 U/L 35-110 Lab Interpretation (test code = Normal 30750-1) [facility]. METABOLIC PANEL (90468)2022-09-22 22:48:06 Test Item Value Reference Range Interpretation Comments NA (test code = 135 mmol/L 135-145 0839227335) K (test code = 4.2 mmol/L 3.5-5.0 8417343579) CL (test code = 107 mmol/L 98-108 3188703022) CO2 TOTAL (test code = 15 mmol/L 23-31 L 9813925369) AGAP (test code = 2-16 8809442879) BUN (test code = 5 mg/dL 7-23 L 4859195542) GLUCOSE (test code = 80 mg/dL 70-110 9636491285) CREATININE (test code = 0.42 mg/dL 0.50-1.04 L 6246609114) TOTAL BILI (test code = 1.3 mg/dL 0.1-1.1 H 2188622685) CALCIUM (test code = 8.8 mg/dL 8.6-10.6 3967228357) T PROTEIN (test code = 6.7 g/dL 6.3-8.2 9479992881) ALBUMIN (test code = 3.7 g/dL 3.5-5.0 9027380660) ALK PHOS (test code = 123 U/L 34-122 H 7721690491) ALTv (test code = 70 U/L 5-35 H 1742-6) AST(SGOT) (test code = 54 U/L 13-40 H 0229043325) eGFR (test code = mL/min/1.73m2 7633648927) LINDA (test code = LINDA) Association of [...] tests). Lab Interpretation Abnormal (test code = 73250-0) [facility] 22:26:25 Test Item Value Reference Range Interpretation Comments LIPASE (test code = 8125442099) 212 U/L 0-220 Lab Interpretation (test code = Normal 53059-7) [facility]2022-[facility]-19 22:26:25 Test Item Value Reference Range Interpretation Comments MAGNESIUM (test code = 5000948012) 1.7 mg/dL 1.7-2.4 Lab Interpretation (test code = Normal 75686-6) [facility] - ONCE [id number] 22:18:53 Test Item Value Reference Range Interpretation Comments ABO & RH (test code O POSITIVE Performe d at [facility] = 20) Laboratory Serv [facility] Blood Bank3 01 [facility] s [address]Kfqw Free: [phone] A No. [id number] IAT (test code = Negative Performed a t [facility] 1185) Laboratory Serv [facility] Blood Bank3 01 [facility] s [address]Cuya Free: [phone] A No. [id number] [facility] WITH [id number] 21:46:06 Test Item Value Reference Range Interpretation Comments WBC (test code = See_Comment [Automated 0590-2) message] The sy stem which generated this result transmitted reference range : 4.30 - 11.10 10*3/?L. The reference range was not used to interpret this result as normal/abnormal . RBC (test code = See_Comment L [Automated 329-8) message] The sy stem which generated this result transmitted reference range : 3.93 - 5.25 10*6/?L. The reference range was not used to interpret this result as normal/abnormal . HGB (test code = 10.2 g/dL 11.6-15.0 L 718-7) HCT (test code = 31.6 % 35.7-45.2 L 4544-3) MCV (test code = 81.7 fL 80.6-95.5 787-2) MCH (test code = 26.4 pg 25.9-32.8 785-6) MCHC (test code = 32.3 g/dL 31.6-35.1 786-4) RDW-SD (test code = 48.1 fL 39.0-49.9 86670-5) RDW-CV (test code = 16.2 % 12.0-15.5 H 788-0) PLT (test code = See_Comment [Automated 777-3) message] The sy stem which generated this result transmitted reference range : 166 - 358 10*3/ ?L. The reference r margo was not used to interpret this result as normal/abnormal . MPV (test code = 11.3 fL 9.5-12.9 20112-7) NRBC/100 WBC (test See_Comment [Automat ed code = 6193806678) message] The system which generated this result transmitted reference range : 0.0 - 10.0 /100 WBCs. The refer ence range was not u sed to interpret th is result as normal/abnormal . NRBC x10^3 (test code See_Comment [Auto mated = 3986241222) message] The s ystem which generated this result transmitted reference range : 10*3/?L. The reference range was not used to interpret this result as normal/abnormal . GRAN MAT (NEUT) % 84.5 % (test code = 770-8) IMM GRAN % (test code 0.30 % = 1648680976) LYMPH % (test code = 9.6 % 736-9) MONO % (test code = 4.4 % 5905-5) EOS % (test code = 0.6 % 713-8) BASO % (test code = 0.6 % 706-2) GRAN MAT x10^3(ANC) 5.97 10*3/uL 1.88-7.09 (test code = 0602288677) IMM GRAN x10^3 (test 0.00-0.06 code = 3713916078) LYMPH x10^3 (test code 0.68 10*3/uL 1.32-3.29 L = 731-0) MONO x10^3 (test code 0.31 10*3/uL 0.33-0.92 L = 742-7) EOS x10^3 (test code = 0.04 10*3/uL 0.03-0.39 711-2) BASO x10^3 (test code 0.04 10*3/uL 0.01-0.07 = 704-7) Lab Interpretation Abnormal (test code = 56226-6) [facility] GLUCOSE (AUTOMATED)2022-09-22 20:42:44 Test Item Value Reference Range Interpretation Comments POCT GLU (test code = 5304470568) 82 mg/dL 70-110 Lab Interpretation (test code = Normal 57095-1) [facility] URINALYSIS W/O SPECIFIC [id number] 20:33:00 Test Item Value Reference Range Interpretation Comments POCT PH U (test code = 3254) 5 mg/dl 5-8 POCT U LEUK EST (test code = neg Negative - Negative 3263) POCT U NIT (test code = 3262) neg Negative - Negative POCT U PROT (test code = 3259) neg Negative - Negative POCT U GLU (test code = 3256) neg Negative - Negative POCT U KETONE (test code = 3258) neg Negative - Negative POCT U BLD (test code = 3257) neg Negative - Negative [facility] URINALYSIS W/O SPECIFIC [id number] 20:43:00 Test Item Value Reference Range Interpretation Comments POCT PH U (test code = 3254) 7 mg/dl 5-8 POCT U LEUK EST (test code = neg Negative - Negative 3263) POCT U NIT (test code = 3262) neg Negative - Negative POCT U PROT (test code = 3259) neg Negative - Negative POCT U GLU (test code = 3256) neg Negative - Negative POCT U KETONE (test code = 3258) neg Negative - Negative POCT U BLD (test code = 3257) neg Negative - Negative [facility] URINALYSIS W/O SPECIFIC [id number] 19:01:00 Test Item Value Reference Range Interpretation Comments POCT PH U (test code = 3254) 6 mg/dl 5-8 POCT U LEUK EST (test code = Negative Negative - Negative 3263) POCT U NIT (test code = 3262) Negative Negative - Negative POCT U PROT (test code = 3259) Trace Negative - Negative POCT U GLU (test code = 3256) Negative Negative - Negative POCT U KETONE (test code = 3258) Small Negative - Negative POCT U BLD (test code = 3257) Negative Negative - Negative Lab Interpretation (test code = Abnormal 31236-4) [facility] URINALYSIS W/O SPECIFIC [id number] 19:19:00 Test Item Value Reference Range Interpretation Comments POCT PH U (test code = 3254) 5 mg/dl 5-8 POCT U LEUK EST (test code = neg Negative - Negative 3263) POCT U NIT (test code = 3262) neg Negative - Negative POCT U PROT (test code = 3259) neg Negative - Negative POCT U GLU (test code = 3256) neg Negative - Negative POCT U KETONE (test code = 3258) neg Negative - Negative POCT U BLD (test code = 3257) neg Negative - Negative [facility] URINALYSIS W/O SPECIFIC [id number] 18:36:00 Test Item Value Reference Range Interpretation Comments POCT PH U (test code = 3254) 6 mg/dl 5-8 POCT U LEUK EST (test code = Trace Negative - Negative 3263) POCT U NIT (test code = 3262) Negative Negative - Negative POCT U PROT (test code = 3259) Trace Negative - Negative POCT U GLU (test code = 3256) Negative Negative - Negative POCT U KETONE (test code = 3258) Small Negative - Negative POCT U BLD (test code = 3257) Negative Negative - Negative Lab Interpretation (test code = Abnormal 66791-7) [facility] URINALYSIS W/O SPECIFIC [id number] 19:30:00 Test Item Value Reference Range Interpretation Comments POCT PH U (test code = 3254) 7 mg/dl 5-8 POCT U LEUK EST (test code = n Negative - Negative 3263) POCT U NIT (test code = 3262) n Negative - Negative POCT U PROT (test code = 3259) n Negative - Negative POCT U GLU (test code = 3256) n Negative - Negative POCT U KETONE (test code = 3258) n Negative - Negative POCT U BLD (test code = 3257) n Negative - Negative Lab Interpretation (test code = Normal 92466-4) [facility] URINALYSIS W/O SPECIFIC [id number] 19:30:00 Test Item Value Reference Range Interpretation Comments POCT PH U (test code = 3254) 7 mg/dl 5-8 POCT U LEUK EST (test code = n Negative - Negative 3263) POCT U NIT (test code = 3262) n Negative - Negative POCT U PROT (test code = 3259) n Negative - Negative POCT U GLU (test code = 3256) n Negative - Negative POCT U KETONE (test code = 3258) n Negative - Negative POCT U BLD (test code = 3257) n Negative - Negative Lab Interpretation (test code = Normal 88662-6) [facility] URINALYSIS W/O SPECIFIC [id number] 18:35:00 Test Item Value Reference Range Interpretation Comments POCT PH U (test code = 3254) [...] 3258) neg Negative - Negative POCT U BLD (test code = 3257) neg Negative - Negative Lab Interpretation (test code = Abnormal 82124-6) [facility] URINALYSIS W/O SPECIFIC [id number] 19:12:00 Test Item Value Reference Range Interpretation Comments POCT PH U (test code = 3254) 6 mg/dl 5-8 POCT U LEUK EST (test code = n Negative - Negative 3263) POCT U NIT (test code = 3262) n Negative - Negative POCT U PROT (test code = 3259) n Negative - Negative POCT U GLU (test code = 3256) n Negative - Negative POCT U KETONE (test code = 3258) n Negative - Negative POCT U BLD (test code = 3257) n Negative - Negative Lab Interpretation (test code = Normal 65346-6) [facility] URINALYSIS W/O SPECIFIC [id number] 19:08:00 Test Item Value Reference Range Interpretation Comments POCT PH U (test code = 3254) 5 mg/dl 5-8 POCT U LEUK EST (test code = neg Negative - Negative 3263) POCT U NIT (test code = 3262) neg Negative - Negative POCT U PROT (test code = 3259) neg Negative - Negative POCT U GLU (test code = 3256) neg Negative - Negative POCT U KETONE (test code = 3258) neg Negative - Negative POCT U BLD (test code = 3257) neg Negative - Negative [facility]"
[2023-03-22 14:47] LABS: Specific Gravity 1.004 (1.005-1.030); Specific Gravity < 1.005 (1.005-1.030); Urine Bacteria <20 /HPF (<20); Urine Bilirubin NEGATIVE (Negative); Urine Blood 3+ (OVER) (Negative); Urine Clarity Clear (Clear); Urine Color Colorless (Yellow); Urine Glucose NEGATIVE (Negative); Urine Protein NEGATIVE (Negative); Urine Urobilinogen Normal (Normal)
--- NOTE | 2023-03-22 14:53 | RAD REPORT ---
EXAM DESCRIPTION: US - Transvaginal OB - 03/22/2023 2:17 pm CLINICAL HISTORY: Abd cramping, ;Vaginal bleeding COMPARISON: No comparisons FINDINGS: A single gestational sac is seen within the uterus. The shape of the sac is within normal limits for gestational age. Within the sac is a single pole with crown-rump length of 1 cm, cor relating to estimated gestational age of 7 weeks 0 days. Heart rate is despite prolonged sonographic assessment no heart grade detected.. The maternal adnexa and ovaries are within normal limits. Normal Doppler blood flow was demonstrated to both ovaries. IMPRESSION: The findings suggest embryonic demise.
[2023-03-22 14:54] LABS: Absolute Lymphocytes (CBC) 2.1 K/uL (0.7-4.9); Hematocrit 37.5 % (36.0-45.0); Lymphocytes % 21.3 % (15.3-44.8); MCV 82.4 fL (80-100); MPV 8.6 fL (7.6-11.3); RBC Red Blood Cell Count 4.55 M/uL (3.86-4.86)
[2023-03-22 15:18] LABS: Potassium 3.6 mEq/L (3.5-5.1)
--- NOTE | 2023-03-22 16:43 | EDPHYS ---
Physician Documentation [facility] Name: Ktahrine Ynag Age: 32 yrs Sex: Female : 1990 Arrival Date: 03/22/2023 Time: 13:35 Bed 18 Private MD: ED Physician Ashok Petersen HPI: 03/22 16:26 This 32 yrs old Female presents to ER via Ambulatory with complaints of 9 wks kb , Abdominal Pain, Back Pain, Vaginal Bleeding. 16:26 The patient presents to the emergency department with abdominal pain, described as kb crampy, vaginal bleeding, that is light. The estimated gestational age is 9 weeks. course: care: [facility], Ultrasound: the patient has not had an ultrasound. Previous pregnancies: in previous pregnancies patient has had . Associated signs and symptoms: Pertinent positives: abdominal pain, vaginal bleeding. The patient has not experienced similar symptoms in the past. The patient has not recently seen a physician. 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 - Social history:: Smoking status: Patient denies any tobacco usage or history of. ROS: 16:24 Constitutional: Negative for fever, chills, and weight loss. kb 16:24 Abdomen/GI: Positive for abdominal cramps. 16:24 : Positive for vaginal bleeding. 16:24 All other systems are negative. Exam: 16:24 Constitutional: This is a well developed, well nourished patient who is awake, alert, kb and in no acute distress. Head/Face: Normocephalic, atraumatic. ENT: Moist Mucous membranes Cardiovascular: Regular rate and rhythm with a normal S1 and S2. No gallops, murmurs, or rubs. No pulse deficits. Respiratory: Respirations even and unlabored. No increased work of breathing. Talking in full sentences Abdomen/GI: Soft, non-tender. No distention Skin: Warm, dry with normal turgor. Normal color. MS/ Extremity: Pulses equal, no cyanosis. Neurovascular intact. Full, normal range of motion. Neuro: Awake and alert, GCS 15, oriented to person, place, time, and situation. Moves all extremities. Normal gait. 16:41 : Pelvic Exam: External exam: is normal, Speculum exam: mild bleeding, os that is kb open, no tissue in cervix is seen, tissue in vagina is seen. Vital Signs: 14:00 Weight 94.8 kg; Height 5 ft. 3 in. ; hb 16:48 BP 122 / 60; Pulse 81; Resp 18; Pulse Ox 100% on R/A; ld1 16:48 Weight 83.91 kg; Pain 6/10; ld1 16:48 Temp 98.2(O); ld1 16:48 Body Mass Index 32.77 (83.91 kg, 160.02 cm) ld1 16:48 Pain Scale: Adult ld1 MDM: 13:39 Patient medically screened. kb 15:07 Data reviewed: vital signs, nurses notes. kb 16:26 Differential diagnosis: threatened Ab, complete Ab, retained Ab, ectopic . kb Counseling: I had a detailed discussion with the patient and/or guardian regarding: the historical points, exam findings, and any diagnostic results supporting the discharge/admit diagnosis, lab results, radiology results, the need for outpatient follow up, an OB/Gyne specialist, to return to the emergency department if symptoms worsen or persist or if there are any questions or concerns that arise at home. 03/22 13:43 Order name: Abo/rh Typing kb 03/22 13:43 Order name: Basic Metabolic Panel; Complete Time: 15:28 kb 03/22 13:43 Order name: CBC with Diff; Complete Time: 15:10 kb 03/22 13:43 Order name: Test, Urine; Complete Time: 14:48 kb 03/22 13:43 Order name: Quantitative Hcg; Complete Time: 15:28 kb 03/22 13:43 Order name: Urinalysis w/ reflexes; Complete Time: 14:48 kb 03/22 16:46 Order name: Miscellaneous Test Lab EDNH 03/22 13:43 Order name: US Transvaginal Ob; Complete Time: 15:06 kb 03/22 13:43 Order name: IV Saline Lock; Complete Time: 14:41 kb 03/22 13:43 Order name: Labs collected and sent; Complete Time: 14:41 kb 03/22 13:43 Order name: NPO; Complete Time: 14:41 kb 03/22 15:28 Order name: Pelvic Exam Setup; Complete Time: 16:03 kb Administered Medications: No medications were administered Disposition Summary: 03/22/23 16:42 Discharge Ordered Location: Home kb Condition: Stable kb Diagnosis - Complete or unspecified spontaneous without complication kb Followup: kb - With: Emergency Department - When: As needed - Reason: Worsening of condition Followup: kb - With: Private Physician - When: 2 - 3 days - Reason: Recheck today's complaints, Continuance of care, Re-evaluation by your physician Discharge Instructions: - Discharge Summary Sheet kb - Miscarriage, [id number] kb Forms: - Medication Reconciliation Form kb - Thank You Letter kb - Antibiotic Education kb - Prescription Opioid Use kb Signatures: Dispatcher [employer] Ann Livingston, MARIA D-C MARIA D-Tova Kowalski, RN RN
--- NOTE | 2023-03-22 16:43 | ER ---
Nurse's Notes [facility] Name: Kathrine Yang Age: 32 yrs Sex: Female : 1990 Arrival Date: 03/22/2023 Time: 13:35 Bed 18 Private MD: Diagnosis: Complete or unspecified spontaneous without complication Presentation: 03/22 13:57 Chief complaint: Vaginal bleeding and lower abdominal pain since last night. Pt reports hb she is 9 weeks 4 days , , sees [facility] OB. Coronavirus screen: At this time, the client does not indicate any symptoms associated with coronavirus-19. Ebola Screen: No symptoms or risks identified at this time. Risk Assessment: Do you want to hurt yourself or someone else? Patient reports no desire to harm self or others. Onset of symptoms was March 21, 2023. 13:57 Method Of Arrival: Ambulatory hb 13:57 Acuity: TATA 3 hb 16:54 Initial Sepsis Screen: Does the patient meet any 2 criteria? No. Patient's initial ld1 sepsis screen is negative. Does the patient have a suspected source of infection? No. Patient's initial sepsis screen is negative. QUALITY CONTROL LAB TECH: 14:01 LMP 01/14/2023 hb 16:26 3, 0, Living 2, LMP 01/14/2023 kb Historical: - Allergies: 14:00 No Known Allergies; hb - Home Meds: 14:00 metformin 500 mg Oral Tablet, Extended Release 24 hr daily [Active]; hb - PMHx: 14:00 Gestational Diabetes; hb - PSHx: 14:00 Cholecystectomy; Appendectomy; section; hb - Immunization history:: Adult Immunizations up to date. - Social history:: Smoking status: Patient denies any tobacco usage or history of. Screenin:17 [facility] ED Fall Risk Assessment (Adult) History of falling in the last 3 months, ld1 including since admission No falls in past 3 months (0 pts). Abuse screen: Denies threats or abuse. Denies injuries from another. Nutritional screening: No deficits noted. Tuberculosis screening: No symptoms or risk factors identified. Assessment: 16:17 General: Appears in no apparent distress. comfortable, Behavior is calm, cooperative, ld1 appropriate for age. Pain: Complains of pain in abdomen Pain does not radiate. Pain currently is 8 out of 10 on a pain scale. Quality of pain is described as crampy. Neuro: Level of Consciousness is awake, alert, obeys commands, Oriented to person, place, time, situation. Cardiovascular: Capillary refill < 3 seconds Patient's skin is warm and dry. Respiratory: Airway is patent Respiratory effort is even, unlabored. GI: Abdomen is round non-distended, Bowel sounds present X 4 quads. Abd is soft Abdomen is tender to palpation. : No signs and/or symptoms were reported regarding the genitourinary system. EENT: No signs and/or symptoms were reported regarding the EENT system. Derm: No signs and/or symptoms reported regarding the dermatologic system. Musculoskeletal: No signs and/or symptoms reported regarding the musculoskeletal system. 16:54 Reassessment: Assisted ERP with pelvic exam. Pt denies concerns at this time. Collected ld1 specimen to send for testing per ERP order. Vital Signs: 14:00 Weight 94.8 kg; Height 5 ft. 3 in. ; hb 16:48 BP 122 / 60; Pulse 81; Resp 18; Pulse Ox 100% on R/A; ld1 16:48 Weight 83.91 kg; Pain 6/10; ld1 16:48 Temp 98.2(O); ld1 16:48 Body Mass Index 32.77 (83.91 kg, 160.02 cm) ld1 16:48 Pain Scale: Adult ld1 ED Course: 13:38 Patient arrived in ED. mr 13:39 Pavan AnnLOUISA [facility]. kb 13:39 Ashok Petersen MD is Attending Physician. kb 13:59 Triage completed. hb 14:00 Arm band placed on. hb 14:10 US Transvaginal Ob In Process Unspecified. EDMS 14:33 Urinalysis w/ reflexes Sent. mm9 14:33 Test, Urine Sent. mm9 14:41 Inserted saline lock: 20 gauge in left antecubital area, using aseptic technique. Blood zm collected. 16:03 Junie Fernando, RN is Primary Nurse. ld1 16:17 Patient has correct armband on for positive identification. Placed in gown. Bed in low ld1 position. Call light in reach. Side rails up X2. Pulse ox on. NIBP on. Door closed. Noise minimized. Warm blanket given. 16:17 No provider procedures requiring assistance completed. ld1 16:54 IV discontinued, intact, bleeding controlled, No redness/swelling at site. ld1 Administered Medications: No medications were administered Medication: 16:54 VIS not applicable for this client. ld1 Outcome: 16:42 Discharge ordered by . sandra 16:54 Discharged to home ambulatory, with family. ld1 16:54 Condition: stable 16:54 Discharge instructions given to patient, family, Instructed on discharge instructions, follow up and referral plans. Demonstrated understanding of instructions, follow-up care. 16:55 Patient left the ED. ld1 Signatures: Dispatcher [employer] EDMS Ann Browne, CERTIFIED RESPIRATORY THERAPIST-C CERTIFIED RESPIRATORY THERAPIST-Miriam Greenwood Heather, RN Junie Rausch RN RN ld1 Massiel Dixon Maria mm9
[2023-03-22 17:00] VITALS: BP 122/60; TEMP 98.2; O2SAT 100
== END 2023-03-22 16:55 | disposition home or self-care (01) ==
LOC: ER 13:35
DX: O03.9 Complete or unspecified spontaneous abortion without complication (principal); O24.419 Gestational diabetes mellitus in pregnancy, unspecified control
CPT/HCPCS: 36415; 76817; 80048; 81001; 81025; 84702; 85025; 86900; 86901; 88305